=== PATIENT | female | born 1985 | race Caucasian/White ===

== ENCOUNTER 2017-07-16 21:02 | Emergency (ER) | payer SELFPAY ==
[~2017-07-16] VITALS: Ht 157.5 cm; Wt 76.0 kg
[~2017-07-16 21:02] MED LIST: CEPH500C3 PO; CLIN150 PO; LORTA5 PO; SULF-154 PO
[2017-07-16 21:03] VITALS: BP 122/72; PULSE 103; RESP 16; TEMP 99.2; O2SAT 100
[2017-07-16] MEDS ORDERED: BACT400T PO (21:24)
--- NOTE | 2017-07-16 21:39 | PD ---
HPI Chief Complaint: Skin Problem Time Seen by Provider: 21:38 Travel History International Travel<30 days: No Contact w/Intl Traveler<30days: No Traveled to known affect area: No History of Present Illness HPI 32-year-old female came to the emergency room with history of left forearm abscess for past 1 week. As that she shot meth but missed the vein. Since then it has slowly started to get bigger in size. She has been getting some chills. In triage her temperature was 99.5 and slightly tachycardic. Patient denies any history of MRSA. She does have hepatitis C. She got tested for HIV 2-3 months ago and was negative. [facility] Past Medical History Narrative Medical List of her past medical, surgical, social and family history is reviewed from the nursing note. Diminished Hearing: No Integumentary: Yes (FRUNCULOSIS) Tetanus Vaccination: Unknown Influenza Vaccination: No ?: Not LMP: 07/11/17 : 3 Para: 2 : 1 Tubal Ligation: Yes Past Surgical History Section: Yes (X3) Social History Alcohol Use: No (DENIES) Tobacco Use: Yes (1 PPD) Substance Use: Yes (Meth IV. Hx Oxycodone and IV dilaudid) Allergies-Medications (Allergen,Severity, Reaction): Coded Allergies: acetaminophen (Unverified Allergy, Severe, "LOOPY", 06/24/17) propoxyphene (Unverified Allergy, Severe, "LOOPY", 06/24/17) Fish Containing Products (Unverified Allergy, Intermediate, 06/24/17) butorphanol (Unverified Allergy, Intermediate, HALUCINATIONS, 06/24/17) Comments List of her allergies reviewed from the nursing note. Reported Meds & Prescriptions Reported Meds & Active Scripts Active Zofran Odt (Ondansetron Odt) 4 Mg Tab 4 Mg SL Q6HR PRN Bactrim DS (Sulfamethoxazole-Trimethoprim) 800-160 Mg Tab 1 Tab PO BID Reported Bactrim (Sulfamethoxazole-Trimethoprim) 400-80 Mg Tab 1 Tab PO BID Narrative Medication List of her home medications reviewed from the nursing note. Review of Systems Except as stated in HPI: all other systems reviewed are Neg Physical Exam Narrative GENERAL: Awake, alert, mild distress SKIN: Focused skin assessment warm/dry. Left forearm on the extensor surface there is a 5 x 5 cm tender and fluctuant abscess with surrounding erythema HEAD: Atraumatic. Normocephalic. EYES: Pupils equal and round. No scleral icterus. No injection or drainage. ENT: No nasal bleeding or discharge. Mucous membranes pink and moist. NECK: Trachea midline. No JVD. CARDIOVASCULAR: Regular rate and rhythm. No murmur appreciated. RESPIRATORY: No accessory muscle use. Clear to auscultation. Breath sounds equal bilaterally. GASTROINTESTINAL: Abdomen soft, non-tender, nondistended. Hepatic and splenic margins not palpable. MUSCULOSKELETAL: No obvious deformities. No clubbing. No cyanosis. No edema. NEUROLOGICAL: Awake and alert. No obvious cranial nerve deficits. Motor grossly within normal limits. Normal speech. PSYCHIATRIC: Appropriate mood and affect; insight and judgment normal. Data Data Last Documented VS Orders Orders Complete Blood Count With Diff (07/16/17 21:41) Comprehensive Metabolic Panel (07/16/17 21:41) Lactic Acid Sepsis Protocol (07/16/17 21:41) Urinalysis - C+S If Indicated (07/16/17 21:41) Blood Culture (07/16/17 21:41) Blood Glucose (07/16/17 21:41) Ecg Monitoring (07/16/17 21:41) Iv Access Insert/Monitor (07/16/17 21:41) Oximetry (07/16/17 21:41) Oxygen Administration (07/16/17 21:41) Sodium Chlor 0.9% 1000 Ml Inj (Ns 1000 M (07/16/17 21:41) Sodium Chlor 0.9% 1000 Ml Inj (Ns 1000 M (07/16/17 21:41) Sodium Chlor 0.9% 1000 Ml Inj (Ns 1000 M (07/16/17 21:41) Vancomycin Inj (Vancomycin Inj) (07/16/17 21:45) Wound Culture And Gram Stain (07/16/17 21:41) Morphine Inj (Morphine Inj) (07/16/17 23:00) Ondansetron Inj (Zofran Inj) (07/17/17 00:15) Labs Laboratory Tests Test 07/16/17 21:40 07/16/17 21:50 Lactic Acid Level 1.1 mmol/L White Blood Count 6.8 TH/MM3 Red Blood Count 4.46 MIL/MM3 Hemoglobin 12.0 GM/DL Hematocrit 36.0 % Mean Corpuscular Volume 80.6 FL Mean Corpuscular Hemoglobin 26.9 PG Mean Corpuscular Hemoglobin Concent 33.3 % Red Cell Distribution Width 13.6 % Platelet Count 351 TH/MM3 Mean Platelet Volume 6.9 FL Neutrophils (%) (Auto) 54.9 % Lymphocytes (%) (Auto) 31.4 % Monocytes (%) (Auto) 10.8 % Eosinophils (%) (Auto) 2.1 % Basophils (%) (Auto) 0.8 % Neutrophils # (Auto) 3.7 TH/MM3 Lymphocytes # (Auto) 2.1 TH/MM3 Monocytes # (Auto) 0.7 TH/MM3 Eosinophils # (Auto) 0.1 TH/MM3 Basophils # (Auto) 0.1 TH/MM3 CBC Comment DIFF FINAL Differential Comment Urine Color YELLOW Urine Turbidity HAZY Urine pH 6.0 Urine Specific [place] 1.031 Urine Protein TRACE mg/dL Urine Glucose (UA) NEG mg/dL Urine Ketones NEG mg/dL Urine Occult Blood NEG Urine Nitrite NEG Urine Bilirubin NEG Urine Urobilinogen 4.0 MG/DL Urine Leukocyte Esterase NEG Urine RBC 2 /hpf Urine WBC 3 /hpf Urine Squamous Epithelial Cells 6 /hpf Urine Mucus FEW /lpf Microscopic Urinalysis Comment CATH-CULT NOT IND Blood Urea Nitrogen 11 MG/DL Creatinine 0.91 MG/DL Random Glucose 92 MG/DL Total Protein 8.4 GM/DL Albumin 3.5 GM/DL Calcium Level 8.6 MG/DL Alkaline Phosphatase 87 U/L Aspartate Amino Transf (AST/SGOT) 11 U/L Alanine Aminotransferase (ALT/SGPT) 37 U/L Total Bilirubin 0.3 MG/DL Sodium Level 137 MEQ/L Potassium Level 3.4 MEQ/L Chloride Level 100 MEQ/L Carbon Dioxide Level 28.2 MEQ/L Anion Gap 9 MEQ/L Estimat Glomerular Filtration Rate 71 ML/MIN MDM Medical Decision Making Medical Screen Exam Complete: Yes Emergency Medical Condition: Yes Medical Record Reviewed: Yes Differential Diagnosis Abscess Narrative Course 11:03 PM blood test results of back and within acceptable limits. Patient was given IV vancomycin and fluid as per sepsis protocol initially. I have I and D the abscess. Please refer to my procedure note. Patient has been given pain medication and she will be discharged home on Bactrim. Procedures Procedure Narrative Abscess incision and drainage: The abscess was infiltrated with 4 mL of 1% lidocaine. A vertical incision was made with #10 scalpel blade and with the forceps the loculations were broken. Copious amount of purulent discharge came out. Probably a total of 20 mL. Once all the purulent material was taken out packing with quarter-inch iodoform gauze was done. The wound was dressed with dry dressing. Patient overall tolerated good. Culture by swab was collected and sent. EKG Prior to Arrival: No Diagnosis Primary Impression: Abscess Additional Impression: IV drug abuse Referrals: Primary Care Physician Additional Instructions: Please return in 48 hours to get the packing taken out and wound rechecked. Earlier if the symptoms worsen or any other new concerns. Take the antibiotic as per the prescription direction. Med/Other Pt SpecificInfo: Prescription(s) given Scripts Ondansetron Odt (Zofran Odt) 4 Mg Tab 4 MG SL Q6HR Y for Nausea/Vomiting, #15 TAB 0 Refills Prov: Urmila Davis MD 07/16/17 Sulfamethoxazole-Trimethoprim (Bactrim DS) 800-160 Mg Tab 1 TAB PO BID for Infection, #20 TAB 0 Refills Prov: Urmila Davis MD 07/16/17 Disposition: 01 DISCHARGE HOME Condition: Stable Urmila Davsi MD Jul 16, 2017 21:39
[2017-07-16] MEDS ORDERED: SODIUM CHLOR 0.9% 1000 ML INJ 1,000 ML IV ONE ×2 (21:41)
[2017-07-16] MEDS ORDERED: SODIUM CHLOR 0.9% 1000 ML INJ 400 ML IV ONE (21:41)
[2017-07-16] MEDS ORDERED: VANCOMYCIN INJ 1,000 MG in SODIUM CHLOR 0.9% 250 ML INJ 250 ML IV ONE (21:45)
[2017-07-16 22:19] LABS: BLOOD, URINE NEG (NEG); GLUCOSE,URINE NEG (NEG); KETONE, URINE NEG (NEG); MUCUS URINE FEW /lpf (OCC); NITRITE,URINE NEG (NEG); SQUAMOUS EPITHELIAL CELL URINE 6 /hpf (0-5); URINE COLOR YELLOW (YELLW/STRAW)
[2017-07-16 22:20] LABS: AUTOMATED NEUTROPHIL # 3.7 TH/MM3 (1.8-7.7); BASOPHIL # 0.1 TH/MM3 (0-0.2); BASOPHIL % 0.8 % (0.0-2.0); COMMENT (UR) CATH-CULT NOT IND; CULTURE IF INDICATED CATH CULTURE NOT IND; EOSINOPHIL # 0.1 TH/MM3 (0-0.4); EOSINOPHIL % 2.1 % (0.0-4.0); HEMO FLAGS DIFF FINAL; LYMPH % 31.4 % (9.0-44.0); LYMPHOCYTE # 2.1 TH/MM3 (1.0-4.8); MEAN CELL VOLUME 80.6 FL (80.0-100.0); MEAN CORPUSCULAR HEMOGLOBIN 26.9 PG (27.0-34.0); MEAN CORPUSCULAR HGB CONC 33.3 % (32.0-36.0); MONO % 10.8 % (0.0-8.0); NEUT % 54.9 % (16.0-70.0); PLATELET COUNT 351 TH/MM3 (150-450); RED BLOOD COUNT 4.46 MIL/MM3 (4.00-5.30); RED CELL DISTRIBUTION WIDTH 13.6 % (11.6-17.2); WHITE BLOOD COUNT 6.8 TH/MM3 (4.0-11.0)
[2017-07-16 22:39] LABS: ANION GAP 9 MEQ/L (5-15); AST (GOT) 11 U/L (15-37); BICARBONATE 28.2 MEQ/L (21.0-32.0); BLOOD UREA NITROGEN 11 MG/DL (7-18); CHLORIDE 100 MEQ/L (98-107); GLOMERULAR FILTRATION RATE 71 ML/MIN (>89); POTASSIUM 3.4 MEQ/L (3.5-5.1); SODIUM (NA) 137 MEQ/L (136-145)
[2017-07-16 22:40] LABS: ALT (GPT) 37 U/L (10-53)
[2017-07-16 22:42] LABS: ALKALINE PHOSPHATASE 87 U/L (45-117); TOTAL BILIRUBIN ADULT 0.3 MG/DL (0.2-1.0)
[2017-07-16] MEDS ORDERED: MORPHINE SULFATE 8 MG/ML INJ IV PUSH ONE (23:00)
[2017-07-16] MEDS ORDERED: BACT800T5 PO (23:07)
[2017-07-16] MEDS ORDERED: ZOFR4TAB3 SL (23:10)
[2017-07-17] MEDS ORDERED: ONDANSETRON HCL 4 MG/2 ML VIAL IV PUSH ONE (00:15)
== END 2017-07-17 02:20 | disposition home or self-care (01) ==
LOC: NEPD 21:02
DX: L02.414 Cutaneous abscess of left upper limb (principal); A49.1 Streptococcal infection, unspecified site; F15.10 Other stimulant abuse, uncomplicated; R00.0 Tachycardia, unspecified; B19.20 Unspecified viral hepatitis C without hepatic coma; F17.200 Nicotine dependence, unspecified, uncomplicated; Z79.899 Other long term (current) drug therapy; Z88.8 Allergy status to other drugs, medicaments and biological substances
CPT/HCPCS: 10061; 80053; 81001; 83605; 85025; 86403; 87040; 87070; 96361; 96365; 96375; 99284; J2270; J2405; J3370; J7030; J7050; 87205

== ENCOUNTER 2017-10-25 20:08 | Inpatient (IN) | payer SELFPAY ==
[~2017-10-25] VITALS: Ht 157.5 cm; Wt 72.9 kg
[~2017-10-25 20:08] MED LIST changes: +BACT400T PO; +BACT800T5 PO; -CEPH500C3 PO; -CLIN150 PO; -LORTA5 PO; -SULF-154 PO; +ZOFR4TAB3 SL
[2017-10-25 20:10] VITALS: BP 111/64; PULSE 138; RESP 20; TEMP 101.2; O2SAT 95
[2017-10-25] MEDS ORDERED: SODIUM CHLOR 0.9% 1000 ML INJ 1,000 ML IV SCH ×2 (20:20)
--- NOTE | 2017-10-25 20:20 | PD ---
HPI Chief Complaint: Respiratory Distress Time Seen by Provider: 20:15 Travel History International Travel<30 days: No Contact w/Intl Traveler<30days: No Traveled to known affect area: No History of Present Illness HPI This is a 32-year-old female with history of IV drug abuse presents for evaluation of cough, congestion, left-sided chest pain, nausea, vomiting, fevers. Symptoms initially started 2 weeks ago. The pain is a sharp pain in left side of her chest which is constant, worse with deep inspiration. Cough is productive with green/yellow sputum. Denies abdominal pain, rash, sore throat, dysuria. No other complaints. PFSH Past Medical History Medical History: Denies Significant Hx Diminished Hearing: No Integumentary: Yes (FRUNCULOSIS) ?: Not LMP: 2 WEEKS AGO : 3 Para: 2 : 1 Tubal Ligation: Yes Past Surgical History Section: Yes (X3) Social History Alcohol Use: Yes (OCC) Tobacco Use: Yes (1 PPD) Substance Use: Yes (Meth IV. Hx Oxycodone and IV dilaudid FEW WEEKS AGO ) Allergies-Medications (Allergen,Severity, Reaction): Coded Allergies: acetaminophen (Unverified Allergy, Severe, "LOOPY", 10/25/17) propoxyphene (Unverified Allergy, Severe, "LOOPY", 10/25/17) Fish Containing Products (Unverified Allergy, Intermediate, 10/25/17) butorphanol (Unverified Allergy, Intermediate, HALUCINATIONS, 10/25/17) Reported Meds & Prescriptions Reported Meds & Active Scripts Active No Active Prescriptions or Reported Medications Review of Systems Except as stated in HPI: all other systems reviewed are Neg Physical Exam Narrative GENERAL: Well-developed well-nourished female who appears uncomfortable on initial examination. She is tachycardic, febrile. SKIN: Warm and dry. Tract waddell noted on the arms. HEAD: Atraumatic. Normocephalic. EYES: Pupils equal and round. No scleral icterus. No injection or drainage. ENT: No nasal bleeding or discharge. Mucous membranes pink and moist. NECK: Trachea midline. No JVD. CARDIOVASCULAR: Regular rate and rhythm. No murmur appreciated. RESPIRATORY: No accessory muscle use. Clear to auscultation. Breath sounds equal bilaterally. GASTROINTESTINAL: Abdomen soft, non-tender, nondistended. Hepatic and splenic margins not palpable. MUSCULOSKELETAL: No obvious deformities. No edema. NEUROLOGICAL: Awake and alert. No obvious cranial nerve deficits. Motor grossly within normal limits. Normal speech. PSYCHIATRIC: Appropriate mood and affect; insight and judgment normal. Data Data Last Documented VS Vital Signs Date Time Temp Pulse Resp B/P (MAP) Pulse Ox O2 Delivery O2 Flow Rate FiO2 10/25/17 20:10 101.2 138 20 111/64 (80) 95 Room Air Orders Orders Sepsis Workup Initiated (10/25/17 ) Complete Blood Count With Diff (10/25/17 20:20) Comprehensive Metabolic Panel (10/25/17 20:20) Lactic Acid Sepsis Protocol (10/25/17 20:20) Lipase (10/25/17 20:20) Ckmb (Isoenzyme) Profile (10/25/17 20:20) Troponin I (10/25/17 20:20) Urinalysis - C+S If Indicated (10/25/17 20:20) Influenzae A/B Antigen (10/25/17 20:20) Blood Culture (10/25/17 20:20) Chest, Single Ap (10/25/17 20:20) Blood Glucose (10/25/17 20:20) Ecg Monitoring (10/25/17 20:20) Iv Access Insert/Monitor (10/25/17 20:20) Oximetry (10/25/17 20:20) Oxygen Administration (10/25/17 20:20) Ed Urine Pregnancytest Poc (10/25/17 20:20) Electrocardiogram (10/25/17 ) Sodium Chlor 0.9% 1000 Ml Inj (Ns 1000 M (10/25/17 20:20) Sodium Chlor 0.9% 1000 Ml Inj (Ns 1000 M (10/25/17 20:20) Ct Pulmonary Angiogram (10/25/17 20:20) Influenzae A/B Antigen (10/25/17 20:25) Vancomycin Inj (Vancomycin Inj) (10/25/17 20:45) Piperacil-Tazo 3.375 Gm Premix (Zosyn 3. (10/25/17 20:45) Iohexol 350 Inj (Omnipaque 350 Inj) (10/25/17 22:28) Ibuprofen (Motrin) (10/25/17 22:45) Labs Laboratory Tests Test 10/25/17 20:30 White Blood Count 12.3 TH/MM3 Red Blood Count 4.04 MIL/MM3 Hemoglobin 9.3 GM/DL Hematocrit 29.1 % Mean Corpuscular Volume 72.1 FL Mean Corpuscular Hemoglobin 23.1 PG Mean Corpuscular Hemoglobin Concent 32.1 % Red Cell Distribution Width 16.7 % Platelet Count 294 TH/MM3 Mean Platelet Volume 7.8 FL Neutrophils (%) (Auto) 89.6 % Lymphocytes (%) (Auto) 7.5 % Monocytes (%) (Auto) 2.5 % Eosinophils (%) (Auto) 0.0 % Basophils (%) (Auto) 0.4 % Neutrophils # (Auto) 11.0 TH/MM3 Lymphocytes # (Auto) 0.9 TH/MM3 Monocytes # (Auto) 0.3 TH/MM3 Eosinophils # (Auto) 0.0 TH/MM3 Basophils # (Auto) 0.1 TH/MM3 CBC Comment DIFF FINAL Differential Comment Blood Urea Nitrogen 10 MG/DL Creatinine 0.98 MG/DL Random Glucose 132 MG/DL Total Protein 8.0 GM/DL Albumin 2.4 GM/DL Calcium Level 8.2 MG/DL Alkaline Phosphatase 67 U/L Aspartate Amino Transf (AST/SGOT) 39 U/L Alanine Aminotransferase (ALT/SGPT) 20 U/L Total Bilirubin 0.5 MG/DL Sodium Level 127 MEQ/L Potassium Level 3.9 MEQ/L Chloride Level 96 MEQ/L Carbon Dioxide Level 22.1 MEQ/L Anion Gap 9 MEQ/L Estimat Glomerular Filtration Rate 65 ML/MIN Lactic Acid Level 1.5 mmol/L Total Creatine Kinase 41 U/L Troponin I 0.06 NG/ML Lipase 66 U/L [facility] Medical Decision Making Medical Screen Exam Complete: Yes Emergency Medical Condition: Yes Medical Record Reviewed: Yes Differential Diagnosis Pneumonia, endocarditis, septic emboli, influenza, sepsis Narrative Course 32-year-old female with history of IV drug abuse presents with 2 weeks of cough , left-sided chest pain, fevers and chills, nausea and vomiting. On initial examination she is tachycardic, tachypneic, febrile. The patient was placed on ECG monitoring pulse oximetry. Twelve-lead EKG obtained. Plan is for lab work , blood cultures, chest x-ray, influenza antigen. She will be given 2 L of IV fluids. CBC reveals WBC count of 12.3 with 89.6% neutrophils, sodium 127, chloride 96, troponin 0.06. Influenza is negative. CT pulmonary angiogram is negative for pulmonary embolism however there is a wedge-shaped consolidation in the lingula with cavitation. Findings are characteristic of a cavitary pneumonia possibly due to septic embolic disease. There is a large suspected infarct and anterior spleen. The patient received IV vancomycin and Zosyn. Discussed with Dr. Maloney who is agreeable with admission. Diagnosis Primary Impression: IV drug abuse Additional Impressions: Sepsis Cavitary pneumonia Splenic infarct Admitting Information Admitting Physician Requests: Admit Scripts No Active Prescriptions or Reported Meds Gio Hwang Oct 25, 2017 20:20
[2017-10-25 20:35] VITALS: RESP 19; O2SAT 100
[2017-10-25] MEDS ORDERED: PIPERACIL-TAZO 3.375 GM PREMIX 50 ML IV ONE (20:45)
[2017-10-25] MEDS ORDERED: VANCOMYCIN INJ 1,000 MG in SODIUM CHLOR 0.9% 250 ML INJ 250 ML IV ONE (20:45)
[2017-10-25 20:58] LABS: BASOPHIL # 0.1 TH/MM3 (0-0.2); BASOPHIL % 0.4 % (0.0-2.0); HEMATOCRIT 29.1 % (35.0-46.0); HEMOGLOBIN 9.3 GM/DL (11.6-15.3); LYMPH % 7.5 % (9.0-44.0); LYMPHOCYTE # 0.9 TH/MM3 (1.0-4.8); MEAN CELL VOLUME 72.1 FL (80.0-100.0); MEAN CORPUSCULAR HEMOGLOBIN 23.1 PG (27.0-34.0); MEAN CORPUSCULAR HGB CONC 32.1 % (32.0-36.0); MEAN PLATELET VOLUME 7.8 FL (7.0-11.0); MONO % 2.5 % (0.0-8.0); MONOCYTE # 0.3 TH/MM3 (0-0.9); NEUT % 89.6 % (16.0-70.0); PLATELET COUNT 294 TH/MM3 (150-450); RED BLOOD COUNT 4.04 MIL/MM3 (4.00-5.30); RED CELL DISTRIBUTION WIDTH 16.7 % (11.6-17.2); WHITE BLOOD COUNT 12.3 TH/MM3 (4.0-11.0)
--- NOTE | 2017-10-25 21:07 | RADRPT ---
EXAM DATE/TIME: 10/25/2017 20:36 [facility] COMPARISON: No previous studies available for comparison. INDICATIONS : Cough. MEDICAL HISTORY : None. SURGICAL HISTORY : Tubal ligation. ENCOUNTER: Initial ACUITY: 2 weeks PAIN SCORE: 10/10 LOCATION: Bilateral chest FINDINGS: There is parenchymal opacity left perihilar region. CT pending. Right lung relatively clear. No effus ion. Heart size within normal limits. CONCLUSION: 1. Left perihilar parenchymal opacity. CT pulmonary angiogram pending. No effusions. Christophe Hagen MD on October 25, 2017 at 21:04 Board Certified Radiologist. This report was verified electronically.
[2017-10-25 21:10] LABS: ALT (GPT) 20 U/L (10-53)
[2017-10-25 21:16] LABS: ALBUMIN 2.4 GM/DL (3.4-5.0); ALKALINE PHOSPHATASE 67 U/L (45-117); AST (GOT) 39 U/L (15-37); BICARBONATE 22.1 MEQ/L (21.0-32.0); BLOOD UREA NITROGEN 10 MG/DL (7-18); CALCIUM 8.2 MG/DL (8.5-10.1); CHLORIDE 96 MEQ/L (98-107); CREATININE 0.98 MG/DL (0.50-1.00); GLOMERULAR FILTRATION RATE 65 ML/MIN (>89); GLUCOSE,RANDOM 132 MG/DL (74-106); LIPASE 66 U/L (73-393); SODIUM (NA) 127 MEQ/L (136-145); TOTAL BILIRUBIN ADULT 0.5 MG/DL (0.2-1.0); TROPONIN I 0.06 NG/ML (0.02-0.05)
[2017-10-25] MEDS ORDERED: IOHEXOL 350 MG/ML 10 ML VIAL (for RAD DIAG) IVCONTRAST ONE (22:28)
--- NOTE | 2017-10-25 22:42 | RADRPT ---
EXAM DATE/TIME: 10/25/2017 22:24 [facility] COMPARISON: No previous studies available for comparison. INDICATIONS : Left sided chest pain X 2 weeks. IV CONTRAST: 76 cc Omnipaque 350 (iohexol) IV RADIATION DOSE: 23.38 CTDIvol (mGy) MEDICAL HISTORY : IV drug abuse SURGICAL HISTORY : None. ENCOUNTER: Initial ACUITY: 2 weeks PAIN SCALE: 5/10 LOCATION: chest TECHNIQUE: Volumetric scanning of the chest was performed using a pulmonary embolism protocol MIP images were re constructed. Using automated exposure control and adjustment of the mA and/or kV according to patien t size, radiation dose was kept as low as reasonably achievable to obtain optimal diagnostic quality images. DICOM format image data is available electronically for review and comparison. Follow-up recommendations for detected pulmonary nodules are based at a minimum on nodule size and pa tient risk factors according to Fleischner Society Guidelines. FINDINGS: There is a wedge-shaped focal consolidation in the lingula of the left upper lobe associated with cav itation. No other dense consolidation in the lungs. Minimal dependent atelectasis. No filling defects to suggest pulmonary embolic disease. Upper abdomen reveals a large wedge shaped perfusion defect in the spleen most characteristic of a sp lenic infarct. CONCLUSION: 1. Negative for pulmonary embolus on CTA. 2. Wedge-shaped consolidation in the lingula with cavitation. Findings characteristic of a cavitary p neumonia possibly due to septic embolic disease. There is a large suspected infarct in the anterior s pleen. Christophe Hagen MD on October 25, 2017 at 22:36 Board Certified Radiologist. This report was verified electronically.
[2017-10-25] MEDS ORDERED: IBUPROFEN 400 MG TAB PO ONE (22:45)
--- NOTE | 2017-10-25 22:59 | HHI.HP ---
[facility] No Primary Care Physician Admission Diagnosis sepsis, cavitary pneumonia, IVDU, splenic infarct Diagnoses: (1) Sepsis Diagnosis: Principal (2) Cavitary pneumonia Diagnosis: Principal (3) Splenic infarct Diagnosis: Principal (4) Elevated troponin Diagnosis: Principal (5) IVDU (intravenous drug user) Diagnosis: Principal (6) Tobacco abuse Diagnosis: Principal (7) Anemia Diagnosis: Principal Travel History International Travel<30 Days: No Contact w/Intl Traveler <30 Da: No Traveled to Known Affected Are: No History of Present Illness This is a 32-year-old female with a PMH of IVDU and Tobacco Abuse who presented to the ER with complaints of cough and chest pain for approx 2 wks. States symptoms have been persistent, now progressively worse. Reports occasional fevers/chills. +Ongoing IVDU. On arrival, BP 111/64, HR 138, O2 sat 95% on RA , Temp 101.2. WBC 12.3. Hemoglobin 9.3, previously 12.0 on 07/16/17. Lactic Acid 1.5. Troponin 0.06. CXR with left perihilar parenchymal opacity. CTA Pulm negative for PE, noted to have wedge-shaped consolidation in the lingula with cavitation, findings characteristic of cavitary pneumonia probably due to septic embolic disease, suspected large infarct in anterior spleen. S/p Blood Cultures, Vanc/Zosyn in addition to 2L IVF in ER. Review of Systems Except as stated in HPI: all other systems reviewed are Neg ROS: 14 point review of systems otherwise negative. Past Family Social History Past Medical History PMH: IVDU and Tobacco Abuse Past Surgical History PAST SURGICAL HISTORY: Allergies: Coded Allergies: acetaminophen (Unverified Allergy, Severe, "LOOPY", 10/25/17) propoxyphene (Unverified Allergy, Severe, "LOOPY", 10/25/17) Fish Containing Products (Unverified Allergy, Intermediate, 10/25/17) butorphanol (Unverified Allergy, Intermediate, HALUCINATIONS, 10/25/17) Family History PAST FAMILY HISTORY: Reviewed. No h/o DM or CAD Social History PAST SOCIAL HISTORY: Negative for alcohol. Smokes 1ppd. +IVDU Methamphetamines, Dilaudid Physical Exam Vital Signs Vital Signs Date Time Temp Pulse Resp B/P (MAP) Pulse Ox O2 Delivery O2 Flow Rate FiO2 10/25/17 20:10 101.2 138 20 111/64 (80) 95 Room Air Physical Exam PE: GENERAL: Young female in no acute distress. HEENT: PERRLA, EOMI. No scleral icterus or conjunctival pallor. No lid lag or facial droop. CARDIOVASCULAR: Regular rate and rhythm. No obvious murmurs to auscultation. No chest tenderness to palpation. RESPIRATORY: No obvious rhonchi or wheezing. Clear to auscultation. Breath sounds equal bilaterally. GASTROINTESTINAL: Abdomen soft, non-tender, nondistended. BS normal. MUSCULOSKELETAL: Extremities without clubbing, cyanosis, or edema. No obvious deformities. +track waddell. Pulses intact. NEUROLOGICAL: Awake, alert and oriented x4. No focal neurologic deficits. Moving both upper and lower extremities spontaneously. Laboratory Laboratory Tests Test 10/25/17 20:30 White Blood Count 12.3 Red Blood Count 4.04 Hemoglobin 9.3 Hematocrit 29.1 Mean Corpuscular Volume 72.1 Mean Corpuscular Hemoglobin 23.1 Mean Corpuscular Hemoglobin Concent 32.1 Red Cell Distribution Width 16.7 Platelet Count 294 Mean Platelet Volume 7.8 Neutrophils (%) (Auto) 89.6 Lymphocytes (%) (Auto) 7.5 Monocytes (%) (Auto) 2.5 Eosinophils (%) (Auto) 0.0 Basophils (%) (Auto) 0.4 Neutrophils # (Auto) 11.0 Lymphocytes # (Auto) 0.9 Monocytes # (Auto) 0.3 Eosinophils # (Auto) 0.0 Basophils # (Auto) 0.1 CBC Comment DIFF FINAL Differential Comment Blood Urea Nitrogen 10 Creatinine 0.98 Random Glucose 132 Total Protein 8.0 Albumin 2.4 Calcium Level 8.2 Alkaline Phosphatase 67 Aspartate Amino Transf (AST/SGOT) 39 Alanine Aminotransferase (ALT/SGPT) 20 Total Bilirubin 0.5 Sodium Level 127 Potassium Level 3.9 Chloride Level 96 Carbon Dioxide Level 22.1 Anion Gap 9 Estimat Glomerular Filtration Rate 65 Lactic Acid Level 1.5 Total Creatine Kinase 41 Troponin I 0.06 Lipase 66 Date/Time Source Procedure Growth Status 12/16/17 20:30 Blood Peripheral Aerobic Blood Culture Pending Received 10/25/17 20:30 Blood Peripheral Anaerobic Blood Culture Pending Received 10/25/17 21:00 Nasal Aspirate Influenza Types A,B Antigen (JONNY) - Final NEGATIVE FOR FLU A AND B ANTIGEN.... Complete Result Diagram: 10/25/17202910/25/172029 Caprini VTE Risk Assessment Caprini VTE Risk Assessment: No/Low Risk (score <= 1) Caprini Risk Assessment Model Point Value = 1 Point Value = 2 Point Value = 3 Point Value = 5 Age 41-60 Minor surgery BMI > 25 kg/m2 Swollen legs Varicose veins or History of unexplained or recurrent spontaneous Oral contraceptives or hormone replacement Sepsis (< 1 month) Serious lung disease, including pneumonia (< 1 month) Abnormal pulmonary function Acute myocardial infarction Congestive heart failure (< 1 month) History of inflammatory bowel disease Medical patient at bed rest Age 61-74 Arthroscopic surgery Major open surgery (> 45 min) Laparoscopic surgery (> 45 min) Malignancy Confined to bed (> 72 hours) Immobilizing plaster cast Central venous access Age >= 75 History of VTE Family history of VTE Factor V Leiden Prothrombin [id number] Lupus anticoagulant Anticardiolipin antibodies Elevated serum homocysteine Heparin-induced thrombocytopenia Other congenital or acquired thrombophilia Stroke (< 1 month) Elective arthroplasty Hip, pelvis, or leg fracture Acute spinal cord injury (< 1 month) Prophylaxis Regimen Total Risk Factor Score Risk Level Prophylaxis Regimen 0-1 Low Early ambulation 2 Moderate Order ONE of the following: *Sequential Compression Device (SCD) *Heparin 5000 units SQ BID 3-4 Higher Order ONE of the following medications: *Heparin 5000 units SQ TID *Enoxaparin/Lovenox 40 mg SQ daily (WT < 150 kg, CrCl > 30 mL/min) *Enoxaparin/Lovenox 30 mg SQ daily (WT < 150 kg, CrCl > 10-29 mL/min) *Enoxaparin/Lovenox 30 mg SQ BID (WT < 150 kg, CrCl > 30 mL/min) AND/OR *Sequential Compression Device (SCD) 5 or more Highest Order ONE of the following medications: *Heparin 5000 units SQ TID (Preferred with Epidurals) *Enoxaparin/Lovenox 40 mg SQ daily (WT < 150 kg, CrCl > 30 mL/min) *Enoxaparin/Lovenox 30 mg SQ daily (WT < 150 kg, CrCl > 10-29 mL/min) *Enoxaparin/Lovenox 30 mg SQ BID (WT < 150 kg, CrCl > 30 mL/min) AND *Sequential Compression Device (SCD) Assessment and Plan Problem List: (1) Sepsis ICD Code: A41.9 - Sepsis, unspecified organism Status: Acute (2) Cavitary pneumonia ICD Code: J18.9 - Pneumonia, unspecified organism; J98.4 - Other disorders of lung Status: Acute (3) Elevated troponin ICD Code: R74.8 - Abnormal levels of other serum enzymes (4) Splenic infarct ICD Code: D73.5 - Infarction of spleen Status: Acute (5) IVDU (intravenous drug user) ICD Code: F19.90 - Other psychoactive substance use, unspecified, uncomplicated (6) Anemia ICD Code: D64.9 - Anemia, unspecified (7) Tobacco abuse ICD Code: Z72.0 - Tobacco use Assessment and Plan A/P: 1. Sepsis: Temp 101.3, HR 130's, WBC 12.3, Source-PNA/Septic Emboli. S/p Blood Cultures, Vanc/Zosyn in ER. Follow up cultures, continue IV Abx. 2. Cavitary PNA: CXR w/ perihilar opacity, CTA Pulm negative for PE however noted to have cavitary pneumonia, likely from septic emboli, images reviewed by me. +IVDU. Follow up cultures, continue IV Abx, Consult ID for further recommendations. 3. Elevated Trop: Trop 0.06, possibly cardiac strain from septic emboli. Check serial cardiac enzymes, check Echo. NTG/Morphine if needed. 4. Splenic Infarct: CTA Pulm w/ possible large splenic infarct, likely from IVDU and septic emboli. 5. Anemia: Hgb 9.3, previously 12.0 on 07/16/17, likely due to above. Will monitor, repeat Hgb, transfuse as needed. 6. IVDU: Ongoing. Versed prn 7. Tobacco Abuse: Pt counselled. NicoDerm prn if needed. 8. DVT Prophylaxis: SCD/Teds. 9. Social work for d/c planning as needed. 10. Case discussed w/ ER physician at length. Physician Certification 2 Midnight Certification Type: Admission for Inpatient Services Order for Inpatient Services The services are ordered in accordance with Medicare regulations or non- Medicare payer requirements, as applicable. In the case of services not specified as inpatient-only, they are appropriately provided as inpatient services in accordance with the 2-midnight benchmark. Estimated LOS (days): 2 days is the estimated time the patient will need to remain in the hospital, assuming treatment plan goals are met and no additional complications. Post-Hospital Plan: Not yet determined Amanda Maloney MD Oct 25, 2017 22:59
[2017-10-25] MEDS ORDERED: SENNOSIDES 8.6 MG TAB PO PRN (23:00)
[2017-10-25] MEDS ORDERED: BISACODYL 10 MG SUPP RECTAL PRN (23:00)
[2017-10-25] MEDS ORDERED: ONDANSETRON HCL 4 MG/2 ML VIAL IVP PRN (23:00)
[2017-10-25] MEDS ORDERED: LACTULOSE SYRUP 20 GM/30 ML CUP PO PRN (23:00)
[2017-10-25] MEDS ORDERED: LORazepam 1 MG TAB PO PRN (23:00)
[2017-10-25] MEDS ORDERED: Vancomycin Consult Pharmacy 1 EA OTHER SCH (23:00)
[2017-10-25] MEDS ORDERED: SODIUM CHLORIDE 0.9% FLUSH 10 ML FLUSH IV FLUSH PRN (23:00)
[2017-10-25] MEDS ORDERED: MAGNESIUM HYDROXIDE SUSP 30 ML CUP PO PRN (23:00)
[2017-10-26] VITALS (10 sets, daily range): BP systolic 80–128; BP diastolic 44–67; PULSE 87–113; RESP 16–22; TEMP 96.9–98.3; O2SAT 94–99
[2017-10-26] MEDS: SODIUM CHLOR 0.9% 1000 ML INJ 1,000 ML IV SCH ×3 (00:03→18:40)
[2017-10-26 01:58] LABS: BILIRUBIN, URINE NEG (NEG); BLOOD, URINE SMALL (NEG); GLUCOSE,URINE NEG (NEG); KETONE, URINE NEG (NEG); MUCUS URINE FEW /lpf (OCC); NITRITE,URINE NEG (NEG); SQUAMOUS EPITHELIAL CELL URINE 1 /hpf (0-5); URINE COLOR YELLOW (YELLW/STRAW); URINE LEUKOCYTE ESTERASE TRACE (NEG)
[2017-10-26] MEDS ORDERED: SODIUM CHLOR 0.9% 1000 ML INJ 1,000 ML IV ONE ×3 (02:45→06:45)
[2017-10-26 07:49] LABS: AUTOMATED NEUTROPHIL # 8.6 TH/MM3 (1.8-7.7); BASOPHIL # 0.1 TH/MM3 (0-0.2); BASOPHIL % 0.5 % (0.0-2.0); HEMATOCRIT 25.9 % (35.0-46.0); HEMOGLOBIN 8.5 GM/DL (11.6-15.3); LYMPH % 9.9 % (9.0-44.0); MEAN CORPUSCULAR HEMOGLOBIN 23.9 PG (27.0-34.0); MEAN CORPUSCULAR HGB CONC 32.7 % (32.0-36.0); MEAN PLATELET VOLUME 8.1 FL (7.0-11.0); MONOCYTE # 0.7 TH/MM3 (0-0.9); NEUT % 82.6 % (16.0-70.0); PLATELET COUNT 204 TH/MM3 (150-450); RED BLOOD COUNT 3.55 MIL/MM3 (4.00-5.30); RED CELL DISTRIBUTION WIDTH 16.6 % (11.6-17.2); WHITE BLOOD COUNT 10.4 TH/MM3 (4.0-11.0)
[2017-10-26] MEDS: CEFEPIME INJ 1,000 MG in SODIUM CHLORIDE 0.9% INJ 100 ML IV SCH ×2 (07:55→21:41)
[2017-10-26] MEDS: SODIUM CHLORIDE 0.9% FLUSH 10 ML FLUSH IV FLUSH SCH ×2 (07:55→21:39)
[2017-10-26] MEDS: DOCUSATE SODIUM 50 MG/SENNA 8.6 MG TAB PO SCH ×2 (07:55→21:41)
[2017-10-26 08:05] LABS: ALBUMIN 1.8 GM/DL (3.4-5.0); ALKALINE PHOSPHATASE 56 U/L (45-117); ALT (GPT) 18 U/L (10-53); AST (GOT) 34 U/L (15-37); BICARBONATE 20.6 MEQ/L (21.0-32.0); BLOOD UREA NITROGEN 8 MG/DL (7-18); CALCIUM 7.8 MG/DL (8.5-10.1); CHLORIDE 109 MEQ/L (98-107); CREATININE 0.67 MG/DL (0.50-1.00); GLOMERULAR FILTRATION RATE 101 ML/MIN (>89); GLUCOSE,RANDOM 111 MG/DL (74-106); SODIUM (NA) 138 MEQ/L (136-145); TOTAL BILIRUBIN ADULT 0.4 MG/DL (0.2-1.0); TOTAL PROTEIN 6.7 GM/DL (6.4-8.2)
[2017-10-26] MEDS ORDERED: ONDANSETRON HCL 4 MG/2 ML VIAL IV PUSH PRN (10:15)
[2017-10-26] MEDS ORDERED: ACETAMINOPHEN 325 MG TAB PO PRN (10:15)
[2017-10-26] MEDS ORDERED: CALCIUM CARBONATE 500 MG CHEWABLE TAB CHEW PRN (10:15)
--- NOTE | 2017-10-26 10:15 | HHI.PR ---
Subjective Remarks Follow up sepsis/PNA/IVDU 10/26/17-patient seen and examined; complains of shortness of breath, chest pain. Afebrile. Complains of right shoulder pain. Blood culture positive 4#4 Objective Vitals Vital Signs Date Time Temp Pulse Resp B/P (MAP) Pulse Ox O2 Delivery O2 Flow Rate FiO2 10/26/17 08:00 97.3 87 16 85/50 (62) 99 10/26/17 04:00 96.9 94 21 86/44 (58) 98 10/26/17 04:00 90/52 (65) 10/26/17 03:30 88/52 (64) 10/26/17 03:00 80/48 (59) 10/26/17 02:35 102 82/58 (66) 10/26/17 02:00 98.0 104 20 80/48 (59) 98 10/26/17 00:30 107 22 128/67 (87) 98 Room Air 10/25/17 20:35 100 Nasal Cannula 2.00 10/25/17 20:35 19 100 Room Air 10/25/17 20:10 101.2 138 20 111/64 (80) 95 Room Air I/O 10/25/17 10/25/17 10/25/17 10/26/17 10/26/17 10/26/17 07:00 15:00 23:00 07:00 15:00 23:00 Intake Total 0 ml Balance 0 ml Intake Oral 0 ml Result Diagram: 10/26/17 0600 10/26/17 0600 Imaging Last Impressions Chest X-Ray 10/25/172019 Signed Impressions: Service Date/Time: Wednesday, October 25, 2017 20:36 - CONCLUSION: 1. Left perihilar parenchymal opacity. CT pulmonary angiogram pending. No effusions. Christophe Hagen MD CT Angiography 10/25/172019 Signed Impressions: Service Date/Time: Wednesday, October 25, 2017 22:24 - CONCLUSION: 1. Negative for pulmonary embolus on CTA. 2. Wedge-shaped consolidation in the lingula with cavitation. Findings characteristic of a cavitary pneumonia possibly due to septic embolic disease. There is a large suspected infarct in the anterior spleen. Christophe Hagen MD Objective Remarks GENERAL: NAD SKIN: Warm and dry. HEAD: Normocephalic. EYES: No scleral icterus. No injection or drainage. NECK: Supple, trachea midline. No JVD or lymphadenopathy. CARDIOVASCULAR: Regular rate and rhythm without murmurs, gallops, or rubs. RESPIRATORY: Breath sounds equal bilaterally. No accessory muscle use. GASTROINTESTINAL: Abdomen soft, non-tender, nondistended. MUSCULOSKELETAL: No cyanosis, or edema. BACK: Nontender without obvious deformity. No CVA tenderness. A/P Problem List: (1) Gram-positive bacteremia ICD Code: R78.81 - Bacteremia (2) Sepsis ICD Code: A41.9 - Sepsis, unspecified organism Status: Acute (3) Cavitary pneumonia ICD Code: J18.9 - Pneumonia, unspecified organism; J98.4 - Other disorders of lung Status: Acute (4) Elevated troponin ICD Code: R74.8 - Abnormal levels of other serum enzymes (5) Splenic infarct ICD Code: D73.5 - Infarction of spleen Status: Acute (6) IVDU (intravenous drug user) ICD Code: F19.90 - Other psychoactive substance use, unspecified, uncomplicated (7) Anemia ICD Code: D64.9 - Anemia, unspecified (8) Tobacco abuse ICD Code: Z72.0 - Tobacco use Assessment and Plan 32 yrs old female with 1. Gram positive Bacteremia: Repeat Blood culture. ID consultation pending. Continue with current IV Abx 2. Sepsis: Source-PNA/Septic Emboli. S/p Blood Cultures, Vanc/Zosyn in ER. Follow up cultures, continue IV Abx. 3. Cavitary PNA: CXR w/ perihilar opacity, CTA Pulm negative for PE however noted to have cavitary pneumonia, likely from septic emboli. +IVDU. Follow up cultures, continue IV Abx, Consult ID for further recommendations. 4. Elevated Trop: Trop 0.06, possibly cardiac strain from septic emboli. Continue to monitor serial cardiac enzymes, Echo pending. NTG/Morphine if needed. 5. Splenic Infarct: CTA Pulm w/ possible large splenic infarct, likely from IVDU and septic emboli. 6. Anemia: Hgb 9.3, previously 12.0 on 07/16/17, likely due to above. Monitor H /H. transfuse as needed. 7. IVDU: Ongoing. Versed prn 8. Tobacco Abuse: Pt counselled. NicoDerm prn if needed. Saad Holt MD Oct 26, 2017 10:15
--- NOTE | 2017-10-26 10:58 | EKG ---
Date Performed: 10/25/2017 Time Performed: 20:41:38 PTAGE: 32 years EKG: SINUS TACHYCARDIA ABNORMAL RHYTHM ECG PREVIOUS TRACING : 10/09/2004 20.53 Compared to previous tracing, heart rate has increased. DOCTOR: Ming Gonzales Interpretating Date/Time 10/26/2017 10:56:49
[2017-10-26] MEDS: VANCOMYCIN INJ 1,250 MG in SODIUM CHLOR 0.9% 250 ML INJ 250 ML IV SCH ×2 (12:25→21:26)
--- NOTE | 2017-10-26 13:21 | MB ---
cc: SHERMAN BARRETT MD DATE OF CONSULTATION: 10/26/[address] Holt. REASON FOR CONSULTATION: IVDU, sepsis, possible septic emboli. HISTORY OF PRESENT ILLNESS This is a 32-year-old white female who is an IV drug user. The patient came to the emergency department with respiratory distress and she was having cough, left-sided chest pain, nausea, vomiting and fevers. The ED report stated that the symptoms began two weeks ago. The patient tells me that she started having sharp pain in her left chest and coughing about two days ago. She states that she last used IV drugs two days ago. In the emergency department she had a temperature of 101.2 degrees, heart rate 138, respiratory rate of 20, white blood cell count of 12.3. Chest x-ray was performed and it shows perihilar parenchymal opacity. CT scan of the chest showed a wedge shaped consolidation in the lingula with cavitation, findings characteristic of cavitary pneumonia, possibly due to septic embolic disease. There is also a large suspected infarct in the anterior spleen. The patient points to the lower ribcage area when asked to give the location of her pain. She denies hemoptysis or back pain. Blood cultures on admission has gram-positive cocci in all four bottles. The patient has an area of the right forearm which is swollen. She points to that area where she last injected IV Dilaudid two days ago. PAST MEDICAL HISTORY: 1. IV drug abuse. 2. Tobacco abuse. 3. . ALLERGIES PROPOXYPHENE BUTORPHANOL ACETAMINOPHEN FISH CONTAINING PRODUCTS MEDICATIONS: 1. Vancomycin 2. Cefepime. SOCIAL HISTORY: The patient smokes a pack of cigarettes a day. Denies alcohol. Positive IV drug use in the form of Dilaudid. FAMILY HISTORY: Noncontributory. REVIEW OF SYSTEMS: Pertinent mentioned above in the history of present illness. PHYSICAL EXAMINATION: This is a well-developed female who is in no acute distress. She appears chronically ill. VITAL SIGNS: Temperature 97.3, blood pressure 85/50, respiratory rate 16, heart rate 87. HEENT: Head is atraumatic. Extraocular movements grossly intact, pupils reactive to light. No icterus. Oropharynx: moist mucosa. No lesions. No thrush. Neck: Supple without adenopathy or swelling. Lungs: Diminished, clear breath sounds bilaterally. Heart: Regular rate and rhythm. No murmurs, rubs, or gallops. Abdomen: Bowel sounds present, soft, tenderness to palpation on the left upper quadrant. No palpable mass. Rectal: Not performed. Extremities: No clubbing or cyanosis. The right forearm has an area of swelling and it is tender. There is no palpable cords and no visible erythema at that location. The patient also has track waddell at the left hand. Skin: No diffuse rash. Neuro: No focal findings. Psych: The patient is calm and cooperative. LABORATORY DATA: WBC 10.4, platelets 204, 82% neutrophils, hemoglobin 8.5, creatinine 0.67, BUN 8, sodium 138, AST 34, ALT 18. IMPRESSION 1. Bacteremia due to gram-positive cocci in a patient who is septic on presentation. 2. Sepsis. 3. Probable endocarditis. 4. Probable septic emboli in the lungs. 5. 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 6. IV drug abuse. RECOMMENDATIONS 1. Continue vancomycin. 2. Discontinue cefepime. 3. Monitor blood cultures. 4. 2-D echocardiogram to evaluate for heart valve lesion. 5. Monitor the clinical response. Thank for this consultation. The patient's progress will be monitored. Further recommendations will be given upon followup. Sherman Barrett MD FD/RULA /11:58 AM /1:02 PM
[2017-10-27] VITALS (7 sets, daily range): BP systolic 96–108; BP diastolic 51–54; PULSE 90–108; RESP 17–21; TEMP 96.4–98.9; O2SAT 95–98
[2017-10-27] MEDS: SODIUM CHLOR 0.9% 1000 ML INJ 1,000 ML IV SCH ×2 (04:33→15:24)
[2017-10-27] MEDS: VANCOMYCIN INJ 1,250 MG in SODIUM CHLOR 0.9% 250 ML INJ 250 ML IV SCH ×3 (04:33→20:06)
[2017-10-27 06:29] LABS: AUTOMATED NEUTROPHIL # 6.4 TH/MM3 (1.8-7.7); BASOPHIL % 0.4 % (0.0-2.0); EOSINOPHIL # 0.1 TH/MM3 (0-0.4); EOSINOPHIL % 0.8 % (0.0-4.0); HEMATOCRIT 23.3 % (35.0-46.0); HEMOGLOBIN 7.6 GM/DL (11.6-15.3); LYMPH % 15.6 % (9.0-44.0); LYMPHOCYTE # 1.3 TH/MM3 (1.0-4.8); MEAN CELL VOLUME 72.1 FL (80.0-100.0); MEAN CORPUSCULAR HEMOGLOBIN 23.5 PG (27.0-34.0); MEAN CORPUSCULAR HGB CONC 32.5 % (32.0-36.0); MONOCYTE # 0.7 TH/MM3 (0-0.9); NEUT % 75.2 % (16.0-70.0); PLATELET COUNT 227 TH/MM3 (150-450); RED BLOOD COUNT 3.24 MIL/MM3 (4.00-5.30); RED CELL DISTRIBUTION WIDTH 16.5 % (11.6-17.2); WHITE BLOOD COUNT 8.5 TH/MM3 (4.0-11.0)
[2017-10-27 06:50] LABS: BICARBONATE 21.6 MEQ/L (21.0-32.0); CALCIUM 7.5 MG/DL (8.5-10.1); CREATININE 0.69 MG/DL (0.50-1.00)
[2017-10-27] MEDS: DOCUSATE SODIUM 50 MG/SENNA 8.6 MG TAB PO SCH ×2 (08:29→20:05)
[2017-10-27] MEDS: SODIUM CHLORIDE 0.9% FLUSH 10 ML FLUSH IV FLUSH SCH ×2 (08:30→19:09)
[2017-10-27] MEDS: CEFEPIME INJ 1,000 MG in SODIUM CHLORIDE 0.9% INJ 100 ML IV SCH (08:30)
[2017-10-27] MEDS ORDERED: PHARMACY ORDERED LAB ONE (11:45)
--- NOTE | 2017-10-27 12:16 | HHI.PR ---
Subjective Remarks The patient appeared uncomfortable. She said that she had the ultrasound done earlier and was wondering about the results. She was seen in conjunction with infectious disease. She would like her pain control increased. Discussed with nursing. Objective Vitals Vital Signs Date Time Temp Pulse Resp B/P (MAP) Pulse Ox O2 Delivery O2 Flow Rate FiO2 10/27/17 08:15 105 10/27/17 08:00 96.6 93 17 108/53 (71) 96 10/27/17 04:26 100 99/52 (68) 10/27/17 00:00 98.9 108 20 100/53 (69) 96 10/26/17 21:18 98.3 113 16 102/51 (68) 94 10/26/17 16:00 97.3 98 16 95/52 (66) 99 I/O 10/26/17 10/26/17 10/26/17 10/27/17 10/27/17 10/27/17 07:00 15:00 23:00 07:00 15:00 23:00 Intake Total 0 ml 362.5 ml 500 ml Balance 0 ml 362.5 ml 500 ml Intake Oral 0 ml 500 ml IV Total 362.5 ml # Voids 6 3 # Bowel Movements 0 0 Result Diagram: 10/27/17 0543 10/27/17 0543 Imaging Last Impressions Chest X-Ray 10/25/172019 Signed Impressions: Service Date/Time: Wednesday, October 25, 2017 20:36 - CONCLUSION: 1. Left perihilar parenchymal opacity. CT pulmonary angiogram pending. No effusions. Christophe Hagen MD CT Angiography 10/25/172019 Signed Impressions: Service Date/Time: Wednesday, October 25, 2017 22:24 - CONCLUSION: 1. Negative for pulmonary embolus on CTA. 2. Wedge-shaped consolidation in the lingula with cavitation. Findings characteristic of a cavitary pneumonia possibly due to septic embolic disease. There is a large suspected infarct in the anterior spleen. Christophe Hagen MD Objective Remarks GENERAL: Appears uncomfortable. SKIN: Warm and dry. HEAD: Normocephalic. EYES: No scleral icterus. No injection or drainage. NECK: Supple, trachea midline. No JVD or lymphadenopathy. CARDIOVASCULAR: Regular rate and rhythm without murmurs, gallops, or rubs. RESPIRATORY: Breath sounds equal bilaterally. No accessory muscle use. GASTROINTESTINAL: Abdomen soft, non-tender, nondistended. MUSCULOSKELETAL: No cyanosis, or edema. BACK: Nontender without obvious deformity. No CVA tenderness. Medications and IVs Current Medications Medications (Trade) Dose Ordered Sig/Jannie Route Start Time Stop Time Status Last Admin Pharmacy Profile Note 0 ml @ 0 mls/hr UNSCH OTHER 10/25/17 23:00 Cefepime HCl 1000 mg/Sodium Chloride 100 ml @ 200 mls/hr Q12H IV 10/26/17 09:00 10/27/17 08:30 (Ativan) 1 mg Q8H PRN PO 10/25/17 23:00 Sodium Chloride 1,000 ml @ 100 mls/hr Q10H IV 10/25/17 22:53 10/27/17 04:33 (NS Flush) 2 ml UNSCH PRN IV FLUSH 10/25/17 23:00 (NS Flush) 2 ml BID IV FLUSH 10/26/17 09:00 10/26/17 21:39 (Zofran Inj) 4 mg Q6H PRN IVP 10/25/17 23:00 (Roxicodone) 10 mg Q4H PRN PO 10/25/17 23:00 10/27/17 08:29 (Roxicodone) 5 mg Q4H PRN PO 10/25/17 23:00 (Sujatha-Colace) 1 tab BID PO 10/26/17 09:00 10/27/17 08:29 (Milk Of Magnesia Liq) 30 ml Q12H PRN PO 10/25/17 23:00 (Senokot) 17.2 mg Q12H PRN PO 10/25/17 23:00 (Dulcolax Supp) 10 mg DAILY PRN RECTAL 10/25/17 23:00 (Lactulose Liq) 30 ml DAILY PRN PO 10/25/17 23:00 Vancomycin HCl 1250 mg/Sodium Chloride 262.5 ml @ 250 mls/hr Q8H IV 10/26/17 12:00 10/27/17 04:33 (Tylenol) 650 mg Q4H PRN PO 10/26/17 10:15 (Tums Chew) 1,000 mg TID PRN CHEW 10/26/17 10:15 A/P Problem List: (1) Gram-positive bacteremia ICD Code: R78.81 - Bacteremia (2) Sepsis ICD Code: A41.9 - Sepsis, unspecified organism Status: Acute (3) Cavitary pneumonia ICD Code: J18.9 - Pneumonia, unspecified organism; J98.4 - Other disorders of lung Status: Acute (4) Elevated troponin ICD Code: R74.8 - Abnormal levels of other serum enzymes (5) Splenic infarct ICD Code: D73.5 - Infarction of spleen Status: Acute (6) IVDU (intravenous drug user) ICD Code: F19.90 - Other psychoactive substance use, unspecified, uncomplicated (7) Anemia ICD Code: D64.9 - Anemia, unspecified (8) Tobacco abuse ICD Code: Z72.0 - Tobacco use Assessment and Plan Gram positive Bacteremia ID consult appreciated. Repeat blood cultures still positive. - Continue with IV vanco, d/c cefepime. - echo pending. Sepsis Source-PNA/Septic Emboli. S/p Blood Cultures, Vanc/Zosyn in ER. - Follow up cultures, continue IV Abx. Cavitary PNA CXR w/ perihilar opacity, CTA Pulm negative for PE however noted to have cavitary pneumonia, likely from septic emboli. +IVDU. - Follow up cultures, continue IV Abx. - follow up with ID for further recommendations. Elevated Trop Peaked at 0.06. Likely s/t sepsis. - Echo pending. Splenic Infarct CTA Pulm w/ possible large splenic infarct, likely from IVDU and septic emboli. - pain control. Anemia Hgb 9.3, previously 12.0 on 07/16/17, likely due to above. - Monitor H/H. transfuse as needed. IVDU/ Tobacco Abuse Pt counselled. - NicoDerm prn if needed. - the pt will be referred to rehab. PPx: Lefty Chang DO Oct 27, 2017 12:16
--- NOTE | 2017-10-27 12:50 | HHI.IDPN ---
Note Infectious Disease Note Patient complains of pain oat the left flank area. Afebrile. Has diarrhea. Afebrile. Blood culture still positive. The patient came to the emergency department with respiratory distress and she was having cough, left-sided chest pain, nausea, vomiting and fevers. The ED report stated that the symptoms began two weeks ago. The patient tells me that she started having sharp pain in her left chest and coughing about two days ago. She states that she last used IV drugs two days ago. PAST MEDICAL HISTORY: 1. IV drug abuse. 2. Tobacco abuse. 3. . ALLERGIES PROPOXYPHENE BUTORPHANOL ACETAMINOPHEN FISH CONTAINING PRODUCTS MEDICATIONS: 1. Vancomycin 2. Cefepime. Current Medications Medications (Trade) Dose Ordered Sig/Jannie Route PRN Reason Start Time Stop Time Status Last Admin Dose Admin Pharmacy Profile Note 0 ml @ 0 mls/hr UNSCH OTHER 10/25/17 23:00 Lorazepam (Ativan) 1 mg Q8H PRN PO AGITATION/WITHDRAWAL 10/25/17 23:00 Sodium Chloride 1,000 ml @ 100 mls/hr Q10H IV 10/25/17 22:53 10/27/17 04:33 Sodium Chloride (NS Flush) 2 ml UNSCH PRN IV FLUSH FLUSH AFTER USING IV ACCESS 10/25/17 23:00 Sodium Chloride (NS Flush) 2 ml BID IV FLUSH 10/26/17 09:00 10/26/17 21:39 Ondansetron HCl (Zofran Inj) 4 mg Q6H PRN IVP NAUSEA OR VOMITING 10/25/17 23:00 Oxycodone HCl (Roxicodone) 10 mg Q4H PRN PO PAIN SCALE 6 TO 10 10/25/17 23:00 10/27/17 08:29 Oxycodone HCl (Roxicodone) 5 mg Q4H PRN PO PAIN SCALE 3 TO 5 10/25/17 23:00 Senna/Docusate Sodium (Sujatha-Colace) 1 tab BID PO 10/26/17 09:00 10/27/17 08:29 Magnesium Hydroxide (Milk Of Magnesia Liq) 30 ml Q12H PRN PO Mild constipation 10/25/17 23:00 Sennosides (Senokot) 17.2 mg Q12H PRN PO Moderate constipation 10/25/17 23:00 Bisacodyl (Dulcolax Supp) 10 mg DAILY PRN RECTAL SEVERE CONSITIPATION 10/25/17 23:00 Lactulose (Lactulose Liq) 30 ml DAILY PRN PO SEVERE CONSITIPATION 10/25/17 23:00 Vancomycin HCl 1250 mg/Sodium Chloride 262.5 ml @ 250 mls/hr Q8H IV 10/26/17 12:00 10/27/17 04:33 Acetaminophen (Tylenol) 650 mg Q4H PRN PO Temp > 100.4 10/26/17 10:15 Calcium Carbonate (Tums Chew) 1,000 mg TID PRN CHEW DYSPEPSIA 10/26/17 10:15 OBJECTIVE: Vital Signs Date Time Temp Pulse Resp B/P (MAP) Pulse Ox O2 Delivery O2 Flow Rate FiO2 10/27/17 08:15 105 10/27/17 08:00 96.6 93 17 108/53 (71) 96 10/27/17 04:26 100 99/52 (68) 10/27/17 00:00 98.9 108 20 100/53 (69) 96 10/26/17 21:18 98.3 113 16 102/51 (68) 94 10/26/17 16:00 97.3 98 16 95/52 (66) 99 Laboratory Tests Test 10/25/17 20:30 10/26/17 06:00 10/27/17 05:43 White Blood Count 12.3 TH/MM3 10.4 TH/MM3 8.5 TH/MM3 Red Blood Count 4.04 MIL/MM3 3.55 MIL/MM3 3.24 MIL/MM3 Hemoglobin 9.3 GM/DL 8.5 GM/DL 7.6 GM/DL Hematocrit 29.1 % 25.9 % 23.3 % Mean Corpuscular Volume 72.1 FL 73.0 FL 72.1 FL Mean Corpuscular Hemoglobin 23.1 PG 23.9 PG 23.5 PG Mean Corpuscular Hemoglobin Concent 32.1 % 32.7 % 32.5 % Red Cell Distribution Width 16.7 % 16.6 % 16.5 % Platelet Count 294 TH/MM3 204 TH/MM3 227 TH/MM3 Mean Platelet Volume 7.8 FL 8.1 FL 8.0 FL Neutrophils (%) (Auto) 89.6 % 82.6 % 75.2 % Lymphocytes (%) (Auto) 7.5 % 9.9 % 15.6 % Monocytes (%) (Auto) 2.5 % 7.0 % 8.0 % Eosinophils (%) (Auto) 0.0 % 0.0 % 0.8 % Basophils (%) (Auto) 0.4 % 0.5 % 0.4 % Neutrophils # (Auto) 11.0 TH/MM3 8.6 TH/MM3 6.4 TH/MM3 Lymphocytes # (Auto) 0.9 TH/MM3 1.0 TH/MM3 1.3 TH/MM3 Monocytes # (Auto) 0.3 TH/MM3 0.7 TH/MM3 0.7 TH/MM3 Eosinophils # (Auto) 0.0 TH/MM3 0.0 TH/MM3 0.1 TH/MM3 Basophils # (Auto) 0.1 TH/MM3 0.1 TH/MM3 0.0 TH/MM3 CBC Comment DIFF FINAL DIFF FINAL DIFF FINAL Differential Comment Laboratory Tests Test 10/25/17 20:30 10/26/17 03:04 10/26/17 06:00 10/26/17 16:24 Blood Urea Nitrogen 10 MG/DL 8 MG/DL Creatinine 0.98 MG/DL 0.67 MG/DL Random Glucose 132 MG/DL 111 MG/DL Total Protein 8.0 GM/DL 6.7 GM/DL Albumin 2.4 GM/DL 1.8 GM/DL Calcium Level 8.2 MG/DL 7.8 MG/DL Alkaline Phosphatase 67 U/L 56 U/L Aspartate Amino Transf (AST/SGOT) 39 U/L 34 U/L Alanine Aminotransferase (ALT/SGPT) 20 U/L 18 U/L Total Bilirubin 0.5 MG/DL 0.4 MG/DL Sodium Level 127 MEQ/L 138 MEQ/L Potassium Level 3.9 MEQ/L 4.1 MEQ/L Chloride Level 96 MEQ/L 109 MEQ/L Carbon Dioxide Level 22.1 MEQ/L 20.6 MEQ/L Anion Gap 9 MEQ/L 8 MEQ/L Estimat Glomerular Filtration Rate 65 ML/MIN 101 ML/MIN Lactic Acid Level 1.5 mmol/L Total Creatine Kinase 41 U/L Troponin I 0.06 NG/ML 0.05 NG/ML 0.02 NG/ML Lipase 66 U/L Test 10/27/17 05:43 Blood Urea Nitrogen 8 MG/DL Creatinine 0.69 MG/DL Random Glucose 100 MG/DL Calcium Level 7.5 MG/DL Sodium Level 137 MEQ/L Potassium Level 3.7 MEQ/L Chloride Level 108 MEQ/L Carbon Dioxide Level 21.6 MEQ/L Anion Gap 7 MEQ/L Estimat Glomerular Filtration Rate 98 ML/MIN Microbiology Date/Time Source Procedure Growth Status 10/26/17 16:24 Blood Peripheral Aerobic Blood Culture - Preliminary Gram Positive Cocci Resulted 10/26/17 16:24 Blood Peripheral Anaerobic Blood Culture - Preliminary NO GROWTH IN 1 DAY Resulted 10/26/17 16:14 Blood Peripheral Aerobic Blood Culture - Preliminary Gram Positive Cocci Resulted 10/26/17 16:14 Blood Peripheral Anaerobic Blood Culture - Preliminary NO GROWTH IN 1 DAY Resulted 10/25/17 20:30 Blood Peripheral Aerobic Blood Culture - Preliminary Staphylococcus Aureus Resulted 10/25/17 20:30 Anaerobic Blood Culture - Preliminary Staphylococcus Aureus Resulted 10/25/17 20:25 Blood Peripheral Aerobic Blood Culture - Preliminary Staphylococcus Aureus Resulted 10/25/17 20:25 Anaerobic Blood Culture - Preliminary Staphylococcus Aureus Resulted 10/25/17 21:00 Nasal Aspirate Influenza Types A,B Antigen (JONNY) - Final NEGATIVE FOR FLU A AND B ANTIGEN.... Complete PHYSICAL EXAMINATION: GENERAL: No acute distress. She appears chronically ill. HEENT: Head is atraumatic. Extraocular movements grossly intact, pupils reactive to light. No icterus. Oropharynx: moist mucosa. No lesions. No thrush. Neck: Supple without adenopathy or swelling. Lungs: Diminished breath sounds bilaterally. Heart: Regular rate and rhythm. No murmurs, rubs, or gallops. Abdomen: Bowel sounds present, soft, tenderness to palpation on the left upper quadrant. No palpable mass. Extremities: No clubbing or cyanosis. The right forearm has an area of swelling and it is tender. There is no palpable cords and no visible erythema at that location. The patient also has track waddell at the left hand. Skin: No diffuse rash. Neuro: No focal findings. Psych: The patient is calm and cooperative. IMPRESSION 1. Bacteremia due to Staph aureus. 2. Sepsis. 3. Probable endocarditis. 4. Probable septic emboli in the lungs. 5. 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 6. IV drug abuse. RECOMMENDATIONS 1. Continue vancomycin. 2. Add oxacillin IV. 3Monitor blood cultures for sensitivity of the staph. 4. 2-D echocardiogram to evaluate for heart valve lesion. 5. Monitor the clinical response. Breezy Muñoz MD Oct 27, 2017 12:50
[2017-10-27] MEDS: ENOXAPARIN SODIUM 40 MG/0.4 ML SYRINGE SQ SCH (15:23)
[2017-10-27] MEDS: OXACILLIN INJ 2 GM in SODIUM CHLORIDE 0.9% INJ 100 ML IV SCH ×3 (15:24→23:38)
--- NOTE | 2017-10-27 15:30 | ECHRPT ---
Indication: POSS SEPSIS CONCLUSIONS Normal left ventricular size. Wall thickness is normal. The left ventricular systolic function is normal (EF 55%). [id number] mitral valve regurgitation. Mild aortic valve regurgitation. Aortic valve vegetation. There is mild tricuspid valve regurgitation. BP: 99 / 52 HR: 100 Rhythm: Sinus MEASUREMENTS (Male / Female) Normal Values Technical Quality:Fair 2D ECHO LV Diastolic Diameter PLAX 5.4 cm 4.2 - 5.9 / 3.9 - 5.3 cm LV Systolic Diameter PLAX 4.3 cm IVS Diastolic Thickness 0.7 cm 0.6 - 1.0 / 0.6 - 0.9 cm LVPW Diastolic Thickness 0.7 cm 0.6 - 1.0 / 0.6 - 0.9 cm LV Relative Wall Thickness 0.3 RV Internal Dim ED PLAX 2.4 cm LVOT Diameter 1.7 cm Aortic Root Diameter 2.6 cm LA Systolic Diameter LX 3.0 cm 3.0 - 4.0 / 2.7 - 3.8 cm M-MODE AV Cusp Separation MM 2.2 cm DOPPLER AV Peak Velocity 164.0 cm/s AV Peak Gradient 10.8 mmHg AV Mean Gradient 6.0 mmHg AV Velocity Time Integral 28.7 cm LVOT Peak Velocity 124.0 cm/s LVOT Peak Gradient 6.2 mmHg LVOT Velocity Time Integral 23.9 cm AV Area Cont Eq vti 1.9 cm AV Area Cont Eq pk 1.7 cm Mitral E Point Velocity 79.0 cm/s Mitral A Point Velocity 81.4 cm/s Mitral E to A Ratio 1.0 LV E' Lateral Velocity 10.1 cm/s Mitral E to LV E' Lateral Ratio 7.8 LV E' Septal Velocity 10.6 cm/s Mitral E to LV E' Septal Ratio 7.5 TR Peak Velocity 266.0 cm/s TR Peak Gradient 28.3 mmHg Right Atrial Pressure 10.0 mmHg Pulmonary Artery Systolic Pressu 38.3 mmHg Right Ventricular Systolic Press 38.3 mmHg PV Peak Velocity 75.9 cm/s PV Peak Gradient 2.3 mmHg FINDINGS LEFT VENTRICLE Normal left ventricular size. Wall thickness is normal. The left ventricular systolic function is normal. RIGHT VENTRICLE Normal right ventricular size and systolic function. LEFT ATRIUM The left atrial size is normal. RIGHT ATRIUM The right atrial size is normal. ATRIAL SEPTUM Normal atrial septal thickness without atrial level shunting by limited color doppler interrogation. AORTA The aortic root and proximal ascending aorta are normal in size on limited imaging. MITRAL VALVE [id number] mitral valve regurgitation. AORTIC VALVE Mild aortic valve regurgitation. Findings consistent with vegetation on the aortic valve (10 x 3 mm). TRICUSPID VALVE There is mild tricuspid valve regurgitation. PULMONARY VALVE No pulmonary valve regurgitation or stenosis. VESSELS The inferior vena cava is normal in size. PERICARDIUM No pericardial effusion. Angel Pal MD, FACC (Electronically Signed) Final Date:27 October 2017 15:29
[2017-10-28] VITALS (7 sets, daily range): BP systolic 94–119; BP diastolic 48–55; PULSE 84–104; RESP 17–21; TEMP 96.1–99.4; O2SAT 94–97
[2017-10-28] MEDS: SODIUM CHLOR 0.9% 1000 ML INJ 1,000 ML IV SCH ×3 (02:11→17:57)
[2017-10-28] MEDS: OXACILLIN INJ 2 GM in SODIUM CHLORIDE 0.9% INJ 100 ML IV SCH ×6 (03:07→20:20)
[2017-10-28] MEDS: VANCOMYCIN INJ 1,250 MG in SODIUM CHLOR 0.9% 250 ML INJ 250 ML IV SCH ×2 (03:56→12:12)
[2017-10-28] MEDS: DOCUSATE SODIUM 50 MG/SENNA 8.6 MG TAB PO SCH ×2 (07:52→20:18)
[2017-10-28] MEDS: SODIUM CHLORIDE 0.9% FLUSH 10 ML FLUSH IV FLUSH SCH ×2 (07:54→20:18)
[2017-10-28] MEDS: ENOXAPARIN SODIUM 40 MG/0.4 ML SYRINGE SQ SCH (12:12)
--- NOTE | 2017-10-28 12:51 | HHI.PR ---
Subjective Remarks The patient was informed that she had a vegetation on one of her heart valves. She says she has had friends from endocarditis. She continued to complain of left upper quadrant pain. Discussed with nursing at the bedside. Objective Vitals Vital Signs Date Time Temp Pulse Resp B/P (MAP) Pulse Ox O2 Delivery O2 Flow Rate FiO2 10/28/17 12:00 96.1 84 17 98/48 (65) 94 10/28/17 08:00 98.2 92 17 105/50 (68) 97 10/28/17 04:00 96.9 104 21 102/51 (68) 94 10/28/17 00:00 96.4 98 21 110/54 (72) 96 10/27/17 20:00 96.4 92 21 96/54 (68) 95 10/27/17 16:00 98.4 97 17 106/54 (71) 98 I/O 10/27/17 10/27/17 10/27/17 10/28/17 10/28/17 10/28/17 07:00 15:00 23:00 07:00 15:00 23:00 Intake Total 100 ml 3204.5 ml 1702.5 ml Balance 100 ml 3204.5 ml 1702.5 ml Intake Oral 1684 ml 240 ml IV Total 100 ml 1520.5 ml 1462.5 ml # Voids 3 5 1 # Bowel Movements 0 1 Result Diagram: 10/27/17 0543 10/27/17 0543 Imaging Last Impressions Chest X-Ray 10/25/172019 Signed Impressions: Service Date/Time: Wednesday, October 25, 2017 20:36 - CONCLUSION: 1. Left perihilar parenchymal opacity. CT pulmonary angiogram pending. No effusions. Christophe Hagen MD CT Angiography 10/25/172019 Signed Impressions: Service Date/Time: Wednesday, October 25, 2017 22:24 - CONCLUSION: 1. Negative for pulmonary embolus on CTA. 2. Wedge-shaped consolidation in the lingula with cavitation. Findings characteristic of a cavitary pneumonia possibly due to septic embolic disease. There is a large suspected infarct in the anterior spleen. Christophe Hagen MD Objective Remarks GENERAL: Appears uncomfortable. SKIN: Warm and dry. HEAD: Normocephalic. EYES: No scleral icterus. No injection or drainage. NECK: Supple, trachea midline. No JVD or lymphadenopathy. CARDIOVASCULAR: Regular rate and rhythm without murmurs, gallops, or rubs. RESPIRATORY: Breath sounds equal bilaterally. No accessory muscle use. GASTROINTESTINAL: Abdomen soft, non-tender, nondistended. MUSCULOSKELETAL: No cyanosis, or edema. BACK: Nontender without obvious deformity. No CVA tenderness. PSYCH: Flattened affect. Medications and IVs Current Medications Medications (Trade) Dose Ordered Sig/Jannie Route Start Time Stop Time Status Last Admin Pharmacy Profile Note 0 ml @ 0 mls/hr UNSCH OTHER 10/25/17 23:00 (Ativan) 1 mg Q8H PRN PO 10/25/17 23:00 Sodium Chloride 1,000 ml @ 100 mls/hr Q10H IV 10/25/17 22:53 10/28/17 12:12 (NS Flush) 2 ml UNSCH PRN IV FLUSH 10/25/17 23:00 (NS Flush) 2 ml BID IV FLUSH 10/26/17 09:00 10/26/17 21:39 (Zofran Inj) 4 mg Q6H PRN IVP 10/25/17 23:00 (Roxicodone) 10 mg Q4H PRN PO 10/25/17 23:00 10/28/17 07:53 (Roxicodone) 5 mg Q4H PRN PO 10/25/17 23:00 (Sujatha-Colace) 1 tab BID PO 10/26/17 09:00 10/28/17 07:52 (Milk Of Magnesia Liq) 30 ml Q12H PRN PO 10/25/17 23:00 (Senokot) 17.2 mg Q12H PRN PO 10/25/17 23:00 (Dulcolax Supp) 10 mg DAILY PRN RECTAL 10/25/17 23:00 (Lactulose Liq) 30 ml DAILY PRN PO 10/25/17 23:00 Vancomycin HCl 1250 mg/Sodium Chloride 262.5 ml @ 250 mls/hr Q8H IV 10/26/17 12:00 10/28/17 12:12 (Tylenol) 650 mg Q4H PRN PO 10/26/17 10:15 (Tums Chew) 1,000 mg TID PRN CHEW 10/26/17 10:15 Oxacillin Sodium 2 gm/Sodium Chloride 100 ml @ 200 mls/hr Q4H IV 10/27/17 14:00 10/28/17 12:11 (Lovenox Inj) 40 mg Q24H SQ 10/27/17 14:00 10/28/17 12:12 Miscellaneous Information SPECIFIC LAB TO BE .. ONCE ONCE .XX 10/29/17 03:45 10/29/17 03:46 A/P Problem List: (1) Gram-positive bacteremia ICD Code: R78.81 - Bacteremia (2) Sepsis ICD Code: A41.9 - Sepsis, unspecified organism Status: Acute (3) Cavitary pneumonia ICD Code: J18.9 - Pneumonia, unspecified organism; J98.4 - Other disorders of lung Status: Acute (4) Elevated troponin ICD Code: R74.8 - Abnormal levels of other serum enzymes (5) Splenic infarct ICD Code: D73.5 - Infarction of spleen Status: Acute (6) IVDU (intravenous drug user) ICD Code: F19.90 - Other psychoactive substance use, unspecified, uncomplicated (7) Anemia ICD Code: D64.9 - Anemia, unspecified (8) Tobacco abuse ICD Code: Z72.0 - Tobacco use Assessment and Plan Gram positive Bacteremia/ Endocarditis ID consult appreciated. Repeat blood cultures still positive. Echocardiogram with normal ejection fraction, 10 x 3 mm vegetation on aortic valve. - Continue with IV vanco, d/c cefepime. - follow up with infectious disease. Sepsis Source-PNA/Septic Emboli. S/p Blood Cultures, Vanc/Zosyn in ER. - Follow up cultures, continue IV Abx. Cavitary PNA CXR w/ perihilar opacity, CTA Pulm negative for PE however noted to have cavitary pneumonia, likely from septic emboli. +IVDU. - Follow up cultures, continue IV Abx. - follow up with ID for further recommendations. Elevated Trop Peaked at 0.06. Likely s/t sepsis. - Echo with normal EF. Splenic Infarct CTA Pulm w/ possible large splenic infarct, likely from IVDU and septic emboli. - pain control. Anemia Hgb 9.3, previously 12.0 on 07/16/17, likely due to above. - Monitor H/H. transfuse as needed. IVDU/ Tobacco Abuse Pt counselled. - NicoDerm prn if needed. - the pt will be referred to rehab. PPx: Lovenox Discharge Planning Will need treatment for endocarditis per infectious disease Lefty Zarate DO Oct 28, 2017 12:51
--- NOTE | 2017-10-28 13:38 | HHI.IDPN ---
Note Infectious Disease Note Patient complains of pain at the left flank and left lower back. 2D echo has aortic valve vegetation. Afebrile. Blood culture still positive. Staph aureus. The patient came to the emergency department with respiratory distress and she was having cough, left-sided chest pain, nausea, vomiting and fevers. The ED report stated that the symptoms began two weeks ago. The patient tells me that she started having sharp pain in her left chest and coughing about two days ago. She states that she last used IV drugs two days ago. PAST MEDICAL HISTORY: 1. IV drug abuse. 2. Tobacco abuse. 3. . ALLERGIES PROPOXYPHENE BUTORPHANOL ACETAMINOPHEN FISH CONTAINING PRODUCTS MEDICATIONS: 1. Vancomycin 2. Oxacillin. OBJECTIVE: Vital Signs Date Time Temp Pulse Resp B/P (MAP) Pulse Ox O2 Delivery O2 Flow Rate FiO2 10/28/17 12:00 96.1 84 17 98/48 (65) 94 10/28/17 08:00 98.2 92 17 105/50 (68) 97 10/28/17 04:00 96.9 104 21 102/51 (68) 94 10/28/17 00:00 96.4 98 21 110/54 (72) 96 10/27/17 20:00 96.4 92 21 96/54 (68) 95 10/27/17 16:00 98.4 97 17 106/54 (71) 98 Laboratory Tests Test 10/27/17 05:43 White Blood Count 8.5 TH/MM3 Red Blood Count 3.24 MIL/MM3 Hemoglobin 7.6 GM/DL Hematocrit 23.3 % Mean Corpuscular Volume 72.1 FL Mean Corpuscular Hemoglobin 23.5 PG Mean Corpuscular Hemoglobin Concent 32.5 % Red Cell Distribution Width 16.5 % Platelet Count 227 TH/MM3 Mean Platelet Volume 8.0 FL Neutrophils (%) (Auto) 75.2 % Lymphocytes (%) (Auto) 15.6 % Monocytes (%) (Auto) 8.0 % Eosinophils (%) (Auto) 0.8 % Basophils (%) (Auto) 0.4 % Neutrophils # (Auto) 6.4 TH/MM3 Lymphocytes # (Auto) 1.3 TH/MM3 Monocytes # (Auto) 0.7 TH/MM3 Eosinophils # (Auto) 0.1 TH/MM3 Basophils # (Auto) 0.0 TH/MM3 CBC Comment DIFF FINAL Differential Comment Laboratory Tests Test 10/26/17 16:24 10/27/17 05:43 Troponin I 0.02 NG/ML Blood Urea Nitrogen 8 MG/DL Creatinine 0.69 MG/DL Random Glucose 100 MG/DL Calcium Level 7.5 MG/DL Sodium Level 137 MEQ/L Potassium Level 3.7 MEQ/L Chloride Level 108 MEQ/L Carbon Dioxide Level 21.6 MEQ/L Anion Gap 7 MEQ/L Estimat Glomerular Filtration Rate 98 ML/MIN Microbiology Date/Time Source Procedure Growth Status 10/26/17 16:24 Blood Peripheral Aerobic Blood Culture - Final Staphylococcus Aureus Resulted 10/26/17 16:24 Anaerobic Blood Culture - Preliminary Staphylococcus Aureus Resulted 10/26/17 16:14 Blood Peripheral Aerobic Blood Culture - Final Staphylococcus Aureus Resulted 10/26/17 16:14 Anaerobic Blood Culture - Preliminary Staphylococcus Aureus Resulted 10/25/17 20:30 Blood Peripheral Aerobic Blood Culture - Final Staphylococcus Aureus Complete 10/25/17 20:30 Anaerobic Blood Culture - Final Staphylococcus Aureus Complete 10/25/17 20:25 Blood Peripheral Aerobic Blood Culture - Preliminary Staphylococcus Aureus Resulted 10/25/17 20:25 Anaerobic Blood Culture - Final Staphylococcus Aureus Resulted 10/25/17 21:00 Nasal Aspirate Influenza Types A,B Antigen (JONNY) - Final NEGATIVE FOR FLU A AND B ANTIGEN.... Complete IMAGING: Chest X-Ray 10/25/172019 Signed Impressions: Service Date/Time: Wednesday, October 25, 2017 20:36 - CONCLUSION: 1. Left perihilar parenchymal opacity. CT pulmonary angiogram pending. No effusions. Christophe Hagen MD CT Angiography 10/25/172019 Signed Impressions: Service Date/Time: Wednesday, October 25, 2017 22:24 - CONCLUSION: 1. Negative for pulmonary embolus on CTA. 2. Wedge-shaped consolidation in the lingula with cavitation. Findings characteristic of a cavitary pneumonia possibly due to septic embolic disease. There is a large suspected infarct in the anterior spleen. Christophe Hagen MD PHYSICAL EXAMINATION: GENERAL: No acute distress. She appears chronically ill. HEENT: Head is atraumatic. Extraocular movements grossly intact, pupils reactive to light. No icterus. Oropharynx: moist mucosa. No lesions. No thrush. Neck: Supple without adenopathy or swelling. Lungs: Diminished breath sounds. Heart: Regular rate and rhythm. No murmurs, rubs, or gallops. Abdomen: Bowel sounds present, soft, tenderness to palpation on the left upper quadrant and left flank. No palpable mass. Extremities: No clubbing or cyanosis. The right forearm has an area of swelling and it is tender. There is no palpable cords and no visible erythema at that location. The patient also has track waddell at the left hand. Skin: No diffuse rash. Neuro: No focal findings. Psych: The patient is calm and cooperative. IMPRESSION 1. Aortic valve endocarditis Endocarditis [place] valve due to Staph aureus. 2. Septic emboli in the lungs. 3. 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 4. IV drug abuse. RECOMMENDATIONS 1. Continue the Oxacillin IV x 6 weeks and monitor the blood culture every 3 days until negative. 2. Obtain the following labs weekly. CBC, BMP. I will follow PRN if she has new fever or if the blood cultures stay positive. Call ID before placing any PIC line. Breezy Muñoz MD Oct 28, 2017 13:38
[2017-10-28 14:03] LABS: HEMATOCRIT 25.4 % (35.0-46.0); HEMOGLOBIN 8.3 GM/DL (11.6-15.3); MEAN CORPUSCULAR HEMOGLOBIN 24.2 PG (27.0-34.0); MEAN CORPUSCULAR HGB CONC 32.7 % (32.0-36.0); MEAN PLATELET VOLUME 7.9 FL (7.0-11.0); PLATELET COUNT 286 TH/MM3 (150-450); RED BLOOD COUNT 3.43 MIL/MM3 (4.00-5.30); RED CELL DISTRIBUTION WIDTH 17.2 % (11.6-17.2); WHITE BLOOD COUNT 7.7 TH/MM3 (4.0-11.0)
[2017-10-28 14:11] LABS: BICARBONATE 18.1 MEQ/L (21.0-32.0); CALCIUM 8.2 MG/DL (8.5-10.1); CREATININE 1.5 MG/DL (0.50-1.00); MAGNESIUM 1.9 MG/DL (1.5-2.5)
[2017-10-29] VITALS: BP 98/52; PULSE 93; RESP 18; TEMP 98; O2SAT 92
[2017-10-29 02:56] VITALS: BP 112/54; PULSE 92; O2SAT 98
[2017-10-29] MEDS: OXACILLIN INJ 2 GM in SODIUM CHLORIDE 0.9% INJ 100 ML IV SCH ×6 (02:57→22:00)
[2017-10-29] MEDS ORDERED: PHARMACY ORDERED LAB ONE (03:45)
[2017-10-29] MEDS: SODIUM CHLOR 0.9% 1000 ML INJ 1,000 ML IV SCH ×2 (06:18→20:29)
[2017-10-29 07:30] VITALS: BP 109/51; PULSE 87; RESP 20; TEMP 97.9; O2SAT 97
[2017-10-29] MEDS: SODIUM CHLORIDE 0.9% FLUSH 10 ML FLUSH IV FLUSH SCH ×2 (08:54→20:30)
[2017-10-29] MEDS: DOCUSATE SODIUM 50 MG/SENNA 8.6 MG TAB PO SCH ×2 (08:59→20:30)
[2017-10-29 11:32] LABS: HEMATOCRIT 25.6 % (35.0-46.0); HEMOGLOBIN 8.4 GM/DL (11.6-15.3); MEAN CELL VOLUME 73.8 FL (80.0-100.0); MEAN CORPUSCULAR HEMOGLOBIN 24.1 PG (27.0-34.0); MEAN CORPUSCULAR HGB CONC 32.6 % (32.0-36.0); MEAN PLATELET VOLUME 7.8 FL (7.0-11.0); PLATELET COUNT 334 TH/MM3 (150-450); RED BLOOD COUNT 3.47 MIL/MM3 (4.00-5.30); WHITE BLOOD COUNT 6.7 TH/MM3 (4.0-11.0)
[2017-10-29 12:00] VITALS: BP 127/61; PULSE 89; RESP 19; TEMP 96.9; O2SAT 96
[2017-10-29 12:06] LABS: BICARBONATE 18.5 MEQ/L (21.0-32.0); CALCIUM 8.2 MG/DL (8.5-10.1); CREATININE 1.92 MG/DL (0.50-1.00); MAGNESIUM 1.9 MG/DL (1.5-2.5)
[2017-10-29] MEDS: ENOXAPARIN SODIUM 40 MG/0.4 ML SYRINGE SQ SCH (14:46)
[2017-10-29 16:00] VITALS: BP 108/55; PULSE 90; RESP 20; TEMP 99.4; O2SAT 98
--- NOTE | 2017-10-29 16:18 | HHI.PR ---
Subjective Remarks The patient stated that she still had a lot of pain in her left upper quadrant. She wanted her pain medication increased. She was in a chair because she was very uncomfortable in the bed. Discussed with nursing. Objective Vitals Vital Signs Date Time Temp Pulse Resp B/P (MAP) Pulse Ox O2 Delivery O2 Flow Rate FiO2 10/29/17 12:00 96.9 89 19 127/61 (83) 96 10/29/17 07:30 97.9 87 20 109/51 (70) 97 10/29/17 02:56 92 112/54 (73) 98 10/29/17 00:00 98.0 93 18 98/52 (67) 92 10/28/17 20:10 96 10/28/17 20:00 99.4 98 20 119/55 (76) 95 I/O 10/28/17 10/28/17 10/28/17 10/29/17 10/29/17 10/29/17 07:00 15:00 23:00 07:00 15:00 23:00 Intake Total 1702.5 ml 100 ml 3106.5 ml 1580 ml 120 ml Balance 1702.5 ml 100 ml 3106.5 ml 1580 ml 120 ml Intake Oral 240 ml 1644 ml 480 ml 120 ml IV Total 1462.5 ml 100 ml 1462.5 ml 1100 ml # Voids 1 3 1 # Bowel Movements 0 0 Result Diagram: 10/29/17 1010 10/29/17 1010 Imaging Last Impressions Chest X-Ray 10/25/172019 Signed Impressions: Service Date/Time: Wednesday, October 25, 2017 20:36 - CONCLUSION: 1. Left perihilar parenchymal opacity. CT pulmonary angiogram pending. No effusions. Christophe Hagen MD CT Angiography 10/25/172019 Signed Impressions: Service Date/Time: Wednesday, October 25, 2017 22:24 - CONCLUSION: 1. Negative for pulmonary embolus on CTA. 2. Wedge-shaped consolidation in the lingula with cavitation. Findings characteristic of a cavitary pneumonia possibly due to septic embolic disease. There is a large suspected infarct in the anterior spleen. Christophe Hagen MD Objective Remarks GENERAL: Appears uncomfortable. SKIN: Warm and dry. HEAD: Normocephalic. EYES: No scleral icterus. No injection or drainage. NECK: Supple, trachea midline. No JVD or lymphadenopathy. CARDIOVASCULAR: Regular rate and rhythm without murmurs, gallops, or rubs. RESPIRATORY: Breath sounds equal bilaterally. No accessory muscle use. GASTROINTESTINAL: Abdomen soft, tender in the LUQ, nondistended. MUSCULOSKELETAL: No cyanosis, or edema. BACK: Nontender without obvious deformity. No CVA tenderness. PSYCH: Flattened affect. Medications and IVs Current Medications Medications (Trade) Dose Ordered Sig/Jannie Route Start Time Stop Time Status Last Admin (Ativan) 1 mg Q8H PRN PO 10/25/17 23:00 Sodium Chloride 1,000 ml @ 100 mls/hr Q10H IV 10/25/17 22:53 10/29/17 06:18 (NS Flush) 2 ml UNSCH PRN IV FLUSH 10/25/17 23:00 (NS Flush) 2 ml BID IV FLUSH 10/26/17 09:00 10/26/17 21:39 (Zofran Inj) 4 mg Q6H PRN IVP 10/25/17 23:00 (Roxicodone) 5 mg Q4H PRN PO 10/25/17 23:00 (Sujatha-Colace) 1 tab BID PO 10/26/17 09:00 10/28/17 07:52 (Milk Of Magnesia Liq) 30 ml Q12H PRN PO 10/25/17 23:00 (Senokot) 17.2 mg Q12H PRN PO 10/25/17 23:00 (Dulcolax Supp) 10 mg DAILY PRN RECTAL 10/25/17 23:00 (Lactulose Liq) 30 ml DAILY PRN PO 10/25/17 23:00 (Tylenol) 650 mg Q4H PRN PO 10/26/17 10:15 (Tums Chew) 1,000 mg TID PRN CHEW 10/26/17 10:15 Oxacillin Sodium 2 gm/Sodium Chloride 100 ml @ 200 mls/hr Q4H IV 10/27/17 14:00 10/29/17 06:18 (Lovenox Inj) 40 mg Q24H SQ 10/27/17 14:00 10/29/17 14:46 (Roxicodone) 15 mg Q4H PRN PO 10/29/17 19:00 UNV (Roxicodone) 5 mg ONCE ONCE PO 10/29/17 16:15 10/29/17 16:16 UNV A/P Problem List: (1) Gram-positive bacteremia ICD Code: R78.81 - Bacteremia (2) Sepsis ICD Code: A41.9 - Sepsis, unspecified organism Status: Acute (3) Cavitary pneumonia ICD Code: J18.9 - Pneumonia, unspecified organism; J98.4 - Other disorders of lung Status: Acute (4) Elevated troponin ICD Code: R74.8 - Abnormal levels of other serum enzymes (5) Splenic infarct ICD Code: D73.5 - Infarction of spleen Status: Acute (6) IVDU (intravenous drug user) ICD Code: F19.90 - Other psychoactive substance use, unspecified, uncomplicated (7) Anemia ICD Code: D64.9 - Anemia, unspecified (8) Tobacco abuse ICD Code: Z72.0 - Tobacco use Assessment and Plan Gram positive Bacteremia/ Endocarditis ID consult appreciated. Repeat blood cultures still positive. Echocardiogram with normal ejection fraction, 10 x 3 mm vegetation on aortic valve. - Continue with IV oxacillin per ID. - follow up with infectious disease. Sepsis Source-PNA/Septic Emboli. S/p Blood Cultures, Vanc/Zosyn in ER. - Follow up cultures, continue IV Abx. Cavitary PNA CXR w/ perihilar opacity, CTA Pulm negative for PE however noted to have cavitary pneumonia, likely from septic emboli. +IVDU. - Follow up cultures, continue IV Abx. - follow up with ID for further recommendations. Acute renal failure Unsure of etiology. Possibly antibiotics. - check UA, urine creatinine, urine sodium. - renal US pending. - IVFs. Elevated Trop Peaked at 0.06. Likely s/t sepsis. - Echo with normal EF. Splenic Infarct CTA Pulm w/ possible large splenic infarct, likely from IVDU and septic emboli. - pain control. Anemia Hgb 9.3, previously 12.0 on 07/16/17, likely due to above. - Monitor H/H. transfuse as needed. IVDU/ Tobacco Abuse Pt counselled. - NicoDerm prn if needed. - the pt will be referred to rehab. PPx: Heparin Discharge Planning Will need treatment for endocarditis per infectious disease Lefty Zarate DO Oct 29, 2017 16:18
[2017-10-29 20:00] VITALS: BP 110/54; PULSE 104; RESP 20; TEMP 98.4; O2SAT 93
--- NOTE | 2017-10-29 23:10 | RADRPT ---
EXAM DATE/TIME: 10/29/2017 16:35 [facility] COMPARISON: CT PULMONARY ANGIOGRAM, October 25, 2017, 22:24. INDICATIONS : Increased BUN/Creatnine. MEDICAL HISTORY : Substance abuse. Alcohol use. Tobacco use. SURGICAL HISTORY : Tubal ligation. section. ENCOUNTER: Initial ACUITY: 1 day PAIN SCORE: 8/10 LOCATION: Bilateral flank MEASUREMENTS: RIGHT KIDNEY: 10.8 x 4.5 x 5.0 cm LEFT KIDNEY: 12.1 x 4.2 x 4.1 cm FINDINGS: There is increased echogenicity of the kidneys bilaterally. No hydronephrosis is seen. There is a 4 m m calcification in the right kidney. There is low-density seen in the inferior aspect of the spleen a nd heterogeneity in the mid spleen. The urinary bladder is unremarkable. CONCLUSION: 1. Echogenic kidneys secondary to medical renal disease. 2. Decreased echogenicity and heterogeneity to the spleen likely related to infarcts. Matthieu Marie MD on October 29, 2017 at 23:05 Board Certified Radiologist. This report was verified electronically.
[2017-10-30] VITALS: BP 110/54; PULSE 97; RESP 20; TEMP 98.9; O2SAT 94
[2017-10-30] MEDS: OXACILLIN INJ 2 GM in SODIUM CHLORIDE 0.9% INJ 100 ML IV SCH ×6 (02:00→19:59)
[2017-10-30 04:00] VITALS: BP 108/52; PULSE 101; RESP 20; TEMP 99.2; O2SAT 93
[2017-10-30] MEDS: HEPARIN SODIUM - SQ 10,000 UNITS/ML VIAL SQ SCH ×3 (05:43→20:06)
[2017-10-30 07:15] LABS: HEMATOCRIT 21.3 % (35.0-46.0); HEMOGLOBIN 7.1 GM/DL (11.6-15.3); MEAN CELL VOLUME 73.2 FL (80.0-100.0); MEAN CORPUSCULAR HEMOGLOBIN 24.3 PG (27.0-34.0); MEAN CORPUSCULAR HGB CONC 33.2 % (32.0-36.0); MEAN PLATELET VOLUME 7.5 FL (7.0-11.0); PLATELET COUNT 284 TH/MM3 (150-450); RED BLOOD COUNT 2.92 MIL/MM3 (4.00-5.30); WHITE BLOOD COUNT 5.8 TH/MM3 (4.0-11.0)
[2017-10-30 07:24] LABS: BICARBONATE 19.7 MEQ/L (21.0-32.0); CALCIUM 7.8 MG/DL (8.5-10.1); CREATININE 1.89 MG/DL (0.50-1.00); MAGNESIUM 1.9 MG/DL (1.5-2.5)
[2017-10-30 08:00] VITALS: BP 117/56; PULSE 87; RESP 20; TEMP 99.2; O2SAT 96
[2017-10-30] MEDS: DOCUSATE SODIUM 50 MG/SENNA 8.6 MG TAB PO SCH ×2 (09:00→20:07)
[2017-10-30] MEDS: SODIUM CHLORIDE 0.9% FLUSH 10 ML FLUSH IV FLUSH SCH ×2 (09:00→20:02)
[2017-10-30 12:00] VITALS: BP 104/50; PULSE 79; RESP 19; TEMP 97.1; O2SAT 96
[2017-10-30] MEDS: SODIUM CHLOR 0.9% 1000 ML INJ 1,000 ML IV SCH ×2 (12:53→22:53)
--- NOTE | 2017-10-30 15:07 | HHI.PR ---
Subjective Remarks The patient was having an IV placed. She said that the heating pad helped a lot. Discussed with nursing. Objective Vitals Vital Signs Date Time Temp Pulse Resp B/P (MAP) Pulse Ox O2 Delivery O2 Flow Rate FiO2 10/30/17 12:00 97.1 79 19 104/50 (68) 96 10/30/17 08:00 87 10/30/17 08:00 99.2 87 20 117/56 (76) 96 10/30/17 04:00 99.2 101 20 108/52 (70) 93 10/30/17 00:00 98.9 97 20 110/54 (72) 94 10/29/17 20:00 98.4 104 20 110/54 (72) 93 10/29/17 16:00 99.4 90 20 108/55 (72) 98 I/O 10/29/17 10/29/17 10/29/17 10/30/17 10/30/17 10/30/17 07:00 15:00 23:00 07:00 15:00 23:00 Intake Total 1580 ml 120 ml 1760 ml 300 ml 870 ml Output Total 800 ml 400 ml Balance 1580 ml 120 ml 960 ml 300 ml 470 ml Intake Oral 480 ml 120 ml 1760 ml 300 ml 870 ml IV Total 1100 ml Output Urine Total 800 ml 400 ml # Voids 1 2 3 # Bowel Movements 0 0 Result Diagram: 10/30/17 0510/30/17 05 Imaging Last Impressions Renal Ultrasound 10/29/17 0000 Signed Impressions: Service Date/Time: Sunday, October 29, 2017 16:35 - CONCLUSION: 1. Echogenic kidneys secondary to medical renal disease. 2. Decreased echogenicity and heterogeneity to the spleen likely related to infarcts. Matthieu Marie MD Chest X-Ray 10/25/172019 Signed Impressions: Service Date/Time: Wednesday, October 25, 2017 20:36 - CONCLUSION: 1. Left perihilar parenchymal opacity. CT pulmonary angiogram pending. No effusions. Christophe Hagen MD CT Angiography 10/25/172019 Signed Impressions: Service Date/Time: Wednesday, October 25, 2017 22:24 - CONCLUSION: 1. Negative for pulmonary embolus on CTA. 2. Wedge-shaped consolidation in the lingula with cavitation. Findings characteristic of a cavitary pneumonia possibly due to septic embolic disease. There is a large suspected infarct in the anterior spleen. Christophe Hagen MD Objective Remarks GENERAL: Appears uncomfortable. SKIN: Warm and dry. HEAD: Normocephalic. EYES: No scleral icterus. No injection or drainage. NECK: Supple, trachea midline. No JVD or lymphadenopathy. CARDIOVASCULAR: Regular rate and rhythm without murmurs, gallops, or rubs. RESPIRATORY: Breath sounds equal bilaterally. No accessory muscle use. GASTROINTESTINAL: Abdomen soft, tender in the LUQ, nondistended. MUSCULOSKELETAL: No cyanosis, or edema. BACK: Nontender without obvious deformity. No CVA tenderness. PSYCH: Slightly flattened affect. Medications and IVs Current Medications Medications (Trade) Dose Ordered Sig/Jannie Route Start Time Stop Time Status Last Admin (Ativan) 1 mg Q8H PRN PO 10/25/17 23:00 Sodium Chloride 1,000 ml @ 100 mls/hr Q10H IV 10/25/17 22:53 10/30/17 12:53 (NS Flush) 2 ml UNSCH PRN IV FLUSH 10/25/17 23:00 (NS Flush) 2 ml BID IV FLUSH 10/26/17 09:00 10/26/17 21:39 (Zofran Inj) 4 mg Q6H PRN IVP 10/25/17 23:00 (Roxicodone) 5 mg Q4H PRN PO 10/25/17 23:00 (Sujatha-Colace) 1 tab BID PO 10/26/17 09:00 10/29/17 20:30 (Milk Of Magnesia Liq) 30 ml Q12H PRN PO 10/25/17 23:00 (Senokot) 17.2 mg Q12H PRN PO 10/25/17 23:00 (Dulcolax Supp) 10 mg DAILY PRN RECTAL 10/25/17 23:00 (Lactulose Liq) 30 ml DAILY PRN PO 10/25/17 23:00 (Tylenol) 650 mg Q4H PRN PO 10/26/17 10:15 (Tums Chew) 1,000 mg TID PRN CHEW 10/26/17 10:15 Oxacillin Sodium 2 gm/Sodium Chloride 100 ml @ 200 mls/hr Q4H IV 10/27/17 14:00 10/30/17 13:22 (Roxicodone) 15 mg Q4H PRN PO 10/29/17 19:00 10/30/17 13:41 (Heparin Inj) 5,000 units Q8HR SQ 10/30/17 06:00 10/30/17 13:22 A/P Problem List: (1) Gram-positive bacteremia ICD Code: R78.81 - Bacteremia (2) Sepsis ICD Code: A41.9 - Sepsis, unspecified organism Status: Acute (3) Cavitary pneumonia ICD Code: J18.9 - Pneumonia, unspecified organism; J98.4 - Other disorders of lung Status: Acute (4) Elevated troponin ICD Code: R74.8 - Abnormal levels of other serum enzymes (5) Splenic infarct ICD Code: D73.5 - Infarction of spleen Status: Acute (6) IVDU (intravenous drug user) ICD Code: F19.90 - Other psychoactive substance use, unspecified, uncomplicated (7) Anemia ICD Code: D64.9 - Anemia, unspecified (8) Tobacco abuse ICD Code: Z72.0 - Tobacco use Assessment and Plan Gram positive Bacteremia/ Endocarditis ID consult appreciated. Repeat blood cultures still positive. Echocardiogram with normal ejection fraction, 10 x 3 mm vegetation on aortic valve. - Continue with IV oxacillin per ID. - follow up with infectious disease. Sepsis Source-PNA/Septic Emboli. S/p Blood Cultures, Vanc/Zosyn in ER. - Follow up cultures, continue IV Abx. Cavitary PNA CXR w/ perihilar opacity, CTA Pulm negative for PE however noted to have cavitary pneumonia, likely from septic emboli. +IVDU. - Follow up cultures, continue IV Abx. - follow up with ID for further recommendations. Acute renal failure Unsure of etiology. Possibly antibiotics. Renal US noted. - check UA, urine creatinine, urine sodium. - IVFs. - nephrology consult in AM if no further improvement. - avoid nephrotoxins. Elevated Trop Peaked at 0.06. Likely s/t sepsis. - Echo with normal EF. Splenic Infarct CTA Pulm w/ possible large splenic infarct, likely from IVDU and septic emboli. - pain control/ heating pad. Anemia Hgb decreasing. - Monitor H/H. transfuse as needed. - anemia work-up in progress. IVDU/ Tobacco Abuse Pt counselled. - Jared prn if needed. - the pt will be referred to rehab. PPx: Heparin Discharge Planning Will need treatment for endocarditis per infectious disease Lefty Zarate DO Oct 30, 2017 15:07
[2017-10-30 16:00] VITALS: BP 94/47; PULSE 83; RESP 19; TEMP 98.5; O2SAT 98
[2017-10-30 16:23] LABS: % SATURATION IRON PROFILE 7.1 % (20-50); IRON (FE) 13 MCG/DL (50-170); TOTAL IRON BINDING CAPACITY 182 MCG/DL (250-450)
[2017-10-30 16:48] LABS: FERRITIN 194 NG/ML (8-252); FOLATE 5.3 NG/ML (3.1-17.5)
[2017-10-30 20:00] VITALS: BP 112/53; PULSE 106; RESP 18; TEMP 100.1; O2SAT 95
[2017-10-31] VITALS (8 sets, daily range): BP systolic 97–118; BP diastolic 53–59; PULSE 87–130; RESP 18–20; TEMP 96.6–100.1; O2SAT 93–100
[2017-10-31] MEDS: OXACILLIN INJ 2 GM in SODIUM CHLORIDE 0.9% INJ 100 ML IV SCH ×3 (01:42→10:53)
[2017-10-31] MEDS: SODIUM CHLOR 0.9% 1000 ML INJ 1,000 ML IV SCH ×2 (05:21→15:11)
[2017-10-31] MEDS: HEPARIN SODIUM - SQ 10,000 UNITS/ML VIAL SQ SCH ×3 (05:21→19:41)
[2017-10-31] MEDS: DOCUSATE SODIUM 50 MG/SENNA 8.6 MG TAB PO SCH ×2 (09:00→19:40)
[2017-10-31] MEDS: SODIUM CHLORIDE 0.9% FLUSH 10 ML FLUSH IV FLUSH SCH ×2 (10:54→19:39)
[2017-10-31 12:20] LABS: BICARBONATE 20.1 MEQ/L (21.0-32.0); CALCIUM 8.2 MG/DL (8.5-10.1); CREATININE 2.02 MG/DL (0.50-1.00); MAGNESIUM 1.9 MG/DL (1.5-2.5)
[2017-10-31 13:37] LABS: HEMATOCRIT 26.2 % (35.0-46.0); HEMOGLOBIN 8.7 GM/DL (11.6-15.3); MEAN CELL VOLUME 73.4 FL (80.0-100.0); MEAN CORPUSCULAR HEMOGLOBIN 24.3 PG (27.0-34.0); MEAN CORPUSCULAR HGB CONC 33.1 % (32.0-36.0); MEAN PLATELET VOLUME 8.1 FL (7.0-11.0); PLATELET COUNT 350 TH/MM3 (150-450); RED BLOOD COUNT 3.57 MIL/MM3 (4.00-5.30); RED CELL DISTRIBUTION WIDTH 17.7 % (11.6-17.2); WHITE BLOOD COUNT 8.1 TH/MM3 (4.0-11.0)
--- NOTE | 2017-10-31 14:04 | HHI.PR ---
Subjective Remarks The patient still complained of left upper quadrant pain. She indicated that her feet were swollen and her arms were swollen and her stomach was swollen. Discussed with nursing. Objective Vitals Vital Signs Date Time Temp Pulse Resp B/P (MAP) Pulse Ox O2 Delivery O2 Flow Rate FiO2 10/31/17 12:00 98.3 87 19 114/59 (77) 98 10/31/17 07:58 99.9 97 20 108/56 (73) 100 10/31/17 04:51 98.7 99 18 97/54 (68) 93 10/31/17 02:59 94 10/31/17 01:40 96.6 91 18 103/57 (72) 95 10/30/17 20:00 100.1 106 18 112/53 (72) 95 10/30/17 16:00 98.5 83 19 94/47 (63) 98 I/O 10/30/17 10/30/17 10/30/17 10/31/17 10/31/17 10/31/17 07:00 15:00 23:00 07:00 15:00 23:00 Intake Total 300 ml 870 ml 860 ml 1500 ml 120 ml Output Total 400 ml 700 ml Balance 300 ml 470 ml 160 ml 1500 ml 120 ml Intake Oral 300 ml 870 ml 760 ml 120 ml IV Total 100 ml 1500 ml Output Urine Total 400 ml 700 ml # Voids 3 2 # Bowel Movements 0 Result Diagram: 10/31/17 1045 10/31/17 1045 Imaging Last Impressions Renal Ultrasound 10/29/17 0000 Signed Impressions: Service Date/Time: Sunday, October 29, 2017 16:35 - CONCLUSION: 1. Echogenic kidneys secondary to medical renal disease. 2. Decreased echogenicity and heterogeneity to the spleen likely related to infarcts. Matthieu Marie MD Chest X-Ray 10/25/172019 Signed Impressions: Service Date/Time: Wednesday, October 25, 2017 20:36 - CONCLUSION: 1. Left perihilar parenchymal opacity. CT pulmonary angiogram pending. No effusions. Christophe Hagen MD CT Angiography 10/25/172019 Signed Impressions: Service Date/Time: Wednesday, October 25, 2017 22:24 - CONCLUSION: 1. Negative for pulmonary embolus on CTA. 2. Wedge-shaped consolidation in the lingula with cavitation. Findings characteristic of a cavitary pneumonia possibly due to septic embolic disease. There is a large suspected infarct in the anterior spleen. Christophe Hagen MD Objective Remarks GENERAL: Appears uncomfortable. SKIN: Warm and dry. HEAD: Normocephalic. EYES: No scleral icterus. No injection or drainage. NECK: Supple, trachea midline. No JVD or lymphadenopathy. CARDIOVASCULAR: Regular rate and rhythm without murmurs, gallops, or rubs. RESPIRATORY: Breath sounds equal bilaterally. No accessory muscle use. GASTROINTESTINAL: Abdomen soft, tender in the LUQ, nondistended. MUSCULOSKELETAL: Anasarca. BACK: Nontender without obvious deformity. No CVA tenderness. PSYCH: Slightly flattened affect. Medications and IVs Current Medications Medications (Trade) Dose Ordered Sig/Jannie Route Start Time Stop Time Status Last Admin (Ativan) 1 mg Q8H PRN PO 10/25/17 23:00 Sodium Chloride 1,000 ml @ 100 mls/hr Q10H IV 10/25/17 22:53 10/31/17 05:21 (NS Flush) 2 ml UNSCH PRN IV FLUSH 10/25/17 23:00 (NS Flush) 2 ml BID IV FLUSH 10/26/17 09:00 10/31/17 10:54 (Zofran Inj) 4 mg Q6H PRN IVP 10/25/17 23:00 (Roxicodone) 5 mg Q4H PRN PO 10/25/17 23:00 (Sujatha-Colace) 1 tab BID PO 10/26/17 09:00 10/29/17 20:30 (Milk Of Magnesia Liq) 30 ml Q12H PRN PO 10/25/17 23:00 (Senokot) 17.2 mg Q12H PRN PO 10/25/17 23:00 (Dulcolax Supp) 10 mg DAILY PRN RECTAL 10/25/17 23:00 (Lactulose Liq) 30 ml DAILY PRN PO 10/25/17 23:00 (Tylenol) 650 mg Q4H PRN PO 10/26/17 10:15 (Tums Chew) 1,000 mg TID PRN CHEW 10/26/17 10:15 Oxacillin Sodium 2 gm/Sodium Chloride 100 ml @ 200 mls/hr Q4H IV 10/27/17 14:00 Future Hold 10/31/17 10:53 (Roxicodone) 15 mg Q4H PRN PO 10/29/17 19:00 10/31/17 10:53 (Heparin Inj) 5,000 units Q8HR SQ 10/30/17 06:00 10/30/17 20:06 A/P Problem List: (1) Gram-positive bacteremia ICD Code: R78.81 - Bacteremia (2) Sepsis ICD Code: A41.9 - Sepsis, unspecified organism Status: Acute (3) Cavitary pneumonia ICD Code: J18.9 - Pneumonia, unspecified organism; J98.4 - Other disorders of lung Status: Acute (4) Elevated troponin ICD Code: R74.8 - Abnormal levels of other serum enzymes (5) Splenic infarct ICD Code: D73.5 - Infarction of spleen Status: Acute (6) IVDU (intravenous drug user) ICD Code: F19.90 - Other psychoactive substance use, unspecified, uncomplicated (7) Anemia ICD Code: D64.9 - Anemia, unspecified (8) Tobacco abuse ICD Code: Z72.0 - Tobacco use Assessment and Plan Gram positive Bacteremia/ Endocarditis ID consult appreciated. Repeat blood cultures still positive. Echocardiogram with normal ejection fraction, 10 x 3 mm vegetation on aortic valve. - Continue with IV oxacillin per ID. - follow up with infectious disease. Sepsis Source-PNA/Septic Emboli. S/p Blood Cultures, Vanc/Zosyn in ER. - Follow up cultures, continue IV Abx. Cavitary PNA CXR w/ perihilar opacity, CTA Pulm negative for PE however noted to have cavitary pneumonia, likely from septic emboli. +IVDU. - Follow up cultures, continue IV Abx. - follow up with ID for further recommendations. Acute renal failure Unsure of etiology. Possibly antibiotics versus contrast exposure. Renal US noted. - check UA, urine creatinine, urine sodium. - IVFs. - nephrology consult requested. - avoid nephrotoxins. Elevated Trop Peaked at 0.06. Likely s/t sepsis. - Echo with normal EF. Splenic Infarct CTA Pulm w/ possible large splenic infarct, likely from IVDU and septic emboli. - pain control/ heating pad. Anemia Hgb stable at this time. - Monitor H/H. transfuse as needed. - anemia work-up in progress. B12 IM 1. IVDU/ Tobacco Abuse Pt counselled. - Jared prn if needed. - the pt will be referred to rehab. PPx: Heparin Discharge Planning Will need treatment for endocarditis per infectious disease Lefty Zarate DO Oct 31, 2017 14:04
[2017-10-31] MEDS ORDERED: CYANOCOBALAMIN 1000 MCG/ML VIAL IM ONE (14:15)
[2017-10-31 14:57] LABS: BILIRUBIN, URINE NEG (NEG); BLOOD, URINE NEG (NEG); GLUCOSE,URINE NEG (NEG); KETONE, URINE NEG (NEG); MUCUS URINE FEW /lpf (OCC); NITRITE,URINE NEG (NEG); PH, URINE 5.5 (5.0-8.5); SQUAMOUS EPITHELIAL CELL URINE 7 /hpf (0-5); URINE COLOR LIGHT-YELLOW (YELLW/STRAW); URINE LEUKOCYTE ESTERASE SMALL (NEG)
[2017-10-31 15:01] LABS: CREATININE, RANDOM URINE 29.6 MG/DL
--- NOTE | 2017-10-31 16:11 | HHI.IDPN ---
Note Infectious Disease Note Called about patient having increased creatinine. Patient complains of pain all over. 2D echo has aortic valve vegetation. Afebrile. Blood culture repeat negative x 2 days. The patient came to the emergency department with respiratory distress and she was having cough, left-sided chest pain, nausea, vomiting and fevers. The ED report stated that the symptoms began two weeks ago. The patient tells me that she started having sharp pain in her left chest and coughing about two days ago. She states that she last used IV drugs two days ago. PAST MEDICAL HISTORY: 1. IV drug abuse. 2. Tobacco abuse. 3. . ALLERGIES PROPOXYPHENE BUTORPHANOL ACETAMINOPHEN FISH CONTAINING PRODUCTS MEDICATIONS: Oxacillin. OBJECTIVE: Vital Signs Date Time Temp Pulse Resp B/P (MAP) Pulse Ox O2 Delivery O2 Flow Rate FiO2 10/31/17 12:00 98.3 87 19 114/59 (77) 98 10/31/17 07:58 99.9 97 20 108/56 (73) 100 10/31/17 04:51 98.7 99 18 97/54 (68) 93 10/31/17 02:59 94 10/31/17 01:40 96.6 91 18 103/57 (72) 95 10/30/17 20:00 100.1 106 18 112/53 (72) 95 Laboratory Tests Test 10/30/17 05:26 10/31/17 10:45 White Blood Count 5.8 TH/MM3 8.1 TH/MM3 Red Blood Count 2.92 MIL/MM3 3.57 MIL/MM3 Hemoglobin 7.1 GM/DL 8.7 GM/DL Hematocrit 21.3 % 26.2 % Mean Corpuscular Volume 73.2 FL 73.4 FL Mean Corpuscular Hemoglobin 24.3 PG 24.3 PG Mean Corpuscular Hemoglobin Concent 33.2 % 33.1 % Red Cell Distribution Width 17.0 % 17.7 % Platelet Count 284 TH/MM3 350 TH/MM3 Mean Platelet Volume 7.5 FL 8.1 FL Laboratory Tests Test 10/30/17 05:26 10/31/17 10:45 Blood Urea Nitrogen 7 MG/DL 8 MG/DL Creatinine 1.89 MG/DL 2.02 MG/DL Random Glucose 90 MG/DL 76 MG/DL Calcium Level 7.8 MG/DL 8.2 MG/DL Magnesium Level 1.9 MG/DL 1.9 MG/DL Sodium Level 140 MEQ/L 139 MEQ/L Potassium Level 3.6 MEQ/L 4.3 MEQ/L Chloride Level 112 MEQ/L 111 MEQ/L Carbon Dioxide Level 19.7 MEQ/L 20.1 MEQ/L Anion Gap 8 MEQ/L 8 MEQ/L Estimat Glomerular Filtration Rate 31 ML/MIN 28 ML/MIN Iron Level 13 MCG/DL Total Iron Binding Capacity 182 MCG/DL Percent Iron Saturation 7.1 % Ferritin 194 NG/ML Vitamin B12 Level 261 PG/ML Folate 5.3 NG/ML Microbiology Date/Time Source Procedure Growth Status 10/29/17 15:48 Blood Peripheral Aerobic Blood Culture - Preliminary NO GROWTH IN 2 DAYS Resulted 10/29/17 15:48 Blood Peripheral Anaerobic Blood Culture - Preliminary NO GROWTH IN 2 DAYS Resulted 10/29/17 14:05 Blood Peripheral Aerobic Blood Culture - Preliminary NO GROWTH IN 2 DAYS Resulted 10/29/17 14:05 Blood Peripheral Anaerobic Blood Culture - Preliminary NO GROWTH IN 2 DAYS Resulted Microbiology Date/Time Source Procedure Growth Status 10/26/17 16:24 Blood Peripheral Aerobic Blood Culture - Final Staphylococcus Aureus Resulted 10/26/17 16:24 Anaerobic Blood Culture - Preliminary Staphylococcus Aureus Resulted 10/26/17 16:14 Blood Peripheral Aerobic Blood Culture - Final Staphylococcus Aureus Resulted 10/26/17 16:14 Anaerobic Blood Culture - Preliminary Staphylococcus Aureus Resulted 10/25/17 20:30 Blood Peripheral Aerobic Blood Culture - Final Staphylococcus Aureus Complete 10/25/17 20:30 Anaerobic Blood Culture - Final Staphylococcus Aureus Complete 10/25/17 20:25 Blood Peripheral Aerobic Blood Culture - Preliminary Staphylococcus Aureus Resulted 10/25/17 20:25 Anaerobic Blood Culture - Final Staphylococcus Aureus Resulted 10/25/17 21:00 Nasal Aspirate Influenza Types A,B Antigen (JONNY) - Final NEGATIVE FOR FLU A AND B ANTIGEN.... Complete IMAGING: Chest X-Ray 10/25/172019 Signed Impressions: Service Date/Time: Wednesday, October 25, 2017 20:36 - CONCLUSION: 1. Left perihilar parenchymal opacity. CT pulmonary angiogram pending. No effusions. Christophe Hagen MD CT Angiography 10/25/172019 Signed Impressions: Service Date/Time: Wednesday, October 25, 2017 22:24 - CONCLUSION: 1. Negative for pulmonary embolus on CTA. 2. Wedge-shaped consolidation in the lingula with cavitation. Findings characteristic of a cavitary pneumonia possibly due to septic embolic disease. There is a large suspected infarct in the anterior spleen. Christophe Hagen MD PHYSICAL EXAMINATION: GENERAL: No acute distress. She appears chronically ill. HEENT: Head is atraumatic. Extraocular movements grossly intact, pupils reactive to light. No icterus. Oropharynx: moist mucosa. No lesions. No thrush. Neck: Supple without adenopathy or swelling. Lungs: Diminished breath sounds. Heart: Regular rate and rhythm. No murmurs, rubs, or gallops. Abdomen: Bowel sounds present, soft, tenderness to palpation on the left upper quadrant and left flank. No palpable mass. Extremities: No clubbing or cyanosis. The right forearm has an area of swelling and it is tender. There is no palpable cords and no visible erythema at that location. The patient also has track waddell at the left hand. Skin: No diffuse rash. Neuro: No focal findings. Psych: The patient is calm and cooperative. IMPRESSION 1. 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 2. Septic emboli in the lungs. 3. 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 4. IV drug abuse. 5. Acute renal disease. Received contrast, also vanco and most lately Oxacillin. RECOMMENDATIONS 1. Change the Oxacillin IV to Ancef x 6 weeks. Continue to monitor the blood culture every 3 days until negative. 2. Follow renal function. Also Obtain the following labs weekly. CBC, BMP. Breezy Muñoz MD Oct 31, 2017 16:11
--- NOTE | 2017-10-31 16:24 | PD.CONS ---
[facility] Service Nephrology Consult Requested By Reason for Consult Acute kidney injury Primary Care Physician No Primary Care Physician History of Present Illness This patient was admitted on the . She was febrile on presentation, has history of IV drug abuse. Has been diagnosed with aortic valve endocarditis and septic emboli to lungs. Patient received Zosyn, Vancomycin, currently on Oxacillin. Blood culture positive for MSSA. Creatinine was 1.5 on the , 1.89 on , and 2.02 today. It was less than 1 on presentation. BP is low to low normal. Positive fluid balance. UA is unremarkable. Renal US negative for hydronephrosis. Review of Systems Constitutional: COMPLAINS OF: Fatigue Eyes: DENIES: Eye inflammation Ears, nose, mouth, throat: DENIES: Vertigo Cardiovascular: COMPLAINS OF: Chest pain Gastrointestinal: DENIES: Abdominal pain, Black stools, Bloody stools Integumentary: DENIES: Abnormal pigmentation Hematologic/lymphatic: DENIES: Bruising Immunologic/allergic: DENIES: Eczema Neurologic: DENIES: Abnormal gait Past Family Social History Allergies: Coded Allergies: acetaminophen (Unverified Allergy, Severe, "LOOPY", 10/25/17) propoxyphene (Unverified Allergy, Severe, "LOOPY", 10/25/17) Fish Containing Products (Unverified Allergy, Intermediate, 10/25/17) butorphanol (Unverified Allergy, Intermediate, HALUCINATIONS, 10/25/17) Past Medical History IV drug abuse, Tobacco abuse. Active Ordered Medications Current Medications Medications (Trade) Dose Ordered Sig/Jannie Route Start Time Stop Time Status Last Admin (Ativan) 1 mg Q8H PRN PO 10/25/17 23:00 10/31/17 15:20 Sodium Chloride 1,000 ml @ 75 mls/hr [id number] IV 10/25/17 22:53 10/31/17 15:11 (NS Flush) 2 ml UNSCH PRN IV FLUSH 10/25/17 23:00 (NS Flush) 2 ml BID IV FLUSH 10/26/17 09:00 10/31/17 10:54 (Zofran Inj) 4 mg Q6H PRN IVP 10/25/17 23:00 (Roxicodone) 5 mg Q4H PRN PO 10/25/17 23:00 (Sujatha-Colace) 1 tab BID PO 10/26/17 09:00 10/29/17 20:30 (Milk Of Magnesia Liq) 30 ml Q12H PRN PO 10/25/17 23:00 (Senokot) 17.2 mg Q12H PRN PO 10/25/17 23:00 (Dulcolax Supp) 10 mg DAILY PRN RECTAL 10/25/17 23:00 (Lactulose Liq) 30 ml DAILY PRN PO 10/25/17 23:00 (Tylenol) 650 mg Q4H PRN PO 10/26/17 10:15 (Tums Chew) 1,000 mg TID PRN CHEW 10/26/17 10:15 Oxacillin Sodium 2 gm/Sodium Chloride 100 ml @ 200 mls/hr Q4H IV 10/27/17 14:00 Future Hold 10/31/17 10:53 (Roxicodone) 15 mg Q4H PRN PO 10/29/17 19:00 10/31/17 15:10 (Heparin Inj) 5,000 units Q8HR SQ 10/30/17 06:00 10/31/17 15:10 Family History non contributory Social History IV drug abuse: Dilaudid, amphetamines. Physical Exam Vital Signs Vital Signs Date Time Temp Pulse Resp B/P (MAP) Pulse Ox O2 Delivery O2 Flow Rate FiO2 10/31/17 12:00 98.3 87 19 114/59 (77) 98 10/31/17 07:58 99.9 97 20 108/56 (73) 100 10/31/17 04:51 98.7 99 18 97/54 (68) 93 10/31/17 02:59 94 10/31/17 01:40 96.6 91 18 103/57 (72) 95 10/30/17 20:00 100.1 106 18 112/53 (72) 95 Physical Exam GENERAL: alert, oriented. Anasarca. SKIN: Warm and dry. HEAD: Normocephalic. EYES: No scleral icterus. No injection or drainage. NECK: Supple, trachea midline. No JVD or lymphadenopathy. CARDIOVASCULAR: Regular rate and rhythm 3/6 systolic murmur. RESPIRATORY: Breath sounds equal bilaterally. No accessory muscle use. GASTROINTESTINAL: Abdomen soft, non-tender, nondistended. MUSCULOSKELETAL: 2+ edema BACK: Nontender without obvious deformity. No CVA tenderness. Laboratory Laboratory Tests Test 10/31/17 10:45 10/31/17 14:30 White Blood Count 8.1 Red Blood Count 3.57 Hemoglobin 8.7 Hematocrit 26.2 Mean Corpuscular Volume 73.4 Mean Corpuscular Hemoglobin 24.3 Mean Corpuscular Hemoglobin Concent 33.1 Red Cell Distribution Width 17.7 Platelet Count 350 Mean Platelet Volume 8.1 Blood Urea Nitrogen 8 Creatinine 2.02 Random Glucose 76 Calcium Level 8.2 Magnesium Level 1.9 Sodium Level 139 Potassium Level 4.3 Chloride Level 111 Carbon Dioxide Level 20.1 Anion Gap 8 Estimat Glomerular Filtration Rate 28 Urine Color LIGHT-YELLOW Urine Turbidity CLEAR Urine pH 5.5 Urine Specific [place] 1.005 Urine Protein NEG Urine Glucose (UA) NEG Urine Ketones NEG Urine Occult Blood NEG Urine Nitrite NEG Urine Bilirubin NEG Urine Urobilinogen LESS THAN 2.0 Urine Leukocyte Esterase SMALL Urine WBC 1 Urine Squamous Epithelial Cells 7 Urine Mucus FEW Microscopic Urinalysis Comment CULT NOT INDICATED Urine Random Creatinine 29.6 Urine Random Sodium 84 Date/Time Source Procedure Growth Status 10/29/17 15:48 Blood Peripheral Aerobic Blood Culture - Preliminary NO GROWTH IN 2 DAYS Resulted 10/29/17 15:48 Blood Peripheral Anaerobic Blood Culture - Preliminary NO GROWTH IN 2 DAYS Resulted 10/25/17 21:00 Nasal Aspirate Influenza Types A,B Antigen (JONNY) - Final NEGATIVE FOR FLU A AND B ANTIGEN.... Complete Result Diagram: 10/31/17 1045 10/31/17 1045 Assessment and Plan Problem List: (1) Acute kidney injury ICD Codes: N17.9 - Acute kidney failure, unspecified Plan: Possibilities include ATN from sepsis, hypotension. Vancomycin induced nephrotoxicity, allergic interstitial nephritis also should be considered. Finally septic embolization or post infectious GN is a consideration although relatively normal UA makes this less likely. Continue supportive care. Avoid nephrotoxic agents. Avoid excessive IV administration. Patient presents with signs of fluid overload. I will stop IVF, start Lasix. Monitor urine output. (2) Endocarditis ICD Codes: I38 - Endocarditis, valve unspecified Plan: antibiotic per ID. On Oxacillin. (3) Cavitary pneumonia ICD Codes: J18.9 - Pneumonia, unspecified organism; J98.4 - Other disorders of lung Status: Acute Plan: due to septic emboli Assessment and Plan Thanks for the consult. Chong Winston MD Oct 31, 2017 16:24
[2017-10-31] MEDS: FUROSEMIDE 40 MG/4 ML VIAL IV PUSH SCH (18:28)
[2017-11-01] VITALS: BP 107/54; PULSE 107; RESP 20; TEMP 100.1; O2SAT 95
[2017-11-01 04:00] VITALS: BP 100/49; PULSE 86; RESP 20; TEMP 98.7; O2SAT 96
[2017-11-01] MEDS: SODIUM CHLOR 0.9% 1000 ML INJ 1,000 ML IV SCH (05:00)
[2017-11-01] MEDS: HEPARIN SODIUM - SQ 10,000 UNITS/ML VIAL SQ SCH ×3 (05:10→20:56)
[2017-11-01 08:00] VITALS: BP 116/52; PULSE 90; RESP 21; TEMP 98.7; O2SAT 92
[2017-11-01 08:11] LABS: AUTOMATED NEUTROPHIL # 2.4 TH/MM3 (1.8-7.7); EOSINOPHIL # 0.1 TH/MM3 (0-0.4); EOSINOPHIL % 2.6 % (0.0-4.0); LYMPH % 29.9 % (9.0-44.0); LYMPHOCYTE # 1.3 TH/MM3 (1.0-4.8); MEAN CELL VOLUME 72.5 FL (80.0-100.0); MEAN CORPUSCULAR HEMOGLOBIN 24.5 PG (27.0-34.0); MEAN CORPUSCULAR HGB CONC 33.8 % (32.0-36.0); MONO % 10.3 % (0.0-8.0); MONOCYTE # 0.4 TH/MM3 (0-0.9); NEUT % 56.2 % (16.0-70.0); PLATELET COUNT 302 TH/MM3 (150-450); RED BLOOD COUNT 2.87 MIL/MM3 (4.00-5.30); RED CELL DISTRIBUTION WIDTH 17.2 % (11.6-17.2); WHITE BLOOD COUNT 4.2 TH/MM3 (4.0-11.0)
[2017-11-01 08:16] LABS: INTERNATIONAL NORMALIZED RATIO 1.1 RATIO; PROTHROMBIN TIME - PATIENT 10.9 SEC (9.8-11.6)
[2017-11-01 08:17] LABS: HEMATOCRIT 20.8 % (35.0-46.0)
[2017-11-01 08:49] LABS: ALBUMIN 1.6 GM/DL (3.4-5.0); ALT (GPT) 7 U/L (10-53); AST (GOT) 14 U/L (15-37); BICARBONATE 22.4 MEQ/L (21.0-32.0); BLOOD UREA NITROGEN 9 MG/DL (7-18); CALCIUM 7.9 MG/DL (8.5-10.1); CHLORIDE 107 MEQ/L (98-107); CREATININE 2.23 MG/DL (0.50-1.00); GLOMERULAR FILTRATION RATE 25 ML/MIN (>89); GLUCOSE,RANDOM 83 MG/DL (74-106); SODIUM (NA) 140 MEQ/L (136-145)
[2017-11-01 08:50] LABS: ALKALINE PHOSPHATASE 61 U/L (45-117); TOTAL BILIRUBIN ADULT 0.2 MG/DL (0.2-1.0); TOTAL PROTEIN 6.2 GM/DL (6.4-8.2)
[2017-11-01] MEDS ORDERED: POTASSIUM CHLORIDE 20 MEQ CONTROLLED RELEASE TAB PO ONE (10:15)
[2017-11-01] MEDS: DOCUSATE SODIUM 50 MG/SENNA 8.6 MG TAB PO SCH ×2 (10:32→19:30)
[2017-11-01] MEDS: FUROSEMIDE 40 MG/4 ML VIAL IV PUSH SCH ×2 (10:32→19:10)
--- NOTE | 2017-11-01 10:34 | HHI.PR ---
Subjective Remarks The patient was complaining that she shouldn't be on IV fluids anymore. She had questions about her antibiotics. She said she has been going to the bathroom a lot. She says her pain is controlled as long as she is not moving. Discussed with nursing at the bedside. Objective Vitals Vital Signs Date Time Temp Pulse Resp B/P (MAP) Pulse Ox O2 Delivery O2 Flow Rate FiO2 11/01/17 08:00 98.7 90 21 116/52 (73) 92 11/01/17 04:00 98.7 86 20 100/49 (66) 96 11/01/17 00:00 100.1 107 20 107/54 (71) 95 10/31/17 20:33 130 10/31/17 20:00 100.1 109 20 118/56 (76) 94 10/31/17 16:00 98.3 91 18 114/53 (73) 95 10/31/17 12:00 98.3 87 19 114/59 (77) 98 I/O 10/31/17 10/31/17 10/31/17 11/01/17 11/01/17 11/01/17 07:00 15:00 23:00 07:00 15:00 23:00 Intake Total 1500 ml 220 ml 900 ml Output Total 900 ml Balance 1500 ml 220 ml 0 ml Intake Oral 120 ml 750 ml IV Total 1500 ml 100 ml 150 ml Output Urine Total 900 ml # Voids 2 2 # Bowel Movements 1 Result Diagram: 11/01/17 0605 11/01/17 0605 Imaging Last Impressions Renal Ultrasound 10/29/17 0000 Signed Impressions: Service Date/Time: Sunday, October 29, 2017 16:35 - CONCLUSION: 1. Echogenic kidneys secondary to medical renal disease. 2. Decreased echogenicity and heterogeneity to the spleen likely related to infarcts. Matthieu Marie MD Chest X-Ray 10/25/172019 Signed Impressions: Service Date/Time: Wednesday, October 25, 2017 20:36 - CONCLUSION: 1. Left perihilar parenchymal opacity. CT pulmonary angiogram pending. No effusions. Christophe Hagen MD CT Angiography 10/25/172019 Signed Impressions: Service Date/Time: Wednesday, October 25, 2017 22:24 - CONCLUSION: 1. Negative for pulmonary embolus on CTA. 2. Wedge-shaped consolidation in the lingula with cavitation. Findings characteristic of a cavitary pneumonia possibly due to septic embolic disease. There is a large suspected infarct in the anterior spleen. Christophe Hagen MD Objective Remarks GENERAL: Appears uncomfortable. SKIN: Warm and dry. HEAD: Normocephalic. EYES: No scleral icterus. No injection or drainage. NECK: Supple, trachea midline. No JVD or lymphadenopathy. CARDIOVASCULAR: Regular rate and rhythm without murmurs, gallops, or rubs. RESPIRATORY: Breath sounds equal bilaterally. No accessory muscle use. GASTROINTESTINAL: Abdomen soft, tender in the LUQ, nondistended. MUSCULOSKELETAL: Anasarca. BACK: Nontender without obvious deformity. No CVA tenderness. PSYCH: Mood and affect appropriate. Medications and IVs Current Medications Medications (Trade) Dose Ordered Sig/Jannie Route Start Time Stop Time Status Last Admin (Ativan) 1 mg Q8H PRN PO 10/25/17 23:00 10/31/17 15:20 (NS Flush) 2 ml UNSCH PRN IV FLUSH 10/25/17 23:00 (NS Flush) 2 ml BID IV FLUSH 10/26/17 09:00 10/31/17 10:54 (Zofran Inj) 4 mg Q6H PRN IVP 10/25/17 23:00 (Roxicodone) 5 mg Q4H PRN PO 10/25/17 23:00 (Sujatha-Colace) 1 tab BID PO 10/26/17 09:00 10/31/17 19:40 (Milk Of Magnesia Liq) 30 ml Q12H PRN PO 10/25/17 23:00 (Senokot) 17.2 mg Q12H PRN PO 10/25/17 23:00 (Dulcolax Supp) 10 mg DAILY PRN RECTAL 10/25/17 23:00 (Lactulose Liq) 30 ml DAILY PRN PO 10/25/17 23:00 (Tylenol) 650 mg Q4H PRN PO 10/26/17 10:15 (Tums Chew) 1,000 mg TID PRN CHEW 10/26/17 10:15 (Roxicodone) 15 mg Q4H PRN PO 10/29/17 19:00 11/01/17 05:09 (Heparin Inj) 5,000 units Q8HR SQ 10/30/17 06:00 10/31/17 19:41 Cefazolin Sodium 1000 mg/Sodium Chloride 100 ml @ 200 mls/hr Q8H IV 11/01/17 00:00 10/31/17 23:27 (Lasix Inj) 40 mg BID@09,18 IV PUSH 10/31/17 18:00 10/31/17 18:28 (KCl) 20 meq ONCE ONCE PO 11/01/17 10:15 11/01/17 10:16 UNV A/P Problem List: (1) Gram-positive bacteremia ICD Code: R78.81 - Bacteremia (2) Sepsis ICD Code: A41.9 - Sepsis, unspecified organism Status: Acute (3) Cavitary pneumonia ICD Code: J18.9 - Pneumonia, unspecified organism; J98.4 - Other disorders of lung Status: Acute (4) Elevated troponin ICD Code: R74.8 - Abnormal levels of other serum enzymes (5) Splenic infarct ICD Code: D73.5 - Infarction of spleen Status: Acute (6) IVDU (intravenous drug user) ICD Code: F19.90 - Other psychoactive substance use, unspecified, uncomplicated (7) Anemia ICD Code: D64.9 - Anemia, unspecified (8) Tobacco abuse ICD Code: Z72.0 - Tobacco use Assessment and Plan Gram positive Bacteremia/ Endocarditis ID consult appreciated. Repeat blood cultures still positive. Echocardiogram with normal ejection fraction, 10 x 3 mm vegetation on aortic valve. - Continue with IV cefazolin per ID. - follow up with infectious disease. Sepsis Source- Cavitary PNA/Septic Emboli. S/p Blood Cultures, Vanc/Zosyn in ER. CXR w / perihilar opacity, CTA Pulm negative for PE however noted to have cavitary pneumonia, likely from septic emboli. +IVDU. - Follow up cultures, continue IV Abx. - follow up with ID for further recommendations. Acute renal failure Unsure of etiology. Possibly antibiotics versus contrast exposure. Renal US noted. Nephrology consult appreciated. - d/c IVFs and start IV Lasix per nephrology. - follow Is and Os. - avoid nephrotoxins. Elevated Trop Peaked at 0.06. Likely s/t sepsis. - Echo with normal EF. Splenic Infarct CTA Pulm w/ possible large splenic infarct, likely from IVDU and septic emboli. - pain control/ heating pad. Anemia Hgb has been low. - Monitor H/H. transfuse as needed. - anemia work-up in progress. B12 IM 1. IVDU/ Tobacco Abuse Pt counselled. - NicoDerm prn if needed. - the pt will be referred to rehab. PPx: Heparin Discharge Planning Will need treatment for endocarditis per infectious disease Lefty Zarate DO Nov 01, 2017 10:34
[2017-11-01 12:00] VITALS: BP 111/55; PULSE 101; RESP 17; TEMP 96.4; O2SAT 94
[2017-11-01 16:00] VITALS: BP 101/50; PULSE 98; RESP 18; TEMP 97.5; O2SAT 91
--- NOTE | 2017-11-01 16:42 | HHI.NPPN ---
Subjective History of Present Illness This is 32 years old female, has history of IV drug abuse, was admitted with fever. Has been diagnosed with aortic valve endocarditis and septic emboli to lungs. Patient received Zosyn, Vancomycin, currently on Oxacillin. Blood culture positive for MSSA. Additional Remarks Patient is alert, no SOB, has no abd. pain, passing urine. Objective Data Data Vital Signs Date Time Temp Pulse Resp B/P (MAP) Pulse Ox O2 Delivery O2 Flow Rate FiO2 11/01/17 16:00 97.5 98 18 101/50 (67) 91 11/01/17 12:00 96.4 101 17 111/55 (73) 94 11/01/17 08:00 98.7 90 21 116/52 (73) 92 11/01/17 04:00 98.7 86 20 100/49 (66) 96 11/01/17 00:00 100.1 107 20 107/54 (71) 95 10/31/17 20:33 130 10/31/17 20:00 100.1 109 20 118/56 (76) 94 -: 11/01/17 0605 11/01/17 0605 Physical Exam General Appearance: No Acute Distress, Comfortable Eyes Eye Exam: Pupils Equal Neck Neck Exam: Neck Supple, Trachea Midline Pulmonary Resp Exam: Clear Bilaterally, Breath Sounds Equal, No Distress, Decreased Bases Cardiology CV Exam: Regular, Normal Sinus Rhythm Gastrointestinal/Abdomen GI Exam: Soft, Non-Tender, Bowel Sounds Present Extremeties Extremities Exam: No Edema Neurologic Neuro Exam: Alert, Awake, Oriented Psychiatric Psych Exam: Appropriate Responses Assessment/Plan Assessment Summary: PARVEEN/Acute Renal Failure Problem List: (1) Acute kidney injury ICD Codes: N17.9 - Acute kidney failure, unspecified Plan: Patient develop PARVEEN. Possibilities include ATN from sepsis, hypotension. Vancomycin induced nephrotoxicity, allergic interstitial nephritis also should be considered. Finally septic embolization or post infectious GN is a consideration although relatively normal UA makes this less likely. Continue supportive care. Avoid nephrotoxic agents. Started on Lasix 40 mg BID. Monitor urine output. Creatinine is still increasing. Avoid Nephrotoxins. (2) Endocarditis ICD Codes: I38 - Endocarditis, valve unspecified Plan: antibiotic per ID. On Oxacillin. (3) Cavitary pneumonia ICD Codes: J18.9 - Pneumonia, unspecified organism; J98.4 - Other disorders of lung Status: Acute Plan: due to septic emboli Heidi Cotto MD Nov 01, 2017 16:42
[2017-11-01] MEDS: SODIUM CHLORIDE 0.9% FLUSH 10 ML FLUSH IV FLUSH SCH (19:29)
[2017-11-01 20:00] VITALS: BP 110/57; PULSE 102; PULSE 107; RESP 19; TEMP 98.5; O2SAT 91
[2017-11-01 23:06] LABS: HEMOGLOBIN 8.2 GM/DL (11.6-15.3); MEAN CELL VOLUME 72.8 FL (80.0-100.0); MEAN CORPUSCULAR HGB CONC 32.9 % (32.0-36.0); MEAN PLATELET VOLUME 7.1 FL (7.0-11.0); PLATELET COUNT 336 TH/MM3 (150-450); RED BLOOD COUNT 3.44 MIL/MM3 (4.00-5.30); RED CELL DISTRIBUTION WIDTH 18.1 % (11.6-17.2); WHITE BLOOD COUNT 4.5 TH/MM3 (4.0-11.0)
[2017-11-02] VITALS: BP 103/50; PULSE 101; PULSE 72; RESP 19; TEMP 99.1; O2SAT 97
[2017-11-02 04:00] VITALS: BP 104/57; PULSE 74; RESP 18; TEMP 98.6; O2SAT 95
[2017-11-02] MEDS: HEPARIN SODIUM - SQ 10,000 UNITS/ML VIAL SQ SCH ×3 (05:09→21:36)
[2017-11-02 08:00] VITALS: BP 104/56; PULSE 94; RESP 18; TEMP 98.8; O2SAT 97
[2017-11-02 08:26] LABS: HEMOGLOBIN 7.8 GM/DL (11.6-15.3); MEAN CELL VOLUME 72.4 FL (80.0-100.0); MEAN CORPUSCULAR HEMOGLOBIN 24.4 PG (27.0-34.0); MEAN CORPUSCULAR HGB CONC 33.7 % (32.0-36.0); PLATELET COUNT 257 TH/MM3 (150-450); RED BLOOD COUNT 3.17 MIL/MM3 (4.00-5.30); RED CELL DISTRIBUTION WIDTH 17.6 % (11.6-17.2); WHITE BLOOD COUNT 4.2 TH/MM3 (4.0-11.0)
[2017-11-02 08:27] LABS: BICARBONATE 28.2 MEQ/L (21.0-32.0); CALCIUM 8.1 MG/DL (8.5-10.1); CREATININE 2.38 MG/DL (0.50-1.00); MAGNESIUM 1.6 MG/DL (1.5-2.5)
[2017-11-02] MEDS: DOCUSATE SODIUM 50 MG/SENNA 8.6 MG TAB PO SCH ×2 (11:10→21:36)
[2017-11-02] MEDS: FUROSEMIDE 40 MG/4 ML VIAL IV PUSH SCH ×2 (11:11→16:34)
[2017-11-02] MEDS: SODIUM CHLORIDE 0.9% FLUSH 10 ML FLUSH IV FLUSH SCH ×2 (11:11→21:37)
[2017-11-02 12:00] VITALS: BP 108/53; PULSE 87; RESP 16; TEMP 96.7; O2SAT 95
--- NOTE | 2017-11-02 13:07 | HHI.NPPN ---
Subjective History of Present Illness This is 32 years old female, has history of IV drug abuse, was admitted with fever. Has been diagnosed with aortic valve endocarditis and septic emboli to lungs. Patient received Zosyn, Vancomycin, currently on Oxacillin. Blood culture positive for MSSA. Additional Remarks Patient is alert, no SOB, has no abd. pain, passing urine, complain of edema in the arms. Objective Data Data Vital Signs Date Time Temp Pulse Resp B/P (MAP) Pulse Ox O2 Delivery O2 Flow Rate FiO2 11/02/17 12:00 96.7 87 16 108/53 (71) 95 11/02/17 08:00 98.8 94 18 104/56 (72) 97 11/02/17 05:07 17 11/02/17 04:00 98.6 74 18 104/57 (73) 95 11/02/17 00:00 101 11/02/17 00:00 99.1 72 19 103/50 (67) 97 11/01/17 20:00 98.5 102 19 110/57 (74) 91 11/01/17 20:00 107 11/01/17 16:00 97.5 98 18 101/50 (67) 91 -: 11/02/17 0639 11/02/17 0639 Physical Exam General Appearance: No Acute Distress, Comfortable Eyes Eye Exam: Pupils Equal Neck Neck Exam: Neck Supple, Trachea Midline Pulmonary Resp Exam: Clear Bilaterally, Breath Sounds Equal, No Distress, Decreased Bases Cardiology CV Exam: Regular, Normal Sinus Rhythm Gastrointestinal/Abdomen GI Exam: Soft, Non-Tender, Bowel Sounds Present Extremeties Extremities Exam: No Edema Neurologic Neuro Exam: Alert, Awake, Oriented Psychiatric Psych Exam: Appropriate Responses Assessment/Plan Assessment Summary: PARVEEN/Acute Renal Failure Problem List: (1) Acute kidney injury ICD Codes: N17.9 - Acute kidney failure, unspecified Plan: Patient develop PARVEEN. Possibilities include ATN from sepsis, hypotension. Vancomycin induced nephrotoxicity, allergic interstitial nephritis also should be considered. Finally septic embolization or post infectious GN is a consideration although relatively normal UA makes this less likely. Continue supportive care. Avoid nephrotoxic agents. Started on Lasix 40 mg BID. Monitor urine output. Creatinine is now 2.3, with the GFR of 23 ml/min. K is normal. Continue antibiotics. Dr. Winston will follow from AM. (2) Endocarditis ICD Codes: I38 - Endocarditis, valve unspecified Plan: antibiotic per ID. On Oxacillin. (3) Cavitary pneumonia ICD Codes: J18.9 - Pneumonia, unspecified organism; J98.4 - Other disorders of lung Status: Acute Plan: due to septic emboli Heidi Cotto MD Nov 02, 2017 13:07
--- NOTE | 2017-11-02 15:04 | HHI.PR ---
Subjective Remarks The patient had questions about her kidneys, her heart, her lungs and her pain medications. Her friend was at the bedside. Discussed with nursing. Objective Vitals Vital Signs Date Time Temp Pulse Resp B/P (MAP) Pulse Ox O2 Delivery O2 Flow Rate FiO2 11/02/17 12:00 96.7 87 16 108/53 (71) 95 11/02/17 08:00 98.8 94 18 104/56 (72) 97 11/02/17 05:07 17 11/02/17 04:00 98.6 74 18 104/57 (73) 95 11/02/17 00:00 101 11/02/17 00:00 99.1 72 19 103/50 (67) 97 11/01/17 20:00 98.5 102 19 110/57 (74) 91 11/01/17 20:00 107 11/01/17 16:00 97.5 98 18 101/50 (67) 91 I/O 11/01/17 11/01/17 11/01/17 11/02/17 11/02/17 11/02/17 07:00 15:00 23:00 07:00 15:00 23:00 Intake Total 800 ml 1135 ml 240 ml Balance 800 ml 1135 ml 240 ml Intake Oral 1035 ml 240 ml IV Total 800 ml 100 ml # Voids 2 12 3 # Bowel Movements 1 Result Diagram: 11/02/17 0639 11/02/1739 Imaging Last Impressions Renal Ultrasound 10/29/17 0000 Signed Impressions: Service Date/Time: Sunday, October 29, 2017 16:35 - CONCLUSION: 1. Echogenic kidneys secondary to medical renal disease. 2. Decreased echogenicity and heterogeneity to the spleen likely related to infarcts. Matthieu Marie MD Chest X-Ray 10/25/172019 Signed Impressions: Service Date/Time: Wednesday, October 25, 2017 20:36 - CONCLUSION: 1. Left perihilar parenchymal opacity. CT pulmonary angiogram pending. No effusions. Christophe Hagen MD CT Angiography 10/25/172019 Signed Impressions: Service Date/Time: Wednesday, October 25, 2017 22:24 - CONCLUSION: 1. Negative for pulmonary embolus on CTA. 2. Wedge-shaped consolidation in the lingula with cavitation. Findings characteristic of a cavitary pneumonia possibly due to septic embolic disease. There is a large suspected infarct in the anterior spleen. Christophe Hagen MD Objective Remarks GENERAL: Appears uncomfortable. SKIN: Warm and dry. HEAD: Normocephalic. EYES: No scleral icterus. No injection or drainage. NECK: Supple, trachea midline. No JVD or lymphadenopathy. CARDIOVASCULAR: Regular rate and rhythm without murmurs, gallops, or rubs. RESPIRATORY: Breath sounds equal bilaterally. No accessory muscle use. GASTROINTESTINAL: Abdomen soft, tender in the LUQ, nondistended. MUSCULOSKELETAL: Anasarca. BACK: Nontender without obvious deformity. No CVA tenderness. PSYCH: Flattened affect. Medications and IVs Current Medications Medications (Trade) Dose Ordered Sig/Jannie Route Start Time Stop Time Status Last Admin (Ativan) 1 mg Q8H PRN PO 10/25/17 23:00 10/31/17 15:20 (NS Flush) 2 ml UNSCH PRN IV FLUSH 10/25/17 23:00 (NS Flush) 2 ml BID IV FLUSH 10/26/17 09:00 11/02/17 11:11 (Zofran Inj) 4 mg Q6H PRN IVP 10/25/17 23:00 (Roxicodone) 5 mg Q4H PRN PO 10/25/17 23:00 (Sujatha-Colace) 1 tab BID PO 10/26/17 09:00 11/02/17 11:10 (Milk Of Magnesia Liq) 30 ml Q12H PRN PO 10/25/17 23:00 (Senokot) 17.2 mg Q12H PRN PO 10/25/17 23:00 (Dulcolax Supp) 10 mg DAILY PRN RECTAL 10/25/17 23:00 (Lactulose Liq) 30 ml DAILY PRN PO 10/25/17 23:00 (Tylenol) 650 mg Q4H PRN PO 10/26/17 10:15 (Tums Chew) 1,000 mg TID PRN CHEW 10/26/17 10:15 (Roxicodone) 15 mg Q4H PRN PO 10/29/17 19:00 11/02/17 11:10 (Heparin Inj) 5,000 units Q8HR SQ 10/30/17 06:00 12/24/17 05:09 (Lasix Inj) 40 mg BID@09,18 IV PUSH 10/31/17 18:00 11/02/17 11:11 Cefazolin Sodium 1000 mg/Sodium Chloride 100 ml @ 200 mls/hr Q12H IV 11/01/17 20:00 11/02/17 11:11 A/P Problem List: (1) Gram-positive bacteremia ICD Code: R78.81 - Bacteremia (2) Sepsis ICD Code: A41.9 - Sepsis, unspecified organism Status: Acute (3) Cavitary pneumonia ICD Code: J18.9 - Pneumonia, unspecified organism; J98.4 - Other disorders of lung Status: Acute (4) Elevated troponin ICD Code: R74.8 - Abnormal levels of other serum enzymes (5) Splenic infarct ICD Code: D73.5 - Infarction of spleen Status: Acute (6) IVDU (intravenous drug user) ICD Code: F19.90 - Other psychoactive substance use, unspecified, uncomplicated (7) Anemia ICD Code: D64.9 - Anemia, unspecified (8) Tobacco abuse ICD Code: Z72.0 - Tobacco use Assessment and Plan Gram positive Bacteremia/ Endocarditis ID consult appreciated. Repeat blood cultures still positive. Echocardiogram with normal ejection fraction, 10 x 3 mm vegetation on aortic valve. - Continue with IV cefazolin per ID. - follow up with infectious disease. Sepsis Source- Cavitary PNA/Septic Emboli. S/p Blood Cultures, Vanc/Zosyn in ER. CXR w / perihilar opacity, CTA Pulm negative for PE however noted to have cavitary pneumonia, likely from septic emboli. +IVDU. - Follow up cultures, continue IV Abx. - follow up with ID for further recommendations. Acute renal failure Unsure of etiology. Possibly antibiotics versus contrast exposure. Renal US noted. Nephrology consult appreciated. - d/c IVFs and start IV Lasix per nephrology. - follow Is and Os. - avoid nephrotoxins. - Antibiotics switched to cefazolin. Elevated Trop Peaked at 0.06. Likely s/t sepsis. - Echo with normal EF. Splenic Infarct CTA Pulm w/ possible large splenic infarct, likely from IVDU and septic emboli. - pain control/ heating pad. Anemia Hgb has been low. - Monitor H/H. transfuse as needed. - anemia work-up in progress. B12 IM 1. IVDU/ Tobacco Abuse Pt counselled. There was concern that the patient was using in her room. She denied that. - NicoDerm prn if needed. - the pt will be referred to rehab. PPx: Heparin Discharge Planning Will need treatment for endocarditis per infectious disease. Needs improvement in her renal failure. Placement may be a problem. Lefty Zarate DO Nov 02, 2017 15:04
[2017-11-02] MEDS: NYSTATIN 100,000 U/GM PWD 15 GM BTL TOPICAL SCH ×2 (15:15→21:38)
[2017-11-02 16:00] VITALS: BP 108/55; PULSE 103; RESP 16; TEMP 98.9; O2SAT 93
[2017-11-02 20:00] VITALS: BP 100/60; PULSE 100; RESP 15; TEMP 100.1; O2SAT 91
[2017-11-03] VITALS (7 sets, daily range): BP systolic 97–125; BP diastolic 51–63; PULSE 87–115; RESP 17–20; TEMP 96.2–98.6; O2SAT 90–96
[2017-11-03] MEDS: HEPARIN SODIUM - SQ 10,000 UNITS/ML VIAL SQ SCH ×3 (05:43→20:51)
[2017-11-03 07:23] LABS: HEMATOCRIT 23.9 % (35.0-46.0); HEMOGLOBIN 7.8 GM/DL (11.6-15.3); MEAN CELL VOLUME 72.7 FL (80.0-100.0); MEAN CORPUSCULAR HEMOGLOBIN 23.8 PG (27.0-34.0); MEAN CORPUSCULAR HGB CONC 32.7 % (32.0-36.0); MEAN PLATELET VOLUME 6.7 FL (7.0-11.0); PLATELET COUNT 314 TH/MM3 (150-450); RED BLOOD COUNT 3.28 MIL/MM3 (4.00-5.30); RED CELL DISTRIBUTION WIDTH 17.8 % (11.6-17.2); WHITE BLOOD COUNT 4.4 TH/MM3 (4.0-11.0)
[2017-11-03 07:48] LABS: BICARBONATE 30.7 MEQ/L (21.0-32.0); CALCIUM 8.7 MG/DL (8.5-10.1); CREATININE 2.34 MG/DL (0.50-1.00); MAGNESIUM 1.9 MG/DL (1.5-2.5)
[2017-11-03] MEDS: DOCUSATE SODIUM 50 MG/SENNA 8.6 MG TAB PO SCH ×2 (09:17→20:52)
[2017-11-03] MEDS: FUROSEMIDE 40 MG/4 ML VIAL IV PUSH SCH (09:17)
[2017-11-03] MEDS: SODIUM CHLORIDE 0.9% FLUSH 10 ML FLUSH IV FLUSH SCH ×2 (09:18→21:00)
[2017-11-03] MEDS: NYSTATIN 100,000 U/GM PWD 15 GM BTL TOPICAL SCH ×2 (09:24→20:52)
--- NOTE | 2017-11-03 10:58 | HHI.NPPN ---
Subjective History of Present Illness This is 32 years old female, has history of IV drug abuse, was admitted with fever. Has been diagnosed with aortic valve endocarditis and septic emboli to lungs. Patient received Zosyn, Vancomycin, currently on Oxacillin. Blood culture positive for MSSA. Interval History non oliguric, renal function has improved. Edema has improved as well. Objective Data Data Vital Signs Date Time Temp Pulse Resp B/P (MAP) Pulse Ox O2 Delivery O2 Flow Rate FiO2 11/03/17 08:00 96.6 91 17 97/51 (66) 96 11/03/17 04:35 115 11/03/17 04:00 98.6 102 17 120/60 (80) 94 11/03/17 00:00 97.0 112 17 125/63 (83) 93 11/02/17 20:00 100.1 100 15 100/60 (73) 91 11/02/17 16:00 98.9 103 16 108/55 (72) 93 11/02/17 12:00 96.7 87 16 108/53 (71) 95 -: 11/03/17 0553 11/03/17 0553 Physical Exam General Appearance: No Acute Distress, Comfortable Eyes Eye Exam: Pupils Equal Neck Neck Exam: Neck Supple, Trachea Midline Pulmonary Resp Exam: Clear Bilaterally, Breath Sounds Equal, No Distress, Decreased Bases Cardiology CV Exam: Regular, Normal Sinus Rhythm Gastrointestinal/Abdomen GI Exam: Soft, Non-Tender, Bowel Sounds Present Extremeties Extremities Exam: No Edema Neurologic Neuro Exam: Alert, Awake, Oriented Psychiatric Psych Exam: Appropriate Responses Assessment/Plan Assessment Summary: PARVEEN/Acute Renal Failure Problem List: (1) Acute kidney injury ICD Codes: N17.9 - Acute kidney failure, unspecified Plan: Patient develop PARVEEN. Possibilities include ATN from sepsis, hypotension. Vancomycin induced nephrotoxicity, allergic interstitial nephritis also should be considered. Finally septic embolization or post infectious GN is a consideration although relatively normal UA makes this less likely. Continue supportive care. Avoid nephrotoxic agents. Stop Lasix as edema, fluid overload have improved. Monitor urine output. Renal function is improving. (2) Endocarditis ICD Codes: I38 - Endocarditis, valve unspecified Plan: antibiotic per ID. On Oxacillin. (3) Cavitary pneumonia ICD Codes: J18.9 - Pneumonia, unspecified organism; J98.4 - Other disorders of lung Status: Acute Plan: due to septic emboli Hoskote,Chong MD Nov 03, 2017 10:58
--- NOTE | 2017-11-03 12:28 | HHI.PR ---
Subjective Remarks Patient seen in room in follow-up for endocarditis with pneumonia, acute kidney injury. Doing better today. Patient encouraged to ambulate. Complaining of some left-sided pain likely related to splenic infarct Pulmonary toilet encouraged Objective Vitals Vital Signs Date Time Temp Pulse Resp B/P (MAP) Pulse Ox O2 Delivery O2 Flow Rate FiO2 11/03/17 12:00 98.5 87 18 107/51 (69) 90 11/03/17 08:00 96.6 91 17 97/51 (66) 96 11/03/17 04:35 115 11/03/17 04:00 98.6 102 17 120/60 (80) 94 11/03/17 00:00 97.0 112 17 125/63 (83) 93 11/02/17 20:00 100.1 100 15 100/60 (73) 91 11/02/17 16:00 98.9 103 16 108/55 (72) 93 I/O 11/02/17 11/02/17 11/02/17 11/03/17 11/03/17 11/03/17 07:00 15:00 23:00 07:00 15:00 23:00 Intake Total 240 ml 845 ml 480 ml Balance 240 ml 845 ml 480 ml Intake Oral 240 ml 645 ml 480 ml IV Total 200 ml # Voids 3 9 2 # Bowel Movements 0 Result Diagram: 11/03/17 0553 11/03/17 0553 Objective Remarks GENERAL: This is a well-nourished, well-developed patient, in no apparent distress. CARDIOVASCULAR: Regular rate and rhythm without murmurs, gallops, or rubs. RESPIRATORY: Clear to auscultation. Breath sounds equal bilaterally. No wheezes , rales, or rhonchi. GASTROINTESTINAL: Abdomen soft, non-tender, nondistended. Normal active bowel sounds MUSCULOSKELETAL: Extremities without clubbing, cyanosis, or edema. NEURO: Alert & Oriented x4 to person, place, time, situation. Moves all ext x4 A/P Problem List: (1) IVDU (intravenous drug user) ICD Code: F19.90 - Other psychoactive substance use, unspecified, uncomplicated Plan: Currently no signs of withdrawal Continue Ativan as needed (2) Anemia ICD Code: D64.9 - Anemia, unspecified Plan: Hemoglobin 7.8 today Severe iron deficiency, and IV iron 3 days (3) Endocarditis ICD Code: I38 - Endocarditis, valve unspecified Plan: With aortic valve vegetation, cavitary pneumonia and splenic infarcts Continue Ancef for MSSA-positive bacteremia/endocarditis (4) Acute kidney injury ICD Code: N17.9 - Acute kidney failure, unspecified Plan: May be related to antibiotics, stable Continue IV Ancef Nephrology consult appreciated Assessment and Plan Heparin DVT prophylaxis Kaci Plunkett MD Nov 03, 2017 12:28
[2017-11-03] MEDS: IRON SUCROSE INJ 100 MG in SODIUM CHLORIDE 0.9% INJ 100 ML IV SCH (16:23)
[2017-11-04] VITALS: BP 102/49; PULSE 92; RESP 20; TEMP 99.2; O2SAT 90
[2017-11-04 05:28] LABS: AUTOMATED NEUTROPHIL # 2.5 TH/MM3 (1.8-7.7); BASOPHIL % 0.4 % (0.0-2.0); EOSINOPHIL # 0.1 TH/MM3 (0-0.4); EOSINOPHIL % 2.6 % (0.0-4.0); HEMATOCRIT 24.4 % (35.0-46.0); HEMOGLOBIN 8.1 GM/DL (11.6-15.3); LYMPHOCYTE # 1.6 TH/MM3 (1.0-4.8); MEAN CELL VOLUME 72.6 FL (80.0-100.0); MEAN CORPUSCULAR HEMOGLOBIN 24.1 PG (27.0-34.0); MEAN CORPUSCULAR HGB CONC 33.1 % (32.0-36.0); MEAN PLATELET VOLUME 6.6 FL (7.0-11.0); MONO % 7.4 % (0.0-8.0); MONOCYTE # 0.3 TH/MM3 (0-0.9); NEUT % 54.6 % (16.0-70.0); PLATELET COUNT 353 TH/MM3 (150-450); RED BLOOD COUNT 3.36 MIL/MM3 (4.00-5.30); RED CELL DISTRIBUTION WIDTH 17.8 % (11.6-17.2); WHITE BLOOD COUNT 4.6 TH/MM3 (4.0-11.0)
[2017-11-04 05:49] LABS: BICARBONATE 32.2 MEQ/L (21.0-32.0); CALCIUM 8.9 MG/DL (8.5-10.1); CREATININE 2.31 MG/DL (0.50-1.00)
[2017-11-04] MEDS: HEPARIN SODIUM - SQ 10,000 UNITS/ML VIAL SQ SCH ×3 (06:00→22:45)
[2017-11-04 07:15] VITALS: BP 98/47; PULSE 82; RESP 16; TEMP 98.7; O2SAT 93
[2017-11-04] MEDS: DOCUSATE SODIUM 50 MG/SENNA 8.6 MG TAB PO SCH ×2 (09:00→22:46)
[2017-11-04] MEDS: NYSTATIN 100,000 U/GM PWD 15 GM BTL TOPICAL SCH ×2 (09:00→21:00)
[2017-11-04] MEDS: IRON SUCROSE INJ 100 MG in SODIUM CHLORIDE 0.9% INJ 100 ML IV SCH (09:00)
[2017-11-04 11:33] VITALS: BP 103/56; PULSE 85; RESP 16; TEMP 97.5; O2SAT 92
--- NOTE | 2017-11-04 11:49 | HHI.PR ---
Subjective Remarks Seen and evaluated in follow-up for endocarditis. Incentive spirometry use instruction at bedside. Objective Vitals Vital Signs Date Time Temp Pulse Resp B/P (MAP) Pulse Ox O2 Delivery O2 Flow Rate FiO2 11/04/17 11:33 97.5 85 16 103/56 (72) 92 11/04/17 07:15 98.7 82 16 98/47 (64) 93 11/04/17 00:00 99.2 92 20 102/49 (66) 90 11/03/17 20:00 98.1 105 20 107/51 (69) 90 11/03/17 16:22 16 11/03/17 16:00 96.2 95 18 104/51 (68) 95 11/03/17 12:00 98.5 87 18 107/51 (69) 90 I/O 11/03/17 11/03/17 11/03/17 11/04/17 11/04/17 11/04/17 07:00 15:00 23:00 07:00 15:00 23:00 Intake Total 480 ml 2440 ml 240 ml Balance 480 ml 2440 ml 240 ml Intake Oral 480 ml 2240 ml 240 ml IV Total 200 ml # Voids 2 6 # Bowel Movements 0 Result Diagram: 11/04/17 0510 11/04/17 0510 Objective Remarks GENERAL: This is a well-nourished, well-developed patient, in no apparent distress. CARDIOVASCULAR: Regular rate and rhythm without murmurs, gallops, or rubs. RESPIRATORY: Clear to auscultation. Breath sounds equal bilaterally. No wheezes , rales, or rhonchi. GASTROINTESTINAL: Abdomen soft, non-tender, nondistended. Normal active bowel sounds MUSCULOSKELETAL: Extremities without clubbing, cyanosis, or edema. NEURO: Alert & Oriented x4 to person, place, time, situation. Moves all ext x4 A/P Problem List: (1) IVDU (intravenous drug user) ICD Code: F19.90 - Other psychoactive substance use, unspecified, uncomplicated Plan: Currently no signs of withdrawal Continue Ativan as needed (2) Anemia ICD Code: D64.9 - Anemia, unspecified Plan: Hemoglobin 8.1 today Severe iron deficiency, and IV iron 3 days (3) Endocarditis ICD Code: I38 - Endocarditis, valve unspecified Plan: With aortic valve vegetation, cavitary pneumonia and splenic infarcts Continue Ancef 6 weeks for MSSA-positive bacteremia/endocarditis (4) Acute kidney injury ICD Code: N17.9 - Acute kidney failure, unspecified Plan: May be related to antibiotics, stable Continue IV Ancef Nephrology consult appreciated Assessment and Plan Heparin DVT prophylaxis Kaci Plunkett MD Nov 04, 2017 11:49
[2017-11-04] MEDS: SODIUM CHLORIDE 0.9% FLUSH 10 ML FLUSH IV FLUSH SCH ×2 (14:43→22:49)
[2017-11-04 15:54] VITALS: BP 125/59; PULSE 101; RESP 16; TEMP 97.8; O2SAT 94
[2017-11-04 20:00] VITALS: BP 132/58; PULSE 94; RESP 18; TEMP 98.8; O2SAT 97
[2017-11-05] VITALS: BP 105/51; PULSE 105; RESP 18; TEMP 99.5; O2SAT 93
[2017-11-05] MEDS: HEPARIN SODIUM - SQ 10,000 UNITS/ML VIAL SQ SCH ×3 (05:37→21:09)
[2017-11-05 08:00] VITALS: BP 111/53; PULSE 85; RESP 16; TEMP 98; O2SAT 94
[2017-11-05] MEDS: DOCUSATE SODIUM 50 MG/SENNA 8.6 MG TAB PO SCH ×2 (08:05→21:07)
[2017-11-05] MEDS: IRON SUCROSE INJ 100 MG in SODIUM CHLORIDE 0.9% INJ 100 ML IV SCH ×2 (08:05→09:00)
[2017-11-05] MEDS: NYSTATIN 100,000 U/GM PWD 15 GM BTL TOPICAL SCH ×2 (08:05→21:03)
[2017-11-05] MEDS: SODIUM CHLORIDE 0.9% FLUSH 10 ML FLUSH IV FLUSH SCH ×2 (08:05→21:02)
[2017-11-05 12:00] VITALS: BP 114/56; PULSE 87; RESP 16; TEMP 97.7; O2SAT 97
--- NOTE | 2017-11-05 13:58 | HHI.PR ---
Subjective Remarks Patient seen today in follow-up for endocarditis. Reports she was emanating and hit her in her ankle on the base of the IV pole. Within 12 hours she had extreme amount of pain. It has improved with ice and elevation and Zen wrapping. She is ambulatory with assistance. Objective Vitals Vital Signs Date Time Temp Pulse Resp B/P (MAP) Pulse Ox O2 Delivery O2 Flow Rate FiO2 11/05/17 12:00 97.7 87 16 114/56 (75) 97 11/05/17 08:00 98.0 85 16 111/53 (72) 94 11/05/17 00:00 99.5 105 18 105/51 (69) 93 11/04/17 20:00 98.8 94 18 132/58 (82) 97 11/04/17 18:50 20 11/04/17 15:54 97.8 101 16 125/59 (81) 94 I/O 11/04/17 11/04/17 11/04/17 11/05/17 11/05/17 11/05/17 07:00 15:00 23:00 07:00 15:00 23:00 Intake Total 240 ml 960 ml 100 ml 820 ml Balance 240 ml 960 ml 100 ml 820 ml Intake Oral 240 ml 960 ml 720 ml IV Total 100 ml 100 ml # Voids 4 # Bowel Movements 0 Result Diagram: 11/04/17 0510 11/04/17 0510 Objective Remarks GENERAL: This is a well-nourished, well-developed patient, in no apparent distress. CARDIOVASCULAR: Regular rate and rhythm without murmurs, gallops, or rubs. RESPIRATORY: Clear to auscultation. Breath sounds equal bilaterally. No wheezes , rales, or rhonchi. GASTROINTESTINAL: Abdomen soft, non-tender, nondistended. Normal active bowel sounds MUSCULOSKELETAL: Left ankle swelling, erythema and the medial malleoli with good range of motion, no joint crepitus, no ecchymoses. Extremities without clubbing, cyanosis, or edema. NEURO: Alert & Oriented x4 to person, place, time, situation. Moves all ext x4 A/P Problem List: (1) IVDU (intravenous drug user) ICD Code: F19.90 - Other psychoactive substance use, unspecified, uncomplicated Plan: Currently no signs of withdrawal Continue Ativan as needed (2) Anemia ICD Code: D64.9 - Anemia, unspecified Plan: Hemoglobin stable Severe iron deficiency, and IV iron 3 days (3) Endocarditis ICD Code: I38 - Endocarditis, valve unspecified Plan: With aortic valve vegetation, cavitary pneumonia and splenic infarcts Continue Ancef 6 weeks for MSSA-positive bacteremia/endocarditis (4) Acute kidney injury ICD Code: N17.9 - Acute kidney failure, unspecified Plan: May be related to antibiotics, stable Continue IV Ancef Nephrology consult appreciated (5) Left ankle sprain ICD Code: S93.402A - Sprain of unspecified ligament of left ankle, initial encounter Plan: Continue Zen wrap, ice, elevation Injury occurred after hitting IV pole Assessment and Plan Heparin DVT prophylaxis Kaci Plunkett MD Nov 05, 2017 13:58
[2017-11-05 16:00] VITALS: BP 115/57; PULSE 94; RESP 16; TEMP 98.2; O2SAT 97
[2017-11-05 20:00] VITALS: BP 133/60; PULSE 108; RESP 20; TEMP 97.5; O2SAT 96
[2017-11-06] VITALS: BP 132/63; PULSE 110; RESP 20; TEMP 96.9; O2SAT 96
[2017-11-06] MEDS: HEPARIN SODIUM - SQ 10,000 UNITS/ML VIAL SQ SCH ×3 (06:10→21:35)
[2017-11-06 08:00] VITALS: BP 102/53; PULSE 93; RESP 16; TEMP 98.2; O2SAT 95
[2017-11-06] MEDS: DOCUSATE SODIUM 50 MG/SENNA 8.6 MG TAB PO SCH ×2 (08:51→21:33)
[2017-11-06] MEDS: NYSTATIN 100,000 U/GM PWD 15 GM BTL TOPICAL SCH ×2 (08:52→19:57)
[2017-11-06] MEDS: SODIUM CHLORIDE 0.9% FLUSH 10 ML FLUSH IV FLUSH SCH ×2 (09:00→19:53)
[2017-11-06 12:00] VITALS: BP 99/46; PULSE 89; RESP 16; TEMP 98.6; O2SAT 96
--- NOTE | 2017-11-06 14:09 | HHI.PR ---
Subjective Remarks Patient seen in room in follow-up for endocarditis with splenic infarcts and septic emboli with cavitary pneumonia. Acute kidney injury is improved also. Patient tolerating treatment with cefazolin for MSSA cultures. Today she has complained of labial ulcerations which she thinks may be STD related. She has unprotected sex with both men and women and may have been exposed. She did [place] an HIV test [place] ago [place] but has requested another however before this could be considered the patient changed her mind. She was talked to her girlfriend prior to being tested. Left ankle inflammation is improved Objective Vitals Vital Signs Date Time Temp Pulse Resp B/P (MAP) Pulse Ox O2 Delivery O2 Flow Rate FiO2 11/06/17 12:00 98.6 89 16 99/46 (63) 96 11/06/17 08:00 98.2 93 16 102/53 (69) 95 11/06/17 00:00 96.9 110 20 132/63 (86) 96 11/05/17 20:00 97.5 108 20 133/60 (84) 96 11/05/17 16:00 98.2 94 16 115/57 (76) 97 I/O 11/05/17 11/05/17 11/05/17 11/06/17 11/06/17 11/06/17 06:59 14:59 22:59 06:59 14:59 22:59 Intake Total 820 ml 100 ml 900 ml 460 ml Balance 820 ml 100 ml 900 ml 460 ml Intake Oral 720 ml 800 ml 460 ml IV Total 100 ml 100 ml 100 ml # Voids 5 2 # Bowel Movements 1 0 Result Diagram: 11/04/1710 11/04/17 0510 Objective Remarks GENERAL: This is a well-nourished, well-developed patient, in no apparent distress. CARDIOVASCULAR: Regular rate and rhythm without murmurs, gallops, or rubs. RESPIRATORY: Clear to auscultation. Breath sounds equal bilaterally. No wheezes , rales, or rhonchi. GASTROINTESTINAL: Abdomen soft, non-tender, nondistended. Normal active bowel sounds MUSCULOSKELETAL: Great improvement and Left ankle swelling, erythema and the medial malleoli with good range of motion, no joint crepitus, no ecchymoses. Extremities without clubbing, cyanosis, or edema. NEURO: Alert & Oriented x4 to person, place, time, situation. Moves all ext x4 Vulva shows right labial shallow painful ulcerations and clitoral ulceration A/P Problem List: (1) IVDU (intravenous drug user) ICD Code: F19.90 - Other psychoactive substance use, unspecified, uncomplicated Plan: Currently no signs of withdrawal Continue Ativan as needed (2) Anemia ICD Code: D64.9 - Anemia, unspecified Plan: Hemoglobin stable Status post IV iron for iron deficiency anemia (3) Endocarditis ICD Code: I38 - Endocarditis, valve unspecified Plan: With aortic valve vegetation, cavitary pneumonia and splenic infarcts Continue Ancef 6 weeks for MSSA-positive bacteremia/endocarditis (4) Acute kidney injury ICD Code: N17.9 - Acute kidney failure, unspecified Plan: May be related to antibiotics, stable Continue IV Ancef Nephrology consult appreciated (5) Left ankle sprain ICD Code: S93.402A - Sprain of unspecified ligament of left ankle, initial encounter Plan: Continue Zen wrap, ice, elevation Injury occurred after hitting IV pole (6) Genital labial ulcer ICD Code: N76.6 - Ulceration of vulva Plan: empiric acyclovir, cultures pending Patient has deferred HIV testing for now Assessment and Plan Heparin DVT prophylaxis Discharge Planning Patient completes antibiotics 6 weeks from 10/29 (last negative cultures) Kaci Plunkett MD Nov 06, 2017 14:09
[2017-11-06 16:00] VITALS: BP 106/55; PULSE 96; RESP 16; TEMP 97.3; O2SAT 100
[2017-11-06] MEDS: ACYCLOVIR 200 MG CAP PO SCH ×2 (17:50→21:33)
[2017-11-06 20:00] VITALS: BP 106/53; PULSE 88; RESP 18; TEMP 98; O2SAT 99
[2017-11-06 23:45] VITALS: BP 113/59; PULSE 96; RESP 18; TEMP 97.6; O2SAT 100
[2017-11-07] MEDS: ACYCLOVIR 200 MG CAP PO SCH ×5 (06:21→22:53)
[2017-11-07] MEDS: HEPARIN SODIUM - SQ 10,000 UNITS/ML VIAL SQ SCH ×3 (06:22→22:54)
[2017-11-07 08:00] VITALS: BP 109/48; PULSE 88; RESP 17; TEMP 97.9; O2SAT 98
[2017-11-07] MEDS: DOCUSATE SODIUM 50 MG/SENNA 8.6 MG TAB PO SCH ×3 (08:38→20:54)
[2017-11-07] MEDS: NYSTATIN 100,000 U/GM PWD 15 GM BTL TOPICAL SCH ×2 (08:39→21:00)
[2017-11-07] MEDS: SODIUM CHLORIDE 0.9% FLUSH 10 ML FLUSH IV FLUSH SCH ×2 (08:39→20:55)
--- NOTE | 2017-11-07 09:18 | HHI.PR ---
Subjective Remarks Pt states that she continues to have pain in her left ankle after hitting it on the pole. hasn't been ambulating much because of this. Coughing and SOB is much improved. Has been using IS. no nausea or vomiting Objective Vitals Vital Signs Date Time Temp Pulse Resp B/P (MAP) Pulse Ox O2 Delivery O2 Flow Rate FiO2 11/07/17 08:00 97.9 88 17 109/48 (68) 98 11/06/17 23:45 97.6 96 18 113/59 (77) 100 11/06/17 20:00 98.0 88 18 106/53 (70) 99 11/06/17 16:00 97.3 96 16 106/55 (72) 100 11/06/17 12:00 98.6 89 16 99/46 (63) 96 I/O 11/06/17 11/06/17 11/06/17 11/07/17 11/07/17 11/07/17 07:00 15:00 23:00 07:00 15:00 23:00 Intake Total 460 ml 100 ml 900 ml 720 ml Balance 460 ml 100 ml 900 ml 720 ml Intake Oral 460 ml 800 ml 720 ml IV Total 100 ml 100 ml # Voids 2 5 3 # Bowel Movements 0 1 0 Result Diagram: 11/04/17 0510 11/04/17 0510 Imaging Last Impressions Renal Ultrasound 10/29/17 0000 Signed Impressions: Service Date/Time: Sunday, October 29, 2017 16:35 - CONCLUSION: 1. Echogenic kidneys secondary to medical renal disease. 2. Decreased echogenicity and heterogeneity to the spleen likely related to infarcts. Matthieu Marie MD Chest X-Ray 10/25/172019 Signed Impressions: Service Date/Time: Wednesday, October 25, 2017 20:36 - CONCLUSION: 1. Left perihilar parenchymal opacity. CT pulmonary angiogram pending. No effusions. Christophe Hagen MD CT Angiography 10/25/172019 Signed Impressions: Service Date/Time: Wednesday, October 25, 2017 22:24 - CONCLUSION: 1. Negative for pulmonary embolus on CTA. 2. Wedge-shaped consolidation in the lingula with cavitation. Findings characteristic of a cavitary pneumonia possibly due to septic embolic disease. There is a large suspected infarct in the anterior spleen. Christophe Hagen MD Objective Remarks GENERAL: laying in bed w partner at bedside. Appears comfortable CARDIOVASCULAR: Regular rate and rhythm without murmurs RESPIRATORY: Clear to auscultation. Breath sounds equal bilaterally. No wheezes GASTROINTESTINAL: Abdomen soft, non-tender, nondistended. Normal active bowel sounds MUSCULOSKELETAL: Tender to palpation bilaterally around the malleolus regions. not much edema noted. pain w passive range of motion. NEURO: Alert & Oriented. Moves all ext x4 A/P Problem List: (1) IVDU (intravenous drug user) ICD Code: F19.90 - Other psychoactive substance use, unspecified, uncomplicated (2) Anemia ICD Code: D64.9 - Anemia, unspecified (3) Endocarditis ICD Code: I38 - Endocarditis, valve unspecified (4) Acute kidney injury ICD Code: N17.9 - Acute kidney failure, unspecified (5) Left ankle sprain ICD Code: S93.402A - Sprain of unspecified ligament of left ankle, initial encounter (6) Genital labial ulcer ICD Code: N76.6 - Ulceration of vulva Assessment and Plan (1) IVDU (intravenous drug user) Currently no signs of withdrawal Continue Ativan as needed (2) Anemia Hemoglobin stable Status post IV iron for iron deficiency anemia (3) Endocarditis With aortic valve vegetation, cavitary pneumonia and splenic infarcts Continue Ancef 6 weeks for MSSA-positive bacteremia/endocarditis (4) Acute kidney injury May be related to antibiotics, stable Continue IV Ancef Nephrology following. Last Cr 2.31. repeat BMP in AM. (5) Left ankle sprain Continue Zen wrap, ice, elevation Injury occurred after hitting IV pole. Pt continues to complain of pain and unable to bear weight. will get x-ray of the left ankle and consult podiatry for recommendations. PT eval as well. (6) Genital labial ulcer empiric acyclovir, cultures pending Patient has deferred HIV testing for now Assessment and Plan Heparin DVT prophylaxis Discharge Planning Patient will need to complete antibiotics 6 weeks from 10/29 (last negative cultures) Need final ID recs Cr. still elevated. Repeat BMP tomorrow and check one today Tigist Curry MD Nov 07, 2017 09:18
--- NOTE | 2017-11-07 10:50 | RADRPT ---
EXAM DATE/TIME: 11/07/2017 09:49 [facility] COMPARISON: No previous studies available for comparison. INDICATIONS : Left ankle pain, hit it going into the bathroom in the hospital room. MEDICAL HISTORY : None. SURGICAL HISTORY : None. ENCOUNTER: Initial ACUITY: 2 weeks PAIN SCORE: 7/10 LOCATION: Left ankle FINDINGS: Two view exam was performed of the left ankle. The bony structures are in normal alignment. No evid ence of fracture, dislocation, or soft tissue swelling. No radiopaque foreign bodies are seen. Bony mineralization is normal. CONCLUSION: 1. No acute fracture or dislocation. Rogelio Rodas MD on November 07, 2017 at 10:47 Board Certified Radiologist. This report was verified electronically.
[2017-11-07 12:00] VITALS: BP 106/52; PULSE 93; RESP 17; TEMP 98.1; O2SAT 97
--- NOTE | 2017-11-07 13:17 | PD.POD.CON ---
Patient Intake Chief Complaint Painful left ankle medial aspect Consult Requested by Dr. HEATON Reason for Consult Painful medial left ankle with inability to ambulate weightbearing Primary Care Physician No Primary Care Physician History of Present Illness Patient is a 32-year-old female who presents with endocarditis. Patient has been on IV antibiotics. She states that approximately the day after crispness when getting out of bed she hit her left ankle on the IV pole while pushing it across the threshold of the bathroom. She developed pain and the inability to ambulate weightbearing. Ice made the problem worse. She cannot take nonsteroidal anti-inflammatories because of underlying kidney disease. Patient has a history of IV drug abuse. Patient was just visited by physical therapy who is able to increase motion of the left ankle. They are going to work with the patient for ambulation. Coded Allergies: acetaminophen (Unverified Allergy, Severe, "LOOPY", 10/25/17) propoxyphene (Unverified Allergy, Severe, "LOOPY", 10/25/17) Fish Containing Products (Unverified Allergy, Intermediate, 10/25/17) butorphanol (Unverified Allergy, Intermediate, HALUCINATIONS, 10/25/17) Preferred Language to Discuss: Yi Barriers to Learning: None Teaching Method: Discussion Vital Signs Date Time Temp Pulse Resp B/P (MAP) Pulse Ox O2 Delivery O2 Flow Rate FiO2 11/07/17 12:00 98.1 93 17 106/52 (70) 97 11/07/17 11:35 16 11/07/17 08:00 97.9 88 17 109/48 (68) 98 11/06/17 23:45 97.6 96 18 113/59 (77) 100 11/06/17 20:00 98.0 88 18 106/53 (70) 99 11/06/17 16:00 97.3 96 16 106/55 (72) 100 Pain scale used: 0-10 numeric scale Pain score: 8 Medications Current Medications Sodium Chloride 1,000 ml @ 1,000 mls/hr Q1H IV Last administered on 20:44; Start 10/25/17 at 20:20; Stop 10/25/17 at 21:19; Status DC Sodium Chloride 1,000 ml @ 1,000 mls/hr Q1H IV Last administered on 20:44; Start 10/25/17 at 20:20; Stop 10/25/17 at 21:19; Status DC Vancomycin HCl 1000 mg/Sodium Chloride 250 ml @ 250 mls/hr ONCE ONCE IV Last administered on 10/26/17 00:02; Start 10/25/17 at 20:45; Stop 10/25/17 at 21 :44; Status DC Piperacillin Sod/ Tazobactam Sod 50 ml @ 100 mls/hr ONCE ONCE IV Last administered on 10/25/17 20:47; Start 10/25/17 at 20:45; Stop 10/25/17 at 21 :14; Status DC Iohexol (Omnipaque 350 Inj) 76 ml STK-MED ONCE IVCONTRAST Last administered on 10/25/17 22:28; Start 10/25/17 at 22:28; Stop 10/25/17 at 22:29; Status DC Ibuprofen (Motrin) 400 mg ONCE ONCE PO Last administered on 10/26/17 00:03; Start 10/25/17 at 22:45; Stop 10/25/17 at 22:46; Status DC Pharmacy Profile Note 0 ml @ 0 mls/hr UNSCH OTHER ; Start 10/25/17 at 23:00; Stop 10/28/17 at 13:43; Status DC Cefepime HCl 1000 mg/Sodium Chloride 100 ml @ 200 mls/hr Q12H IV Last administered on 10/27/17 08:30; Start 10/26/17 at 09:00; Stop 10/27/17 at 12 :30; Status DC Lorazepam (Ativan) 1 mg Q8H PRN PO AGITATION/WITHDRAWAL Last administered on 15:20; Start 10/25/17 at 23:00 Sodium Chloride 1,000 ml @ 75 mls/hr [id number] IV Last administered on 05:00; Start 10/25/17 at 22:53; Stop 10/31/17 at 16:47; Status DC Sodium Chloride (NS Flush) 2 ml UNSCH PRN IV FLUSH FLUSH AFTER USING IV ACCESS ; Start 10/25/17 at 23:00 Sodium Chloride (NS Flush) 2 ml BID IV FLUSH Last administered on 11/07/17 08 :39; Start 10/26/17 at 09:00 Ondansetron HCl (Zofran Inj) 4 mg Q6H PRN IVP NAUSEA OR VOMITING; Start at 23:00 Oxycodone HCl (Roxicodone) 10 mg Q4H PRN PO PAIN SCALE 6 TO 10 Last administered on 10/29/17 14:49; Start 10/25/17 at 23:00; Stop 10/29/17 at 16 :11; Status DC Oxycodone HCl (Roxicodone) 5 mg Q4H PRN PO PAIN SCALE 3 TO 5 Last administered on 11/02/17 16:41; Start 10/25/17 at 23:00 Senna/Docusate Sodium (Sujatha-Colace) 1 tab BID PO Last administered on 08:38; Start 10/26/17 at 09:00 Magnesium Hydroxide (Milk Of Magnesia Liq) 30 ml Q12H PRN PO Mild constipation ; Start 10/25/17 at 23:00; Stop 11/03/17 at 12:24; Status DC Sennosides (Senokot) 17.2 mg Q12H PRN PO Moderate constipation; Start at 23:00 Bisacodyl (Dulcolax Supp) 10 mg DAILY PRN RECTAL SEVERE CONSITIPATION; Start 10/25/17 at 23:00 Lactulose (Lactulose Liq) 30 ml DAILY PRN PO SEVERE CONSITIPATION; Start 10/25 at 23:00; Stop 11/03/17 at 12:24; Status DC Sodium Chloride 1,000 ml @ 999 mls/hr BOLUS ONCE IV Last administered on 00:03; Start 10/26/17 at 00:00; Stop 10/26/17 at 01:00; Status DC Sodium Chloride 1,000 ml @ 999 mls/hr BOLUS ONCE IV Last administered on 02:45; Start 10/26/17 at 02:45; Stop 10/26/17 at 03:45; Status DC Sodium Chloride 1,000 ml @ 999 mls/hr BOLUS ONCE IV Last administered on 06:45; Start 10/26/17 at 06:45; Stop 10/26/17 at 07:45; Status DC Vancomycin HCl 1250 mg/Sodium Chloride 262.5 ml @ 250 mls/hr Q8H IV Last administered on 10/28/17 12:12; Start 10/26/17 at 12:00; Stop 10/28/17 at 13 :43; Status DC Miscellaneous Information SPECIFIC LAB TO BE EFRAIN... ONCE ONCE .XX Last administered on 10/27/17 11:45; Start 10/27/17 at 11:45; Stop 10/27/17 at 11 :46; Status DC Acetaminophen (Tylenol) 650 mg Q4H PRN PO Temp > 100.4; Start 10/26/17 at 10: 15 Ondansetron HCl (Zofran Inj) 4 mg Q6H PRN IV PUSH NAUSEA; Start 10/26/17 at 10 :15; Status UNV Calcium Carbonate (Tums Chew) 1,000 mg TID PRN CHEW DYSPEPSIA; Start 10/26/17 at 10:15 Oxacillin Sodium 2 gm/Sodium Chloride 100 ml @ 200 mls/hr Q4H IV Last administered on 10/31/17 10:53; Start 10/27/17 at 14:00; Stop 10/31/17 at 16 :15; Status DC Enoxaparin Sodium (Lovenox Inj) 40 mg Q24H SQ Last administered on 10/29/17 14:46; Start 10/27/17 at 14:00; Stop 10/29/17 at 16:16; Status DC Miscellaneous Information SPECIFIC LAB TO BE EFRAIN... ONCE ONCE .XX ; Start at 03:45; Stop 10/29/17 at 03:45; Status DC Oxycodone HCl (Roxicodone) 15 mg Q4H PRN PO PAIN SCALE 6 TO 10 Last administered on 11/02/17 11:10; Start 10/29/17 at 19:00; Stop 11/02/17 at 15 :01; Status DC Oxycodone HCl (Roxicodone) 5 mg ONCE ONCE PO ; Start 10/29/17 at 17:15; Stop 10/29/17 at 17:16; Status DC Heparin Sodium (Porcine) (Heparin Inj) 5,000 units Q8HR SQ Last administered on 11/06/17 21:35; Start 10/30/17 at 06:00 Cyanocobalamin (Vitamin B12 Inj) 1,000 mcg ONCE ONCE IM Last administered on 10/31/17 15:10; Start 10/31/17 at 14:15; Stop 10/31/17 at 14:16; Status DC Cefazolin Sodium 1000 mg/Sodium Chloride 100 ml @ 200 mls/hr Q8H IV Last administered on 11/01/17 10:31; Start 11/01/17 at 00:00; Stop 11/01/17 at 12 :42; Status DC Furosemide (Lasix Inj) 40 mg BID@09,18 IV PUSH Last administered on 11/03/17 09:17; Start 10/31/17 at 18:00; Stop 11/03/17 at 10:57; Status DC Potassium Chloride (KCl) 20 meq ONCE ONCE PO Last administered on 11/01/17 15:28; Start 11/01/17 at 10:15; Stop 11/01/17 at 10:43; Status DC Cefazolin Sodium 1000 mg/Sodium Chloride 100 ml @ 200 mls/hr Q12H IV Last administered on 11/07/17 08:38; Start 11/01/17 at 20:00 Oxycodone HCl (Roxicodone) 10 mg Q4H PRN PO PAIN SCALE 6 TO 10 Last administered on 11/07/17 10:34; Start 11/02/17 at 19:00 Nystatin (Mycostatin Powder) 1 applic Q12HR TOPICAL Last administered on 08:39; Start 11/02/17 at 15:15 Iron Sucrose 100 mg/Sodium Chloride 105 ml @ 105 mls/hr DAILY IV Last administered on 11/03/17 16:23; Start 11/03/17 at 14:00; Stop 11/05/17 at 09 :59; Status DC Acyclovir (Zovirax) 200 mg 5 TIMES A DAY PO Last administered on 11/07/17 08 :38; Start 11/06/17 at 18:00 Past, Family & Social History Past Medical History PFSH Reviewed: Yes Cardiovascular: REPORTS HX OF: Other CV history (endocarditis) Genitourinary: REPORTS HX OF: Kidney disease Infectious Disease: REPORTS HX OF: Other inf disease history Psychiatric: REPORTS HX OF: Other psychiatric history Review of Systems Cardiovascular: COMPLAINS OF: Heart Disease, Swelling legs / ankles Genitourinary: COMPLAINS OF: Renal disease Musculoskeletal: COMPLAINS OF: Leg pain (rest or walk), Joint pain/swell/ dysarthr Neurological: COMPLAINS OF: Difficulty with balance Hematologic/Lymphatic: COMPLAINS OF: Blood abnormalities Exam-Podiatry Constitutional General appearance: comfortable Nutritional status: overweight Orientation: alert and oriented x3 Dermatological Exam Skin Temp - Right: Within Normal Limits Skin Texture - Right: Within Normal Limits Skin Elasticity - Right: Within Normal Limits Skin Tugor - Right: Within Normal Limits Hair Growth - Right: Within Normal Limits Pigmentation - Right: Within Normal Limits Skin Temp - Left: Within Normal Limits Skin Texture - Left: Within Normal Limits Skin Elasticity - Left: Within Normal Limits Skin Tugor - Left: Within Normal Limits Hair Growth - Left: Within Normal Limits Pigmentation - Left: Within Normal Limits Vascular/Lymphatic Exam R Dorsails Pedis: Palpable L Dorsails Pedis: Palpable R Posterior Tibial: Palpable L Posterior Tibial: Palpable Neurologic Exam Present on left: Tinel Test (pain with percussion of the posterior tibial nerve ) Musculoskeletal Exam Details Good range of motion noted against resistance. Patient has pain located to the posterior medial aspect of the left ankle joint Muscle Strength Dorsiflexion (Right): Normal Plantarflexion (Right): Normal Inversion (Right): Normal Eversion (Right): Normal Digital (Right): Normal Dorsiflexion (Left): Normal Plantarflexion (Left): Normal Inversion (Left): Normal Eversion (Left): Normal Digital (Left): Normal Foot Range of Motion Dorsiflexion (Right): Normal Plantarflexion (Right): Normal Inversion (Right): Normal Eversion (Right): Normal Digital (Right): Normal Dorsiflexion (Left): Normal Plantarflexion (Left): Normal Inversion (Left): Pain Eversion (Left): Pain Digital (Left): Normal Lab and Radiology Results Laboratory Microbiology Date/Time Source Procedure Growth Status 11/06/17 15:00 Genital Vulva Herpes Simplex Virus Culture Pending Received Radiology Last Impressions Ankle X-Ray 11/07/17 0000 Signed Impressions: Service Date/Time: Tuesday, November 07, 2017 09:49 - CONCLUSION: 1. No acute fracture or dislocation. Rogelio Rodas MD Renal Ultrasound 10/29/17 0000 Signed Impressions: Service Date/Time: Sunday, October 29, 2017 16:35 - CONCLUSION: 1. Echogenic kidneys secondary to medical renal disease. 2. Decreased echogenicity and heterogeneity to the spleen likely related to infarcts. Matthieu Marie MD Chest X-Ray 10/25/172019 Signed Impressions: Service Date/Time: Wednesday, October 25, 2017 20:36 - CONCLUSION: 1. Left perihilar parenchymal opacity. CT pulmonary angiogram pending. No effusions. Christophe Hagen MD CT Angiography 10/25/172019 Signed Impressions: Service Date/Time: Wednesday, October 25, 2017 22:24 - CONCLUSION: 1. Negative for pulmonary embolus on CTA. 2. Wedge-shaped consolidation in the lingula with cavitation. Findings characteristic of a cavitary pneumonia possibly due to septic embolic disease. There is a large suspected infarct in the anterior spleen. Christophe Hagen MD Assessment/Plan Problem List: (1) Left ankle sprain Status: Acute (2) Contusion of left ankle Status: Acute Additional Plans & Procedures PLAN: Discussed patient with the physical therapist. Physical therapist is going to work with the patient on range of motion and ambulation. Should she still continued to have pain I will consider a fracture brace. Suggest corticosteroids such as a Medrol Dosepak if okay with medicine. Medicine can order this if indicated. We'll continue to follow the patient. Thank you for this consult Problem Qualifiers (1) Left ankle sprain: Qualified Codes: S93.402A - Sprain of unspecified ligament of left ankle, initial encounter (2) Contusion of left ankle: Qualified Codes: S90.02XA - Contusion of left ankle, initial encounter Saad Arredondo DPM Nov 07, 2017 13:17
[2017-11-07 16:00] VITALS: BP 103/51; PULSE 96; RESP 17; TEMP 97.3; O2SAT 96
[2017-11-07 20:00] VITALS: BP 104/50; PULSE 98; RESP 18; TEMP 97.6; O2SAT 98
[2017-11-07 21:34] LABS: BICARBONATE 28.7 MEQ/L (21.0-32.0); CALCIUM 8.6 MG/DL (8.5-10.1); CREATININE 1.92 MG/DL (0.50-1.00)
[2017-11-08] VITALS: BP 117/56; PULSE 108; RESP 18; TEMP 99; O2SAT 95
[2017-11-08] MEDS: HEPARIN SODIUM - SQ 10,000 UNITS/ML VIAL SQ SCH ×3 (06:00→22:00)
[2017-11-08] MEDS: ACYCLOVIR 200 MG CAP PO SCH ×4 (06:30→17:42)
[2017-11-08 07:46] VITALS: BP 99/48; PULSE 85; RESP 20; TEMP 97.7; O2SAT 96
[2017-11-08] MEDS: SODIUM CHLORIDE 0.9% FLUSH 10 ML FLUSH IV FLUSH SCH (08:56)
[2017-11-08] MEDS: DOCUSATE SODIUM 50 MG/SENNA 8.6 MG TAB PO SCH ×2 (08:56→20:45)
[2017-11-08] MEDS: NYSTATIN 100,000 U/GM PWD 15 GM BTL TOPICAL SCH ×2 (08:57→20:43)
[2017-11-08 10:03] LABS: BICARBONATE 28.2 MEQ/L (21.0-32.0); CALCIUM 8.6 MG/DL (8.5-10.1); CREATININE 1.8 MG/DL (0.50-1.00)
[2017-11-08 12:00] VITALS: BP 106/51; PULSE 88; RESP 21; TEMP 98.4; O2SAT 96
--- NOTE | 2017-11-08 13:38 | HHI.PR ---
Subjective Remarks Pt seen before lunch time. still has pain at her ankle. not really putting weight on it. no nausea or vomiting. feels tired. Objective Vitals Vital Signs Date Time Temp Pulse Resp B/P (MAP) Pulse Ox O2 Delivery O2 Flow Rate FiO2 11/08/17 12:00 98.4 88 21 106/51 (69) 96 11/08/17 07:46 97.7 85 20 99/48 (65) 96 11/08/17 00:00 99.0 108 18 117/56 (76) 95 11/07/17 20:00 97.6 98 18 104/50 (68) 98 11/07/17 16:00 97.3 96 17 103/51 (68) 96 11/07/17 15:28 16 I/O 11/07/17 11/07/17 11/07/17 11/08/17 11/08/17 11/08/17 07:00 15:00 23:00 07:00 15:00 23:00 Intake Total 720 ml 4288 ml 120 ml Balance 720 ml 4288 ml 120 ml Intake Oral 720 ml 4188 ml 120 ml IV Total 100 ml # Voids 3 4 # Bowel Movements 0 1 Result Diagram: 11/04/17 0510 11/08/17 0930 Imaging Last Impressions Ankle X-Ray 11/07/17 0000 Signed Impressions: Service Date/Time: Tuesday, November 07, 2017 09:49 - CONCLUSION: 1. No acute fracture or dislocation. Rogelio Rodas MD Renal Ultrasound 10/29/17 0000 Signed Impressions: Service Date/Time: Sunday, October 29, 2017 16:35 - CONCLUSION: 1. Echogenic kidneys secondary to medical renal disease. 2. Decreased echogenicity and heterogeneity to the spleen likely related to infarcts. Matthieu Marie MD Chest X-Ray 10/25/172019 Signed Impressions: Service Date/Time: Wednesday, October 25, 2017 20:36 - CONCLUSION: 1. Left perihilar parenchymal opacity. CT pulmonary angiogram pending. No effusions. Christophe Hagen MD CT Angiography 10/25/172019 Signed Impressions: Service Date/Time: Wednesday, October 25, 2017 22:24 - CONCLUSION: 1. Negative for pulmonary embolus on CTA. 2. Wedge-shaped consolidation in the lingula with cavitation. Findings characteristic of a cavitary pneumonia possibly due to septic embolic disease. There is a large suspected infarct in the anterior spleen. Christophe Hagen MD Objective Remarks GENERAL: laying in bed w partner w partner sitting on side of bed CARDIOVASCULAR: Regular rate and rhythm without murmurs RESPIRATORY: Clear to auscultation. Breath sounds equal bilaterally. No wheezes GASTROINTESTINAL: Abdomen soft, non-tender, nondistended. Normal active bowel sounds MUSCULOSKELETAL: moving extremities NEURO: Alert & Oriented. A/P Problem List: (1) IVDU (intravenous drug user) ICD Code: F19.90 - Other psychoactive substance use, unspecified, uncomplicated (2) Anemia ICD Code: D64.9 - Anemia, unspecified (3) Endocarditis ICD Code: I38 - Endocarditis, valve unspecified (4) Acute kidney injury ICD Code: N17.9 - Acute kidney failure, unspecified (5) Left ankle sprain ICD Code: S93.402A - Sprain of unspecified ligament of left ankle, initial encounter Status: Acute (6) Genital labial ulcer ICD Code: N76.6 - Ulceration of vulva Assessment and Plan (1) IVDU (intravenous drug user) Currently no signs of withdrawal Continue Ativan as needed (2) Anemia Hemoglobin stable Status post IV iron for iron deficiency anemia (3) Endocarditis With aortic valve vegetation, cavitary pneumonia and splenic infarcts Continue Ancef 6 weeks for MSSA-positive bacteremia/endocarditis (4) Acute kidney injury May be related to antibiotics, stable Continue IV Ancef Nephrology following. Last Cr 1.8. repeat BMP in AM. (5) Left ankle sprain Continue ice, elevation Injury occurred after hitting IV pole. Pt continues to complain of pain and unable to bear weight. x-ray didn't show any acute fx or dislocation. Podiatry evaluated the pt and recommended a course of medrol-dose pack. PT following no home PT recommended. (6) Genital labial ulcer empiric acyclovir, cultures pending Patient has deferred HIV testing for now Assessment and Plan Heparin DVT prophylaxis Discharge Planning Patient will need to complete antibiotics 6 weeks from 10/29 (last negative cultures) Need final ID recs Cr. still elevated but slowly trending down. Repeat BMP tomorrow Problem Qualifiers (1) Left ankle sprain: Qualified Codes: S93.402A - Sprain of unspecified ligament of left ankle, initial encounter Tigist Curry MD Nov 08, 2017 13:38
[2017-11-08] MEDS ORDERED: predniSONE 20 MG TAB PO ONE (13:45)
[2017-11-08 16:00] VITALS: BP 119/57; PULSE 95; RESP 20; TEMP 96.9; O2SAT 96
[2017-11-08 20:00] VITALS: BP 115/57; PULSE 96; RESP 18; TEMP 96.4; O2SAT 97
[2017-11-09] VITALS: BP 122/58; PULSE 97; RESP 18; TEMP 96.9; O2SAT 96
[2017-11-09] MEDS: ACYCLOVIR 200 MG CAP PO SCH ×6 (00:40→20:27)
[2017-11-09] MEDS: SODIUM CHLORIDE 0.9% FLUSH 10 ML FLUSH IV FLUSH SCH ×3 (00:51→20:27)
[2017-11-09] MEDS: HEPARIN SODIUM - SQ 10,000 UNITS/ML VIAL SQ SCH ×3 (06:00→23:27)
[2017-11-09 08:00] VITALS: BP 124/56; PULSE 80; RESP 17; TEMP 95.4; O2SAT 98
[2017-11-09] MEDS: NYSTATIN 100,000 U/GM PWD 15 GM BTL TOPICAL SCH ×2 (09:00→20:25)
[2017-11-09] MEDS: DOCUSATE SODIUM 50 MG/SENNA 8.6 MG TAB PO SCH ×2 (09:41→20:25)
[2017-11-09] MEDS: predniSONE 20 MG TAB PO SCH (09:41)
--- NOTE | 2017-11-09 10:38 | HHI.PR ---
Subjective Remarks Pt states that her ankle is feeling better, she is able to put weight on her tip toes and ambulate. no nausea or vomiting. no chest pain or SOB. Objective Vitals Vital Signs Date Time Temp Pulse Resp B/P (MAP) Pulse Ox O2 Delivery O2 Flow Rate FiO2 11/09/17 08:00 95.4 80 17 124/56 (78) 98 11/09/17 00:00 96.9 97 18 122/58 (79) 96 11/08/17 20:00 96.4 96 18 115/57 (76) 97 11/08/17 16:00 96.9 95 20 119/57 (77) 96 11/08/17 12:00 98.4 88 21 106/51 (69) 96 I/O 11/08/17 11/08/17 11/08/17 11/09/17 11/09/17 11/09/17 07:00 15:00 23:00 07:00 15:00 23:00 Intake Total 220 ml 1060 ml 100 ml Output Total 800 ml Balance 220 ml 260 ml 100 ml Intake Oral 120 ml 960 ml IV Total 100 ml 100 ml 100 ml Output Urine Total 800 ml # Voids 1 # Bowel Movements 1 Result Diagram: 11/08/17 0930 Imaging Last Impressions Ankle X-Ray 11/07/17 0000 Signed Impressions: Service Date/Time: Tuesday, November 07, 2017 09:49 - CONCLUSION: 1. No acute fracture or dislocation. Rogelio Rodas MD Renal Ultrasound 10/29/17 0000 Signed Impressions: Service Date/Time: Sunday, October 29, 2017 16:35 - CONCLUSION: 1. Echogenic kidneys secondary to medical renal disease. 2. Decreased echogenicity and heterogeneity to the spleen likely related to infarcts. Matthieu Marie MD Chest X-Ray 10/25/172019 Signed Impressions: Service Date/Time: Wednesday, October 25, 2017 20:36 - CONCLUSION: 1. Left perihilar parenchymal opacity. CT pulmonary angiogram pending. No effusions. Christophe Hagen MD CT Angiography 10/25/172019 Signed Impressions: Service Date/Time: Wednesday, October 25, 2017 22:24 - CONCLUSION: 1. Negative for pulmonary embolus on CTA. 2. Wedge-shaped consolidation in the lingula with cavitation. Findings characteristic of a cavitary pneumonia possibly due to septic embolic disease. There is a large suspected infarct in the anterior spleen. Christophe Hagen MD Objective Remarks GENERAL: laying in bed w partner w partner laying in bed CARDIOVASCULAR: Regular rate and rhythm without murmurs RESPIRATORY: Clear to auscultation. Breath sounds equal bilaterally. No wheezes GASTROINTESTINAL: Abdomen soft, non-tender, nondistended. Normal active bowel sounds MUSCULOSKELETAL: moving extremities NEURO: Alert & Oriented. A/P Problem List: (1) IVDU (intravenous drug user) ICD Code: F19.90 - Other psychoactive substance use, unspecified, uncomplicated (2) Anemia ICD Code: D64.9 - Anemia, unspecified (3) Endocarditis ICD Code: I38 - Endocarditis, valve unspecified (4) Acute kidney injury ICD Code: N17.9 - Acute kidney failure, unspecified (5) Left ankle sprain ICD Code: S93.402A - Sprain of unspecified ligament of left ankle, initial encounter Status: Acute (6) Genital labial ulcer ICD Code: N76.6 - Ulceration of vulva Assessment and Plan (1) IVDU (intravenous drug user) Currently no signs of withdrawal Continue Ativan as needed (2) Anemia Hemoglobin stable Status post IV iron for iron deficiency anemia (3) Endocarditis With aortic valve vegetation, cavitary pneumonia and splenic infarcts Continue Ancef 6 weeks for MSSA-positive bacteremia/endocarditis (4) Acute kidney injury May be related to antibiotics, stable Continue IV Ancef Nephrology following. Last Cr 1.8. repeat BMP this morning not yet available. (5) Left ankle sprain Continue ice, elevation Injury occurred after hitting IV pole. Pt continues to complain of pain and unable to bear weight. x-ray didn't show any acute fx or dislocation. Podiatry evaluated the pt and recommended a course of medrol-dose pack. PT following no home health PT recommended. Pt currently on a steroid taper and seems to be improving. continue to monitor and encourage ambulation (6) Genital labial ulcer empiric acyclovir, cultures pending Patient has deferred HIV testing for now Assessment and Plan Heparin DVT prophylaxis Discharge Planning Patient will need to complete antibiotics 6 weeks from 10/29 (last negative cultures) Need final ID recs Cr. still elevated but slowly trending down. Repeat BMP tomorrow Problem Qualifiers (1) Left ankle sprain: Qualified Codes: S93.402A - Sprain of unspecified ligament of left ankle, initial encounter Tigist Curry MD Nov 09, 2017 10:38
[2017-11-09 12:00] VITALS: BP 123/55; PULSE 91; RESP 17; TEMP 97; O2SAT 93
[2017-11-09 16:00] VITALS: BP 123/59; PULSE 97; RESP 17; TEMP 96.1; O2SAT 98
[2017-11-09 20:00] VITALS: BP 118/57; PULSE 84; RESP 18; TEMP 96.9; O2SAT 100
[2017-11-10 00:28] VITALS: BP 132/77; PULSE 81; RESP 18; TEMP 96.4; O2SAT 98
[2017-11-10] MEDS: HEPARIN SODIUM - SQ 10,000 UNITS/ML VIAL SQ SCH ×3 (06:15→21:12)
[2017-11-10] MEDS: ACYCLOVIR 200 MG CAP PO SCH ×5 (06:15→21:11)
[2017-11-10] MEDS: NYSTATIN 100,000 U/GM PWD 15 GM BTL TOPICAL SCH ×2 (07:06→21:00)
[2017-11-10 08:00] VITALS: BP 122/54; PULSE 84; RESP 18; TEMP 97.2; O2SAT 99
[2017-11-10] MEDS: DOCUSATE SODIUM 50 MG/SENNA 8.6 MG TAB PO SCH ×2 (09:00→21:11)
[2017-11-10] MEDS: predniSONE 20 MG TAB PO SCH (09:36)
[2017-11-10] MEDS: SODIUM CHLORIDE 0.9% FLUSH 10 ML FLUSH IV FLUSH SCH ×2 (09:36→21:00)
--- NOTE | 2017-11-10 11:36 | HHI.PR ---
Subjective Remarks Pt states that the steroids "game me sweats" but no rash or trouble breathing. She admits that her ankle is feeling much better. No nausea or vomiting. States that electronic prepress technician can't draw the blood Objective Vitals Vital Signs Date Time Temp Pulse Resp B/P (MAP) Pulse Ox O2 Delivery O2 Flow Rate FiO2 11/10/17 08:00 97.2 84 18 122/54 (76) 99 11/10/17 00:28 96.4 81 18 132/77 (95) 98 11/09/17 20:00 96.9 84 18 118/57 (77) 100 11/09/17 16:00 96.1 97 17 123/59 (80) 98 11/09/17 12:00 97.0 91 17 123/55 (77) 93 I/O 11/09/17 11/09/17 11/09/17 11/10/17 11/10/17 11/10/17 07:00 15:00 23:00 07:00 15:00 23:00 Intake Total 100 ml 100 ml 2044 ml 100 ml Balance 100 ml 100 ml 2044 ml 100 ml Intake Oral 2044 ml IV Total 100 ml 100 ml 100 ml # Voids 1 5 2 # Bowel Movements 2 Result Diagram: 11/08/17 0930 Imaging Last Impressions Ankle X-Ray 11/07/17 0000 Signed Impressions: Service Date/Time: Tuesday, November 07, 2017 09:49 - CONCLUSION: 1. No acute fracture or dislocation. Rogelio Rodas MD Renal Ultrasound 10/29/17 Signed Impressions: Service Date/Time: Sunday, October 29, 2017 16:35 - CONCLUSION: 1. Echogenic kidneys secondary to medical renal disease. 2. Decreased echogenicity and heterogeneity to the spleen likely related to infarcts. Matthieu Marie MD Chest X-Ray 10/25/172019 Signed Impressions: Service Date/Time: Wednesday, October 25, 2017 20:36 - CONCLUSION: 1. Left perihilar parenchymal opacity. CT pulmonary angiogram pending. No effusions. Christophe Hagen MD CT Angiography 10/25/172019 Signed Impressions: Service Date/Time: Wednesday, October 25, 2017 22:24 - CONCLUSION: 1. Negative for pulmonary embolus on CTA. 2. Wedge-shaped consolidation in the lingula with cavitation. Findings characteristic of a cavitary pneumonia possibly due to septic embolic disease. There is a large suspected infarct in the anterior spleen. Christophe Hagen MD Objective Remarks GENERAL: laying in bed w partner w partner laying in bed CARDIOVASCULAR: Regular rate and rhythm without murmurs RESPIRATORY: Clear to auscultation. Breath sounds equal bilaterally. No wheezes GASTROINTESTINAL: Abdomen soft, non-tender, nondistended. Normal active bowel sounds MUSCULOSKELETAL: moving extremities NEURO: Alert & Oriented. A/P Problem List: (1) IVDU (intravenous drug user) ICD Code: F19.90 - Other psychoactive substance use, unspecified, uncomplicated (2) Anemia ICD Code: D64.9 - Anemia, unspecified (3) Endocarditis ICD Code: I38 - Endocarditis, valve unspecified (4) Acute kidney injury ICD Code: N17.9 - Acute kidney failure, unspecified (5) Left ankle sprain ICD Code: S93.402A - Sprain of unspecified ligament of left ankle, initial encounter Status: Acute (6) Genital labial ulcer ICD Code: N76.6 - Ulceration of vulva Assessment and Plan (1) IVDU (intravenous drug user) Currently no signs of withdrawal Continue Ativan as needed (2) Anemia Hemoglobin stable Status post IV iron for iron deficiency anemia (3) Endocarditis With aortic valve vegetation, cavitary pneumonia and splenic infarcts Continue Ancef 6 weeks for MSSA-positive bacteremia/endocarditis (4) Acute kidney injury May be related to antibiotics, stable Continue IV Ancef Nephrology following. Last Cr 1.8. Repeat lab still not available. apparently yesterday she refused the labwork but today states that electronic prepress technician couldn't draw it. (5) Left ankle sprain Continue ice, elevation Injury occurred after hitting IV pole. Pt continues to complain of pain and unable to bear weight. x-ray didn't show any acute fx or dislocation. Podiatry evaluated the pt and recommended a course of medrol-dose pack. PT following no home health PT recommended. Pt currently on a steroid taper and is improving however pt states that she doesn't like it. Therefore will d/c (she has received three days worth). continue to monitor and encourage ambulation (6) Genital labial ulcer empiric acyclovir, cultures pending Patient has deferred HIV testing for now Assessment and Plan Heparin DVT prophylaxis Discharge Planning Patient will need to complete antibiotics 6 weeks from 10/29 (last negative cultures) Need final ID recs Cr. still elevated but slowly trending down. Repeat BMP tomorrow (hopefully electronic prepress technician is successful and pt agreeable). If Cr back to baseline and ok to d/c if cleared by ID and CM able to make arrangements Problem Qualifiers (1) Left ankle sprain: Qualified Codes: S93.402A - Sprain of unspecified ligament of left ankle, initial encounter Tigist Curry MD Nov 10, 2017 11:36
[2017-11-10 12:00] VITALS: BP 122/56; PULSE 82; RESP 20; TEMP 96.7; O2SAT 97
[2017-11-10 16:00] VITALS: BP 130/61; PULSE 89; RESP 17; TEMP 96.9; O2SAT 99
[2017-11-10 20:00] VITALS: BP 123/57; PULSE 89; RESP 17; TEMP 95.9; O2SAT 98
[2017-11-11] VITALS: BP 112/57; PULSE 88; RESP 17; TEMP 96.9; O2SAT 98
[2017-11-11] MEDS: ACYCLOVIR 200 MG CAP PO SCH ×5 (05:47→21:34)
[2017-11-11] MEDS: HEPARIN SODIUM - SQ 10,000 UNITS/ML VIAL SQ SCH ×3 (05:48→21:35)
[2017-11-11] MEDS: NYSTATIN 100,000 U/GM PWD 15 GM BTL TOPICAL SCH ×2 (07:25→21:00)
[2017-11-11 08:00] VITALS: BP 121/55; PULSE 80; RESP 18; TEMP 97.3; O2SAT 98
[2017-11-11] MEDS: DOCUSATE SODIUM 50 MG/SENNA 8.6 MG TAB PO SCH ×2 (09:00→21:34)
[2017-11-11] MEDS ORDERED: predniSONE 10 MG TAB PO SCH (09:00)
[2017-11-11 09:11] LABS: BICARBONATE 23.9 MEQ/L (21.0-32.0); CALCIUM 8.9 MG/DL (8.5-10.1); CREATININE 1.29 MG/DL (0.50-1.00)
[2017-11-11] MEDS: SODIUM CHLORIDE 0.9% FLUSH 10 ML FLUSH IV FLUSH SCH ×2 (09:51→21:35)
--- NOTE | 2017-11-11 10:23 | HHI.PR ---
Subjective Remarks Had been Refusing laboratory data Patient has a loud labs today HAs IVDA with aortic valve endocarditis with sounds like adequate Discussed with RN and patient Objective Vitals Vital Signs Date Time Temp Pulse Resp B/P (MAP) Pulse Ox O2 Delivery O2 Flow Rate FiO2 11/11/17 08:00 97.3 80 18 121/55 (77) 98 11/11/17 06:36 18 11/11/17 00:00 96.9 88 17 112/57 (75) 98 11/10/17 20:00 95.9 89 17 123/57 (79) 98 11/10/17 16:00 96.9 89 17 130/61 (84) 99 11/10/17 12:00 96.7 82 20 122/56 (78) 97 I/O 11/10/17 11/10/17 11/10/17 11/11/17 11/11/17 11/11/17 07:00 15:00 23:00 07:00 15:00 23:00 Intake Total 100 ml 100 ml 2200 ml 240 ml Balance 100 ml 100 ml 2200 ml 240 ml Intake Oral 2100 ml 240 ml IV Total 100 ml 100 ml 100 ml # Voids 2 5 2 Result Diagram: 11/11/17 0822 Other Results Laboratory Tests Test 11/11/17 08:22 Blood Urea Nitrogen 14 MG/DL Creatinine 1.29 MG/DL Random Glucose 80 MG/DL Calcium Level 8.9 MG/DL Sodium Level 139 MEQ/L Potassium Level 4.0 MEQ/L Chloride Level 106 MEQ/L Carbon Dioxide Level 23.9 MEQ/L Anion Gap 9 MEQ/L Estimat Glomerular Filtration Rate 48 ML/MIN Imaging Last Impressions Ankle X-Ray 11/07/17 0000 Signed Impressions: Service Date/Time: Tuesday, November 07, 2017 09:49 - CONCLUSION: 1. No acute fracture or dislocation. Rogelio Rodas MD Renal Ultrasound 10/29/17 0000 Signed Impressions: Service Date/Time: Sunday, October 29, 2017 16:35 - CONCLUSION: 1. Echogenic kidneys secondary to medical renal disease. 2. Decreased echogenicity and heterogeneity to the spleen likely related to infarcts. Matthieu Marie MD Chest X-Ray 10/25/172019 Signed Impressions: Service Date/Time: Wednesday, October 25, 2017 20:36 - CONCLUSION: 1. Left perihilar parenchymal opacity. CT pulmonary angiogram pending. No effusions. Christophe Hagen MD CT Angiography 10/25/172019 Signed Impressions: Service Date/Time: Wednesday, October 25, 2017 22:24 - CONCLUSION: 1. Negative for pulmonary embolus on CTA. 2. Wedge-shaped consolidation in the lingula with cavitation. Findings characteristic of a cavitary pneumonia possibly due to septic embolic disease. There is a large suspected infarct in the anterior spleen. Christophe Hagen MD Objective Remarks GENERAL: Awake alert oriented talkative and cooperative SKIN: Warm and dry. Left leg dressed HEAD: Atraumatic. Normocephalic. EYES: Pupils equal and round. No scleral icterus. No injection or drainage. Extraocular muscles intact ENT: No nasal bleeding or discharge. Mucous membranes pink and moist. Oral mucosa is moist tongue is midline NECK: Trachea midline. No JVD. Supple CARDIOVASCULAR: Regular rate and rhythm. S1 and S2 no S3 or S4 no heave or thrill 2/6 systolic ejection RESPIRATORY: No accessory muscle use. Clear to auscultation. Breath sounds equal bilaterally. GASTROINTESTINAL: Abdomen soft, non-tender, nondistended. Hepatic and splenic margins not palpable. MUSCULOSKELETAL: Extremities without clubbing, cyanosis, or edema. No obvious deformities. Left leg dressed NEUROLOGICAL: Awake and alert. No obvious cranial nerve deficits. Motor grossly within normal limits. Five out of 5 muscle strength in the arms and legs. Normal speech. PSYCHIATRIC: Appropriate mood and affect; insight and judgment normal. Medications and IVs Laboratory Tests Test 11/11/17 08:22 Blood Urea Nitrogen 14 MG/DL Creatinine 1.29 MG/DL Random Glucose 80 MG/DL Calcium Level 8.9 MG/DL Sodium Level 139 MEQ/L Potassium Level 4.0 MEQ/L Chloride Level 106 MEQ/L Carbon Dioxide Level 23.9 MEQ/L Anion Gap 9 MEQ/L Estimat Glomerular Filtration Rate 48 ML/MIN A/P Problem List: (1) IVDU (intravenous drug user) ICD Code: F19.90 - Other psychoactive substance use, unspecified, uncomplicated Plan: Currently no signs of withdrawal Continue Ativan as needed (2) Anemia ICD Code: D64.9 - Anemia, unspecified Plan: Hemoglobin stable Status post IV iron for iron deficiency anemia (3) Endocarditis ICD Code: I38 - Endocarditis, valve unspecified Plan: With aortic valve vegetation, cavitary pneumonia and splenic infarcts Continue Ancef 6 weeks for MSSA-positive bacteremia/endocarditis (4) Acute kidney injury ICD Code: N17.9 - Acute kidney failure, unspecified Plan: May be related to antibiotics, stable Continue IV Ancef Nephrology consult appreciated (5) Left ankle sprain ICD Code: S93.402A - Sprain of unspecified ligament of left ankle, initial encounter Status: Acute Plan: Continue Zen wrap, ice, elevation Injury occurred after hitting IV pole (6) Genital labial ulcer ICD Code: N76.6 - Ulceration of vulva Plan: empiric acyclovir, cultures pending Patient has deferred HIV testing for now Assessment and Plan IVDA Currently no signs of withdrawal Continue Ativan as needed (2) Anemia Hemoglobin stable Status post IV iron for iron deficiency anemia (3) Endocarditis With aortic valve vegetation, cavitary pneumonia and splenic infarcts Continue Ancef 6 weeks for MSSA-positive bacteremia/endocarditis (4) Acute kidney injury May be related to antibiotics, stable Continue IV Ancef Nephrology following. Last Cr 1.8. Repeat lab still not available. apparently yesterday she refused the labwork but today states that bench carpenter couldn't draw it. (5) Left ankle sprain Continue ice, elevation Injury occurred after hitting IV pole. Pt continues to complain of pain and unable to bear weight. x-ray didn't show any acute fx or dislocation. Podiatry evaluated the pt and recommended a course of medrol-dose pack. PT following no home health PT recommended. Pt currently on a steroid taper and is improving however pt states that she doesn't like it. Therefore will d/c (she has received three days worth). continue to monitor and encourage ambulation (6) Genital labial ulcer empiric acyclovir, cultures pending Patient has deferred HIV testing for now Assessment and Plan Heparin DVT prophylaxis Discharge Planning Patient will need to complete antibiotics 6 weeks from 10/29 (last negative cultures) Need final ID recs Cr. still elevated but slowly trending down. Repeat BMP tomorrow (hopefully bench carpenter is successful and pt agreeable). If Cr back to baseline and ok to d/c if cleared by ID and CM able to make arrangements Discharge Planning Await infectious disease SAFE CLEARANCE for discharge Problem Qualifiers (1) Left ankle sprain: Qualified Codes: S93.402A - Sprain of unspecified ligament of left ankle, initial encounter Severino Garcias DO Nov 11, 2017 10:23
[2017-11-11 12:00] VITALS: BP 104/52; PULSE 86; RESP 18; TEMP 97.7; O2SAT 97
--- NOTE | 2017-11-11 15:08 | HHI.IDPN ---
Note Infectious Disease Note Patient feels okay. No complaints. No longer having chest pain. Afebrile. Ambulating. Blood culture repeat negative x 5 days. 2D echo has aortic valve vegetation. Kidney function improving. The patient came to the emergency department with respiratory distress and she was having cough, left-sided chest pain, nausea, vomiting and fevers. The ED report stated that the symptoms began two weeks ago. The patient tells me that she started having sharp pain in her left chest and coughing about two days ago. She states that she last used IV drugs two days ago. PAST MEDICAL HISTORY: 1. IV drug abuse. 2. Tobacco abuse. 3. . ALLERGIES PROPOXYPHENE BUTORPHANOL ACETAMINOPHEN FISH CONTAINING PRODUCTS MEDICATIONS: Cefazolin. OBJECTIVE: Vital Signs Date Time Temp Pulse Resp B/P (MAP) Pulse Ox O2 Delivery O2 Flow Rate FiO2 11/11/17 12:00 97.7 86 18 104/52 (69) 97 11/11/17 08:00 97.3 80 18 121/55 (77) 98 11/11/17 06:36 18 11/11/17 00:00 96.9 88 17 112/57 (75) 98 11/10/17 20:00 95.9 89 17 123/57 (79) 98 11/10/17 16:00 96.9 89 17 130/61 (84) 99 Laboratory Tests Test 11/11/17 08:22 Blood Urea Nitrogen 14 MG/DL Creatinine 1.29 MG/DL Random Glucose 80 MG/DL Calcium Level 8.9 MG/DL Sodium Level 139 MEQ/L Potassium Level 4.0 MEQ/L Chloride Level 106 MEQ/L Carbon Dioxide Level 23.9 MEQ/L Anion Gap 9 MEQ/L Estimat Glomerular Filtration Rate 48 ML/MIN Microbiology Date/Time Source Procedure Growth Status 10/26/17 16:24 Blood Peripheral Aerobic Blood Culture - Final Staphylococcus Aureus Resulted 10/26/17 16:24 Anaerobic Blood Culture - Preliminary Staphylococcus Aureus Resulted 10/26/17 16:14 Blood Peripheral Aerobic Blood Culture - Final Staphylococcus Aureus Resulted 10/26/17 16:14 Anaerobic Blood Culture - Preliminary Staphylococcus Aureus Resulted 10/25/17 20:30 Blood Peripheral Aerobic Blood Culture - Final Staphylococcus Aureus Complete 10/25/17 20:30 Anaerobic Blood Culture - Final Staphylococcus Aureus Complete 10/25/17 20:25 Blood Peripheral Aerobic Blood Culture - Preliminary Staphylococcus Aureus Resulted 10/25/17 20:25 Anaerobic Blood Culture - Final Staphylococcus Aureus Resulted 10/25/17 21:00 Nasal Aspirate Influenza Types A,B Antigen (JONNY) - Final NEGATIVE FOR FLU A AND B ANTIGEN.... Complete IMAGING: Chest X-Ray 10/25/172019 Signed Impressions: Service Date/Time: Wednesday, October 25, 2017 20:36 - CONCLUSION: 1. Left perihilar parenchymal opacity. CT pulmonary angiogram pending. No effusions. Christophe Hagen MD CT Angiography 10/25/172019 Signed Impressions: Service Date/Time: Wednesday, October 25, 2017 22:24 - CONCLUSION: 1. Negative for pulmonary embolus on CTA. 2. Wedge-shaped consolidation in the lingula with cavitation. Findings characteristic of a cavitary pneumonia possibly due to septic embolic disease. There is a large suspected infarct in the anterior spleen. Christophe Hagen MD PHYSICAL EXAMINATION: GENERAL: No acute distress. HEENT: No icterus. Oropharynx: moist mucosa. No lesions. Neck: Supple without adenopathy or swelling. Lungs: Diminished breath sounds. Heart: Regular rate and rhythm. No murmurs, rubs, or gallops. Abdomen: Bowel sounds present, soft, non tender. Extremities: No clubbing or cyanosis. The right forearm has an area of swelling and it is tenderness. left upper extremity has tenderness at the humerus at IV site. Skin: No diffuse rash. Neuro: No focal findings. Psych: The patient is calm and cooperative. IMPRESSION 1. 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 2. Septic emboli in the lungs. 3. 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 4. IV drug abuse. 5. Acute renal disease. ? ATN. Improving. Received contrast, also vanco and most lately Oxacillin. RECOMMENDATIONS Patient expresses motivation to comply with treatment and avoidance of drug use. Outpatient IV Cefazolin Q8 hours until Dec 08, 2017. PIC line for antibiotics. If unable to place a PIC She will need a Foreman catheter. Antibiotics and labs written on IV form. May be discharged when IV antibiotics are arranged. Patient will come to the Infusion clinic daily to have the antibiotic pump filled. Breezy Muñoz MD Nov 11, 2017 15:08
--- NOTE | 2017-11-11 15:17 | HHI.FF ---
Infusion Therapy Location of Infusion Therapy: Ambulatory Infusion Therapy Order Patient Information Patient Weight 72.87 kg Diagnosis: (1) Endocarditis (2) Sepsis Coded Allergies: acetaminophen (Unverified Allergy, Severe, "LOOPY", 10/25/17) propoxyphene (Unverified Allergy, Severe, "LOOPY", 10/25/17) Fish Containing Products (Unverified Allergy, Intermediate, 10/25/17) butorphanol (Unverified Allergy, Intermediate, HALUCINATIONS, 10/25/17) Administer Medication Cefazolin 2 grams IV q 8 hours Stop Treatment: Dec 08, 2017 Additional Information Venous access: PICC Line Additional Instructions [x] Peripheral flush and dressing changes per protocol [x] Implanted port and central telecommunications line mechanic: * Implanted port: 10 ml Normal Saline followed by 5 ml Heparin 100 units/ml Heparin flush after each use and monthly to maintain. [] May leave port accessed during therapy. [] May leave peripheral site accessed for duration of therapy. [x] If patient has SOB or respiratory distress, check oxygen saturation. If less than 90% or clinical signs of respiratory distress, administer oxygen at 2 L/min. via nasal cannula and notify physician. [x] Anaphylaxis/Reaction orders: * Stop infusion. * Keep IV line open with saline flush. * Notify physician. * Monitor vital signs every 15 minutes until symptoms resolve. * Check Oxygen saturation; Oxygen at 2 L/min. via nasal cannula if less than 90% or clinical signs of respiratory distress. * Administer diphenhydramine (Benadryl) 25 mg IV STAT, (unless patient has received as pre-med). May repeat once, if necessary. * Solu-Cortef 250 mg IVP over 30-60 seconds, use 100 mg vials for each dissolution. * Epinephrine (1mg/1 ml) 0.3 mg subcutaneously or IVP now with any signs of respiratory distress. * Check with physician for new additional pre-med orders if patient is re- challenged or re-treated. [x] May remove PICC line when treatment complete, after confirming with Physician. [x] If the patient is admitted to the hospital, the ED, or transferred via [facility] , complete transfer form including medication reconciliation order sheet. Laboratory Tests Weekly Labs: CBC w/diff Additional Information BMP twice a week while on antibiotics. Fax labs to Dr. Muñoz [phone]. call if creatinine > 2.0 Breezy Muñoz MD Nov 11, 2017 15:17
[2017-11-11] MEDS ORDERED: CEFA2SOL IV (15:21)
[2017-11-11] MEDS ORDERED: SOLU250I IV PUSH (15:21)
[2017-11-11] MEDS ORDERED: EPIN1INJ21 IV PUSH (15:21)
[2017-11-11] MEDS ORDERED: EPIN1INJ21 SQ (15:21)
[2017-11-11 16:00] VITALS: BP 129/59; PULSE 95; RESP 18; TEMP 96.6; O2SAT 97
[2017-11-11 20:00] VITALS: BP 124/58; PULSE 96; RESP 17; TEMP 96.5; O2SAT 98
[2017-11-12] VITALS: BP 118/54; PULSE 99; RESP 17; TEMP 95.8; O2SAT 99
[2017-11-12] MEDS: ACYCLOVIR 200 MG CAP PO SCH ×2 (05:51→09:24)
[2017-11-12] MEDS: HEPARIN SODIUM - SQ 10,000 UNITS/ML VIAL SQ SCH (05:52)
[2017-11-12 08:00] VITALS: BP 108/48; PULSE 81; RESP 18; TEMP 98; O2SAT 97
[2017-11-12] MEDS: DOCUSATE SODIUM 50 MG/SENNA 8.6 MG TAB PO SCH (08:53)
[2017-11-12] MEDS: SODIUM CHLORIDE 0.9% FLUSH 10 ML FLUSH IV FLUSH SCH (08:54)
[2017-11-12] MEDS: NYSTATIN 100,000 U/GM PWD 15 GM BTL TOPICAL SCH (08:58)
[2017-11-12] MEDS ORDERED: ACYC200C66 PO (10:05)
[2017-11-12] MEDS ORDERED: Nystatin Powder TOPICAL (10:05)
--- NOTE | 2017-11-12 10:09 | HHI.DS ---
Discharge Summary Admission Date Oct 25, 2017 at 22:55 Discharge Date: Nov 12, 2017 Admitting Diagnosis sepsis, cavitary pneumonia, IVDU, splenic infarct (1) Endocarditis ICD Code: I38 - Endocarditis, valve unspecified Diagnosis: Principal (2) Anemia ICD Code: D64.9 - Anemia, unspecified Diagnosis: Secondary (3) Acute kidney injury ICD Code: N17.9 - Acute kidney failure, unspecified Diagnosis: Principal (4) Left ankle sprain ICD Code: S93.402A - Sprain of unspecified ligament of left ankle, initial encounter Diagnosis: Principal Status: Acute (5) Genital labial ulcer ICD Code: N76.6 - Ulceration of vulva Diagnosis: Principal (6) IVDU (intravenous drug user) ICD Code: F19.90 - Other psychoactive substance use, unspecified, uncomplicated Diagnosis: Principal Procedures See hospital course. Brief History - From Admission This is a 32-year-old female with a PMH of IVDU and Tobacco Abuse who presented to the ER with complaints of cough and chest pain for approx 2 wks. States symptoms have been persistent, now progressively worse. Reports occasional fevers/chills. +Ongoing IVDU. On arrival, BP 111/64, HR 138, O2 sat 95% on RA , Temp 101.2. WBC 12.3. Hemoglobin 9.3, previously 12.0 on 07/16/17. Lactic Acid 1.5. Troponin 0.06. CXR with left perihilar parenchymal opacity. CTA Pulm negative for PE, noted to have wedge-shaped consolidation in the lingula with cavitation, findings characteristic of cavitary pneumonia probably due to septic embolic disease, suspected large infarct in anterior spleen. S/p Blood Cultures, Vanc/Zosyn in addition to 2L IVF in ER. CBC/BMP: 11/11/17 0822 Significant Findings Laboratory Tests Test 11/11/17 08:22 Creatinine 1.29 MG/DL (0.50-1.00) Estimat Glomerular Filtration Rate 48 ML/MIN (>89) Imaging Last Impressions Ankle X-Ray 11/07/17 0000 Signed Impressions: Service Date/Time: Tuesday, November 07, 2017 09:49 - CONCLUSION: 1. No acute fracture or dislocation. Rogelio Rodas MD Renal Ultrasound 10/29/17 Signed Impressions: Service Date/Time: Sunday, October 29, 2017 16:35 - CONCLUSION: 1. Echogenic kidneys secondary to medical renal disease. 2. Decreased echogenicity and heterogeneity to the spleen likely related to infarcts. Matthieu Marie MD Chest X-Ray 10/25/172019 Signed Impressions: Service Date/Time: Wednesday, October 25, 2017 20:36 - CONCLUSION: 1. Left perihilar parenchymal opacity. CT pulmonary angiogram pending. No effusions. Christophe Hagen MD CT Angiography 10/25/172019 Signed Impressions: Service Date/Time: Wednesday, October 25, 2017 22:24 - CONCLUSION: 1. Negative for pulmonary embolus on CTA. 2. Wedge-shaped consolidation in the lingula with cavitation. Findings characteristic of a cavitary pneumonia possibly due to septic embolic disease. There is a large suspected infarct in the anterior spleen. Christophe Hagen MD PE at Discharge GENERAL: Awake alert oriented talkative and cooperative SKIN: Warm and dry. Left leg dressed CARDIOVASCULAR: Regular rate and rhythm. S1 and S2 no S3 or S4 no heave or thrill 2/6 systolic ejection RESPIRATORY: No accessory muscle use. Clear to auscultation. Breath sounds equal bilaterally. GASTROINTESTINAL: Abdomen soft, non-tender, nondistended. Hepatic and splenic margins not palpable. MUSCULOSKELETAL: Extremities without clubbing, cyanosis, or edema. No obvious deformities. Left leg dressed NEUROLOGICAL: Awake and alert. Pt update on day of discharge Follow-up for infective endocarditis Patient had no complaints. She stated that they were not able to put her line in yesterday. She remains afebrile. Her friend is present during the interview. Hospital Course This is a 32-year-old female IV drug user who was admitted secondary to infection and acute renal failure. Patient was treated empirically with IV antibiotics and she was found to have endocarditis in which an echo and imaging studies showed aortic valve vegetation, cavitary pneumonia and splenic infarcts. Infectious disease was consulted to help with management. Blood cultures were obtained in which she was positive for MSSA. Patient was sent home for 6 weeks of Ancef. Patient was also found to be anemic was most likely combination of renal failure and iron deficiency anemia. Patient was given IV iron infusion during hospitalization. Due to acute renal failure secondary to IV drug use data entry processor was consulted and which slowly her kidney function improved. Patient had good urine output. She also had a left ankle sprain in which borematic operator saw patient. Recommend rest, ice, elevation. Patient also told to take acetaminophen in regards to pain. Due to her IV drug use no controlled substance was written upon discharge. Patient also found to have some genital labial ulcer which she was started acyclovir. It was offered during hospitalization for HIV testing and patient declined. Patient was educated extensively that her line is only use for antibiotics and not for any other substance since she does have a history of IV drug use. Patient states she understands and that the line will be only use for IV antibiotics as directed. Pt Condition on Discharge: Stable Discharge Disposition: Discharge Home Discharge Time: <= 30 minutes Discharge Instructions DIET: Follow Instructions for: Heart Healthy Diet Activities you can perform: Regular-No Restrictions Follow up Referrals: PCP Follow-up - 1 Week New Medications: Cefazolin Inj (Cefazolin Inj) 2 Gm/50 Ml Bagp 2 GM IV Q8H for Infection for 28 Days, BAG 0 Refills END date DEC 08, 2017. Epinephrine Inj (Epinephrine Inj) 1 Mg/Ml (1 Ml) Inj 0.3 MG IV PUSH ONCE PRN for ALLERGIC REACTION, #1 VIAL Epinephrine Inj (Epinephrine Inj) 1 Mg/Ml (1 Ml) Inj 0.3 MG SQ ONCE PRN for ALLERGIC REACTION, #1 VIAL Give with any signs of respiratory distress. Hydrocortisone Inj (Solu-Cortef Inj) 250 Mg/2 Ml Inj 250 MG IV PUSH ONCE PRN for ALLERGIC REACTION, #1 VIAL 0 Refills Give over 30-60 seconds. Acyclovir (Acyclovir) 200 Mg Cap 200 MG PO 5 TIMES A DAY for lesions, #25 CAP 0 Refills [Nystatin Powder] () 15 APPLIC/15 GM POWD 1 APPLIC TOPICAL Q12HR for Rash MDD 1, #1 BOTTLE 0 Refills Kayla Goldsmith MD Nov 12, 2017 10:09
[2017-11-12 11:20] LABS: AUTOMATED NEUTROPHIL # 3.5 TH/MM3 (1.8-7.7); BASOPHIL # 0.1 TH/MM3 (0-0.2); EOSINOPHIL # 0.1 TH/MM3 (0-0.4); EOSINOPHIL % 1.6 % (0.0-4.0); HEMOGLOBIN 8.8 GM/DL (11.6-15.3); LYMPH % 35.4 % (9.0-44.0); LYMPHOCYTE # 2.3 TH/MM3 (1.0-4.8); MEAN CELL VOLUME 74.9 FL (80.0-100.0); MEAN CORPUSCULAR HEMOGLOBIN 24.3 PG (27.0-34.0); MEAN CORPUSCULAR HGB CONC 32.4 % (32.0-36.0); MEAN PLATELET VOLUME 6.3 FL (7.0-11.0); MONO % 7.8 % (0.0-8.0); MONOCYTE # 0.5 TH/MM3 (0-0.9); NEUT % 54.2 % (16.0-70.0); PLATELET COUNT 407 TH/MM3 (150-450); RED BLOOD COUNT 3.61 MIL/MM3 (4.00-5.30); RED CELL DISTRIBUTION WIDTH 18.8 % (11.6-17.2); WHITE BLOOD COUNT 6.4 TH/MM3 (4.0-11.0)
[2017-11-12 11:42] LABS: ALBUMIN 2.9 GM/DL (3.4-5.0); AST (GOT) 21 U/L (15-37); BICARBONATE 23.2 MEQ/L (21.0-32.0); BLOOD UREA NITROGEN 10 MG/DL (7-18); CALCIUM 9.1 MG/DL (8.5-10.1); CHLORIDE 106 MEQ/L (98-107); CREATININE 1.31 MG/DL (0.50-1.00); GLOMERULAR FILTRATION RATE 47 ML/MIN (>89); GLUCOSE,RANDOM 100 MG/DL (74-106); MAGNESIUM 1.5 MG/DL (1.5-2.5); SODIUM (NA) 138 MEQ/L (136-145)
[2017-11-12 11:46] LABS: ALKALINE PHOSPHATASE 84 U/L (45-117); ALT (GPT) 11 U/L (10-53); PHOSPHORUS 4.1 MG/DL (2.5-4.9); TOTAL BILIRUBIN ADULT 0.2 MG/DL (0.2-1.0); TOTAL PROTEIN 8.6 GM/DL (6.4-8.2)
== END 2017-11-12 15:25 | disposition home or self-care (01) | DRG 871 ==
LOC: NEPD 20:08 → NEDA 22:55 → N07A 10-26 02:00
PROVIDERS: ADMIT Family Medicine; ATTEND Family Medicine
DX: A41.01 Sepsis due to Methicillin susceptible Staphylococcus aureus (principal); J18.9 Pneumonia, unspecified organism; N17.0 Acute kidney failure with tubular necrosis; I33.0 Acute and subacute infective endocarditis; I76 Septic arterial embolism; D50.8 Other iron deficiency anemias; D73.5 Infarction of spleen; S93.402A Sprain of unspecified ligament of left ankle, initial encounter; N76.6 Ulceration of vulva; R74.8 Abnormal levels of other serum enzymes; A60.04 Herpesviral vulvovaginitis; D50.9 Iron deficiency anemia, unspecified; E87.70 Fluid overload, unspecified; F11.10 Opioid abuse, uncomplicated; F15.10 Other stimulant abuse, uncomplicated; F17.210 Nicotine dependence, cigarettes, uncomplicated; W22.8XXA Striking against or struck by other objects, initial encounter; Y92.231 Patient bathroom in hospital as the place of occurrence of the external cause; Z88.6 Allergy status to analgesic agent; Z91.013 Allergy to seafood
CPT/HCPCS: 36569; 71010; 71275; 73600; 76775; 76937; 80048; 80053; 80202; 80307; 81001; 82550; 82570; 82607; 82728; 82746; 83540; 83550; 83605; 83690; 83735; 84100; 84300; 84484; 84703; 85025; 85027; 85610; 86403; 87040; 87186; 87205; 87255; 87491; 87591; 87804; 93005; 93306; 94150; 96365; 96366; G8987-GP; G8988-GP; J0690; J0692; J1644; J1650; J1756; J1940; J2543; J2700; J3370; J3420; J7030; J7050; J7512; Q9967

== ENCOUNTER 2017-11-21 19:30 | Inpatient (IN) | payer SELFPAY ==
[~2017-11-21] VITALS: Ht 157.5 cm; Wt 73.1 kg
[2017-11-21 19:30] VITALS: BP 130/60; PULSE 131; RESP 14; TEMP 100; O2SAT 97
[~2017-11-21 19:30] MED LIST changes: +ACYC200C66 PO; -BACT400T PO; -BACT800T5 PO; +CEFA2SOL IV; +EPIN1INJ21 IV PUSH; +EPIN1INJ21 SQ; +Nystatin Powder TOPICAL; +SOLU250I IV PUSH; -ZOFR4TAB3 SL
[2017-11-22] VITALS (8 sets, daily range): BP systolic 116–126; BP diastolic 55–62; PULSE 94–111; RESP 14–24; TEMP 96.9–99.4; O2SAT 97–100
[2017-11-22] MEDS ORDERED: VANCOMYCIN 1 GM/200 ML INJ 200 ML IV ONE (00:45)
[2017-11-22] MEDS ORDERED: PIPERACIL-TAZO 4.5 GM PREMIX 100 ML IV ONE (00:45)
[2017-11-22] MEDS ORDERED: SODIUM CHLOR 0.9% 1000 ML INJ 1,000 ML IV ONE ×2 (00:45)
--- NOTE | 2017-11-22 00:54 | PD ---
HPI Chief Complaint: Fever Time Seen by Provider: 00:45 Travel History International Travel<30 days: No Contact w/Intl Traveler<30days: No Traveled to known affect area: No History of Present Illness HPI 32-year-old female presents to the emergency department for complaint of infected PICC line. 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 Patient was discharged with plan for 6 weeks of Ancef daily every 24 hours via a right upper extremity PICC line. Patient last had antibiotic administered 2 days ago. No antibiotic yesterday or today. Patient is been using the PICC line to administer IV Dilaudid. [facility] Past Medical History Narrative Medical Endocarditis cavitary lung lesion IV drug abuse; tobacco use; her significant Medical History: Denies Significant Hx Autoimmune Disease: No Cancer: No Cardiovascular Problems: No Chemotherapy: No Diminished Hearing: No Endocrine: No Genitourinary: No Immune Disorder: No Musculoskeletal: No Neurologic: No Psychiatric: No Reproductive: No Respiratory: No Integumentary: Yes (FRUNCULOSIS) Radiation Therapy: No ?: Not LMP: 10/27/2017 : 3 Para: 2 : 1 Tubal Ligation: Yes Past Surgical History Cardiac Surgery: No Section: Yes (X3) Thoracic Surgery: No Other Surgery: Yes (Tubal ligation, ) Social History Alcohol Use: No Tobacco Use: Yes (1 PPD) Substance Use: Yes (IVDA, meth, oxy, Dil a few weeks ago) Allergies-Medications (Allergen,Severity, Reaction): Coded Allergies: acetaminophen (Verified Allergy, Severe, "LOOPY", 11/22/17) propoxyphene (Verified Allergy, Severe, "LOOPY", 11/22/17) Fish Containing Products (Verified Allergy, Intermediate, 11/22/17) butorphanol (Verified Allergy, Intermediate, HALUCINATIONS, 11/22/17) Reported Meds & Prescriptions Reported Meds & Active Scripts Active Acyclovir 200 Mg Cap 200 Mg PO 5 TIMES A DAY Epinephrine Inj 1 Mg/Ml (1 Ml) Inj 0.3 Mg SQ ONCE PRN Give with any signs of respiratory distress. Epinephrine Inj 1 Mg/Ml (1 Ml) Inj 0.3 Mg IV PUSH ONCE PRN Review of Systems Except as stated in HPI: all other systems reviewed are Neg Physical Exam Narrative GENERAL: Well-developed well-nourished female in no acute distress no respiratory distress with low-grade temperature elevation 100F and tachycardia SKIN: Warm and dry. HEAD: Normocephalic. EYES: No scleral icterus. No injection or drainage. NECK: Supple, trachea midline. No JVD or lymphadenopathy. CARDIOVASCULAR: Increased Regular rate and rhythm without murmurs, gallops, or rubs. RESPIRATORY: Breath sounds equal bilaterally. No accessory muscle use. GASTROINTESTINAL: Abdomen soft, non-tender, nondistended. MUSCULOSKELETAL: No cyanosis, or edema. Attention right upper extremity soft tissue swelling consistent with probable infiltrate and possible line sepsis with mild erythema no purulent drainage. BACK: Nontender without obvious deformity. No CVA tenderness. Data Data Last Documented VS Vital Signs Date Time Temp Pulse Resp B/P (MAP) Pulse Ox O2 Delivery O2 Flow Rate FiO2 11/22/17 04:15 103 14 122/56 (78) 99 11/22/17 01:53 Room Air 11/21/17 19:30 100.0 Orders Orders Sepsis Workup Initiated (11/22/17 ) Electrocardiogram (11/22/17 00:45) Complete Blood Count With Diff (11/22/17 00:45) Comprehensive Metabolic Panel (11/22/17 00:45) Prothrombin Time / Inr (Pt) (11/22/17 00:45) Act Partial Throm Time (Ptt) (11/22/17 00:45) Lactic Acid Sepsis Protocol (11/22/17 00:45) Magnesium (Mg) (11/22/17 00:45) Lipase (11/22/17 00:45) Troponin I (11/22/17 00:45) Urinalysis - C+S If Indicated (11/22/17 00:45) Blood Culture (11/22/17 00:45) Chest, Single Ap (11/22/17 00:45) Blood Glucose (11/22/17 00:45) Ecg Monitoring (11/22/17 00:45) Iv Access Insert/Monitor (11/22/17 00:45) Oximetry (11/22/17 00:45) Oxygen Administration (11/22/17 00:45) Sodium Chlor 0.9% 1000 Ml Inj (Ns 1000 M (11/22/17 00:45) Sodium Chlor 0.9% 1000 Ml Inj (Ns 1000 M (11/22/17 00:45) Drug Screen, Random Urine (11/22/17 00:45) Alcohol (Ethanol) (11/22/17 00:45) Ed Urine Pregnancytest Poc (11/22/17 00:45) Vancomycin Inj (Vancomycin Inj) (11/22/17 00:45) Piperacil-Tazo 4.5 Gm Premix (Zosyn 4.5 (11/22/17 00:45) Wound Culture And Gram Stain (11/22/17 00:50) Urine Culture (11/22/17 01:25) Ondansetron Inj (Zofran Inj) (11/22/17 04:15) Vancomycin Consult Pharmacy (Vancomycin (11/22/17 04:30) Vascular Access Team Consult/P PRN (11/22/17 04:19) Vascular Poc Ultrasound (11/22/17 ) Consult Infectious Disease (11/22/17 ) Admit To Inpatient (11/22/17 ) Vital Signs (Adult) Q4H (11/22/17 04:19) Activity Oob Ad Mariangel (11/22/17 04:19) Dispensing Optician / Telemetry .CONTINUOUS (11/22/17 04:19) Intake + Output CIRILO.QSHIFT (11/22/17 04:19) Diet Regular Basic (11/22/17 Breakfast) Sodium Chlor 0.9% 1000 Ml Inj (Ns 1000 M (11/22/17 04:19) Sodium Chloride 0.9% Flush (Ns Flush) (11/22/17 04:30) Sodium Chloride 0.9% Flush (Ns Flush) (11/22/17 09:00) Ondansetron Inj (Zofran Inj) (11/22/17 04:30) Comprehensive Metabolic Panel (11/23/17 06:00) Complete Blood Count With Diff (11/23/17 06:00) Scd Bilateral/Knee High CIRILO.BID (11/22/17 04:19) Tony Bilateral/Knee High CIRILO.QSHIFT (11/22/17 04:22) Oxycodone (Roxicodone) (11/22/17 04:30) Oxycodone (Roxicodone) (11/22/17 04:30) Docusate Sodium-Senna (Sujatha-Colace) (11/22/17 09:00) Magnesium Hydroxide Liq (Milk Of Magnesi (11/22/17 04:30) Sennosides (Senokot) (11/22/17 04:30) Bisacodyl Supp (Dulcolax Supp) (11/22/17 04:30) Lactulose Liq (Lactulose Liq) (11/22/17 04:30) Inpatient Certification (11/22/17 ) Lorazepam Inj (Ativan Inj) (11/22/17 04:30) (Hub Use Only)Inp Phy Cons/Ref (11/22/17 ) Type And Screen (11/22/17 04:29) Acyclovir (Zovirax) (11/22/17 06:00) Admit Order (Ed Use Only) (11/22/17 ) Dispensing Optician / Telemetry CIRILO.Q8H (11/22/17 07:45) Activity Bed Rest (11/22/17 07:45) Notify Dr: Other (11/22/17 07:45) Labs Laboratory Tests Test 11/22/17 01:25 White Blood Count 7.7 TH/MM3 Red Blood Count 3.05 MIL/MM3 Hemoglobin 7.5 GM/DL Hematocrit 23.3 % Mean Corpuscular Volume 76.3 FL Mean Corpuscular Hemoglobin 24.7 PG Mean Corpuscular Hemoglobin Concent 32.4 % Red Cell Distribution Width 20.6 % Platelet Count 280 TH/MM3 Mean Platelet Volume 6.9 FL Neutrophils (%) (Auto) 50.8 % Lymphocytes (%) (Auto) 40.6 % Monocytes (%) (Auto) 6.7 % Eosinophils (%) (Auto) 1.0 % Basophils (%) (Auto) 0.9 % Neutrophils # (Auto) 3.9 TH/MM3 Lymphocytes # (Auto) 3.1 TH/MM3 Monocytes # (Auto) 0.5 TH/MM3 Eosinophils # (Auto) 0.1 TH/MM3 Basophils # (Auto) 0.1 TH/MM3 CBC Comment DIFF FINAL Differential Comment Urine Color YELLOW Urine Turbidity CLEAR Urine pH 6.0 Urine Specific [place] 1.008 Urine Protein NEG mg/dL Urine Glucose (UA) NEG mg/dL Urine Ketones NEG mg/dL Urine Occult Blood NEG Urine Nitrite NEG Urine Bilirubin NEG Urine Urobilinogen 2.0 MG/DL Urine Leukocyte Esterase TRACE Urine RBC 2 /hpf Urine WBC 2 /hpf Urine Squamous Epithelial Cells 4 /hpf Urine Bacteria MOD /hpf Urine Mucus FEW /lpf Microscopic Urinalysis Comment CATH-CULTURE IND Blood Urea Nitrogen 4 MG/DL Creatinine 0.72 MG/DL Random Glucose 71 MG/DL Total Protein 8.1 GM/DL Albumin 3.0 GM/DL Calcium Level 7.9 MG/DL Magnesium Level 1.5 MG/DL Alkaline Phosphatase 86 U/L Aspartate Amino Transf (AST/SGOT) 31 U/L Alanine Aminotransferase (ALT/SGPT) 19 U/L Total Bilirubin 0.5 MG/DL Sodium Level 139 MEQ/L Potassium Level 3.2 MEQ/L Chloride Level 107 MEQ/L Carbon Dioxide Level 21.1 MEQ/L Anion Gap 11 MEQ/L Estimat Glomerular Filtration Rate 93 ML/MIN Lactic Acid Level 0.5 mmol/L Troponin I 0.02 NG/ML Lipase 52 U/L Urine Opiates Screen POS Urine Barbiturates Screen NEG Urine Amphetamines Screen NEG Urine Benzodiazepines Screen NEG Urine Cocaine Screen POS Urine Cannabinoids Screen NEG Ethyl Alcohol Level LESS THAN 3 MG/DL MDM Medical Decision Making Medical Screen Exam Complete: Yes Emergency Medical Condition: Yes Medical Record Reviewed: Yes Interpretation(s) Last Impressions Chest X-Ray 11/22/17 0045 Signed Impressions: Service Date/Time: Friday, November 22, 2017 01:07 - CONCLUSION: 1. There continues to be a focal infiltrate in left midlung which has improved compared to the prior exam. 2. No new infiltrates are seen. No other new or significant changes. Vern Richter MD CBC & BMP Diagram 11/22/17 01:25 Total Protein 8.1, Albumin 3.0 L, Calcium Level 7.9 L, Magnesium Level 1.5, Alkaline Phosphatase 86, Aspartate Amino Transf (AST/SGOT) 31, Alanine Aminotransferase (ALT/SGPT) 19, Total Bilirubin 0.5 Vital Signs Date Time Temp Pulse Resp B/P (MAP) Pulse Ox O2 Delivery O2 Flow Rate FiO2 11/22/17 04:15 103 14 122/56 (78) 99 11/22/17 01:53 14 99 Room Air 11/21/17 19:30 100.0 131 14 130/60 (83) 97 Differential Diagnosis endocarditis, pneumonia, PICC line infection, IV drug abuse Narrative Course Patient placed on monitor IV access obtained specimen collected and patient administered IV Zosyn and vancomycin drug screen ordered patient given IV fluids and antipyretic Patient with leukocytosis and x-ray shows residual infiltrate left lung Patient's case discussed with on-call medicine for readmission for IV antibiotics removal of PICC line and ongoing management of IV drug abuse as well as endocarditis and pneumonia Physician Communication Physician Communication patient discussed with [facility] for admission Diagnosis Primary Impression: PICC line infection Additional Impressions: Endocarditis IV drug abuse Admitting Information Admitting Physician Requests: Admit Rebeka Koch MD Nov 22, 2017 00:54
--- NOTE | 2017-11-22 01:20 | RADRPT ---
EXAM DATE/TIME: 11/22/2017 01:07 [place] COMPARISON: CT PULMONARY ANGIOGRAM, October 25, 2017, 22:24. CHEST SINGLE AP, October 25, 2017, 20:36. INDICATIONS : Fever and possible infection to right arm catheter. MEDICAL HISTORY : None. SURGICAL HISTORY : section. Tubal ligation. ENCOUNTER: Initial ACUITY: 1 day PAIN SCORE: 8/10 LOCATION: Bilateral chest FINDINGS: There continues to be a focal infiltrate in the left midlung. However this appears to be mildly impro adonay compared to the prior examination. This has been previously evaluated by a CT pulmonary angiogram of 10/25/2017. Otherwise, the rest lung todd remain clear. No new infiltrates are demonstrated. Th e heart size is within normal limits. The bony structures are stable. CONCLUSION: 1. There continues to be a focal infiltrate in left midlung which has improved compared to the prior exam. 2. No new infiltrates are seen. No other new or significant changes. Vern Richter MD on November 22, 2017 at 1:16 Board Certified Radiologist. This report was verified electronically.
[2017-11-22 01:47] LABS: AUTOMATED NEUTROPHIL # 3.9 TH/MM3 (1.8-7.7); BASOPHIL # 0.1 TH/MM3 (0-0.2); BASOPHIL % 0.9 % (0.0-2.0); EOSINOPHIL # 0.1 TH/MM3 (0-0.4); HEMATOCRIT 23.3 % (35.0-46.0); HEMOGLOBIN 7.5 GM/DL (11.6-15.3); LYMPH % 40.6 % (9.0-44.0); LYMPHOCYTE # 3.1 TH/MM3 (1.0-4.8); MEAN CELL VOLUME 76.3 FL (80.0-100.0); MEAN CORPUSCULAR HEMOGLOBIN 24.7 PG (27.0-34.0); MEAN CORPUSCULAR HGB CONC 32.4 % (32.0-36.0); MEAN PLATELET VOLUME 6.9 FL (7.0-11.0); MONO % 6.7 % (0.0-8.0); MONOCYTE # 0.5 TH/MM3 (0-0.9); NEUT % 50.8 % (16.0-70.0); PLATELET COUNT 280 TH/MM3 (150-450); RED BLOOD COUNT 3.05 MIL/MM3 (4.00-5.30); RED CELL DISTRIBUTION WIDTH 20.6 % (11.6-17.2); WHITE BLOOD COUNT 7.7 TH/MM3 (4.0-11.0)
[2017-11-22 02:05] LABS: BACTERIA, URINE MOD /hpf; BILIRUBIN, URINE NEG (NEG); BLOOD, URINE NEG (NEG); GLUCOSE,URINE NEG (NEG); KETONE, URINE NEG (NEG); MUCUS URINE FEW /lpf (OCC); NITRITE,URINE NEG (NEG); SQUAMOUS EPITHELIAL CELL URINE 4 /hpf (0-5); URINE COLOR YELLOW (YELLW/STRAW); URINE LEUKOCYTE ESTERASE TRACE (NEG)
[2017-11-22 02:17] LABS: ALKALINE PHOSPHATASE 86 U/L (45-117); ALT (GPT) 19 U/L (10-53); TOTAL BILIRUBIN ADULT 0.5 MG/DL (0.2-1.0); TOTAL PROTEIN 8.1 GM/DL (6.4-8.2); TROPONIN I 0.02 NG/ML (0.02-0.05)
[2017-11-22 02:21] LABS: AST (GOT) 31 U/L (15-37); BICARBONATE 21.1 MEQ/L (21.0-32.0); BLOOD UREA NITROGEN 4 MG/DL (7-18); CALCIUM 7.9 MG/DL (8.5-10.1); CHLORIDE 107 MEQ/L (98-107); CREATININE 0.72 MG/DL (0.50-1.00); GLOMERULAR FILTRATION RATE 93 ML/MIN (>89); GLUCOSE,RANDOM 71 MG/DL (74-106); LIPASE 52 U/L (73-393); MAGNESIUM 1.5 MG/DL (1.5-2.5); SODIUM (NA) 139 MEQ/L (136-145)
[2017-11-22] MEDS ORDERED: ONDANSETRON HCL 4 MG/2 ML VIAL IV PUSH ONE (04:15)
[2017-11-22] MEDS ORDERED: LACTULOSE SYRUP 20 GM/30 ML CUP PO PRN (04:30)
[2017-11-22] MEDS ORDERED: MAGNESIUM HYDROXIDE SUSP 30 ML CUP PO PRN (04:30)
[2017-11-22] MEDS ORDERED: Vancomycin Consult Pharmacy 1 EA OTHER SCH (04:30)
[2017-11-22] MEDS ORDERED: SENNOSIDES 8.6 MG TAB PO PRN (04:30)
[2017-11-22] MEDS ORDERED: BISACODYL 10 MG SUPP RECTAL PRN (04:30)
--- NOTE | 2017-11-22 04:50 | HHI.HP ---
[facility] No Primary Care Physician Admission Diagnosis Diagnoses: (1) Sepsis Diagnosis: Principal (2) Endocarditis Diagnosis: Principal (3) S/P PICC central line placement Diagnosis: Principal (4) Anemia Diagnosis: Principal (5) UTI (urinary tract infection) Diagnosis: Principal (6) IVDU (intravenous drug user) Diagnosis: Principal (7) Tobacco abuse Diagnosis: Principal Travel History International Travel<30 Days: No Contact w/Intl Traveler <30 Da: No Traveled to Known Affected Are: No History of Present Illness This is a 82-year-old female with a PMH of IVDU, Endocarditis and Tobacco Abuse who presented to the ER with complaints of PICC line malfunction. Recent admit 10/25-11/12/17 for Cavitary PNA/Sepsis/Endocarditis, Echo w/ aortic valve vegetation, Blood Cultures +MSSA, s/p eval by ID and d/c'd w/ Ancef 2gm IV q8h for 6wks via PICC line. Admits to shooting Dilaudid through PICC line, despite agreeing to use PICC only for antibiotics, now PICC line malfunctioning. Right arm w/ redness/tenderness. Pain is constant, 8/10, non-radiating. Reports she hasn't received antibiotics in 2 days. Today w/ subjective fever/chills. On arrival, BP 130/60, HR 131, O2 sat 97% on RA, Temp 100.0. WBC normal. Hemoglobin 7.5, previously 9.4 on 11/28/17. Chemistry essentially unremarkable except for K+ 3.2. UA positive for UTI. CXR persistent focal infiltrate left mid lung which has improved, no new infiltrates. S/p Blood Cultures, Vanc/ Zosyn in ER. Review of Systems Except as stated in HPI: all other systems reviewed are Neg ROS: 14 point review of systems otherwise negative. Past Family Social History Past Medical History PMH: IVDU, Endocarditis and Tobacco Abuse Past Surgical History PAST SURGICAL HISTORY: , Tubal Ligation Allergies: Coded Allergies: acetaminophen (Verified Allergy, Severe, "LOOPY", 11/22/17) propoxyphene (Verified Allergy, Severe, "LOOPY", 11/22/17) Fish Containing Products (Verified Allergy, Intermediate, 11/22/17) butorphanol (Verified Allergy, Intermediate, HALUCINATIONS, 11/22/17) Family History PAST FAMILY HISTORY: Reviewed. No h/o DM or CAD Social History PAST SOCIAL HISTORY: Negative for alcohol. Smokes 1ppd. +IVDU w/ Dilaudid, Oxycodone and Meth. Physical Exam Vital Signs Vital Signs Date Time Temp Pulse Resp B/P (MAP) Pulse Ox O2 Delivery O2 Flow Rate FiO2 11/22/17 04:15 103 14 122/56 (78) 99 11/22/17 01:53 14 99 Room Air 11/21/17 19:30 100.0 131 14 130/60 (83) 97 Physical Exam PE: GENERAL: Young female in no acute distress. HEENT: PERRLA, EOMI. No scleral icterus or conjunctival pallor. No lid lag or facial droop. CARDIOVASCULAR: Regular rate and rhythm. No obvious murmurs to auscultation. No chest tenderness to palpation. RESPIRATORY: No obvious rhonchi or wheezing. Clear to auscultation. Breath sounds equal bilaterally. GASTROINTESTINAL: Abdomen soft, non-tender, nondistended. BS normal. MUSCULOSKELETAL: Extremities without clubbing, cyanosis, or edema. No obvious deformities. RUE w/ erythema/edema at PICC site, no drainage. Pulses intact. NEUROLOGICAL: Awake, alert and oriented x4. No focal neurologic deficits. Moving both upper and lower extremities spontaneously. Laboratory Laboratory Tests Test 11/22/17 01:25 White Blood Count 7.7 Red Blood Count 3.05 Hemoglobin 7.5 Hematocrit 23.3 Mean Corpuscular Volume 76.3 Mean Corpuscular Hemoglobin 24.7 Mean Corpuscular Hemoglobin Concent 32.4 Red Cell Distribution Width 20.6 Platelet Count 280 Mean Platelet Volume 6.9 Neutrophils (%) (Auto) 50.8 Lymphocytes (%) (Auto) 40.6 Monocytes (%) (Auto) 6.7 Eosinophils (%) (Auto) 1.0 Basophils (%) (Auto) 0.9 Neutrophils # (Auto) 3.9 Lymphocytes # (Auto) 3.1 Monocytes # (Auto) 0.5 Eosinophils # (Auto) 0.1 Basophils # (Auto) 0.1 CBC Comment DIFF FINAL Differential Comment Urine Color YELLOW Urine Turbidity CLEAR Urine pH 6.0 Urine Specific [place] 1.008 Urine Protein NEG Urine Glucose (UA) NEG Urine Ketones NEG Urine Occult Blood NEG Urine Nitrite NEG Urine Bilirubin NEG Urine Urobilinogen 2.0 Urine Leukocyte Esterase TRACE Urine RBC 2 Urine WBC 2 Urine Squamous Epithelial Cells 4 Urine Bacteria MOD Urine Mucus FEW Microscopic Urinalysis Comment CATH-CULTURE IND Blood Urea Nitrogen 4 Creatinine 0.72 Random Glucose 71 Total Protein 8.1 Albumin 3.0 Calcium Level 7.9 Magnesium Level 1.5 Alkaline Phosphatase 86 Aspartate Amino Transf (AST/SGOT) 31 Alanine Aminotransferase (ALT/SGPT) 19 Total Bilirubin 0.5 Sodium Level 139 Potassium Level 3.2 Chloride Level 107 Carbon Dioxide Level 21.1 Anion Gap 11 Estimat Glomerular Filtration Rate 93 Lactic Acid Level 0.5 Troponin I 0.02 Lipase 52 Urine Opiates Screen POS Urine Barbiturates Screen NEG Urine Amphetamines Screen NEG Urine Benzodiazepines Screen NEG Urine Cocaine Screen POS Urine Cannabinoids Screen NEG Ethyl Alcohol Level LESS THAN 3 Date/Time Source Procedure Growth Status 11/22/17 01:25 Blood Peripheral Aerobic Blood Culture Pending Received 11/22/17 01:25 Blood Peripheral Anaerobic Blood Culture Pending Received 11/22/17 01:25 Urine Catheterized Urine Urine Culture Pending Received Result Diagram: 11/22/1712411/22/175 Caprini VTE Risk Assessment Caprini VTE Risk Assessment: No/Low Risk (score <= 1) Caprini Risk Assessment Model Point Value = 1 Point Value = 2 Point Value = 3 Point Value = 5 Age 41-60 Minor surgery BMI > 25 kg/m2 Swollen legs Varicose veins or History of unexplained or recurrent spontaneous Oral contraceptives or hormone replacement Sepsis (< 1 month) Serious lung disease, including pneumonia (< 1 month) Abnormal pulmonary function Acute myocardial infarction Congestive heart failure (< 1 month) History of inflammatory bowel disease Medical patient at bed rest Age 61-74 Arthroscopic surgery Major open surgery (> 45 min) Laparoscopic surgery (> 45 min) Malignancy Confined to bed (> 72 hours) Immobilizing plaster cast Central venous access Age >= 75 History of VTE Family history of VTE Factor V Leiden Prothrombin [id number] Lupus anticoagulant Anticardiolipin antibodies Elevated serum homocysteine Heparin-induced thrombocytopenia Other congenital or acquired thrombophilia Stroke (< 1 month) Elective arthroplasty Hip, pelvis, or leg fracture Acute spinal cord injury (< 1 month) Prophylaxis Regimen Total Risk Factor Score Risk Level Prophylaxis Regimen 0-1 Low Early ambulation 2 Moderate Order ONE of the following: *Sequential Compression Device (SCD) *Heparin 5000 units SQ BID 3-4 Higher Order ONE of the following medications: *Heparin 5000 units SQ TID *Enoxaparin/Lovenox 40 mg SQ daily (WT < 150 kg, CrCl > 30 mL/min) *Enoxaparin/Lovenox 30 mg SQ daily (WT < 150 kg, CrCl > 10-29 mL/min) *Enoxaparin/Lovenox 30 mg SQ BID (WT < 150 kg, CrCl > 30 mL/min) AND/OR *Sequential Compression Device (SCD) 5 or more Highest Order ONE of the following medications: *Heparin 5000 units SQ TID (Preferred with Epidurals) *Enoxaparin/Lovenox 40 mg SQ daily (WT < 150 kg, CrCl > 30 mL/min) *Enoxaparin/Lovenox 30 mg SQ daily (WT < 150 kg, CrCl > 10-29 mL/min) *Enoxaparin/Lovenox 30 mg SQ BID (WT < 150 kg, CrCl > 30 mL/min) AND *Sequential Compression Device (SCD) Assessment and Plan Problem List: (1) Sepsis ICD Code: A41.9 - Sepsis, unspecified organism (2) Endocarditis ICD Code: I38 - Endocarditis, valve unspecified (3) S/P PICC central line placement ICD Code: Z95.828 - Presence of other vascular implants and grafts (4) UTI (urinary tract infection) ICD Code: N39.0 - Urinary tract infection, site not specified (5) Anemia ICD Code: D64.9 - Anemia, unspecified (6) IVDU (intravenous drug user) ICD Code: F19.90 - Other psychoactive substance use, unspecified, uncomplicated (7) Tobacco abuse ICD Code: Z72.0 - Tobacco use Assessment and Plan A/P: 1. Sepsis: Temp 100.0, HR 131, Source-Bacteremia/PICC line infection, UTI. S/ p Blood/Urine Cultures, Vanc/Zosyn IV. Continue w/ IV Abx, follow up cultures. IVF for hydration. 2. Endocarditis: +IVDU, recent admit 10/25-11/12/17 for Cavitary PNA/Septic Emboli/Endocarditis w/ MSSA, d/c'd w/ Ancef 2gm IV q8h via PICC for 6wks. Pt non-compliant w/ IV Abx, has been shooting Dilaudid through PICC. Now w/ fever , sepsis. Continue IV Abx, resume Ancef, add Vanc IV, follow up cultures. Consult ID for further recommendations. 3. S/p PICC Line: w/ PICC line infection secondary to IVDU, consult Vasc Access Team to assess line. 4. UTI: U/a w/ UTI, continue w/ IV Abx, follow up cultures. 5. Anemia: Acute on Chronic. Hgb 7.5, previously 9.4 on 11/18/17. No active bleeding. Type & Screen. Recheck Hgb, transfuse as needed. 6. IVDU: Ongoing. Ativan prn 7. Tobacco Abuse: Pt counselled. NicoDerm if needed. 8. DVT Prophylaxis: SCD/Teds. 9. Social work for d/c planning as needed. 10. Previous records/labs/imagining reviewed by me, case discussed at length w / ER physician. Physician Certification 2 Midnight Certification Type: Admission for Inpatient Services Order for Inpatient Services The services are ordered in accordance with Medicare regulations or non- Medicare payer requirements, as applicable. In the case of services not specified as inpatient-only, they are appropriately provided as inpatient services in accordance with the 2-midnight benchmark. Estimated LOS (days): 2 days is the estimated time the patient will need to remain in the hospital, assuming treatment plan goals are met and no additional complications. Post-Hospital Plan: Not yet determined Amanda Maloney MD Nov 22, 2017 04:50
[2017-11-22] MEDS: SODIUM CHLOR 0.9% 1000 ML INJ 1,000 ML IV SCH ×3 (05:48→21:16)
[2017-11-22] MEDS: ACYCLOVIR 200 MG CAP PO SCH ×4 (08:16→21:16)
[2017-11-22] MEDS: SODIUM CHLORIDE 0.9% FLUSH 10 ML FLUSH IV FLUSH SCH ×2 (08:17→21:00)
[2017-11-22] MEDS: DOCUSATE SODIUM 50 MG/SENNA 8.6 MG TAB PO SCH ×3 (08:34→21:00)
[2017-11-22 09:15] LABS: INTERNATIONAL NORMALIZED RATIO 1.2 RATIO; PROTHROMBIN TIME - PATIENT 11.7 SEC (9.8-11.6)
[2017-11-22] MEDS: VANCOMYCIN INJ 1,250 MG in SODIUM CHLOR 0.9% 250 ML INJ 250 ML IV SCH ×3 (10:00→21:25)
[2017-11-22] MEDS: ceFAZolin 2 GM PREMIX 50 ML IV SCH ×2 (11:56→21:15)
--- NOTE | 2017-11-22 16:09 | PD.ID.CON ---
History of Present Illness Service Infectious disease Consult Requested By Dr. Maloney Reason for Consult Evaluation and management of possible new PICC line infection in a patient with endocarditis. Primary Care Physician No Primary Care Physician Diagnoses: History of Present Illness Weekend Cross cover for Dr. Torres is a 32-year-old female with past medical history significant for IV drug abuse, history of skin abscesses, and tobacco abuse. She was recently admitted from 10/25 to 11/12/2017 for cavitatory pneumonia/sepsis /endocarditis with an echo which showed aortic valve vegetation. Blood cultures at that time were positive for MSSA and patient was evaluated by Dr. Torres of infectious disease. Patient was discharged with Ancef 2 g IV every 8 for 6 weeks via PICC line. Patient admits to shooting Dilaudid through her PICC line despite agreeing to use PICC line for antibiotics only. Due to malfunctioning PICC line and right arm swelling and tenderness patient presented to the emergency room she additionally admits that she hasn't been receiving antibiotics for the last 2-3 days. She also reports subjective fever and chills. On arrival her blood pressure was 130/60, heart rate 131, O2 sats 97% on room air with a temperature of 100.0. Her WBC is normal hemoglobin 7.5. Blood pressure was 3.2. Chest x-ray showed persistent local left mid infiltrate. Patient has been diagnosed with what appeared to be septic emboli on prior admission per records. Blood cultures were drawn in the emergency room at the time of my evaluation patient still has a midline in place which I asked the nurse to take out and send to [facility]-for culture of the tip. Patient has been started on vancomycin and Zosyn. Infectious disease is consulted for evaluation and management of possible new PICC line infection in a patient with MSSA endocarditis. Review of Systems ROS Limitations: Poor Historian Constitutional: COMPLAINS OF: Fever, Chills, DENIES: Diaphoretic episodes, Fatigue, Weight gain, Weight loss, Dizziness, Change in appetite, Night Sweats Endocrine: DENIES: Abnorml menstrual pattern, Heat/cold intolerance, Polydipsia , Polyuria, Polyphagia Eyes: DENIES: Blurred vision, Diplopia, Eye inflammation, Eye pain, Vision loss , Photosensitivity, Double Vision Ears, nose, mouth, throat: DENIES: Tinnitus, Hearing loss, Vertigo, Nasal discharge, Oral lesions, Throat pain, Hoarseness, Ear Pain, Running Nose, Epistaxis, Sinus Pain, Toothache, Odynophagia Respiratory: DENIES: Apneas, Cough, Snoring, Wheezing, Hemoptysis, Sputum production, Shortness of breath Cardiovascular: DENIES: Chest pain, Palpitations, Syncope, Dyspnea on Exertion , PND, Lower Extremity Edema, Orthopnea, Claudication Gastrointestinal: DENIES: Abdominal pain, Black stools, Bloody stools, Constipation, Diarrhea, Nausea, Vomiting, Difficulty Swallowing, Anorexia Genitourinary: DENIES: Abnormal vaginal bleeding, Dysmenorrhea, Dyspareunia, Sexual dysfunction, Urinary frequency, Urinary incontinence, Urgency, Hematuria , Dysuria, Nocturia, Vaginal discharge Musculoskeletal: COMPLAINS OF: Joint Swelling, DENIES: Joint pain, Muscle aches , Stiffness, Back pain, Neck pain Integumentary: DENIES: Abnormal pigmentation, Pruritus, Rash, Nail changes, Breast masses, Breast skin changes, Nipple discharge Hematologic/lymphatic: DENIES: Bruising, Lymphadenopathy Immunologic/allergic: DENIES: Eczema, Urticaria Neurologic: DENIES: Abnormal gait, Headache, Localized weakness, Paresthesias, Seizures, Speech Problems, Tremor, Poor Balance Psychiatric: DENIES: Anxiety, Confusion, Mood changes, Depression, Hallucinations, Agitation, Suicidal Ideation, Homicidal Ideation, Delusions Except as stated in HPI: all other systems reviewed are Neg Past Family Social History Allergies: Coded Allergies: acetaminophen (Verified Allergy, Severe, "LOOPY", 11/22/17) propoxyphene (Verified Allergy, Severe, "LOOPY", 11/22/17) Fish Containing Products (Verified Allergy, Intermediate, 11/22/17) butorphanol (Verified Allergy, Intermediate, HALUCINATIONS, 11/22/17) Past Medical History IVDU, MRSA abscesses skin infections. Endocarditis Tobacco Abuse Past Surgical History , Tubal Ligation Reported Medications Last Impressions Chest X-Ray 11/22/17 0045 Signed Impressions: Service Date/Time: Friday, November 22, 2017 01:07 - CONCLUSION: 1. There continues to be a focal infiltrate in left midlung which has improved compared to the prior exam. 2. No new infiltrates are seen. No other new or significant changes. Vern Richter MD Active Ordered Medications Current Medications Medications (Trade) Dose Ordered Sig/Jannie Route Start Time Stop Time Status Last Admin Pharmacy Profile Note 0 ml @ 0 mls/hr UNSCH OTHER 11/22/17 04:30 Sodium Chloride 1,000 ml @ 100 mls/hr Q10H IV 11/22/17 04:19 11/22/17 15:21 (NS Flush) 2 ml UNSCH PRN IV FLUSH 11/22/17 04:30 (NS Flush) 2 ml BID IV FLUSH 11/22/17 09:00 (Zofran Inj) 4 mg Q6H PRN IVP 11/22/17 04:30 (Roxicodone) 10 mg Q4H PRN PO 11/22/17 04:30 11/22/17 08:37 (Roxicodone) 5 mg Q4H PRN PO 11/22/17 04:30 (Sujatha-Colace) 1 tab BID PO 11/22/17 09:00 (Milk Of Magnesia Liq) 30 ml Q12H PRN PO 11/22/17 04:30 (Senokot) 17.2 mg Q12H PRN PO 11/22/17 04:30 (Dulcolax Supp) 10 mg DAILY PRN RECTAL 11/22/17 04:30 (Lactulose Liq) 30 ml DAILY PRN PO 11/22/17 04:30 (Ativan Inj) 1 mg Q2H PRN IV PUSH 11/22/17 04:30 (Zovirax) 200 mg 5 TIMES A DAY PO 11/22/17 06:00 11/22/17 15:21 Vancomycin HCl 1250 mg/Sodium Chloride 262.5 ml @ 250 mls/hr Q8H IV 11/22/17 10:00 Miscellaneous Information SPECIFIC LAB TO BE EFRAIN... ONCE ONCE .XX 11/23/17 01:45 11/23/17 01:46 Cefazolin Sodium/ Dextrose 50 ml @ 100 mls/hr Q8H IV 11/22/17 12:00 11/22/17 11:56 Family History NC to current ID problems. Social History Negative for alcohol. Smokes 1ppd. +IVDU w/ Dilaudid, Oxycodone and Meth. Reports being bisexual. Reports being sexually active with a male who is not her enabler per patient. Reports being sexually active with a female who is the enabler for IVDA. Physical Exam Vital Signs Vital Signs Date Time Temp Pulse Resp B/P (MAP) Pulse Ox O2 Delivery O2 Flow Rate FiO2 11/22/17 13:10 11/22/17 12:05 99.0 94 19 116/55 (75) 97 Room Air 11/22/17 10:17 20 11/22/17 10:00 100 24 119/58 (78) 98 Room Air 11/22/17 08:10 99.4 95 20 124/60 (81) 99 Room Air 11/22/17 04:15 103 14 122/56 (78) 99 11/22/17 01:53 14 99 Room Air 11/21/17 19:30 100.0 131 14 130/60 (83) 97 Physical Exam GENERAL: This is a well-nourished, well-developed patient, in no apparent distress. SKIN: Track waddell visible. HEAD: Atraumatic. Normocephalic. No temporal or scalp tenderness. EYES: Pupils equal round and reactive. Extraocular motions intact. No scleral icterus. No injection or drainage. ENT: Nose without bleeding, purulent drainage or septal hematoma. Throat without erythema, tonsillar hypertrophy or exudate. Uvula midline. Airway patent. NECK: Trachea midline. Supple, nontender, no meningeal signs. CARDIOVASCULAR: HS audible. No murmur appreciated. RESPIRATORY: Clear to auscultation. Breath sounds equal bilaterally. No wheezes , rales, or rhonchi. GASTROINTESTINAL: Abdomen soft, non-tender, nondistended. No hepato-splenomegaly , or palpable masses. No guarding. MUSCULOSKELETAL: RUE with midline in place. Dressing appears tampered. Swelling of RUE compared to left UE. NEUROLOGICAL: Awake and alert.Grossly nonfocal Psych cooperative IV line sites with no e.o infection. Laboratory Laboratory Tests Test 11/22/17 01:25 11/22/17 08:50 White Blood Count 7.7 Red Blood Count 3.05 Hemoglobin 7.5 Hematocrit 23.3 Mean Corpuscular Volume 76.3 Mean Corpuscular Hemoglobin 24.7 Mean Corpuscular Hemoglobin Concent 32.4 Red Cell Distribution Width 20.6 Platelet Count 280 Mean Platelet Volume 6.9 Neutrophils (%) (Auto) 50.8 Lymphocytes (%) (Auto) 40.6 Monocytes (%) (Auto) 6.7 Eosinophils (%) (Auto) 1.0 Basophils (%) (Auto) 0.9 Neutrophils # (Auto) 3.9 Lymphocytes # (Auto) 3.1 Monocytes # (Auto) 0.5 Eosinophils # (Auto) 0.1 Basophils # (Auto) 0.1 CBC Comment DIFF FINAL Differential Comment Urine Color YELLOW Urine Turbidity CLEAR Urine pH 6.0 Urine Specific [place] 1.008 Urine Protein NEG Urine Glucose (UA) NEG Urine Ketones NEG Urine Occult Blood NEG Urine Nitrite NEG Urine Bilirubin NEG Urine Urobilinogen 2.0 Urine Leukocyte Esterase TRACE Urine RBC 2 Urine WBC 2 Urine Squamous Epithelial Cells 4 Urine Bacteria MOD Urine Mucus FEW Microscopic Urinalysis Comment CATH-CULTURE IND Blood Urea Nitrogen 4 Creatinine 0.72 Random Glucose 71 Total Protein 8.1 Albumin 3.0 Calcium Level 7.9 Magnesium Level 1.5 Alkaline Phosphatase 86 Aspartate Amino Transf (AST/SGOT) 31 Alanine Aminotransferase (ALT/SGPT) 19 Total Bilirubin 0.5 Sodium Level 139 Potassium Level 3.2 Chloride Level 107 Carbon Dioxide Level 21.1 Anion Gap 11 Estimat Glomerular Filtration Rate 93 Lactic Acid Level 0.5 Troponin I 0.02 Lipase 52 Urine Opiates Screen POS Urine Barbiturates Screen NEG Urine Amphetamines Screen NEG Urine Benzodiazepines Screen NEG Urine Cocaine Screen POS Urine Cannabinoids Screen NEG Ethyl Alcohol Level LESS THAN 3 Prothrombin Time 11.7 Prothromb Time International Ratio 1.2 Activated Partial Thromboplast Time 24.8 Date/Time Source Procedure Growth Status 11/22/17 01:25 Blood Peripheral Aerobic Blood Culture Pending Received 11/22/17 01:25 Blood Peripheral Anaerobic Blood Culture Pending Received 11/22/17 01:25 Urine Catheterized Urine Urine Culture Pending Received Result Diagram: 11/22/17 0125 11/22/17 0125 Imaging Last Impressions Chest X-Ray 11/22/17 0045 Signed Impressions: Service Date/Time: Wednesday, November 22, 2017 01:07 - CONCLUSION: 1. There continues to be a focal infiltrate in left midlung which has improved compared to the prior exam. 2. No new infiltrates are seen. No other new or significant changes. 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 PICC line malfunction IVDU admits to drugs thru midline. Concern for Midline related blood stream infection vs. persistent fevers due to missed doses. Recs DC Zosyn IV Start Ancef IV (drug of choice for MSSA endocarditis) Continue Vanco IV (target 15-20 for endocarditis/blood stream infection) 2D ECHO follow up and new vegs. Doppler RUE to look for septic thrombophlebitis. DC Midline. Send Midline tip for culture. Restrict visitors, d.w RN and welder apprentice arc to observe her closely due to concerns for ongoing IVDU. Patient refuses HIV and Hepatitis this admission reports done recently and will notify us if any change in her behaviors. I explained indicated now due to ongoing IVDA. If any positive cultures or change in clinical condition please call me sooner. to resume care on Friday11/24/2017. Maria Guadalupe Babcock MD Nov 22, 2017 16:09
--- NOTE | 2017-11-22 18:25 | RADRPT ---
EXAM DATE/TIME: 11/22/2017 17:54 [facility] COMPARISON: No previous studies available for comparison. INDICATIONS : Right arm swelling. MEDICAL HISTORY : . IV drug use. Renal disease. Sepsis. Endocarditis. Anemia. SURGICAL HISTORY : Tubal ligation. section. ENCOUNTER: Initial ACUITY: 1 day PAIN SCORE: 8/10 LOCATION: Right arm. FINDINGS: Venous thrombosis involves the right axillary vein and extending into the basilic vein to the level o f the antecubital fossa. Other venous tributaries of the right upper extremity are patent. CONCLUSION: Right upper extremity DVT involving the axillary and basilic veins. Matthieu Griffiths MD on November 22, 2017 at 18:22 Board Certified Radiologist. This report was verified electronically.
--- NOTE | 2017-11-22 20:04 | HHI.PR ---
Addendum to Inpatient Note Addendum Reason: Additional Documentation Additional Information The patient denies any fevers or chills, complaints of swelling of the right upper extremity. PICC line has been discontinued. Patient is awake alert oriented 3, also clear to auscultation bilaterally, abdomen is soft, nontender nondistended with present bowel sounds, is no edema in lower extremities. Assessment and plan. 1. 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 2. PICC line malfunction. 3. IVDU - patient admitted to [facility]. 4. Acute on chronic anemia. Continue IV antibiotics, appreciate ID recommendations. The patient is currently on Ancef IV and IV vancomycin. To the echo ordered, will follow-up results. Venous Doppler of right upper extremity ordered by ID to rule out septic thrombophlebitis. Will follow results. The patient refused HIV and hepatitis tests. We'll check iron studies and stool guaiac. Monitor hemoglobin and transfuse as needed for hemoglobin less than 7 or symptomatic anemia. The patient currently is asymptomatic. Follow-up wound, urine culture and blood cultures. Angel Coronel MD Nov 22, 2017 20:04
[2017-11-22] MEDS: ENOXAPARIN SODIUM 80 MG/0.8 ML SYRINGE SQ SCH (21:15)
[2017-11-23] VITALS: BP 130/58; PULSE 101; RESP 20; TEMP 99.3; O2SAT 98
[2017-11-23] MEDS ORDERED: PHARMACY ORDERED LAB ONE (01:45)
[2017-11-23] MEDS: ceFAZolin 2 GM PREMIX 50 ML IV SCH ×3 (03:04→20:00)
[2017-11-23] MEDS: ACYCLOVIR 200 MG CAP PO SCH ×4 (03:04→20:03)
[2017-11-23 04:00] VITALS: BP 129/60; PULSE 96; RESP 18; TEMP 99.3; O2SAT 98
[2017-11-23] MEDS: DOCUSATE SODIUM 50 MG/SENNA 8.6 MG TAB PO SCH ×3 (08:55→20:01)
[2017-11-23] MEDS: SODIUM CHLORIDE 0.9% FLUSH 10 ML FLUSH IV FLUSH SCH ×2 (08:55→20:00)
[2017-11-23] MEDS: ENOXAPARIN SODIUM 80 MG/0.8 ML SYRINGE SQ SCH ×2 (08:55→20:00)
[2017-11-23] MEDS: ONDANSETRON HCL 4 MG/2 ML VIAL IVP PRN ×2 (08:57→20:00)
[2017-11-23] MEDS: VANCOMYCIN INJ 1,250 MG in SODIUM CHLOR 0.9% 250 ML INJ 250 ML IV SCH (09:06)
[2017-11-23] MEDS: SODIUM CHLOR 0.9% 1000 ML INJ 1,000 ML IV SCH ×2 (09:15→19:59)
--- NOTE | 2017-11-23 10:26 | HHI.PR ---
Subjective Remarks afebrile some pain in right upper arm- Objective Vitals Vital Signs Date Time Temp Pulse Resp B/P (MAP) Pulse Ox O2 Delivery O2 Flow Rate FiO2 11/23/17 04:00 99.3 96 18 129/60 (83) 98 11/23/17 00:00 99.3 101 20 130/58 (82) 98 11/22/17 20:15 104 11/22/17 20:00 98.5 111 20 118/57 (77) 100 11/22/17 16:00 96.9 101 20 126/62 (83) 100 11/22/17 13:10 11/22/17 12:05 99.0 94 19 116/55 (75) 97 Room Air I/O 11/22/17 11/22/17 11/22/17 11/23/17 11/23/17 11/23/17 07:00 15:00 23:00 07:00 15:00 23:00 Intake Total 1400 ml 1650 ml 1170 ml Balance 1400 ml 1650 ml 1170 ml Intake Oral 600 ml 720 ml IV Total 1400 ml 1050 ml 450 ml # Voids 4 1 1 # Bowel Movements 1 Result Diagram: 11/22/17 0125 11/22/17 0125 Imaging Last Impressions Chest X-Ray 11/22/17 0045 Signed Impressions: Service Date/Time: Wednesday, November 22, 2017 01:07 - CONCLUSION: 1. There continues to be a focal infiltrate in left midlung which has improved compared to the prior exam. 2. No new infiltrates are seen. No other new or significant changes. Vern Richter MD Upper Extremity Ultrasound 11/22/17 0000 Signed Impressions: Service Date/Time: Wednesday, November 22, 2017 17:54 - CONCLUSION: Right upper extremity DVT involving the axillary and basilic veins. Matthieu Griffiths MD Objective Remarks awake and alert, no acute distress anicteric lungs- no rales regular rhythm abdomen- flabby soft extremities - right UE- + swelling and mild tenderness- biceps area - no erythema LE- no edema A/P Problem List: (1) Sepsis ICD Code: A41.9 - Sepsis, unspecified organism (2) Endocarditis ICD Code: I38 - Endocarditis, valve unspecified (3) S/P PICC central line placement ICD Code: Z95.828 - Presence of other vascular implants and grafts (4) UTI (urinary tract infection) ICD Code: N39.0 - Urinary tract infection, site not specified (5) Anemia ICD Code: D64.9 - Anemia, unspecified (6) IVDU (intravenous drug user) ICD Code: F19.90 - Other psychoactive substance use, unspecified, uncomplicated (7) Tobacco abuse ICD Code: Z72.0 - Tobacco use Assessment and Plan 32 years old female MSSA Sepsis with Septic emboli douglas the lungs MSSA Endocarditis: on IV Ancef . refused IV Vancomycin- states had reaction to this in the past ID ff ff Sats- good PICC malfunction-tip sent for culture- pending Hypokalemia- replaced. recheck today RUE DVT- on Lovenox Anemia: Acute on Chronic. Iron bid Active IVDU: counselled Tobacco Abuse: Pt counselled. NicoDerm if needed. DVT Prophylaxis:- on Lovenox Social work for d/c planning as needed. Lisa Summers MD Nov 23, 2017 10:26
[2017-11-23 11:20] LABS: AUTOMATED NEUTROPHIL # 3.4 TH/MM3 (1.8-7.7); BASOPHIL # 0.1 TH/MM3 (0-0.2); BASOPHIL % 0.9 % (0.0-2.0); EOSINOPHIL # 0.1 TH/MM3 (0-0.4); EOSINOPHIL % 1.3 % (0.0-4.0); HEMOGLOBIN 7.8 GM/DL (11.6-15.3); LYMPH % 43.2 % (9.0-44.0); LYMPHOCYTE # 3.1 TH/MM3 (1.0-4.8); MEAN CELL VOLUME 76.9 FL (80.0-100.0); MEAN CORPUSCULAR HEMOGLOBIN 25.2 PG (27.0-34.0); MEAN CORPUSCULAR HGB CONC 32.7 % (32.0-36.0); MEAN PLATELET VOLUME 7.4 FL (7.0-11.0); MONO % 6.8 % (0.0-8.0); MONOCYTE # 0.5 TH/MM3 (0-0.9); NEUT % 47.8 % (16.0-70.0); PLATELET COUNT 288 TH/MM3 (150-450); RED BLOOD COUNT 3.12 MIL/MM3 (4.00-5.30); WHITE BLOOD COUNT 7.2 TH/MM3 (4.0-11.0)
[2017-11-23 11:37] LABS: ALBUMIN 2.6 GM/DL (3.4-5.0); ALT (GPT) 15 U/L (10-53); AST (GOT) 18 U/L (15-37); BICARBONATE 23.2 MEQ/L (21.0-32.0); BLOOD UREA NITROGEN 4 MG/DL (7-18); CALCIUM 8.1 MG/DL (8.5-10.1); CHLORIDE 114 MEQ/L (98-107); CREATININE 0.73 MG/DL (0.50-1.00); GLOMERULAR FILTRATION RATE 92 ML/MIN (>89); GLUCOSE,RANDOM 80 MG/DL (74-106); IRON (FE) 14 MCG/DL (50-170); SODIUM (NA) 143 MEQ/L (136-145)
[2017-11-23 11:41] LABS: % SATURATION IRON PROFILE 5.9 % (20-50); ALKALINE PHOSPHATASE 78 U/L (45-117); FERRITIN 135 NG/ML (8-252); TOTAL BILIRUBIN ADULT 0.3 MG/DL (0.2-1.0); TOTAL IRON BINDING CAPACITY 238 MCG/DL (250-450); TOTAL PROTEIN 7.1 GM/DL (6.4-8.2)
[2017-11-23 11:50] LABS: OVALOCYTES 1+ (NORMAL)
[2017-11-23 12:00] VITALS: BP 135/59; PULSE 94; RESP 20; TEMP 95.4; O2SAT 100
[2017-11-23] MEDS: FERROUS SULFATE 325 MG (65 MG ELEMENTAL IRON) TAB PO SCH ×2 (12:29→19:03)
--- NOTE | 2017-11-23 13:55 | HHI.PR ---
Addendum to Inpatient Note Addendum Reason: Additional Documentation Additional Information RN informed me that patient has refused Vanco IV as she had reaction last time. DC vanco IV as no MRSA identified. Primary organism has been MSSA. to resume care in am. Maria Guadalupe Babcock MD Nov 23, 2017 13:55
[2017-11-23 16:00] VITALS: BP 143/60; PULSE 95; RESP 20; TEMP 96.9; O2SAT 100
--- NOTE | 2017-11-23 17:41 | EKG ---
Date Performed: 11/22/2017 Time Performed: 08:11:09 PTAGE: 32 years EKG: Sinus rhythm NORMAL ECG INTERPRETATION BASED ON A DEFAULT AGE OF 39 YEARS PREVIOUS TRACING : 10/25/2017 20.41 Since previous tracing, no significant change noted DOCTOR: Benjamin Eugene Interpretating Date/Time 11/23/2017 17:40:18
--- NOTE | 2017-11-23 19:50 | ECHRPT ---
Indication: F/U ENDOCARDITIS CONCLUSIONS Mildly dilated left ventricle. Wall thickness is normal. The left ventricular systolic function is low normal with an estimated ejection fraction in the rang e of 50- 55%. Eodf-in-pptvbutt mitral valve regurgitation. Mobile echodensity noted on aortic valve. Mild thickening of the aortic valve leaflets. Severe aortic valve regurgitation. There is mild tricuspid valve regurgitation. The pulmonary valve is not well visualized. BP: / HR: Rhythm: MEASUREMENTS (Male / Female) Normal Values Technical Quality:Good 2D ECHO LV Diastolic Diameter PLAX 5.7 cm 4.2 - 5.9 / 3.9 - 5.3 cm LV Systolic Diameter PLAX 4.3 cm IVS Diastolic Thickness 1.0 cm 0.6 - 1.0 / 0.6 - 0.9 cm LVPW Diastolic Thickness 1.0 cm 0.6 - 1.0 / 0.6 - 0.9 cm LV Relative Wall Thickness 0.4 LA Systolic Diameter LX 3.5 cm 3.0 - 4.0 / 2.7 - 3.8 cm DOPPLER MR Peak Velocity 517.0 cm/s MR Peak Gradient 106.9 mmHg TR Peak Velocity 374.0 cm/s TR Peak Gradient 56.0 mmHg FINDINGS LEFT VENTRICLE Mildly dilated left ventricle. Wall thickness is normal. The left ventricular systolic function is low normal with an estimated ejection fraction in the rang e of 50- 55%. RIGHT VENTRICLE Normal right ventricular size and systolic function. LEFT ATRIUM The left atrial size is normal. RIGHT ATRIUM The right atrial size is normal. ATRIAL SEPTUM Normal atrial septal thickness without atrial level shunting by limited color doppler interrogation. AORTA The aortic root and proximal ascending aorta are normal in size on limited imaging. MITRAL VALVE [id number] mitral valve regurgitation. AORTIC VALVE Mobile echodensity noted on aortic valve. Mild thickening of the aortic valve leaflets. Severe aortic valve regurgitation. TRICUSPID VALVE There is mild tricuspid valve regurgitation. PULMONARY VALVE The pulmonary valve is not well visualized. VESSELS The inferior vena cava is normal in size. PERICARDIUM No pericardial effusion. Ananda Crespo MD, FACC (Electronically Signed) Final Date:23 November 2017 19:49
[2017-11-23 19:53] VITALS: PULSE 91
[2017-11-23 20:00] VITALS: BP 152/66; PULSE 98; RESP 20; TEMP 97.5; O2SAT 100
[2017-11-24] VITALS: BP 144/65; PULSE 92; RESP 18; TEMP 97.8; O2SAT 100
[2017-11-24 03:49] VITALS: BP 140/61; PULSE 81; RESP 18; TEMP 97; O2SAT 99
[2017-11-24] MEDS: ACYCLOVIR 200 MG CAP PO SCH ×5 (05:02→20:27)
[2017-11-24] MEDS: ceFAZolin 2 GM PREMIX 50 ML IV SCH ×3 (05:02→20:27)
[2017-11-24] MEDS: SODIUM CHLOR 0.9% 1000 ML INJ 1,000 ML IV SCH ×2 (05:06→15:17)
[2017-11-24] MEDS: ONDANSETRON HCL 4 MG/2 ML VIAL IVP PRN (05:59)
[2017-11-24 08:00] VITALS: BP 123/60; PULSE 85; RESP 16; TEMP 97.6; O2SAT 96
[2017-11-24] MEDS: ENOXAPARIN SODIUM 80 MG/0.8 ML SYRINGE SQ SCH ×2 (08:56→20:29)
[2017-11-24] MEDS: SODIUM CHLORIDE 0.9% FLUSH 10 ML FLUSH IV FLUSH SCH ×2 (08:56→20:29)
[2017-11-24] MEDS: DOCUSATE SODIUM 50 MG/SENNA 8.6 MG TAB PO SCH ×2 (08:57→20:29)
[2017-11-24] MEDS: FERROUS SULFATE 325 MG (65 MG ELEMENTAL IRON) TAB PO SCH ×2 (10:58→16:29)
[2017-11-24 12:00] VITALS: BP 142/62; PULSE 89; RESP 16; TEMP 97.4; O2SAT 100
--- NOTE | 2017-11-24 15:04 | HHI.PR ---
Subjective Remarks no complains occasional reflux no chest pains or shortness of breath per patient had reaction with vancomycin in the past Objective Vitals Vital Signs Date Time Temp Pulse Resp B/P (MAP) Pulse Ox O2 Delivery O2 Flow Rate FiO2 11/24/17 03:49 97.0 81 18 140/61 (87) 99 11/24/17 00:00 97.8 92 18 144/65 (91) 100 11/23/17 20:00 97.5 98 20 152/66 (94) 100 11/23/17 19:53 91 11/23/17 16:00 96.9 95 20 143/60 (87) 100 I/O 11/23/17 11/23/17 11/23/17 11/24/17 11/24/17 11/24/17 07:00 15:00 23:00 07:00 15:00 23:00 Intake Total 1170 ml 1800 ml 720 ml Balance 1170 ml 1800 ml 720 ml Intake Oral 720 ml 1800 ml 720 ml IV Total 450 ml # Voids 1 5 2 # Bowel Movements 0 0 Result Diagram: 11/23/17 0750 11/23/17 0750 Imaging Last Impressions Chest X-Ray 11/22/17 0045 Signed Impressions: Service Date/Time: Wednesday, November 22, 2017 01:07 - CONCLUSION: 1. There continues to be a focal infiltrate in left midlung which has improved compared to the prior exam. 2. No new infiltrates are seen. No other new or significant changes. Vern Richter MD Upper Extremity Ultrasound 11/22/17 0000 Signed Impressions: Service Date/Time: Wednesday, November 22, 2017 17:54 - CONCLUSION: Right upper extremity DVT involving the axillary and basilic veins. Matthieu Griffiths MD Objective Remarks awake and alert, no acute distress anicteric lungs- no rales regular rhythm, soft systolic murmur left sternal border abdomen- flabby soft extremities - right UE- + swelling and mild tenderness- biceps area - no erythema LE- no edema A/P Problem List: (1) Sepsis ICD Code: A41.9 - Sepsis, unspecified organism (2) Endocarditis ICD Code: I38 - Endocarditis, valve unspecified (3) S/P PICC central line placement ICD Code: Z95.828 - Presence of other vascular implants and grafts (4) UTI (urinary tract infection) ICD Code: N39.0 - Urinary tract infection, site not specified (5) Anemia ICD Code: D64.9 - Anemia, unspecified (6) IVDU (intravenous drug user) ICD Code: F19.90 - Other psychoactive substance use, unspecified, uncomplicated (7) Tobacco abuse ICD Code: Z72.0 - Tobacco use Assessment and Plan 32 years old female MSSA Sepsis with Septic emboli douglas the lungs MSSA Endocarditis: Echo with mobile vegetation and severe AI ( patient very active plays softball ) on IV Ancef ID ff ff Sats- good PICC malfunction-tip sent for culture- pending Hypokalemia- corrected RUE DVT- on Lovenox Anemia: Acute on Chronic. Iron bid Active IVDU: counselled Tobacco Abuse: Pt counselled. NicoDerm if needed. DVT Prophylaxis:- on Lovenox Social work for d/c planning as needed. Lisa Summers MD Nov 24, 2017 15:04
[2017-11-24 16:00] VITALS: BP 137/76; PULSE 93; RESP 16; TEMP 97.7; O2SAT 100
--- NOTE | 2017-11-24 16:29 | HHI.IDPN ---
Note Infectious Disease Note ID follow up. Notes reviewed. Patient admitted with fever. Has been on treatment for Aortic valve endocarditis. Previously due to complete on 12/08/17. IV drug use through midline on days before readmission on 11/22/17. Fever, chills on admission. Allergies Coded Allergies acetaminophen (Verified Allergy, Severe, "LOOPY", 11/22/17) propoxyphene (Verified Allergy, Severe, "LOOPY", 11/22/17) Fish Containing Products (Verified Allergy, Intermediate, 11/22/17) butorphanol (Verified Allergy, Intermediate, HALUCINATIONS, 11/22/17) Current Medications Medications (Trade) Dose Ordered Sig/Jannie Route PRN Reason Start Time Stop Time Status Last Admin Dose Admin Sodium Chloride 1,000 ml @ 100 mls/hr Q10H IV 11/22/17 04:19 11/24/17 15:17 Sodium Chloride (NS Flush) 2 ml UNSCH PRN IV FLUSH FLUSH AFTER USING IV ACCESS 11/22/17 04:30 Sodium Chloride (NS Flush) 2 ml BID IV FLUSH 11/22/17 09:00 11/23/17 08:55 Ondansetron HCl (Zofran Inj) 4 mg Q6H PRN IVP NAUSEA OR VOMITING 11/22/17 04:30 11/24/17 05:59 Oxycodone HCl (Roxicodone) 10 mg Q4H PRN PO PAIN SCALE 6 TO 10 11/22/17 04:30 11/24/17 15:18 Oxycodone HCl (Roxicodone) 5 mg Q4H PRN PO PAIN SCALE 3 TO 5 11/22/17 04:30 Senna/Docusate Sodium (Sujatha-Colace) 1 tab BID PO 11/22/17 09:00 Magnesium Hydroxide (Milk Of Magnesia Liq) 30 ml Q12H PRN PO Mild constipation 11/22/17 04:30 Sennosides (Senokot) 17.2 mg Q12H PRN PO Moderate constipation 11/22/17 04:30 Bisacodyl (Dulcolax Supp) 10 mg DAILY PRN RECTAL SEVERE CONSITIPATION 11/22/17 04:30 Lactulose (Lactulose Liq) 30 ml DAILY PRN PO SEVERE CONSITIPATION 11/22/17 04:30 Lorazepam (Ativan Inj) 1 mg Q2H PRN IV PUSH AGITATION/WITHDRAWAL 11/22/17 04:30 Acyclovir (Zovirax) 200 mg 5 TIMES A DAY PO 11/22/17 06:00 11/24/17 13:35 Cefazolin Sodium/ Dextrose 50 ml @ 100 mls/hr Q8H IV 11/22/17 12:00 11/24/17 10:58 Enoxaparin Sodium (Lovenox Inj) 70 mg Q12H SQ 11/22/17 20:00 11/24/17 08:56 Ferrous Sulfate (Ferrous Sulfate) 325 mg BID@12,17 PO 11/23/17 12:00 11/24/17 10:58 OBJECTIVE: Vital Signs Date Time Temp Pulse Resp B/P (MAP) Pulse Ox O2 Delivery O2 Flow Rate FiO2 11/24/17 03:49 97.0 81 18 140/61 (87) 99 11/24/17 00:00 97.8 92 18 144/65 (91) 100 11/23/17 20:00 97.5 98 20 152/66 (94) 100 11/23/17 19:53 91 Laboratory Tests Test 11/23/17 07:50 White Blood Count 7.2 TH/MM3 Red Blood Count 3.12 MIL/MM3 Hemoglobin 7.8 GM/DL Hematocrit 24.0 % Mean Corpuscular Volume 76.9 FL Mean Corpuscular Hemoglobin 25.2 PG Mean Corpuscular Hemoglobin Concent 32.7 % Red Cell Distribution Width 21.0 % Platelet Count 288 TH/MM3 Mean Platelet Volume 7.4 FL Neutrophils (%) (Auto) 47.8 % Lymphocytes (%) (Auto) 43.2 % Monocytes (%) (Auto) 6.8 % Eosinophils (%) (Auto) 1.3 % Basophils (%) (Auto) 0.9 % Neutrophils # (Auto) 3.4 TH/MM3 Lymphocytes # (Auto) 3.1 TH/MM3 Monocytes # (Auto) 0.5 TH/MM3 Eosinophils # (Auto) 0.1 TH/MM3 Basophils # (Auto) 0.1 TH/MM3 CBC Comment AUTO DIFF Differential Comment AUTO DIFF CONFIRMED Platelet Estimate NORMAL Platelet Morphology Comment NORMAL Ovalocytes 1+ Laboratory Tests Test 11/23/17 07:50 Blood Urea Nitrogen 4 MG/DL Creatinine 0.73 MG/DL Random Glucose 80 MG/DL Total Protein 7.1 GM/DL Albumin 2.6 GM/DL Calcium Level 8.1 MG/DL Alkaline Phosphatase 78 U/L Aspartate Amino Transf (AST/SGOT) 18 U/L Alanine Aminotransferase (ALT/SGPT) 15 U/L Total Bilirubin 0.3 MG/DL Sodium Level 143 MEQ/L Potassium Level 3.7 MEQ/L Chloride Level 114 MEQ/L Carbon Dioxide Level 23.2 MEQ/L Anion Gap 6 MEQ/L Estimat Glomerular Filtration Rate 92 ML/MIN Iron Level 14 MCG/DL Total Iron Binding Capacity 238 MCG/DL Percent Iron Saturation 5.9 % Ferritin 135 NG/ML Microbiology Date/Time Source Procedure Growth Status 11/22/17 01:25 Blood Peripheral Aerobic Blood Culture - Preliminary NO GROWTH IN 2 DAYS Resulted 11/22/17 01:25 Blood Peripheral Anaerobic Blood Culture - Preliminary NO GROWTH IN 2 DAYS Resulted 11/22/17 01:20 Blood Peripheral Aerobic Blood Culture - Preliminary NO GROWTH IN 2 DAYS Resulted 11/22/17 01:20 Blood Peripheral Anaerobic Blood Culture - Preliminary NO GROWTH IN 2 DAYS Resulted 11/22/17 01:25 Urine Catheterized Urine Urine Culture - Final 50-100,000 CFU/ML MIXED GRAM POSITIVE... Complete 11/22/17 17:35 Catheter Tip Other Wound Culture - Preliminary Resulted IMAGING: Chest X-Ray 11/22/17 0045 Signed Impressions: Service Date/Time: Wednesday, November 22, 2017 01:07 - CONCLUSION: 1. There continues to be a focal infiltrate in left midlung which has improved compared to the prior exam. 2. No new infiltrates are seen. No other new or significant changes. Vern Richter MD Upper Extremity Ultrasound 11/22/17 0000 Signed Impressions: Service Date/Time: Wednesday, November 22, 2017 17:54 - CONCLUSION: Right upper extremity DVT involving the axillary and basilic veins. Mattiheu Griffiths MD GENERAL: Patient is in no acute distress. HEENT: EOMI, No icterus. No conjunctival erythema. NECK: Supple. LUNGS: Clear breath sounds. CARDIAC: Regular rate and rhythm, Nl S1S2, slight systolic murmur at LSB. ABDOMEN: Soft, non tender. EXTREMITIES: Swelling at the R. humerus. tenderness at inner R humerus. SKIN: No rash. NEURO: Non focal. PSYCH: Calm. anxious. Poor insight. IMPRESSION: Aortic valve endocarditis with Severe aortic regurg. on echocardiogram. PICC infection. IVDU. Recent septic lung, spleen emboli. Septic Thrombophlebitis RUE. RUE DVT AT cephalic and basilic vein. RECOMMEND: Continue Ancef. Monitor blood cultures. Monitor catheter tip culture. Due to her poor insight and active drug use and difficulty presenting for IV outpatient antibiotic she will need supervised treatment. Breezy Muñoz MD Nov 24, 2017 16:29
[2017-11-24 20:00] VITALS: BP 143/65; PULSE 103; RESP 20; TEMP 97.4; O2SAT 100
[2017-11-25] VITALS: BP 138/60; PULSE 101; PULSE 90; RESP 20; TEMP 98.1; O2SAT 98
[2017-11-25] MEDS: ONDANSETRON HCL 4 MG/2 ML VIAL IVP PRN ×3 (00:50→20:34)
[2017-11-25 04:00] VITALS: BP 153/60; PULSE 88; RESP 18; TEMP 95.8; O2SAT 99
[2017-11-25] MEDS: ceFAZolin 2 GM PREMIX 50 ML IV SCH ×3 (04:27→20:18)
[2017-11-25] MEDS: SODIUM CHLOR 0.9% 1000 ML INJ 1,000 ML IV SCH ×3 (04:28→20:17)
[2017-11-25] MEDS: ACYCLOVIR 200 MG CAP PO SCH ×5 (04:40→20:28)
[2017-11-25 08:00] VITALS: BP 133/56; PULSE 92; RESP 16; TEMP 97; O2SAT 95
[2017-11-25] MEDS: ENOXAPARIN SODIUM 80 MG/0.8 ML SYRINGE SQ SCH ×2 (08:31→20:27)
[2017-11-25] MEDS: SODIUM CHLORIDE 0.9% FLUSH 10 ML FLUSH IV FLUSH SCH ×2 (08:32→20:27)
[2017-11-25] MEDS: DOCUSATE SODIUM 50 MG/SENNA 8.6 MG TAB PO SCH ×2 (08:34→20:28)
[2017-11-25] MEDS: FERROUS SULFATE 325 MG (65 MG ELEMENTAL IRON) TAB PO SCH ×2 (11:31→16:46)
[2017-11-25 12:00] VITALS: BP 135/63; PULSE 96; RESP 16; TEMP 97.2; O2SAT 100
[2017-11-25 16:00] VITALS: BP 140/67; PULSE 97; RESP 16; TEMP 98; O2SAT 99
--- NOTE | 2017-11-25 17:26 | HHI.PR ---
Subjective Remarks Follow-up for endocarditis Patient has no complaints. She denies chest pain, shortness of breathing, palpitation, lightheadedness dizziness. She remains afebrile. She is walking around. Patient stated that her bondsman stated that the hospital has to send a note to the substance abuse rn. I presented this to case management and notified them. Objective Vitals Vital Signs Date Time Temp Pulse Resp B/P (MAP) Pulse Ox O2 Delivery O2 Flow Rate FiO2 11/25/17 16:00 98.0 97 16 140/67 (91) 99 11/25/17 12:00 97.2 96 16 135/63 (87) 100 11/25/17 08:00 97.0 92 16 133/56 (81) 95 11/25/17 04:00 95.8 88 18 153/60 (91) 99 11/25/17 00:00 98.1 90 20 138/60 (86) 98 11/25/17 00:00 101 11/24/17 20:00 97.4 103 20 143/65 (91) 100 I/O 11/24/17 11/24/17 11/24/17 11/25/17 11/25/17 11/25/17 06:59 14:59 22:59 06:59 14:59 22:59 Intake Total 720 ml 50 ml 50 ml 960 ml 50 ml 720 ml Balance 720 ml 50 ml 50 ml 960 ml 50 ml 720 ml Intake Oral 720 ml 960 ml 720 ml IV Total 50 ml 50 ml 50 ml # Voids 2 4 5 # Bowel Movements 0 1 0 Result Diagram: 11/23/17 0750 11/23/17 0750 Objective Remarks GENERAL: in NAD CARDIOVASCULAR: . Regular rate and rhythm. Soft systolic murmur. RESPIRATORY: Breath sounds equal bilaterally. No accessory muscle use. GASTROINTESTINAL: Abdomen soft, non-tender, nondistended. Medications and IVs Current Medications Sodium Chloride 1,000 ml @ 999 mls/hr BOLUS ONCE IV Last administered on 11/22at 01:48; Start 11/22/17 at 00:45; Stop 11/22/17 at 01:45; Status DC Sodium Chloride 1,000 ml @ 999 mls/hr BOLUS ONCE IV Last administered on 11/22at 03:01; Start 11/22/17 at 00:45; Stop 11/22/17 at 01:45; Status DC Vancomycin/Sodium Chloride 200 ml @ 200 mls/hr ONCE ONCE IV Last administered on 11/22/17at 03:01; Start 11/22/17 at 00:45; Stop 11/22/17 at 01:44 ; Status DC Piperacillin Sod/ Tazobactam Sod 100 ml @ 200 mls/hr ONCE ONCE IV Last administered on 11/22/17at 01:48; Start 11/22/17 at 00:45; Stop 11/22/17 at 01:14 ; Status DC Ondansetron HCl (Zofran Inj) 4 mg ONCE ONCE IV PUSH Last administered on at 04:15; Start 11/22/17 at 04:15; Stop 11/22/17 at 04:16; Status DC Pharmacy Profile Note 0 ml @ 0 mls/hr UNSCH OTHER ; Start 11/22/17 at 04:30; Stop 11/23/17 at 13:55; Status DC Sodium Chloride 1,000 ml @ 100 mls/hr Q10H IV Last administered on 11/25/17at 11:31; Start 11/22/17 at 04:19 Sodium Chloride (NS Flush) 2 ml UNSCH PRN IV FLUSH FLUSH AFTER USING IV ACCESS ; Start 11/22/17 at 04:30 Sodium Chloride (NS Flush) 2 ml BID IV FLUSH Last administered on 11/25/17at 08: 32; Start 11/22/17 at 09:00 Ondansetron HCl (Zofran Inj) 4 mg Q6H PRN IVP NAUSEA OR VOMITING Last administered on 11/25/17at 12:47; Start 11/22/17 at 04:30 Oxycodone HCl (Roxicodone) 10 mg Q4H PRN PO PAIN SCALE 6 TO 10 Last administered on 11/25/17at 16:46; Start 11/22/17 at 04:30 Oxycodone HCl (Roxicodone) 5 mg Q4H PRN PO PAIN SCALE 3 TO 5; Start 11/22/17 at 04:30 Senna/Docusate Sodium (Sujatha-Colace) 1 tab BID PO ; Start 11/22/17 at 09:00 Magnesium Hydroxide (Milk Of Magnesia Liq) 30 ml Q12H PRN PO Mild constipation ; Start 11/22/17 at 04:30 Sennosides (Senokot) 17.2 mg Q12H PRN PO Moderate constipation; Start 11/22/17 at 04:30 Bisacodyl (Dulcolax Supp) 10 mg DAILY PRN RECTAL SEVERE CONSITIPATION; Start at 04:30 Lactulose (Lactulose Liq) 30 ml DAILY PRN PO SEVERE CONSITIPATION; Start at 04:30 Lorazepam (Ativan Inj) 1 mg Q2H PRN IV PUSH AGITATION/WITHDRAWAL; Start at 04:30 Acyclovir (Zovirax) 200 mg 5 TIMES A DAY PO Last administered on 11/25/17at 16: 46; Start 11/22/17 at 06:00 Vancomycin HCl 1250 mg/Sodium Chloride 262.5 ml @ 250 mls/hr Q8H IV ; Start at 10:00; Stop 11/23/17 at 13:55; Status DC Miscellaneous Information SPECIFIC LAB TO BE EFRAIN... ONCE ONCE .XX ; Start 11/23 at 01:45; Stop 11/23/17 at 01:46; Status DC Cefazolin Sodium/ Dextrose 50 ml @ 100 mls/hr Q8H IV Last administered on 11/25at 11:31; Start 11/22/17 at 12:00 Enoxaparin Sodium (Lovenox Inj) 70 mg Q12H SQ Last administered on 11/25/17at 08 :31; Start 11/22/17 at 20:00 Ferrous Sulfate (Ferrous Sulfate) 325 mg BID@12,17 PO Last administered on 11/25at 16:46; Start 11/23/17 at 12:00 A/P Problem List: (1) Sepsis ICD Code: A41.9 - Sepsis, unspecified organism (2) Endocarditis ICD Code: I38 - Endocarditis, valve unspecified (3) S/P PICC central line placement ICD Code: Z95.828 - Presence of other vascular implants and grafts (4) UTI (urinary tract infection) ICD Code: N39.0 - Urinary tract infection, site not specified (5) Anemia ICD Code: D64.9 - Anemia, unspecified (6) IVDU (intravenous drug user) ICD Code: F19.90 - Other psychoactive substance use, unspecified, uncomplicated (7) Tobacco abuse ICD Code: Z72.0 - Tobacco use Assessment and Plan 32 years old female history IV drug use presented with failed back PICC line MSSA Sepsis with Septic emboli douglas the lungs MSSA Endocarditis with severe aortic valve regurgitation: Echo with mobile vegetation and severe AI ( patient very active plays softball). Infectious disease following. Patient on Ancef. Per infectious disease due to poor insight and active drug use difficult presenting for outpatient antibiotics she needs to be supervised for treatment. Hypokalemia- corrected RUE DVT- on Lovenox Anemia: Acute on Chronic. Iron bid Active IVDU: counselled Tobacco Abuse: Pt counselled. NicoDerm if needed. DVT Prophylaxis:- on Lovenox Social work for d/c planning as needed. Kayla Goldsmith MD Nov 25, 2017 17:26
[2017-11-25 20:00] VITALS: BP 141/58; PULSE 93; RESP 20; TEMP 98.2; O2SAT 98
[2017-11-26] VITALS (8 sets, daily range): BP systolic 146–153; BP diastolic 60–67; PULSE 87–111; RESP 18–20; TEMP 96.6–98.3; O2SAT 94–99
[2017-11-26] MEDS: ACYCLOVIR 200 MG CAP PO SCH ×5 (05:05→21:09)
[2017-11-26] MEDS: ONDANSETRON HCL 4 MG/2 ML VIAL IVP PRN (05:05)
[2017-11-26] MEDS: ceFAZolin 2 GM PREMIX 50 ML IV SCH ×3 (05:12→21:08)
[2017-11-26] MEDS: SODIUM CHLORIDE 0.9% FLUSH 10 ML FLUSH IV FLUSH SCH ×2 (09:00→21:10)
[2017-11-26] MEDS: DOCUSATE SODIUM 50 MG/SENNA 8.6 MG TAB PO SCH ×2 (09:03→21:00)
[2017-11-26] MEDS: ENOXAPARIN SODIUM 80 MG/0.8 ML SYRINGE SQ SCH ×2 (09:05→21:09)
--- NOTE | 2017-11-26 11:22 | HHI.PR ---
Subjective Remarks Follow-up for aortic valve endocarditis Patient complaining about abdominal pain. She stated that she feels more bloated and that this pain has occurred for a couple days. Patient did not complain about this yesterday was very comfortable and she stated that she forgot to tell me. She stated that she's having vomiting and spitting up. I asked that she told the nurse doesn't show the nurse she stated now that she did not know she had to do this. Pain is constant. Patient also complained that she feels more short of breath although she never complained about shortness of breathing prior. She did not require any oxygen. She was also asking for daily labs. Otherwise she has no other complaints. Discussed case with patient's nurse during MDR and she stated that patient had multiple complaints but she did not have any concerns. Objective Vitals Vital Signs Date Time Temp Pulse Resp B/P (MAP) Pulse Ox O2 Delivery O2 Flow Rate FiO2 11/26/17 10:03 16 11/26/17 08:00 96.7 90 20 146/60 (88) 96 11/26/17 07:45 90 11/26/17 04:47 96.6 87 18 150/66 (94) 96 11/26/17 00:05 98.2 92 18 147/60 (89) 99 11/25/17 20:00 98.2 93 20 141/58 (85) 98 11/25/17 16:00 98.0 97 16 140/67 (91) 99 11/25/17 12:00 97.2 96 16 135/63 (87) 100 I/O 11/25/17 11/25/17 11/25/17 11/26/17 11/26/17 11/26/17 07:00 15:00 23:00 07:00 15:00 23:00 Intake Total 960 ml 50 ml 1770 ml 810 ml Balance 960 ml 50 ml 1770 ml 810 ml Intake Oral 960 ml 720 ml 760 ml IV Total 50 ml 1050 ml 50 ml # Voids 4 5 3 # Bowel Movements 1 0 Result Diagram: 11/23/17 0750 11/23/17 0750 Objective Remarks GENERAL: in NAD CARDIOVASCULAR: . Regular rate and rhythm. Soft systolic murmur. RESPIRATORY: Breath sounds equal bilaterally. No accessory muscle use. GASTROINTESTINAL: Abdomen soft and abdomen is a little bloated. Seems to be more tender in the epigastric area with deep pressure. Negative for any peritoneal signs. Medications and IVs Current Medications Sodium Chloride 1,000 ml @ 999 mls/hr BOLUS ONCE IV Last administered on 11/22at 01:48; Start 11/22/17 at 00:45; Stop 11/22/17 at 01:45; Status DC Sodium Chloride 1,000 ml @ 999 mls/hr BOLUS ONCE IV Last administered on 11/22at 03:01; Start 11/22/17 at 00:45; Stop 11/22/17 at 01:45; Status DC Vancomycin/Sodium Chloride 200 ml @ 200 mls/hr ONCE ONCE IV Last administered on 11/22/17at 03:01; Start 11/22/17 at 00:45; Stop 11/22/17 at 01:44 ; Status DC Piperacillin Sod/ Tazobactam Sod 100 ml @ 200 mls/hr ONCE ONCE IV Last administered on 11/22/17at 01:48; Start 11/22/17 at 00:45; Stop 11/22/17 at 01:14 ; Status DC Ondansetron HCl (Zofran Inj) 4 mg ONCE ONCE IV PUSH Last administered on at 04:15; Start 11/22/17 at 04:15; Stop 11/22/17 at 04:16; Status DC Pharmacy Profile Note 0 ml @ 0 mls/hr UNSCH OTHER ; Start 11/22/17 at 04:30; Stop 11/23/17 at 13:55; Status DC Sodium Chloride 1,000 ml @ 100 mls/hr Q10H IV Last administered on 11/25/17at 20:17; Start 11/22/17 at 04:19 Sodium Chloride (NS Flush) 2 ml UNSCH PRN IV FLUSH FLUSH AFTER USING IV ACCESS ; Start 11/22/17 at 04:30 Sodium Chloride (NS Flush) 2 ml BID IV FLUSH Last administered on 11/25/17at 20: 27; Start 11/22/17 at 09:00 Ondansetron HCl (Zofran Inj) 4 mg Q6H PRN IVP NAUSEA OR VOMITING Last administered on 11/26/17at 05:05; Start 11/22/17 at 04:30 Oxycodone HCl (Roxicodone) 10 mg Q4H PRN PO PAIN SCALE 6 TO 10 Last administered on 11/26/17at 09:03; Start 11/22/17 at 04:30 Oxycodone HCl (Roxicodone) 5 mg Q4H PRN PO PAIN SCALE 3 TO 5; Start 11/22/17 at 04:30 Senna/Docusate Sodium (Sujatha-Colace) 1 tab BID PO Last administered on at 09:03; Start 11/22/17 at 09:00 Magnesium Hydroxide (Milk Of Magnesia Liq) 30 ml Q12H PRN PO Mild constipation ; Start 11/22/17 at 04:30 Sennosides (Senokot) 17.2 mg Q12H PRN PO Moderate constipation; Start 11/22/17 at 04:30 Bisacodyl (Dulcolax Supp) 10 mg DAILY PRN RECTAL SEVERE CONSITIPATION; Start at 04:30 Lactulose (Lactulose Liq) 30 ml DAILY PRN PO SEVERE CONSITIPATION; Start at 04:30 Lorazepam (Ativan Inj) 1 mg Q2H PRN IV PUSH AGITATION/WITHDRAWAL; Start at 04:30 Acyclovir (Zovirax) 200 mg 5 TIMES A DAY PO Last administered on 11/26/17at 09: 03; Start 11/22/17 at 06:00 Vancomycin HCl 1250 mg/Sodium Chloride 262.5 ml @ 250 mls/hr Q8H IV ; Start at 10:00; Stop 11/23/17 at 13:55; Status DC Miscellaneous Information SPECIFIC LAB TO BE ... ONCE ONCE .XX ; Start 11/23 at 01:45; Stop 11/23/17 at 01:46; Status DC Cefazolin Sodium/ Dextrose 50 ml @ 100 mls/hr Q8H IV Last administered on 11/26at 05:12; Start 11/22/17 at 12:00 Enoxaparin Sodium (Lovenox Inj) 70 mg Q12H SQ Last administered on 11/26/17at 09 :05; Start 11/22/17 at 20:00 Ferrous Sulfate (Ferrous Sulfate) 325 mg BID@12,17 PO Last administered on 11/25at 16:46; Start 11/23/17 at 12:00 A/P Problem List: (1) Sepsis ICD Code: A41.9 - Sepsis, unspecified organism (2) Endocarditis ICD Code: I38 - Endocarditis, valve unspecified (3) S/P PICC central line placement ICD Code: Z95.828 - Presence of other vascular implants and grafts (4) UTI (urinary tract infection) ICD Code: N39.0 - Urinary tract infection, site not specified (5) Anemia ICD Code: D64.9 - Anemia, unspecified (6) IVDU (intravenous drug user) ICD Code: F19.90 - Other psychoactive substance use, unspecified, uncomplicated (7) Tobacco abuse ICD Code: Z72.0 - Tobacco use Assessment and Plan 32 years old female history IV drug use presented with failed back PICC line MSSA Sepsis with Septic emboli to the lungs MSSA Endocarditis with severe aortic valve regurgitation: Echo with mobile vegetation and severe AI. Infectious disease following. Patient on Ancef. Per infectious disease due to poor insight and active drug use difficult presenting for outpatient antibiotics she needs to be supervised for treatment. Abdominal pain May be secondary to gastritis. Abdominal exam benign. Will need to get KUB and ultrasound. Will have to get a urine test first for x-ray. Will get lipase and LFTs. Start patient on Protonix. Dyspnea Lungs are clear to auscultation patient does not require oxygen and clinically is in no respiratory distress. Patient requesting chest x-ray despite reassurance. Will need test first Hypokalemia- corrected RUE DVT- on Lovenox Anemia: Acute on Chronic. Iron bid Active IVDU: counselled Tobacco Abuse: Pt counselled. NicoDerm if needed. DVT Prophylaxis:- on Lovenox Kayla Goldsmith MD Nov 26, 2017 11:22
[2017-11-26] MEDS: FERROUS SULFATE 325 MG (65 MG ELEMENTAL IRON) TAB PO SCH ×2 (11:38→17:22)
--- NOTE | 2017-11-26 11:54 | HHI.IDPN ---
Note Infectious Disease Note ID follow up. Notes reviewed. Patient admitted with fever. Has been on treatment for Aortic valve endocarditis. Previously due to complete on 12/08/17. IV drug use through midline on days before readmission on 11/22/17. Patient now has thrombus in cephalic vein site of midline. Fever, chills on admission. Admission blood cultures negative. Had developed acute renal insufficiency while on Oxacillin. Patient notes that she is bloated and has swelling of the abdomen. Allergies Coded Allergies acetaminophen (Verified Allergy, Severe, "LOOPY", 11/22/17) propoxyphene (Verified Allergy, Severe, "LOOPY", 11/22/17) Fish Containing Products (Verified Allergy, Intermediate, 11/22/17) butorphanol (Verified Allergy, Intermediate, HALUCINATIONS, 11/22/17) Current Medications Medications (Trade) Dose Ordered Sig/Jannie Route PRN Reason Start Time Stop Time Status Last Admin Dose Admin Sodium Chloride (NS Flush) 2 ml UNSCH PRN IV FLUSH FLUSH AFTER USING IV ACCESS 11/22/17 04:30 Sodium Chloride (NS Flush) 2 ml BID IV FLUSH 11/22/17 09:00 11/25/17 20:27 Ondansetron HCl (Zofran Inj) 4 mg Q6H PRN IVP NAUSEA OR VOMITING 11/22/17 04:30 11/26/17 05:05 Oxycodone HCl (Roxicodone) 10 mg Q4H PRN PO PAIN SCALE 6 TO 10 11/22/17 04:30 11/26/17 09:03 Oxycodone HCl (Roxicodone) 5 mg Q4H PRN PO PAIN SCALE 3 TO 5 11/22/17 04:30 Senna/Docusate Sodium (Sujatha-Colace) 1 tab BID PO 11/22/17 09:00 11/26/17 09:03 Magnesium Hydroxide (Milk Of Magnesia Liq) 30 ml Q12H PRN PO Mild constipation 11/22/17 04:30 Sennosides (Senokot) 17.2 mg Q12H PRN PO Moderate constipation 11/22/17 04:30 Bisacodyl (Dulcolax Supp) 10 mg DAILY PRN RECTAL SEVERE CONSITIPATION 11/22/17 04:30 Lactulose (Lactulose Liq) 30 ml DAILY PRN PO SEVERE CONSITIPATION 11/22/17 04:30 Lorazepam (Ativan Inj) 1 mg Q2H PRN IV PUSH AGITATION/WITHDRAWAL 11/22/17 04:30 Acyclovir (Zovirax) 200 mg 5 TIMES A DAY PO 11/22/17 06:00 11/26/17 09:03 Cefazolin Sodium/ Dextrose 50 ml @ 100 mls/hr Q8H IV 11/22/17 12:00 11/26/17 11:38 Enoxaparin Sodium (Lovenox Inj) 70 mg Q12H SQ 11/22/17 20:00 11/26/17 09:05 Ferrous Sulfate (Ferrous Sulfate) 325 mg BID@12,17 PO 11/23/17 12:00 11/26/17 11:38 Pantoprazole Sodium (Protonix) 20 mg DAILY PO 11/26/17 11:15 UNV OBJECTIVE: Vital Signs Date Time Temp Pulse Resp B/P (MAP) Pulse Ox O2 Delivery O2 Flow Rate FiO2 11/26/17 10:03 16 11/26/17 08:00 96.7 90 20 146/60 (88) 96 11/26/17 07:45 90 11/26/17 04:47 96.6 87 18 150/66 (94) 96 11/26/17 00:05 98.2 92 18 147/60 (89) 99 11/25/17 20:00 98.2 93 20 141/58 (85) 98 11/25/17 16:00 98.0 97 16 140/67 (91) 99 11/25/17 12:00 97.2 96 16 135/63 (87) 100 Microbiology Date/Time Source Procedure Growth Status 11/24/17 22:00 Stool Stool Stool Occult Blood (JONNY) - Final HEMOCCULT NEGATIVE Complete IMAGING: Chest X-Ray 11/22/17 0045 Signed Impressions: Service Date/Time: Wednesday, November 22, 2017 01:07 - CONCLUSION: 1. There continues to be a focal infiltrate in left midlung which has improved compared to the prior exam. 2. No new infiltrates are seen. No other new or significant changes. Vern Richter MD Upper Extremity Ultrasound 11/22/17 0000 Signed Impressions: Service Date/Time: Wednesday, November 22, 2017 17:54 - CONCLUSION: Right upper extremity DVT involving the axillary and basilic veins. Matthieu Griffiths MD GENERAL: Patient is in no acute distress. HEENT: EOMI, No icterus. No conjunctival erythema. NECK: Supple. LUNGS: Clear breath sounds. CARDIAC: Regular rate and rhythm, Nl S1S2, loud systolic murmur at LSB. ABDOMEN: Soft, non tender. EXTREMITIES: Swelling at the R. humerus. tenderness at inner R humerus. Diffuse edema. SKIN: No rash. NEURO: Non focal. PSYCH: Anxious. IMPRESSION: Aortic valve endocarditis with Severe aortic regurg. on echocardiogram. PICC infection. IVDU. Active. Recent septic lung, spleen emboli. Septic Thrombophlebitis RUE. RUE DVT at cephalic and basilic vein. RECOMMEND: Continue Ancef 2 gram IV Q hours until 12/08/17. Weekly labs written on Infusion form. Due to her poor insight and active drug use and difficulty showing up for IV outpatient antibiotic she will need supervised treatment. If Arrangements can be made for outpatient that is okay with me for discharge as long as she gets the recommended antibiotic above. Breezy Muñoz MD Nov 26, 2017 11:54
--- NOTE | 2017-11-26 11:57 | HHI.FF ---
Infusion Therapy Location of Infusion Therapy: Ambulatory Infusion Therapy Order Patient Information Patient Weight 73 kg Diagnosis: Coded Allergies: acetaminophen (Verified Allergy, Severe, "LOOPY", 11/22/17) propoxyphene (Verified Allergy, Severe, "LOOPY", 11/22/17) Fish Containing Products (Verified Allergy, Intermediate, 11/22/17) butorphanol (Verified Allergy, Intermediate, HALUCINATIONS, 11/22/17) Administer Medication Cefazolin 2 grams IV q 8 hours Stop Treatment: Dec 08, 2017 Additional Information Venous access: Peripheral, Other Additional Instructions [x] Peripheral flush and dressing changes per protocol [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 [] May leave port accessed during therapy. [] May leave peripheral site accessed for duration of therapy. [x] If patient has SOB or respiratory distress, check oxygen saturation. If less than 90% or clinical signs of respiratory distress, administer oxygen at 2 L/min. via nasal cannula and notify physician. [x] Anaphylaxis/Reaction orders: * Stop infusion. * Keep IV line open with saline flush. * Notify physician. * Monitor vital signs every 15 minutes until symptoms resolve. * Check Oxygen saturation; Oxygen at 2 L/min. via nasal cannula if less than 90% or clinical signs of respiratory distress. * Administer diphenhydramine (Benadryl) 25 mg IV STAT, (unless patient has received as pre-med). May repeat once, if necessary. * Solu-Cortef 250 mg IVP over 30-60 seconds, use 100 mg vials for each dissolution. * Epinephrine (1mg/1 ml) 0.3 mg subcutaneously or IVP now with any signs of respiratory distress. * Check with physician for new additional pre-med orders if patient is re- challenged or re-treated. [x] May remove PICC line when treatment complete, after confirming with Physician. [x] If the patient is admitted to the hospital, the ED, or transferred via [facility] , complete transfer form including medication reconciliation order sheet. Laboratory Tests Weekly Labs: BMP, CBC w/diff Additional Information Please call if creatinine > 2.0 Dr Muñoz [phone]. Breezy Muñoz MD Nov 26, 2017 11:57
[2017-11-26 13:10] LABS: HEMATOCRIT 25.7 % (35.0-46.0); HEMOGLOBIN 8.4 GM/DL (11.6-15.3); MEAN CELL VOLUME 76.5 FL (80.0-100.0); MEAN CORPUSCULAR HEMOGLOBIN 25.1 PG (27.0-34.0); MEAN CORPUSCULAR HGB CONC 32.8 % (32.0-36.0); MEAN PLATELET VOLUME 7.3 FL (7.0-11.0); PLATELET COUNT 366 TH/MM3 (150-450); RED BLOOD COUNT 3.36 MIL/MM3 (4.00-5.30); RED CELL DISTRIBUTION WIDTH 20.3 % (11.6-17.2); WHITE BLOOD COUNT 5.2 TH/MM3 (4.0-11.0)
[2017-11-26] MEDS: PANTOPRAZOLE SOD 20 MG DELAYED RELEASE TAB PO SCH (13:31)
--- NOTE | 2017-11-26 14:08 | RADRPT ---
EXAM DATE/TIME: 11/26/2017 12:50 [facility] COMPARISON: CT PULMONARY ANGIOGRAM, October 25, 2017, 22:24. INDICATIONS : Abdomen pain. MEDICAL HISTORY : Abdomen pain. SURGICAL HISTORY : Tubal ligation. section. ENCOUNTER: Initial ACUITY: 2 days PAIN SCORE: 8/10 LOCATION: Abdomen. MEASUREMENTS: LIVER: 16.9 cm length COMMON DUCT: 6 mm RIGHT KIDNEY: 11.3 x 5.7 x 4.5 cm LEFT KIDNEY: 12.4 x 4.3 x 4.1 cm SPLEEN: 16.3 cm length AORTA: 1.7cm maximal FINDINGS: LIVER: Normal echotexture without focal lesion or ductal dilatation. There is pulsatile blood flow in the ma in portal vein. COMMON DUCT: No intraluminal mass or stone visualized. GALLBLADDER: There is mild gallbladder wall thickening. No gallstones are present. Sonographic Vallejo sign is nega tive. PANCREAS: The visualized portions are within normal limits. RIGHT KIDNEY: No hydronephrosis, stone or mass. LEFT KIDNEY: No hydronephrosis, stone or mass. SPLEEN: The spleen is enlarged and contains 3 hypoechoic avascular areas measuring approximately between 3 cm and 4.5 cm. AORTA: Non aneurysmal. IVC: Within normal limits. CONCLUSION: 1. Splenomegaly with 3 avascular hypoechoic areas which may represent infarcts. Suggest followup to c onfirm stability or resolution. 2. Mild nonspecific gallbladder wall thickening. There are no other features to suggest acute gallbla dder inflammation or obstruction. Matthieu Braden MD on November 26, 2017 at 14:01 Board Certified Radiologist. This report was verified electronically.
[2017-11-26 16:33] LABS: ALBUMIN 2.9 GM/DL (3.4-5.0); AST (GOT) 15 U/L (15-37); BICARBONATE 22.6 MEQ/L (21.0-32.0); BLOOD UREA NITROGEN 5 MG/DL (7-18); CALCIUM 8.8 MG/DL (8.5-10.1); CHLORIDE 113 MEQ/L (98-107); CREATININE 0.99 MG/DL (0.50-1.00); GLOMERULAR FILTRATION RATE 65 ML/MIN (>89); GLUCOSE,RANDOM 81 MG/DL (74-106); LIPASE 62 U/L (73-393); SODIUM (NA) 144 MEQ/L (136-145)
[2017-11-26 16:35] LABS: ALT (GPT) 11 U/L (10-53)
[2017-11-26 16:36] LABS: ALKALINE PHOSPHATASE 87 U/L (45-117); TOTAL BILIRUBIN ADULT 0.3 MG/DL (0.2-1.0); TOTAL PROTEIN 7.7 GM/DL (6.4-8.2)
[2017-11-26 22:39] LABS: BICARBONATE 22.7 MEQ/L (21.0-32.0); CALCIUM 8.3 MG/DL (8.5-10.1); CREATININE 1.01 MG/DL (0.50-1.00)
[2017-11-27] VITALS: BP 132/56; PULSE 92; RESP 18; TEMP 97.8; O2SAT 98
--- NOTE | 2017-11-27 00:03 | RADRPT ---
EXAM DATE/TIME: 11/26/2017 23:22 [facility] COMPARISON: CHEST SINGLE AP, November 22, 2017, 1:07. INDICATIONS : Difficulty breathing starting today MEDICAL HISTORY : None. SURGICAL HISTORY : section. Tubal ligation. ENCOUNTER: Initial ACUITY: 1 day PAIN SCORE: 0/10 LOCATION: Bilateral chest FINDINGS: The heart size is normal. There is prominence of the central vessels and central pulmonary interstiti um. There is mild left effusion. CONCLUSION: Suspected edema with a mild left pleural effusion. Matthieu Marie MD on November 27, 2017 at 0:00 Board Certified Radiologist. This report was verified electronically.
--- NOTE | 2017-11-27 00:05 | RADRPT ---
EXAM DATE/TIME: 11/26/2017 23:25 [facility] COMPARISON: No previous studies available for comparison. INDICATIONS : Abdominal pain starting today MEDICAL HISTORY : None. SURGICAL HISTORY : Tubal ligation. section. ENCOUNTER: Initial ACUITY: 1 day PAIN SCORE: 8/10 LOCATION: Bilateral abdomen FINDINGS: Supine view of the abdomen was performed. The abdominal bowel gas pattern is normal. No abnormal ma sses, calcifications, or organomegaly is seen. The osseous structures are unremarkable. CONCLUSION: No acute disease. Matthieu Marie MD on November 27, 2017 at 0:03 Board Certified Radiologist. This report was verified electronically.
[2017-11-27 04:00] VITALS: BP 152/65; PULSE 100; RESP 20; TEMP 97.1; O2SAT 93
[2017-11-27] MEDS: ACYCLOVIR 200 MG CAP PO SCH ×4 (05:11→22:08)
[2017-11-27] MEDS: ceFAZolin 2 GM PREMIX 50 ML IV SCH ×3 (05:12→22:09)
[2017-11-27 08:00] VITALS: BP 175/64; PULSE 91; RESP 18; TEMP 98.5; O2SAT 94
[2017-11-27] MEDS: SODIUM CHLORIDE 0.9% FLUSH 10 ML FLUSH IV FLUSH SCH ×2 (09:07→22:09)
[2017-11-27] MEDS: ENOXAPARIN SODIUM 80 MG/0.8 ML SYRINGE SQ SCH ×2 (09:07→22:09)
[2017-11-27] MEDS: DOCUSATE SODIUM 50 MG/SENNA 8.6 MG TAB PO SCH ×2 (09:08→22:08)
[2017-11-27] MEDS: PANTOPRAZOLE SOD 20 MG DELAYED RELEASE TAB PO SCH (09:08)
[2017-11-27] MEDS ORDERED: amLODIPine BESYLATE 5 MG TAB PO ONE (10:30)
[2017-11-27] MEDS: FERROUS SULFATE 325 MG (65 MG ELEMENTAL IRON) TAB PO SCH (12:28)
--- NOTE | 2017-11-27 13:57 | HHI.PR ---
Subjective Remarks Pt states she feels bloated, had some nausea and vomited this morning. None at this time. has been ambulating in her room. Good bladder and bowel function Not happy to still be in the hospital but understands she needs to get treatment Objective Vitals Vital Signs Date Time Temp Pulse Resp B/P (MAP) Pulse Ox O2 Delivery O2 Flow Rate FiO2 11/27/17 08:00 98.5 91 18 175/64 (101) 94 11/27/17 04:00 97.1 100 20 152/65 (94) 93 11/27/17 00:00 97.8 92 18 132/56 (81) 98 11/26/17 22:18 111 11/26/17 20:00 98.3 89 20 153/67 (95) 97 11/26/17 16:00 97.1 95 18 150/65 (93) 95 11/26/17 14:32 16 I/O 11/26/17 11/26/17 11/26/17 11/27/17 11/27/17 11/27/17 06:59 14:59 22:59 06:59 14:59 22:59 Intake Total 810 ml 650 ml 720 ml 860 ml Balance 810 ml 650 ml 720 ml 860 ml Intake Oral 760 ml 720 ml 760 ml IV Total 50 ml 650 ml 100 ml # Voids 3 7 3 # Bowel Movements 0 Result Diagram: 11/26/17 1235 11/26/17 2149 Imaging Last Impressions Chest X-Ray 11/26/17 0000 Signed Impressions: Service Date/Time: Sunday, November 26, 2017 23:22 - CONCLUSION: Suspected edema with a mild left pleural effusion. Matthieu Marie MD Abdomen X-Ray 11/26/17 0000 Signed Impressions: Service Date/Time: Sunday, November 26, 2017 23:25 - CONCLUSION: No acute disease. Matthieu Marie MD Abdomen Ultrasound 11/26/17 0000 Signed Impressions: Service Date/Time: Sunday, November 26, 2017 12:50 - CONCLUSION: 1. Splenomegaly with 3 avascular hypoechoic areas which may represent infarcts. Suggest followup to confirm stability or resolution. 2. Mild nonspecific gallbladder wall thickening. There are no other features to suggest acute gallbladder inflammation or obstruction. Matthieu Braden MD Upper Extremity Ultrasound 11/22/17 0000 Signed Impressions: Service Date/Time: Wednesday, November 22, 2017 17:54 - CONCLUSION: Right upper extremity DVT involving the axillary and basilic veins. Matthieu Griffiths MD Objective Remarks GENERAL: in NAD NECK: trachea midline CARDIOVASCULAR: . Regular rate and rhythm. Soft systolic murmur. RESPIRATORY: Breath sounds equal bilaterally. No accessory muscle use. GASTROINTESTINAL: Abdomen soft and abdomen is a little bloated. no pain w deep palpation on my exam. MSK: moves extremities well. A/P Problem List: (1) Sepsis ICD Code: A41.9 - Sepsis, unspecified organism (2) Endocarditis ICD Code: I38 - Endocarditis, valve unspecified (3) S/P PICC central line placement ICD Code: Z95.828 - Presence of other vascular implants and grafts (4) UTI (urinary tract infection) ICD Code: N39.0 - Urinary tract infection, site not specified (5) Anemia ICD Code: D64.9 - Anemia, unspecified (6) IVDU (intravenous drug user) ICD Code: F19.90 - Other psychoactive substance use, unspecified, uncomplicated (7) Tobacco abuse ICD Code: Z72.0 - Tobacco use Assessment and Plan 32 years old female history IV drug use presented with failed back PICC line MSSA Sepsis with Septic emboli to the lungs MSSA Endocarditis with severe aortic valve regurgitation: Echo with mobile vegetation and severe AI. Infectious disease following. Patient on Ancef. Per infectious disease due to poor insight and active drug use difficult presenting for outpatient antibiotics she needs to be supervised for treatment. Pt will need q8hr ancef. Abdominal pain Bloating per patient: non tender on exam today. U/s results reviewed Splenomegaly with 3 avascular hypoechoic areas which may represent infarcts. Monitor. LFTs normal. test neg. Dyspnea Lungs are clear to auscultation patient does not require oxygen and clinically is in no respiratory distress. Chest x-ray shows mild left pleural effusion. Encourage use of IS q1hr while awake. Hypokalemia- corrected RUE DVT- on Lovenox Anemia: Acute on Chronic. Iron bid Active IVDU: counselled Tobacco Abuse: Pt counselled. NicoDerm if needed. DVT Prophylaxis:- on Lovenox Discharge Planning Pt will require treatment until 12/08/17 for IV Abx. Per ID pt does need supervision and requires Q8hrs IV abx. CM looking into this. Also will need to touch base w CM regarding anticoagulation as pt is self pay Tigist Curry MD Nov 27, 2017 13:57
[2017-11-27 16:00] VITALS: BP 138/53; PULSE 98; RESP 18; TEMP 97.6; O2SAT 100
[2017-11-27 20:00] VITALS: BP 159/65; PULSE 101; RESP 20; TEMP 98.4; O2SAT 98
[2017-11-28] VITALS (7 sets, daily range): BP systolic 125–174; BP diastolic 42–77; PULSE 88–106; RESP 18–22; TEMP 96.6–97.4; O2SAT 90–99
[2017-11-28] MEDS: ACYCLOVIR 200 MG CAP PO SCH ×5 (05:54→20:55)
[2017-11-28] MEDS: ceFAZolin 2 GM PREMIX 50 ML IV SCH ×3 (05:55→20:54)
[2017-11-28] MEDS: SODIUM CHLORIDE 0.9% FLUSH 10 ML FLUSH IV FLUSH SCH ×2 (10:05→21:00)
[2017-11-28] MEDS: amLODIPine BESYLATE 5 MG TAB PO SCH (10:05)
[2017-11-28] MEDS: DOCUSATE SODIUM 50 MG/SENNA 8.6 MG TAB PO SCH ×2 (10:05→21:00)
[2017-11-28] MEDS: PANTOPRAZOLE SOD 20 MG DELAYED RELEASE TAB PO SCH (10:05)
[2017-11-28] MEDS: ENOXAPARIN SODIUM 80 MG/0.8 ML SYRINGE SQ SCH ×2 (10:09→20:54)
--- NOTE | 2017-11-28 11:27 | HHI.PR ---
Subjective Remarks Pt tells me that she is having worsening left sided abdominal pain and feels it is pushing up her chest. She feels more bloated and has a hard time breathing. She notes that when laying down it gets worst. This has been progressively getting worst for the past 4 days but today its is the worst she has felt. Objective Vitals Vital Signs Date Time Temp Pulse Resp B/P (MAP) Pulse Ox O2 Delivery O2 Flow Rate FiO2 11/28/17 08:00 97.1 98 22 164/65 (98) 90 11/28/17 04:27 97.4 95 20 146/64 (91) 92 11/28/17 00:00 97.2 95 20 148/64 (92) 99 11/27/17 20:00 98.4 101 20 159/65 (96) 98 11/27/17 16:00 97.6 98 18 138/53 (81) 100 I/O 11/27/17 11/27/17 11/27/17 11/28/17 11/28/17 11/28/17 07:00 15:00 23:00 07:00 15:00 23:00 Intake Total 860 ml 50 ml Balance 860 ml 50 ml Intake Oral 760 ml IV Total 100 ml 50 ml # Voids 3 2 Result Diagram: 11/26/17 1235 11/26/17 2149 Imaging Last Impressions Chest X-Ray 11/26/17 0000 Signed Impressions: Service Date/Time: Sunday, November 26, 2017 23:22 - CONCLUSION: Suspected edema with a mild left pleural effusion. Matthieu Marie MD Abdomen X-Ray 11/26/17 0000 Signed Impressions: Service Date/Time: Sunday, November 26, 2017 23:25 - CONCLUSION: No acute disease. Matthieu Marie MD Abdomen Ultrasound 11/26/17 0000 Signed Impressions: Service Date/Time: Sunday, November 26, 2017 12:50 - CONCLUSION: 1. Splenomegaly with 3 avascular hypoechoic areas which may represent infarcts. Suggest followup to confirm stability or resolution. 2. Mild nonspecific gallbladder wall thickening. There are no other features to suggest acute gallbladder inflammation or obstruction. Matthieu Braden MD Upper Extremity Ultrasound 11/22/17 0000 Signed Impressions: Service Date/Time: Wednesday, November 22, 2017 17:54 - CONCLUSION: Right upper extremity DVT involving the axillary and basilic veins. Matthieu Griffiths MD Objective Remarks GENERAL: appears uncomfortable and more short of breath this morning. NECK: trachea midline CARDIOVASCULAR: . Regular rate and rhythm. Soft systolic murmur. RESPIRATORY: Breath sounds equal bilaterally. has to pause at times to speak. GASTROINTESTINAL: Abdomen soft and abdomen it is a bit obese not really distended. discomfort w palpation of the left upper and lower quadrants. MSK: moves extremities well. Able to ambulate in room. A/P Problem List: (1) Sepsis ICD Code: A41.9 - Sepsis, unspecified organism (2) Endocarditis ICD Code: I38 - Endocarditis, valve unspecified (3) S/P PICC central line placement ICD Code: Z95.828 - Presence of other vascular implants and grafts (4) UTI (urinary tract infection) ICD Code: N39.0 - Urinary tract infection, site not specified (5) Anemia ICD Code: D64.9 - Anemia, unspecified (6) IVDU (intravenous drug user) ICD Code: F19.90 - Other psychoactive substance use, unspecified, uncomplicated (7) Tobacco abuse ICD Code: Z72.0 - Tobacco use Assessment and Plan 32 years old female history IV drug use presented with failed back PICC line MSSA Sepsis with Septic emboli to the lungs MSSA Endocarditis with severe aortic valve regurgitation: Echo with mobile vegetation and severe AI. Infectious disease following. Patient on Ancef. Per infectious disease due to poor insight and active drug use difficult presenting for outpatient antibiotics she needs to be supervised for treatment. Pt requires q8hr ancef. Therefore pt will remain in the hospital for completion of treatment. Abdominal pain: worsening per patient. U/s results reviewed Splenomegaly with 3 avascular hypoechoic areas which may represent infarcts. Monitor. LFTs normal. test neg. Dyspnea seems to be worsened. O2 sats were in the low 90's. Pt appears anxious. Will check CTA and r/o PE although pt is fully anticoagulated. Will also check CT abd /pelvis as pt is complaining of worsening pain and bloating. Hypokalemia- corrected RUE DVT- on Lovenox Anemia: Acute on Chronic. Iron bid Active IVDU: counselled Tobacco Abuse: Pt counselled. NicoDerm if needed. DVT Prophylaxis:- on Lovenox Discharge Planning Pt will require treatment until 12/08/17 for IV Abx. Per ID pt does need supervision and requires Q8hrs IV abx. CM looking into this. Also will need to touch base w CM regarding anticoagulation as pt is self pay f/u on CTA and CT abd/pelvis Tigist Curry MD Nov 28, 2017 11:27
[2017-11-28] MEDS: FERROUS SULFATE 325 MG (65 MG ELEMENTAL IRON) TAB PO SCH ×2 (12:39→17:56)
[2017-11-28] MEDS ORDERED: DIATRIZOATE MEGLUM/DIATRIZOATE SOD 9 ML CUP PO ONE (14:00)
[2017-11-28] MEDS ORDERED: IOHEXOL 350 MG/ML 10 ML VIAL (for RAD DIAG) IVCONTRAST ONE (19:42)
--- NOTE | 2017-11-28 20:02 | RADRPT ---
EXAM DATE/TIME: 11/28/2017 19:40 [facility] COMPARISON: CT PULMONARY ANGIOGRAM, October 25, 2017, 22:24. INDICATIONS : Short of breath, embolism. IV CONTRAST: 91 cc Omnipaque 350 (iohexol) IV RADIATION DOSE: 15.10 CTDIvol (mGy) MEDICAL HISTORY : Renal insufficiency. IV drug use. SURGICAL HISTORY : None. ENCOUNTER: Initial ACUITY: 1 day PAIN SCALE: 3/10 LOCATION: Bilateral chest TECHNIQUE: Volumetric scanning of the chest was performed using a pulmonary embolism protocol MIP images were re constructed. Using automated exposure control and adjustment of the mA and/or kV according to patien t size, radiation dose was kept as low as reasonably achievable to obtain optimal diagnostic quality images. DICOM format image data is available electronically for review and comparison. Follow-up recommendations for detected pulmonary nodules are based at a minimum on nodule size and pa tient risk factors according to Fleischner Society Guidelines. FINDINGS: PULMONARY ARTERIES: No filling defects are seen in the pulmonary arteries through the segmental level. LUNGS: Passive atelectasis involving the lower lobes. There is a 1.5 cm diameter rounded consolidation invol ving the lingula anteriorly. This is in an area of prior consolidation with cavitary formation. It is smaller from the prior exam. No cavitary or shunt is seen on the current exam. The groundglass opaci ty is seen within the medial segment of the right middle lobe. This is new. PLEURAE: Small posterior layering pleural effusions bilaterally. MEDIASTINUM: The heart is normal in size. Tiny pericardial effusion. Aorta and pulmonary arteries are normal in ca liber. No appreciable adenopathy. MUSCULOSKELETAL: Within normal limits for patient age. MISCELLANEOUS: A wedge-shaped defect is seen involving the spleen. This is smaller than the prior exam. CONCLUSION: 1. No pulmonary emboli. 2. Small bilateral pleural effusions with associated passive atelectasis. 3. Small ground glass opacity within the right middle lobe. This could relate to an early infectious infiltrate or focal pulmonary edema. 4. Area of scarring involving the lingula. 5. Tiny pericardial effusion. 6. Wedge-shaped low-density area involving the spleen consistent with prior infarction. Ismael Bruno Jr., MD on November 28, 2017 at 19:55 Board Certified Radiologist. This report was verified electronically.
--- NOTE | 2017-11-28 20:17 | RADRPT ---
EXAM DATE/TIME: 11/28/2017 19:40 [facility] COMPARISON: US ABDOMEN - COMPLETE, November 26, 2017, 12:50. INDICATIONS : Diffuse abdomen pain one day. IV CONTRAST: 91 cc Omnipaque 350 (iohexol) IV ORAL CONTRAST: Prescribed oral contrast ingested. RADIATION DOSE: 10.12 CTDIvol (mGy) MEDICAL HISTORY : Renal insufficiency. IV drug use. SURGICAL HISTORY : None. ENCOUNTER: Initial ACUITY: 1 day PAIN SCALE: 7/10 LOCATION: Bilateral lower quadrant TECHNIQUE: Volumetric scanning of the abdomen and pelvis was performed. Using automated exposure control and ad justment of the mA and/or kV according to patient size, radiation dose was kept as low as reasonably achievable to obtain optimal diagnostic quality images. DICOM format image data is available electro nically for review and comparison. FINDINGS: LOWER LUNGS: See the CT of the thorax described in this CTA pulmonary angiogram report. LIVER: Homogeneous density without lesion. There is no dilation of the biliary tree. No calcified gallston es. SPLEEN: Multiple low-density lesions are seen scattered throughout the spleen. The largest involves the most cephalad portion of the spleen and is consistent with an infarction. The other lesions are less speci fic in their appearance but likely related to infarcts as well. PANCREAS: Within normal limits. KIDNEYS: Normal in size and shape. lobulation noted. There is no mass, stone or hydronephrosis. ADRENAL GLANDS: Within normal limits. VASCULAR: There is no aortic aneurysm. BOWEL/MESENTERY: The stomach, small bowel, and colon demonstrate no acute abnormality. There is no free intraperitone al air. Small volume ascites seen deep within the pelvis. Appendix is filled with oral contrast and n ormal by CT criteria ABDOMINAL WALL: Within normal limits. RETROPERITONEUM: There is no lymphadenopathy. BLADDER: No wall thickening or mass. REPRODUCTIVE: Within normal limits. INGUINAL: There is no lymphadenopathy or hernia. MUSCULOSKELETAL: Within normal limits for patient age. CONCLUSION: 1. Small bilateral pleural effusions. 2. Multiple splenic infarcts. 3. Small volume ascites. Ismael Bruno Jr., MD on November 28, 2017 at 20:10 Board Certified Radiologist. This report was verified electronically.
[2017-11-28] MEDS: LORazepam 2 MG/ML VIAL IV PUSH PRN (20:54)
[2017-11-29] VITALS (8 sets, daily range): BP systolic 129–168; BP diastolic 46–67; PULSE 92–116; RESP 18–20; TEMP 96.4–98; O2SAT 92–100
[2017-11-29] MEDS: ceFAZolin 2 GM PREMIX 50 ML IV SCH ×3 (05:20→20:08)
[2017-11-29] MEDS: ACYCLOVIR 200 MG CAP PO SCH ×5 (05:20→20:49)
[2017-11-29] MEDS: ONDANSETRON HCL 4 MG/2 ML VIAL IVP PRN (05:22)
[2017-11-29 06:51] LABS: AUTOMATED NEUTROPHIL # 1.9 TH/MM3 (1.8-7.7); BASOPHIL % 0.6 % (0.0-2.0); EOSINOPHIL # 0.1 TH/MM3 (0-0.4); EOSINOPHIL % 2.8 % (0.0-4.0); HEMOGLOBIN 8.9 GM/DL (11.6-15.3); LYMPH % 55.5 % (9.0-44.0); LYMPHOCYTE # 2.9 TH/MM3 (1.0-4.8); MEAN CELL VOLUME 76.6 FL (80.0-100.0); MEAN CORPUSCULAR HEMOGLOBIN 25.2 PG (27.0-34.0); MEAN CORPUSCULAR HGB CONC 32.9 % (32.0-36.0); MONO % 4.9 % (0.0-8.0); MONOCYTE # 0.3 TH/MM3 (0-0.9); NEUT % 36.2 % (16.0-70.0); PLATELET COUNT 335 TH/MM3 (150-450); RED BLOOD COUNT 3.53 MIL/MM3 (4.00-5.30); RED CELL DISTRIBUTION WIDTH 20.6 % (11.6-17.2); WHITE BLOOD COUNT 5.2 TH/MM3 (4.0-11.0)
[2017-11-29 07:05] LABS: BICARBONATE 24.6 MEQ/L (21.0-32.0); CALCIUM 8.3 MG/DL (8.5-10.1); CREATININE 0.75 MG/DL (0.50-1.00)
[2017-11-29] MEDS: DOCUSATE SODIUM 50 MG/SENNA 8.6 MG TAB PO SCH ×2 (09:00→20:15)
[2017-11-29] MEDS: amLODIPine BESYLATE 5 MG TAB PO SCH (09:53)
[2017-11-29] MEDS: LORazepam 2 MG/ML VIAL IV PUSH PRN (09:54)
[2017-11-29] MEDS: PANTOPRAZOLE SOD 20 MG DELAYED RELEASE TAB PO SCH (09:54)
[2017-11-29] MEDS: ENOXAPARIN SODIUM 80 MG/0.8 ML SYRINGE SQ SCH ×2 (09:55→20:08)
[2017-11-29] MEDS: SODIUM CHLORIDE 0.9% FLUSH 10 ML FLUSH IV FLUSH SCH ×2 (09:56→20:15)
[2017-11-29] MEDS: FERROUS SULFATE 325 MG (65 MG ELEMENTAL IRON) TAB PO SCH ×2 (11:44→17:10)
--- NOTE | 2017-11-29 14:24 | HHI.PR ---
Subjective Remarks Pt states that she feels better today, still has pain in the left upper quadrant. Pt would like to speak w psychiatry as she feels very tearful, anxious. She knows that "I did this to myself" but she wants to get better but feels that everyone is judging, she is very conscious about why she is here and feels overwhelmed and anxious at times and has difficulty breathing whenever she gets that way. No nausea or vomiting. Objective Vitals Vital Signs Date Time Temp Pulse Resp B/P (MAP) Pulse Ox O2 Delivery O2 Flow Rate FiO2 11/29/17 12:00 97.7 116 18 136/63 (87) 96 11/29/17 10:00 92 11/29/17 08:00 98.0 100 20 130/58 (82) 92 11/29/17 04:10 97.4 94 20 129/46 (73) 92 11/29/17 00:00 108 11/29/17 00:00 97.1 104 20 135/51 (79) 99 11/28/17 22:18 20 11/28/17 20:00 97.0 106 20 174/42 (86) 96 11/28/17 16:00 97.2 99 18 149/65 (93) 96 I/O 11/28/17 11/28/17 11/28/17 11/29/17 11/29/17 11/29/17 07:00 15:00 23:00 07:00 15:00 23:00 Intake Total 50 ml 500 ml Balance 50 ml 500 ml Intake Oral 500 ml IV Total 50 ml # Voids 2 3 2 # Bowel Movements 1 1 Result Diagram: 11/29/17 0529 11/29/[address] Angiography 11/28/17 0000 Signed Impressions: Service Date/Time: Tuesday, November 28, 2017 19:40 - CONCLUSION: 1. No pulmonary emboli. 2. Small bilateral pleural effusions with associated passive atelectasis. 3. Small ground glass opacity within the right middle lobe. This could relate to an early infectious infiltrate or focal pulmonary edema. 4. Area of scarring involving the lingula. 5. Tiny pericardial effusion. 6. Wedge- shaped low-density area involving the spleen consistent with prior infarction. Ismael Bruno Jr., MD Abdomen/Pelvis CT 11/28/17 0000 Signed Impressions: Service Date/Time: Tuesday, November 28, 2017 19:40 - CONCLUSION: 1. Small bilateral pleural effusions. 2. Multiple splenic infarcts. 3. Small volume ascites. Ismael Bruno Jr., MD Chest X-Ray 11/26/17 0000 Signed Impressions: Service Date/Time: Sunday, November 26, 2017 23:22 - CONCLUSION: Suspected edema with a mild left pleural effusion. Matthieu Marie MD Abdomen X-Ray 11/26/17 0000 Signed Impressions: Service Date/Time: Sunday, November 26, 2017 23:25 - CONCLUSION: No acute disease. Matthieu Marie MD Abdomen Ultrasound 11/26/17 0000 Signed Impressions: Service Date/Time: Sunday, November 26, 2017 12:50 - CONCLUSION: 1. Splenomegaly with 3 avascular hypoechoic areas which may represent infarcts. Suggest followup to confirm stability or resolution. 2. Mild nonspecific gallbladder wall thickening. There are no other features to suggest acute gallbladder inflammation or obstruction. Matthieu Braden MD Upper Extremity Ultrasound 11/22/17 0000 Signed Impressions: Service Date/Time: Wednesday, November 22, 2017 17:54 - CONCLUSION: Right upper extremity DVT involving the axillary and basilic veins. Matthieu Griffiths MD Objective Remarks GENERAL: appears more comfortable. Tearful during my interview. NECK: trachea midline CARDIOVASCULAR: . mildly tachycardic. Soft systolic murmur. RESPIRATORY: Breath sounds equal bilaterally GASTROINTESTINAL: Abdomen soft and abdomen it is a bit obese not really distended. discomfort w palpation of the left upper and lower quadrants. MSK: moves extremities well. Able to ambulate in room. A/P Problem List: (1) Sepsis ICD Code: A41.9 - Sepsis, unspecified organism (2) Endocarditis ICD Code: I38 - Endocarditis, valve unspecified (3) S/P PICC central line placement ICD Code: Z95.828 - Presence of other vascular implants and grafts (4) UTI (urinary tract infection) ICD Code: N39.0 - Urinary tract infection, site not specified (5) Anemia ICD Code: D64.9 - Anemia, unspecified (6) IVDU (intravenous drug user) ICD Code: F19.90 - Other psychoactive substance use, unspecified, uncomplicated (7) Tobacco abuse ICD Code: Z72.0 - Tobacco use Assessment and Plan 32 years old female history IV drug use presented with failed back PICC line MSSA Sepsis with Septic emboli to the lungs MSSA Endocarditis with severe aortic valve regurgitation: Echo with mobile vegetation and severe AI. Infectious disease following. Patient on Ancef. Per infectious disease due to poor insight and active drug use difficult presenting for outpatient antibiotics she needs to be supervised for treatment. Pt requires q8hr ancef. Therefore pt will remain in the hospital for completion of treatment. Pt agreeable w plan repeat CTA didn't show any PE, but did show "small ground glass opacity within the right middle lobe which could relate to an early infectious infiltrate or focal pulm edema". Pt was counseled extensively to use IS q1hr while awake. Currently pt is afebrile and has no leukocytosis. Monitor closely. If she spike fevers/has leukocytosis, will start regimen for hospital acquired PNA and notify ID. For now monitor clinically. CT abd/pelvis was also reviewed. Abdominal pain: . Monitor. LFTs normal. test neg. CT abd/pelvis shows multiple splenic infarcts which have been present. Dyspnea Improved. Pt appears anxious and would like to speak w Psych. Appreciate assistance Hypokalemia- corrected RUE DVT- on Lovenox Anemia: Acute on Chronic. Iron bid Active IVDU: counselled Tobacco Abuse: Pt counselled. NicoDerm if needed. DVT Prophylaxis:- on Lovenox Discharge Planning Pt will require treatment until 12/08/17 for IV Abx. Per ID pt does need supervision and requires Q8hrs IV abx. CM looking into this. Also will need to touch base w CM regarding anticoagulation as pt is self pay Tigist Curry MD Nov 29, 2017 14:24
[2017-11-30] VITALS: BP 143/43; PULSE 94; PULSE 96; RESP 20; TEMP 96.6; O2SAT 98
[2017-11-30] MEDS: LORazepam 2 MG/ML VIAL IV PUSH PRN (01:07)
[2017-11-30 04:00] VITALS: BP 137/43; PULSE 94; RESP 20; TEMP 97.3; O2SAT 93
[2017-11-30] MEDS: ACYCLOVIR 200 MG CAP PO SCH ×5 (05:04→20:56)
[2017-11-30] MEDS: ceFAZolin 2 GM PREMIX 50 ML IV SCH ×3 (05:05→20:58)
[2017-11-30 05:10] LABS: AUTOMATED NEUTROPHIL # 2.1 TH/MM3 (1.8-7.7); BASOPHIL % 0.6 % (0.0-2.0); EOSINOPHIL # 0.2 TH/MM3 (0-0.4); EOSINOPHIL % 3.3 % (0.0-4.0); HEMATOCRIT 25.7 % (35.0-46.0); HEMOGLOBIN 8.1 GM/DL (11.6-15.3); LYMPH % 47.7 % (9.0-44.0); LYMPHOCYTE # 2.3 TH/MM3 (1.0-4.8); MEAN CELL VOLUME 76.8 FL (80.0-100.0); MEAN CORPUSCULAR HEMOGLOBIN 24.3 PG (27.0-34.0); MEAN CORPUSCULAR HGB CONC 31.6 % (32.0-36.0); MEAN PLATELET VOLUME 6.7 FL (7.0-11.0); MONO % 5.7 % (0.0-8.0); MONOCYTE # 0.3 TH/MM3 (0-0.9); NEUT % 42.7 % (16.0-70.0); PLATELET COUNT 285 TH/MM3 (150-450); RED BLOOD COUNT 3.34 MIL/MM3 (4.00-5.30); RED CELL DISTRIBUTION WIDTH 20.9 % (11.6-17.2); WHITE BLOOD COUNT 4.8 TH/MM3 (4.0-11.0)
[2017-11-30 08:00] VITALS: BP 126/57; PULSE 94; RESP 17; TEMP 97.4; O2SAT 92
[2017-11-30] MEDS: amLODIPine BESYLATE 5 MG TAB PO SCH (08:53)
[2017-11-30] MEDS: PANTOPRAZOLE SOD 20 MG DELAYED RELEASE TAB PO SCH (08:53)
[2017-11-30] MEDS: DOCUSATE SODIUM 50 MG/SENNA 8.6 MG TAB PO SCH ×2 (08:53→20:57)
[2017-11-30] MEDS: SODIUM CHLORIDE 0.9% FLUSH 10 ML FLUSH IV FLUSH SCH ×2 (08:53→20:58)
[2017-11-30] MEDS: ENOXAPARIN SODIUM 80 MG/0.8 ML SYRINGE SQ SCH ×2 (08:53→20:58)
[2017-11-30 12:00] VITALS: BP 134/59; PULSE 100; RESP 17; TEMP 98; O2SAT 95
[2017-11-30] MEDS: FERROUS SULFATE 325 MG (65 MG ELEMENTAL IRON) TAB PO SCH ×2 (12:35→15:16)
--- NOTE | 2017-11-30 13:52 | HHI.PR ---
Subjective Remarks Pt states she was hoping that her session w psych would have been more of a counseling session. Feels better today. No CP/ worsening SOB/N/V Objective Vitals Vital Signs Date Time Temp Pulse Resp B/P (MAP) Pulse Ox O2 Delivery O2 Flow Rate FiO2 11/30/17 12:00 98.0 100 17 134/59 (84) 95 11/30/17 08:00 97.4 94 17 126/57 (80) 92 11/30/17 04:00 97.3 94 20 137/43 (74) 93 11/30/17 03:21 20 11/30/17 00:00 96 11/30/17 00:00 96.6 94 20 143/43 (76) 98 11/29/17 20:00 96.4 106 20 153/53 (86) 100 11/29/17 19:40 99 11/29/17 16:00 96.8 107 20 168/67 (100) 99 I/O 11/29/17 11/29/17 11/29/17 11/30/17 11/30/17 11/30/17 06:59 14:59 22:59 06:59 14:59 22:59 Intake Total 1650 ml Balance 1650 ml Intake Oral 1600 ml IV Total 50 ml # Voids 2 6 # Bowel Movements 1 3 Result Diagram: 11/30/17 0427 11/29/17 [address] Angiography 11/28/17 0000 Signed Impressions: Service Date/Time: Tuesday, November 28, 2017 19:40 - CONCLUSION: 1. No pulmonary emboli. 2. Small bilateral pleural effusions with associated passive atelectasis. 3. Small ground glass opacity within the right middle lobe. This could relate to an early infectious infiltrate or focal pulmonary edema. 4. Area of scarring involving the lingula. 5. Tiny pericardial effusion. 6. Wedge- shaped low-density area involving the spleen consistent with prior infarction. Ismael Bruno Jr., MD Abdomen/Pelvis CT 11/28/17 0000 Signed Impressions: Service Date/Time: Tuesday, November 28, 2017 19:40 - CONCLUSION: 1. Small bilateral pleural effusions. 2. Multiple splenic infarcts. 3. Small volume ascites. Ismale Bruno Jr., MD Chest X-Ray 11/26/17 0000 Signed Impressions: Service Date/Time: Sunday, November 26, 2017 23:22 - CONCLUSION: Suspected edema with a mild left pleural effusion. Matthieu Marie MD Abdomen X-Ray 11/26/17 0000 Signed Impressions: Service Date/Time: Sunday, November 26, 2017 23:25 - CONCLUSION: No acute disease. Matthieu Marie MD Abdomen Ultrasound 11/26/17 0000 Signed Impressions: Service Date/Time: Sunday, November 26, 2017 12:50 - CONCLUSION: 1. Splenomegaly with 3 avascular hypoechoic areas which may represent infarcts. Suggest followup to confirm stability or resolution. 2. Mild nonspecific gallbladder wall thickening. There are no other features to suggest acute gallbladder inflammation or obstruction. Matthieu Braden MD Upper Extremity Ultrasound 11/22/17 0000 Signed Impressions: Service Date/Time: Wednesday, November 22, 2017 17:54 - CONCLUSION: Right upper extremity DVT involving the axillary and basilic veins. Matthieu Griffiths MD Objective Remarks GENERAL: appears more comfortable. writing a letter. NECK: trachea midline CARDIOVASCULAR: .mildly tachycardic. Soft systolic murmur. RESPIRATORY: Breath sounds equal bilaterally GASTROINTESTINAL: Abdomen soft and abdomen it is a bit obese not really distended. discomfort w palpation of the left upper and lower quadrants. MSK: moves extremities well. sitting up on recliner A/P Problem List: (1) Sepsis ICD Code: A41.9 - Sepsis, unspecified organism (2) Endocarditis ICD Code: I38 - Endocarditis, valve unspecified (3) S/P PICC central line placement ICD Code: Z95.828 - Presence of other vascular implants and grafts (4) UTI (urinary tract infection) ICD Code: N39.0 - Urinary tract infection, site not specified (5) Anemia ICD Code: D64.9 - Anemia, unspecified (6) IVDU (intravenous drug user) ICD Code: F19.90 - Other psychoactive substance use, unspecified, uncomplicated (7) Tobacco abuse ICD Code: Z72.0 - Tobacco use Assessment and Plan 32 years old female history IV drug use presented with failed back PICC line MSSA Sepsis with Septic emboli to the lungs MSSA Endocarditis with severe aortic valve regurgitation: Echo with mobile vegetation and severe AI. Infectious disease following. Patient on Ancef. Per infectious disease due to poor insight and active drug use difficult presenting for outpatient antibiotics she needs to be supervised for treatment. Pt requires q8hr ancef. Therefore pt will remain in the hospital for completion of treatment (end date ). Pt agreeable w plan repeat CTA didn't show any PE, but did show "small ground glass opacity within the right middle lobe which could relate to an early infectious infiltrate or focal pulm edema". Pt was counseled extensively to use IS q1hr while awake. Currently pt is afebrile and has no leukocytosis. Monitor closely. If she spike fevers/has leukocytosis, will start regimen for hospital acquired PNA and notify ID. For now monitor clinically. CT abd/pelvis was also reviewed. Abdominal pain: . Monitor. LFTs normal. test neg. CT abd/pelvis shows multiple splenic infarcts which have been present. Dyspnea Improved. Psych consult pending. Appreciate assistance Hypokalemia- corrected RUE DVT- on Lovenox- will need to switch to po on discharge. Will need to speak w CM to see what is covered as pt is self pay Anemia: Acute on Chronic. Iron bid Active IVDU: counselled Tobacco Abuse: Pt counselled. NicoDerm if needed. DVT Prophylaxis:- on Lovenox Discharge Planning Pt will require treatment until 12/08/17 for IV Abx. Per ID pt does need supervision and requires Q8hrs IV abx. CM assisting w d/c planning. Also will need to touch base w CM regarding anticoagulation as pt is self pay- eliquis vs xarelto vs coumadin as pt is self pay and doesn't have a PCP. Discuss w CM tomorrow. Tigist Curry MD Nov 30, 2017 13:52
--- NOTE | 2017-11-30 13:57 | PD.PSY.CON ---
Provisional Diagnosis Admission Date Nov 22, 2017 at 07:47 [place] I. Adjustment disorder with depressed mood and anxiety, history of depression, polysubstance dependence [place] II. Deferred History of Present Illness Service Psychiatry Consult Requested By Medical team Reason for Consult To help with depression and anxiety Primary Care Physician No Primary Care Physician HPI The patient is a 32-year-old woman, with psychiatric history of depression, bipolar disorder, anxiety, multiple psychiatric hospitalizations, suicidal attempts, self cutting behavior, 3 of noncompliant with medications, polysubstance dependence including cocaine, alcohol, cannabis and opiates, she is an IV drug user, he also has history of benzodiazepine dependence and misuse , she is now admitted for treatment of sepsis and endocarditis. On psychiatric evaluation patient reports ongoing symptomatology of severe anxiety and also depression. Patient says that the craving for drugs, the isolation, the guiltiness, the fact that when she is discharged from the hospital she has to go to longterm are the source for her depressive symptoms and anxiety. She denies suicidal and homicidal ideation, she denies visual and auditory hallucinations, patient is future oriented, with some motivation to get better and be sober. She is oriented 3, logical, coherent and relevant. No aggressive behavior or agitation reported or observed. Review of Systems Constitutional: DENIES: Diaphoretic episodes, Fatigue, Fever, Weight gain, Weight loss, Chills, Dizziness, Change in appetite, Night Sweats Endocrine: DENIES: Abnorml menstrual pattern, Heat/cold intolerance, Polydipsia , Polyuria, Polyphagia Eyes: DENIES: Blurred vision, Diplopia, Eye inflammation, Eye pain, Vision loss , Photosensitivity, Double Vision Ears, nose, mouth, throat: DENIES: Tinnitus, Hearing loss, Vertigo, Nasal discharge, Oral lesions, Throat pain, Hoarseness, Ear Pain, Running Nose, Epistaxis, Sinus Pain, Toothache, Odynophagia Respiratory: DENIES: Apneas, Cough, Snoring, Wheezing, Hemoptysis, Sputum production, Shortness of breath Cardiovascular: DENIES: Chest pain, Palpitations, Syncope, Dyspnea on Exertion , PND, Lower Extremity Edema, Orthopnea, Claudication Gastrointestinal: DENIES: Abdominal pain, Black stools, Bloody stools, Constipation, Diarrhea, Nausea, Vomiting, Difficulty Swallowing, Anorexia Genitourinary: DENIES: Abnormal vaginal bleeding, Dysmenorrhea, Dyspareunia, Sexual dysfunction, Urinary frequency, Urinary incontinence, Urgency, Hematuria , Dysuria, Nocturia, Vaginal discharge Musculoskeletal: DENIES: Joint pain, Muscle aches, Stiffness, Joint Swelling, Back pain, Neck pain Integumentary: DENIES: Abnormal pigmentation, Pruritus, Rash, Nail changes, Breast masses, Breast skin changes, Nipple discharge Hematologic/lymphatic: DENIES: Bruising, Lymphadenopathy Immunologic/allergic: DENIES: Eczema, Urticaria Neurologic: DENIES: Abnormal gait, Headache, Localized weakness, Paresthesias, Seizures, Speech Problems, Tremor, Poor Balance Psychiatric: DENIES: Anxiety, Confusion, Mood changes, Depression, Hallucinations, Agitation, Suicidal Ideation, Homicidal Ideation, Delusions Past Family Social History Coded Allergies: acetaminophen (Verified Allergy, Severe, "LOOPY", 11/22/17) propoxyphene (Verified Allergy, Severe, "LOOPY", 11/22/17) Fish Containing Products (Verified Allergy, Intermediate, 11/22/17) butorphanol (Verified Allergy, Intermediate, HALUCINATIONS, 11/22/17) Active Scripts Acyclovir (Acyclovir) 200 Mg Cap, 200 MG PO 5 TIMES A DAY for lesions, #25 CAP 0 Refills Prov:Kayla Goldsmith MD 11/12/17 Epinephrine Inj (Epinephrine Inj) 1 Mg/Ml (1 Ml) Inj, 0.3 MG SQ ONCE Y for ALLERGIC REACTION, #1 VIAL Give with any signs of respiratory distress. Prov:Breezy Muñoz MD 11/11/17 Epinephrine Inj (Epinephrine Inj) 1 Mg/Ml (1 Ml) Inj, 0.3 MG IV PUSH ONCE Y for ALLERGIC REACTION, #1 VIAL Prov:Breezy Muñoz MD 11/11/17 Current Medications Medications (Trade) Dose Ordered Sig/Jannie Route Start Time Stop Time Status Last Admin (NS Flush) 2 ml UNSCH PRN IV FLUSH 11/22/17 04:30 (NS Flush) 2 ml BID IV FLUSH 11/22/17 09:00 11/30/17 08:53 (Zofran Inj) 4 mg Q6H PRN IVP 11/22/17 04:30 11/29/17 05:22 (Roxicodone) 10 mg Q4H PRN PO 11/22/17 04:30 11/30/17 12:37 (Roxicodone) 5 mg Q4H PRN PO 11/22/17 04:30 (Sujatha-Colace) 1 tab BID PO 11/22/17 09:00 11/28/17 10:05 (Milk Of Magnesia Liq) 30 ml Q12H PRN PO 11/22/17 04:30 (Senokot) 17.2 mg Q12H PRN PO 11/22/17 04:30 (Dulcolax Supp) 10 mg DAILY PRN RECTAL 11/22/17 04:30 (Lactulose Liq) 30 ml DAILY PRN PO 11/22/17 04:30 (Ativan Inj) 1 mg Q2H PRN IV PUSH 11/22/17 04:30 11/30/17 01:07 (Zovirax) 200 mg 5 TIMES A DAY PO 11/22/17 06:00 11/30/17 12:35 Cefazolin Sodium/ Dextrose 50 ml @ 100 mls/hr Q8H IV 11/22/17 12:00 11/30/17 12:35 (Lovenox Inj) 70 mg Q12H SQ 11/22/17 20:00 11/30/17 08:53 (Ferrous Sulfate) 325 mg BID@12,17 PO 11/23/17 12:00 11/30/17 12:35 (Protonix) 20 mg DAILY PO 11/26/17 11:15 11/30/17 08:53 (Norvasc) 5 mg DAILY PO 11/28/17 09:00 11/30/17 08:53 Family Psych History No family psychiatric history Social History She was born and raised in [place], she lives with her boyfriend Denise, unemployed, supported by her boyfriend, 2 years of college Patient's Strengths (min. 2) Patient is in contemplation state of addiction Physical Exam Vital Signs Vital Signs Date Time Temp Pulse Resp B/P (MAP) Pulse Ox O2 Delivery O2 Flow Rate FiO2 11/30/17 12:00 98.0 100 17 134/59 (84) 95 Lab Results Test 11/30/17 04:27 White Blood Count 4.8 TH/MM3 Red Blood Count 3.34 MIL/MM3 Hemoglobin 8.1 GM/DL Hematocrit 25.7 % Mean Corpuscular Volume 76.8 FL Mean Corpuscular Hemoglobin 24.3 PG Mean Corpuscular Hemoglobin Concent 31.6 % Red Cell Distribution Width 20.9 % Platelet Count 285 TH/MM3 Mean Platelet Volume 6.7 FL Neutrophils (%) (Auto) 42.7 % Lymphocytes (%) (Auto) 47.7 % Monocytes (%) (Auto) 5.7 % Eosinophils (%) (Auto) 3.3 % Basophils (%) (Auto) 0.6 % Neutrophils # (Auto) 2.1 TH/MM3 Lymphocytes # (Auto) 2.3 TH/MM3 Monocytes # (Auto) 0.3 TH/MM3 Eosinophils # (Auto) 0.2 TH/MM3 Basophils # (Auto) 0.0 TH/MM3 CBC Comment DIFF FINAL Differential Comment Date/Time Source Procedure Growth Status 11/22/17 01:25 Blood Peripheral Aerobic Blood Culture - Final NO GROWTH IN 5 DAYS Complete 11/22/17 01:25 Blood Peripheral Anaerobic Blood Culture - Final NO GROWTH IN 5 DAYS Complete 11/24/17 22:00 Stool Stool Stool Occult Blood (JONNY) - Final HEMOCCULT NEGATIVE Complete 11/22/17 01:25 Urine Catheterized Urine Urine Culture - Final 50-100,000 CFU/ML MIXED GRAM POSITIVE... Complete 11/22/17 17:35 Catheter Tip Other Wound Culture - Final Complete Mental Status Examination Appearance: Appropriate Consciousness: Alert Orientation: x4 Motor Activity: Normal gait Speech: Unremarkable Language: Adequate Fund of Knowledge: Adequate Attention and Concentration: Adequate Memory: Unremarkable Mood: Sad Affect: Irritable, Anxious Thought Process & Associations: Intact Thought Content: Appropriate Hallucination Type: None Delusion Type: None Suicidal Ideation: No Suicidal Plan: No Suicidal Intention: No Homicidal Ideation: No Homicidal Plan: No Homicidal Intention: No Insight: Adequate Judgment: Adequate Assessment & Plan Problem List: (1) Adjustment disorder with mixed anxiety and depressed mood ICD Codes: F43.23 - Adjustment disorder with mixed anxiety and depressed mood Assessment & Plan: The patient is a 32-year-old woman, with psychiatric history of depression, bipolar disorder, anxiety, multiple psychiatric hospitalizations, suicidal attempts, self cutting behavior, 3 of noncompliant with medications, polysubstance dependence including cocaine, alcohol, cannabis and opiates, she is an IV drug user, he also has history of benzodiazepine dependence and misuse, she is now admitted for treatment of sepsis and endocarditis. On psychiatric evaluation patient reports ongoing symptomatology of severe anxiety and also depression. Patient says that the craving for drugs, the isolation, the guiltiness, the fact that when she is discharged from the hospital she has to go to longterm are the source for her depressive symptoms and anxiety. She denies suicidal and homicidal ideation, she denies visual and auditory hallucinations, patient is future oriented, with some motivation to get better and be sober. She does not meet criteria for involuntary psychiatric admission at this moment. I will start a low dose of clonazepam, 0.5 mg 3 times a day for her anxiety, Seroquel 50 g at bedtime to help with sleep and mood stabilization also Zoloft 25 mg daily for depression and anxiety. I have provided patient with an extensive psychoeducation about the importance of taking medication as prescribed and avoiding abuse. Brief supportive psychotherapy provided. I we will follow-up. Assessment & Plan Estimated LOS: Wilfrido Bowen MD Nov 30, 2017 13:56
[2017-11-30] MEDS ORDERED: PILL SPLITTER OTHER PRN (14:15)
[2017-11-30] MEDS: clonazePAM 0.5 MG TAB PO SCH ×2 (15:16→20:57)
[2017-11-30 16:00] VITALS: BP 136/60; PULSE 100; RESP 17; TEMP 97.9; O2SAT 98
[2017-11-30 20:00] VITALS: BP 156/67; PULSE 105; RESP 24; TEMP 98.8; O2SAT 95
[2017-11-30] MEDS: QUEtiapine FUMARATE 25 MG TAB PO SCH (20:56)
[2017-12-01] VITALS: BP 135/58; PULSE 106; RESP 22; TEMP 96.8; O2SAT 97
[2017-12-01] MEDS: ceFAZolin 2 GM PREMIX 50 ML IV SCH ×3 (04:49→20:38)
[2017-12-01] MEDS: ACYCLOVIR 200 MG CAP PO SCH ×5 (04:49→20:39)
[2017-12-01] MEDS: clonazePAM 0.5 MG TAB PO SCH ×3 (04:49→20:39)
[2017-12-01 08:00] VITALS: BP 144/63; PULSE 90; RESP 16; TEMP 97.6; O2SAT 94
[2017-12-01] MEDS: SERTRALINE HCL 50 MG TAB PO SCH (09:00)
[2017-12-01] MEDS: DOCUSATE SODIUM 50 MG/SENNA 8.6 MG TAB PO SCH ×2 (09:20→20:39)
[2017-12-01] MEDS: amLODIPine BESYLATE 5 MG TAB PO SCH (09:20)
[2017-12-01] MEDS: PANTOPRAZOLE SOD 20 MG DELAYED RELEASE TAB PO SCH (09:21)
[2017-12-01] MEDS: ENOXAPARIN SODIUM 80 MG/0.8 ML SYRINGE SQ SCH ×2 (09:21→20:39)
[2017-12-01] MEDS: SODIUM CHLORIDE 0.9% FLUSH 10 ML FLUSH IV FLUSH SCH ×2 (09:22→20:41)
[2017-12-01] MEDS: FERROUS SULFATE 325 MG (65 MG ELEMENTAL IRON) TAB PO SCH ×2 (11:42→16:10)
[2017-12-01 12:00] VITALS: BP 141/62; PULSE 100; RESP 17; TEMP 96.8; O2SAT 95
--- NOTE | 2017-12-01 14:08 | HHI.PR ---
Subjective Remarks No chest pain reported. Patient had some night sweats, but no fever. Her primary complaint is abdominal pain with distention and global body aches. Objective Vital Signs Date Time Temp Pulse Resp B/P (MAP) Pulse Ox O2 Delivery O2 Flow Rate FiO2 12/01/17 12:00 96.8 100 17 141/62 (88) 95 12/01/17 08:00 97.6 90 16 144/63 (90) 94 12/01/17 00:00 96.8 106 22 135/58 (83) 97 11/30/17 22:14 18 11/30/17 20:00 98.8 105 24 156/67 (96) 95 11/30/17 16:00 97.9 100 17 136/60 (85) 98 I/O 11/30/17 11/30/17 11/30/17 12/01/17 12/01/17 12/01/17 07:00 15:00 23:00 07:00 15:00 23:00 Intake Total 1440 ml 480 ml Balance 1440 ml 480 ml Intake Oral 1440 ml 480 ml # Voids 5 2 # Bowel Movements 0 0 Result Diagram: 11/30/17 0427 11/29/17 0520 Objective Remarks GENERAL: NAD, A&Ox3 HEAD: Normocephalic. NECK: Supple, trachea midline. No lymphadenopathy. EYES: No scleral icterus. No injection or drainage. CARDIOVASCULAR: Regular rate and rhythm with murmur. No gallops or rubs. RESPIRATORY: Breath sounds equal bilaterally. No accessory muscle use. GASTROINTESTINAL: Abdomen soft, non-tender, nondistended. MUSCULOSKELETAL: No cyanosis, or edema. SKIN: Warm and dry. NEURO: No focal neurological deficitis. A/P Problem List: (1) Severe aortic regurgitation ICD Code: I35.1 - Nonrheumatic aortic (valve) insufficiency (2) IV drug abuse ICD Code: F19.10 - Other psychoactive substance abuse, uncomplicated Status: Acute (3) IVDU (intravenous drug user) ICD Code: F19.90 - Other psychoactive substance use, unspecified, uncomplicated (4) Endocarditis ICD Code: I38 - Endocarditis, valve unspecified Assessment and Plan 32 years old female history IV drug use, previously admitted with infective endocarditis. Outpatient IV antibiotics were arranged and patient failed follow -up, treatments to continue inpatient until 12/08/17. Infective endocarditis MSSA sepsis MSSA septic emboli Continue cefazolin until 12/08/17 ID Following Repeat blood cultures were negative Severe aortic regurgitation Patient has numerous questions about treatment options Consult cardiology for treatment recommendations and prognosis Abdominal pain Etiology uncertain Etiology may be related to inflammation from septic emboli Continue present treatments And tinea anticoagulation Dyspnea Improving Right upper extremity DVT Related to previous infection Continue Lovenox Anemia Follow CBC Active IVDU Rehabilitation recommended Tobacco Abuse NicoDerm DVT Prophylaxis Lovenox Discharge Planning Plan for discharge after antibiotics completed on 12/08/17 Ganesh Patten MD Dec 01, 2017 14:08
--- NOTE | 2017-12-01 15:00 | PD.CONS ---
HPI Consult Requested By Primary Care Physician No Primary Care Physician History of Present Illness 32-year-old female with a PMHx significant for IVDU, Aortic Valve Endocarditis who presented to the ER with complaints of PICC line malfunction. Recent admit 10/25-11/12/17 for Cavitary PNA/Sepsis/Endocarditis d/c'd w/ Ancef 2gm IV q8h for 6wks via PICC line. Admits to shooting Dilaudid through PICC line. Cariology consulted for severe AI. Review of Systems Consitutional: DENIES: Fatigue, Fever, Chills, Weight gain, Weight loss Eyes: DENIES: Amaurosis Fugax, Change in vision HEENT: DENIES: Lightheadedness, Change in hearing Respiratory: DENIES: See HPI, Cough, Snoring, Shortness of breath, Wheezing, Sputum production Cardiovascular: DENIES: See HPI, Chest pain, Palpitations, Syncope, Tachycardia Gastrointestinal: DENIES: Nausea, Vomiting, Change in bowel habits, Reflux, Bloody stools, Melena Genitourinary: DENIES: Urinary incontinence, Difficulty voiding Integumentary: DENIES: Rash Neurologic: DENIES: Tingling or numbness, Memory problems, Poor Balance, Stroke symptoms Musculoskeletal: DENIES: Joint pain, Muscle pain, Limited range of motion, Back pain Psychiatric: DENIES: Anxiety, Depression, Sleep disturbances Hematologic: DENIES: Bruising tendencies, Bleeding tendencies Endocrine: DENIES: Weight gain, Weight loss, Thyroid disease Past Family Social History Allergies: Coded Allergies: acetaminophen (Verified Allergy, Severe, "LOOPY", 11/22/17) propoxyphene (Verified Allergy, Severe, "LOOPY", 11/22/17) Fish Containing Products (Verified Allergy, Intermediate, 11/22/17) butorphanol (Verified Allergy, Intermediate, HALUCINATIONS, 11/22/17) Past Medical History PMH: IVDU, Endocarditis and Tobacco Abuse Past Surgical History , Tubal Ligation Reported Medications Reported Meds & Active Scripts Active Acyclovir 200 Mg Cap 200 Mg PO 5 TIMES A DAY Epinephrine Inj 1 Mg/Ml (1 Ml) Inj 0.3 Mg SQ ONCE PRN Give with any signs of respiratory distress. Epinephrine Inj 1 Mg/Ml (1 Ml) Inj 0.3 Mg IV PUSH ONCE PRN Active Ordered Medications Current Medications Medications (Trade) Dose Ordered Sig/Jannie Route Start Time Stop Time Status Last Admin (NS Flush) 2 ml UNSCH PRN IV FLUSH 11/22/17 04:30 (NS Flush) 2 ml BID IV FLUSH 11/22/17 09:00 12/01/17 09:22 (Zofran Inj) 4 mg Q6H PRN IVP 11/22/17 04:30 11/29/17 05:22 (Roxicodone) 10 mg Q4H PRN PO 11/22/17 04:30 12/01/17 11:42 (Roxicodone) 5 mg Q4H PRN PO 11/22/17 04:30 (Sujatha-Colace) 1 tab BID PO 11/22/17 09:00 12/01/17 09:20 (Milk Of Magnesia Liq) 30 ml Q12H PRN PO 11/22/17 04:30 (Senokot) 17.2 mg Q12H PRN PO 11/22/17 04:30 (Dulcolax Supp) 10 mg DAILY PRN RECTAL 11/22/17 04:30 (Lactulose Liq) 30 ml DAILY PRN PO 11/22/17 04:30 (Ativan Inj) 1 mg Q2H PRN IV PUSH 11/22/17 04:30 11/30/17 01:07 (Zovirax) 200 mg 5 TIMES A DAY PO 11/22/17 06:00 12/01/17 14:28 Cefazolin Sodium/ Dextrose 50 ml @ 100 mls/hr Q8H IV 11/22/17 12:00 12/01/17 11:41 (Lovenox Inj) 70 mg Q12H SQ 11/22/17 20:00 12/01/17 09:21 (Ferrous Sulfate) 325 mg BID@12,17 PO 11/23/17 12:00 12/01/17 11:42 (Protonix) 20 mg DAILY PO 11/26/17 11:15 12/01/17 09:21 (Norvasc) 5 mg DAILY PO 11/28/17 09:00 12/01/17 09:20 (KlonoPIN) 0.5 mg Q8HR PO 11/30/17 14:00 12/01/17 14:28 (Zoloft) 25 mg DAILY PO 12/01/17 09:00 (SEROquel) 50 mg HS PO 11/30/17 21:00 11/30/17 20:56 (Pill Splitter) 1 ea UNSCH PRN OTHER 11/30/17 14:15 Family History Reviewed. No h/o DM or CAD Social History Negative for alcohol. Smokes 1ppd. +IVDU w/ Dilaudid, Oxycodone and Meth. Physical Exam Vital Signs Vital Signs Date Time Temp Pulse Resp B/P (MAP) Pulse Ox O2 Delivery O2 Flow Rate FiO2 12/01/17 12:00 96.8 100 17 141/62 (88) 95 12/01/17 08:00 97.6 90 16 144/63 (90) 94 12/01/17 00:00 96.8 106 22 135/58 (83) 97 11/30/17 22:14 18 11/30/17 20:00 98.8 105 24 156/67 (96) 95 11/30/17 16:00 97.9 100 17 136/60 (85) 98 Physical Exam GENERAL: Well-nourished, well-developed patient. SKIN: Warm and dry. HEAD: Normocephalic. EYES: No scleral icterus. No injection or drainage. NECK: Supple, trachea midline. No JVD or lymphadenopathy. CARDIOVASCULAR: Regular rate and rhythm without murmurs, gallops, or rubs. RESPIRATORY: Breath sounds equal bilaterally. No accessory muscle use. GASTROINTESTINAL: Abdomen soft, non-tender, nondistended. EXTREMITIES: No cyanosis, or edema. NEUROLOGICAL: Awake, alert, and oriented x 3. Non-focal. Laboratory Date/Time Source Procedure Growth Status 11/22/17 01:25 Blood Peripheral Aerobic Blood Culture - Final NO GROWTH IN 5 DAYS Complete 11/22/17 01:25 Blood Peripheral Anaerobic Blood Culture - Final NO GROWTH IN 5 DAYS Complete 11/24/17 22:00 Stool Stool Stool Occult Blood (JONNY) - Final HEMOCCULT NEGATIVE Complete 11/22/17 01:25 Urine Catheterized Urine Urine Culture - Final 50-100,000 CFU/ML MIXED GRAM POSITIVE... Complete 11/22/17 17:35 Catheter Tip Other Wound Culture - Final Complete Result Diagram: 11/30/17 0427 11/29/[address] Angiography 11/28/17 0000 Signed Impressions: Service Date/Time: Tuesday, November 28, 2017 19:40 - CONCLUSION: 1. No pulmonary emboli. 2. Small bilateral pleural effusions with associated passive atelectasis. 3. Small ground glass opacity within the right middle lobe. This could relate to an early infectious infiltrate or focal pulmonary edema. 4. Area of scarring involving the lingula. 5. Tiny pericardial effusion. 6. Wedge- shaped low-density area involving the spleen consistent with prior infarction. Ismael Bruno Jr., MD Abdomen/Pelvis CT 11/28/17 0000 Signed Impressions: Service Date/Time: Tuesday, November 28, 2017 19:40 - CONCLUSION: 1. Small bilateral pleural effusions. 2. Multiple splenic infarcts. 3. Small volume ascites. Ismael Bruno Jr., MD Chest X-Ray 11/26/17 0000 Signed Impressions: Service Date/Time: Sunday, November 26, 2017 23:22 - CONCLUSION: Suspected edema with a mild left pleural effusion. Matthieu Marie MD Abdomen X-Ray 11/26/17 0000 Signed Impressions: Service Date/Time: Sunday, November 26, 2017 23:25 - CONCLUSION: No acute disease. Matthieu Marie MD Abdomen Ultrasound 11/26/17 0000 Signed Impressions: Service Date/Time: Sunday, November 26, 2017 12:50 - CONCLUSION: 1. Splenomegaly with 3 avascular hypoechoic areas which may represent infarcts. Suggest followup to confirm stability or resolution. 2. Mild nonspecific gallbladder wall thickening. There are no other features to suggest acute gallbladder inflammation or obstruction. Matthieu Braden MD Upper Extremity Ultrasound 11/22/17 0000 Signed Impressions: Service Date/Time: Wednesday, November 22, 2017 17:54 - CONCLUSION: Right upper extremity DVT involving the axillary and basilic veins. Matthieu Griffiths MD Assessment and Plan Problem List: (1) Severe aortic regurgitation ICD Codes: I35.1 - Nonrheumatic aortic (valve) insufficiency Plan: Severe AI secondary to infective endocarditis. Preserved EF. Symptoms of dyspnea on exertion, NYHA II. Recommendation: CT surgery evaluation for AVR Antx per ID Strict I&O Low salt diet Daily weight IV diuresis ACEi Thank you for the opportunity to participate in the care of this patient Will be available on a PRN basis for any questions or concerns (2) Substance abuse ICD Codes: F19.10 - Other psychoactive substance abuse, uncomplicated Status: Acute (3) IV drug abuse ICD Codes: F19.10 - Other psychoactive substance abuse, uncomplicated Status: Acute (4) Endocarditis ICD Codes: I38 - Endocarditis, valve unspecified Xiao-Pedro Reagan MD Dec 01, 2017 15:00
[2017-12-01 16:00] VITALS: BP 144/66; PULSE 98; RESP 17; TEMP 97.7; O2SAT 94
[2017-12-01 20:00] VITALS: BP 127/60; PULSE 113; RESP 20; TEMP 97; O2SAT 95
[2017-12-02] VITALS (7 sets, daily range): BP systolic 108–159; BP diastolic 33–67; PULSE 78–105; RESP 16–24; TEMP 96.8–99.1; O2SAT 94–97
[2017-12-02] MEDS: QUEtiapine FUMARATE 25 MG TAB PO SCH ×2 (00:03→21:02)
[2017-12-02] MEDS: ceFAZolin 2 GM PREMIX 50 ML IV SCH ×3 (04:06→20:00)
[2017-12-02] MEDS: clonazePAM 0.5 MG TAB PO SCH ×3 (06:32→21:02)
[2017-12-02] MEDS: ACYCLOVIR 200 MG CAP PO SCH ×5 (06:33→21:02)
[2017-12-02] MEDS: SERTRALINE HCL 50 MG TAB PO SCH (08:42)
[2017-12-02] MEDS: amLODIPine BESYLATE 5 MG TAB PO SCH (08:45)
[2017-12-02] MEDS: PANTOPRAZOLE SOD 20 MG DELAYED RELEASE TAB PO SCH (08:45)
[2017-12-02] MEDS: ENOXAPARIN SODIUM 80 MG/0.8 ML SYRINGE SQ SCH ×2 (08:46→20:00)
[2017-12-02] MEDS: DOCUSATE SODIUM 50 MG/SENNA 8.6 MG TAB PO SCH ×2 (08:46→21:00)
[2017-12-02] MEDS: SODIUM CHLORIDE 0.9% FLUSH 10 ML FLUSH IV FLUSH SCH ×2 (08:46→21:00)
[2017-12-02 12:10] LABS: HEMATOCRIT 26.8 % (35.0-46.0); HEMOGLOBIN 8.5 GM/DL (11.6-15.3); MEAN CELL VOLUME 77.6 FL (80.0-100.0); MEAN CORPUSCULAR HEMOGLOBIN 24.7 PG (27.0-34.0); MEAN CORPUSCULAR HGB CONC 31.9 % (32.0-36.0); MEAN PLATELET VOLUME 6.7 FL (7.0-11.0); PLATELET COUNT 274 TH/MM3 (150-450); RED BLOOD COUNT 3.45 MIL/MM3 (4.00-5.30); RED CELL DISTRIBUTION WIDTH 21.5 % (11.6-17.2); WHITE BLOOD COUNT 4.4 TH/MM3 (4.0-11.0)
[2017-12-02] MEDS: FERROUS SULFATE 325 MG (65 MG ELEMENTAL IRON) TAB PO SCH ×2 (12:19→17:01)
--- NOTE | 2017-12-02 12:23 | HHI.PR ---
Subjective Remarks Cardiology has evaluated the patient. She is started on an CHAPO inhibitor and a diuretic. Her aortic regurgitation is likely contributing to a component of heart failure, her BNP is elevated at 399. Diuretic should help this. CBC shows no evidence of any recurrence of infection in her hemoglobin level has increased slightly compared to previous check. No acute concerns regarding her CBC. Objective Vital Signs Date Time Temp Pulse Resp B/P (MAP) Pulse Ox O2 Delivery O2 Flow Rate FiO2 12/02/17 08:00 97.6 78 24 122/55 (77) 96 12/02/17 04:00 96.8 90 20 108/49 (68) 95 12/02/17 00:00 102 12/02/17 00:00 98.2 105 20 137/62 (87) 97 12/01/17 20:00 97.0 113 20 127/60 (82) 95 12/01/17 16:00 97.7 98 17 144/66 (92) 94 I/O 12/01/17 12/01/17 12/01/17 12/02/17 12/02/17 12/02/17 07:00 15:00 23:00 07:00 15:00 23:00 Intake Total 480 ml 100 ml Balance 480 ml 100 ml Intake Oral 480 ml IV Total 100 ml # Voids 2 2 # Bowel Movements 0 Result Diagram: 12/02/17 1155 11/29/17 0520 Objective Remarks GENERAL: NAD, A&Ox3 HEAD: Normocephalic. NECK: Supple, trachea midline. No lymphadenopathy. EYES: No scleral icterus. No injection or drainage. CARDIOVASCULAR: Regular rate and rhythm with murmur. No gallops or rubs. RESPIRATORY: Breath sounds equal bilaterally. No accessory muscle use. GASTROINTESTINAL: Abdomen soft, non-tender, nondistended. MUSCULOSKELETAL: No cyanosis, or edema. SKIN: Warm and dry. NEURO: No focal neurological deficitis. A/P Problem List: (1) Severe aortic regurgitation ICD Code: I35.1 - Nonrheumatic aortic (valve) insufficiency (2) IV drug abuse ICD Code: F19.10 - Other psychoactive substance abuse, uncomplicated Status: Acute (3) IVDU (intravenous drug user) ICD Code: F19.90 - Other psychoactive substance use, unspecified, uncomplicated (4) Endocarditis ICD Code: I38 - Endocarditis, valve unspecified Assessment and Plan 32 years old female history IV drug use, previously admitted with infective endocarditis. Outpatient IV antibiotics were arranged and patient failed follow -up, treatments to continue inpatient until 12/08/17. Infective endocarditis MSSA sepsis MSSA septic emboli Continue cefazolin until 12/08/17 ID Following Repeat blood cultures were negative Severe aortic regurgitation Cardiology input and treatment recommendations appreciated Continue CHAPO inhibitor Continue diuretic Cardiothoracic surgery evaluation pending Abdominal pain Etiology uncertain Etiology may be related to inflammation from septic emboli Continue present treatments Continue anticoagulation Dyspnea Improving Right upper extremity DVT Related to previous infection Continue Lovenox Anemia Follow CBC Active IVDU Rehabilitation recommended Tobacco Abuse NicoDerm DVT Prophylaxis Lovenox Discharge Planning Plan for discharge after antibiotics completed on 12/08/17 Ganesh Patten MD Dec 02, 2017 12:23
--- NOTE | 2017-12-02 16:08 | PD.CONS ---
History of Present Illness Service CT Surgery Consult Requested By Dr. Hagen Reason for Consult Aortic valve insufficiency secondary to endocarditis Primary Care Physician No Primary Care Physician Diagnoses: History of Present Illness Weekend Cross cover for Dr. Torres is a 32-year-old female with past medical history significant for IV drug abuse, history of skin abscesses, and tobacco abuse. She was recently admitted from 10/25 to 11/12/2017 for cavitatory pneumonia/sepsis /endocarditis with an echo which showed aortic valve vegetation. Blood cultures at that time were positive for MSSA and patient was evaluated by Dr. Begum of infectious disease. Patient was discharged with Ancef 2 g IV every 8 for 6 weeks via PICC line. Patient admits to shooting Dilaudid through her PICC line despite agreeing to use PICC line for antibiotics only. Due to malfunctioning PICC line and right arm swelling and tenderness patient presented to the emergency room she additionally admits that she hasn't been receiving antibiotics for the last 2-3 days. She also reports subjective fever and chills. On arrival her blood pressure was 130/60, heart rate 131, O2 sats 97% on room air with a temperature of 100.0. Her WBC is normal hemoglobin 7.5. Blood pressure was 3.2. Chest x-ray showed persistent local left mid infiltrate. Patient has been diagnosed with what appeared to be septic emboli on prior admission per records. Blood cultures were drawn in the emergency room at the time of my evaluation patient still has a midline in place which I asked the nurse to take out and send to micro-for culture of the tip. Patient has been started on vancomycin and Zosyn. Infectious disease is consulted for evaluation and management of possible new PICC line infection in a patient with MSSA endocarditis. Extremely unfortunate 32y/o female presents as above with ongoing IV drug use despite presenting last month with SBE and aortic valve involvement. She had a recent ECHO which now shoes severe AI in addition to a vegetation. She has mild diastolic failure based on her symptoms and lab values. I visited with her for over 90 minutes and she was tearful during this time with some insight into her behavior and medical condition. She clearly has ongoing opioid and drug addiction despite having a life-threatening condition. Additionally, she has limited if any outside support from family or friends. She states she does not know whether she will be incarcerated after being discharged or "go to the streets". She seems sincere about attempting drug rehabilitation again, but also doubts she can remain drug-free. Review of Systems Constitutional: COMPLAINS OF: Fatigue, Weight gain, DENIES: Diaphoretic episodes, Fever, Weight loss, Chills, Dizziness, Change in appetite, Night Sweats Endocrine: DENIES: Abnorml menstrual pattern, Heat/cold intolerance, Polydipsia , Polyuria, Polyphagia Eyes: DENIES: Blurred vision, Diplopia, Eye inflammation, Eye pain, Vision loss , Photosensitivity, Double Vision Ears, nose, mouth, throat: DENIES: Tinnitus, Hearing loss, Vertigo, Nasal discharge, Oral lesions, Throat pain, Hoarseness, Ear Pain, Running Nose, Epistaxis, Sinus Pain, Toothache, Odynophagia Respiratory: DENIES: Apneas, Cough, Snoring, Wheezing, Hemoptysis, Sputum production, Shortness of breath Cardiovascular: COMPLAINS OF: Dyspnea on Exertion, DENIES: Chest pain, Palpitations, Syncope, PND, Lower Extremity Edema, Orthopnea, Claudication Gastrointestinal: COMPLAINS OF: Constipation, Nausea, Anorexia, DENIES: Abdominal pain, Black stools, Bloody stools, Diarrhea, Vomiting, Difficulty Swallowing Genitourinary: DENIES: Abnormal vaginal bleeding, Dysmenorrhea, Dyspareunia, Sexual dysfunction, Urinary frequency, Urinary incontinence, Urgency, Hematuria , Dysuria, Nocturia, Vaginal discharge Musculoskeletal: DENIES: Joint pain, Muscle aches, Stiffness, Joint Swelling, Back pain, Neck pain Integumentary: DENIES: Abnormal pigmentation, Pruritus, Rash, Nail changes, Breast masses, Breast skin changes, Nipple discharge Hematologic/lymphatic: DENIES: Bruising, Lymphadenopathy Immunologic/allergic: DENIES: Eczema, Urticaria Neurologic: DENIES: Abnormal gait, Headache, Localized weakness, Paresthesias, Seizures, Speech Problems, Tremor, Poor Balance Psychiatric: COMPLAINS OF: Depression, DENIES: Anxiety, Confusion, Mood changes , Hallucinations, Agitation, Suicidal Ideation, Homicidal Ideation, Delusions Past Family Social History Allergies: Coded Allergies: acetaminophen (Verified Allergy, Severe, "LOOPY", 11/22/17) propoxyphene (Verified Allergy, Severe, "LOOPY", 11/22/17) Fish Containing Products (Verified Allergy, Intermediate, 11/22/17) butorphanol (Verified Allergy, Intermediate, HALUCINATIONS, 11/22/17) Past Medical History She has 3 children Drug use as above Tobacco abuse Past Surgical History Tubal ligation Reported Medications Ancef prior to this admission Active Ordered Medications Current Medications Medications (Trade) Dose Ordered Sig/Jannie Route Start Time Stop Time Status Last Admin (NS Flush) 2 ml UNSCH PRN IV FLUSH 11/22/17 04:30 (NS Flush) 2 ml BID IV FLUSH 11/22/17 09:00 12/02/17 08:46 (Zofran Inj) 4 mg Q6H PRN IVP 11/22/17 04:30 11/29/17 05:22 (Roxicodone) 10 mg Q4H PRN PO 11/22/17 04:30 12/02/17 12:59 (Roxicodone) 5 mg Q4H PRN PO 11/22/17 04:30 (Sujatha-Colace) 1 tab BID PO 11/22/17 09:00 12/01/17 20:39 (Milk Of Magnesia Liq) 30 ml Q12H PRN PO 11/22/17 04:30 (Senokot) 17.2 mg Q12H PRN PO 11/22/17 04:30 (Dulcolax Supp) 10 mg DAILY PRN RECTAL 11/22/17 04:30 (Lactulose Liq) 30 ml DAILY PRN PO 11/22/17 04:30 (Ativan Inj) 1 mg Q2H PRN IV PUSH 11/22/17 04:30 11/30/17 01:07 (Zovirax) 200 mg 5 TIMES A DAY PO 11/22/17 06:00 12/02/17 14:05 Cefazolin Sodium/ Dextrose 50 ml @ 100 mls/hr Q8H IV 11/22/17 12:00 12/02/17 12:20 (Lovenox Inj) 70 mg Q12H SQ 11/22/17 20:00 12/02/17 08:46 (Ferrous Sulfate) 325 mg BID@12,17 PO 11/23/17 12:00 12/02/17 12:19 (Protonix) 20 mg DAILY PO 11/26/17 11:15 12/02/17 08:45 (Norvasc) 5 mg DAILY PO 11/28/17 09:00 12/02/17 08:45 (KlonoPIN) 0.5 mg Q8HR PO 11/30/17 14:00 12/02/17 14:05 (Zoloft) 25 mg DAILY PO 12/01/17 09:00 (SEROquel) 50 mg HS PO 11/30/17 21:00 12/02/17 00:03 (Pill Splitter) 1 ea UNSCH PRN OTHER 11/30/17 14:15 Family History Unremarkable Mother has a seizure disorder Social History As above Ongoing drug use Tobacco abuse Estranged from her 3 children Unemployed Physical Exam Vital Signs Vital Signs Date Time Temp Pulse Resp B/P (MAP) Pulse Ox O2 Delivery O2 Flow Rate FiO2 12/02/17 12:00 97.2 91 18 138/58 (84) 94 12/02/17 08:00 97.6 78 24 122/55 (77) 96 12/02/17 04:00 96.8 90 20 108/49 (68) 95 12/02/17 00:00 102 12/02/17 00:00 98.2 105 20 137/62 (87) 97 12/01/17 20:00 97.0 113 20 127/60 (82) 95 12/01/17 16:00 97.7 98 17 144/66 (92) 94 Physical Exam GENERAL: This is a well-nourished, well-developed patient, in no apparent distress. SKIN: No rashes, ecchymoses or lesions. Cool and dry. HEAD: Atraumatic. Normocephalic. No temporal or scalp tenderness. EYES: Pupils equal round and reactive. Extraocular motions intact. No scleral icterus. No injection or drainage. ENT: Nose without bleeding, purulent drainage or septal hematoma. Throat without erythema, tonsillar hypertrophy or exudate. Uvula midline. Airway patent. NECK: Trachea midline. No JVD or lymphadenopathy. Supple, nontender, no meningeal signs. CARDIOVASCULAR: Regular rate and rhythm with 2/4 blowing diastolic murmur at the LSB. RESPIRATORY: Clear to auscultation. Breath sounds equal bilaterally. No wheezes , rales, or rhonchi. GASTROINTESTINAL: Abdomen soft, non-tender, mildly distended. + hepato- splenomegaly, or palpable masses. No guarding. MUSCULOSKELETAL: Extremities without clubbing, cyanosis, or edema. No joint tenderness, effusion, or edema noted. No calf tenderness. Negative Homans sign bilaterally. NEUROLOGICAL: Awake and alert. Cranial nerves II through XII intact. Motor and sensory grossly within normal limits. Five out of 5 muscle strength in all muscle groups. Normal speech. Laboratory Laboratory Tests Test 12/02/17 06:50 12/02/17 11:55 B-Type Natriuretic Peptide 399 White Blood Count 4.4 Red Blood Count 3.45 Hemoglobin 8.5 Hematocrit 26.8 Mean Corpuscular Volume 77.6 Mean Corpuscular Hemoglobin 24.7 Mean Corpuscular Hemoglobin Concent 31.9 Red Cell Distribution Width 21.5 Platelet Count 274 Mean Platelet Volume 6.7 Date/Time Source Procedure Growth Status 11/22/17 01:25 Blood Peripheral Aerobic Blood Culture - Final NO GROWTH IN 5 DAYS Complete 11/22/17 01:25 Blood Peripheral Anaerobic Blood Culture - Final NO GROWTH IN 5 DAYS Complete 11/24/17 22:00 Stool Stool Stool Occult Blood (JONNY) - Final HEMOCCULT NEGATIVE Complete 11/22/17 01:25 Urine Catheterized Urine Urine Culture - Final 50-100,000 CFU/ML MIXED GRAM POSITIVE... Complete 11/22/17 17:35 Catheter Tip Other Wound Culture - Final Complete Result Diagram: 12/02/17 1155 11/29/[address] Angiography 11/28/17 0000 Signed Impressions: Service Date/Time: Tuesday, November 28, 2017 19:40 - CONCLUSION: 1. No pulmonary emboli. 2. Small bilateral pleural effusions with associated passive atelectasis. 3. Small ground glass opacity within the right middle lobe. This could relate to an early infectious infiltrate or focal pulmonary edema. 4. Area of scarring involving the lingula. 5. Tiny pericardial effusion. 6. Wedge- shaped low-density area involving the spleen consistent with prior infarction. Ismael Bruno Jr., MD Abdomen/Pelvis CT 11/28/17 0000 Signed Impressions: Service Date/Time: Tuesday, November 28, 2017 19:40 - CONCLUSION: 1. Small bilateral pleural effusions. 2. Multiple splenic infarcts. 3. Small volume ascites. Ismael Bruno Jr., MD Chest X-Ray 11/26/17 0000 Signed Impressions: Service Date/Time: Sunday, November 26, 2017 23:22 - CONCLUSION: Suspected edema with a mild left pleural effusion. Matthieu Marie MD Abdomen X-Ray 11/26/17 0000 Signed Impressions: Service Date/Time: Sunday, November 26, 2017 23:25 - CONCLUSION: No acute disease. Matthieu Marie MD Abdomen Ultrasound 11/26/17 0000 Signed Impressions: Service Date/Time: Sunday, November 26, 2017 12:50 - CONCLUSION: 1. Splenomegaly with 3 avascular hypoechoic areas which may represent infarcts. Suggest followup to confirm stability or resolution. 2. Mild nonspecific gallbladder wall thickening. There are no other features to suggest acute gallbladder inflammation or obstruction. Matthieu Braden MD Upper Extremity Ultrasound 11/22/17 0000 Signed Impressions: Service Date/Time: Wednesday, November 22, 2017 17:54 - CONCLUSION: Right upper extremity DVT involving the axillary and basilic veins. Matthieu Griffiths MD Course Patient has had a stable hospital course with no new positive blood cultures Assessment and Plan Problem List: (1) Substance abuse ICD Codes: F19.10 - Other psychoactive substance abuse, uncomplicated Status: Acute (2) Severe aortic regurgitation ICD Codes: I35.1 - Nonrheumatic aortic (valve) insufficiency Status: Acute (3) Adjustment disorder with mixed anxiety and depressed mood ICD Codes: F43.23 - Adjustment disorder with mixed anxiety and depressed mood Status: Chronic (4) IV drug abuse ICD Codes: F19.10 - Other psychoactive substance abuse, uncomplicated Status: Acute (5) Endocarditis ICD Codes: I38 - Endocarditis, valve unspecified Status: Acute (6) Tobacco abuse ICD Codes: Z72.0 - Tobacco use Status: Chronic Assessment and Plan 32y/o female with SBE involving the aortic valve with severe AI and a vegetation. She has ~class 2 CHF symptoms at this time, and is not a surgical candidate for AVR due to ongoing IV drug use. Her prognosis is guarded to poor based on her recent behavior and I informed her as to why she is a poor operative candidate and that she would need to commit to being without illicit IV drugs for the rest of her life. She has little to no outside support system , so I doubt she will be able to accomplish drug rehab for 6-12 months at which time, she may be considered for AVR. I also discussed her with her assigned case supervisor and they will be working on a discharge plan. I can see her as an outpatient in a month and re-assess her commitment to being drug-free. Problem Qualifiers (1) Endocarditis: Qualified Codes: I33.0 - Acute and subacute infective endocarditis Tamra Guevara MD Dec 02, 2017 16:08
[2017-12-03] VITALS (7 sets, daily range): BP systolic 117–136; BP diastolic 48–68; PULSE 84–102; RESP 17–20; TEMP 96.3–97.9; O2SAT 95–98
[2017-12-03] MEDS: ceFAZolin 2 GM PREMIX 50 ML IV SCH ×3 (04:22→21:21)
[2017-12-03] MEDS: ACYCLOVIR 200 MG CAP PO SCH ×5 (06:18→22:55)
[2017-12-03] MEDS: clonazePAM 0.5 MG TAB PO SCH ×3 (06:18→21:17)
[2017-12-03] MEDS: amLODIPine BESYLATE 5 MG TAB PO SCH (09:38)
[2017-12-03] MEDS: ENOXAPARIN SODIUM 80 MG/0.8 ML SYRINGE SQ SCH ×2 (09:38→21:20)
[2017-12-03] MEDS: DOCUSATE SODIUM 50 MG/SENNA 8.6 MG TAB PO SCH ×2 (09:38→21:17)
[2017-12-03] MEDS: PANTOPRAZOLE SOD 20 MG DELAYED RELEASE TAB PO SCH (09:39)
[2017-12-03] MEDS: SERTRALINE HCL 50 MG TAB PO SCH (09:39)
[2017-12-03] MEDS: SODIUM CHLORIDE 0.9% FLUSH 10 ML FLUSH IV FLUSH SCH ×2 (09:40→21:20)
[2017-12-03] MEDS: FERROUS SULFATE 325 MG (65 MG ELEMENTAL IRON) TAB PO SCH ×2 (12:23→17:11)
[2017-12-03] MEDS ORDERED: FUROSEMIDE 20 MG TAB PO ONE (13:00)
--- NOTE | 2017-12-03 13:30 | HHI.PYPN ---
Subjective Remarks Patient was seen today for psychiatric reevaluation. Chart was reviewed. Case discussed with nurse in charge. On psychiatric evaluation today the patient is found sleeping, but arousable. Patient reports that yesterday she had an episode of emotional breakdown, she says that she was about to leave the hospital AMA due to increased anxiety, and to increase sensation of being secluded and restrained. She says that she was missing fresh air and company of her friends, and also was having almost a panic attack. With medication she was able to calm down, and she decided that she needs to be here and complete her treatment. She reports that her anxiety is is still high, 7/10 especially at nighttime. She has been compliant with medications, no significant side effects. She denies suicidal and homicidal ideation, she denies visual and auditory hallucinations. Review of Systems Psychiatric: COMPLAINS OF: Anxiety Except as stated in HPI: all other systems reviewed are Neg Mental Status Examination Appearance: Appropriate Consciousness: Alert Orientation: x4 Motor Activity: Normal gait Speech: Unremarkable Language: Adequate Fund of Knowledge: Adequate Attention and Concentration: Adequate Memory: Unremarkable Mood: Sad Affect: Irritable, Anxious Thought Process & Associations: Intact Thought Content: Appropriate Hallucination Type: None Delusion Type: None Suicidal Ideation: No Suicidal Plan: No Suicidal Intention: No Homicidal Ideation: No Homicidal Plan: No Homicidal Intention: No Insight: Adequate Judgment: Adequate Results Labs Date/Time Source Procedure Growth Status 11/22/17 01:25 Blood Peripheral Aerobic Blood Culture - Final NO GROWTH IN 5 DAYS Complete 11/22/17 01:25 Blood Peripheral Anaerobic Blood Culture - Final NO GROWTH IN 5 DAYS Complete 11/24/17 22:00 Stool Stool Stool Occult Blood (JONNY) - Final HEMOCCULT NEGATIVE Complete 11/22/17 01:25 Urine Catheterized Urine Urine Culture - Final 50-100,000 CFU/ML MIXED GRAM POSITIVE... Complete 11/22/17 17:35 Catheter Tip Other Wound Culture - Final Complete Vitals/IOs Vital Signs Date Time Temp Pulse Resp B/P (MAP) Pulse Ox O2 Delivery O2 Flow Rate FiO2 12/03/17 12:00 96.3 92 17 136/60 (85) 98 Intake and Output 12/03/17 12/03/17 12/04/17 08:00 16:00 00:00 Intake Total 50 ml Balance 50 ml Assessment & Plan Problem List: (1) Adjustment disorder with mixed anxiety and depressed mood ICD Codes: F43.23 - Adjustment disorder with mixed anxiety and depressed mood Status: Chronic Assessment & Plan: Patient reports that she continues to be anxious in in spite of psychotropics, sleeping poorly at night. Drug seeking is possible. Behavioral techniques for anxiety recommended and practiced. Brief supportive psychotherapy provided. We'll increase Seroquel to 100 mg at bedtime. Continue clonazepam 0.5 milligrams twice a day. Assessment & Plan Estimated LOS: days Justification for Cont. Inpt. No psychiatric admissions recommended. We'll follow-up in Wilfrido Camarillo MD Dec 03, 2017 13:30
--- NOTE | 2017-12-03 15:45 | HHI.PR ---
Subjective Remarks Wishes to complains of abdominal fullness and pain. Options for weaning off narcotics prior to discharge her discussed with patient. She is intending to transition to methadone clinic for slow wean and requested methadone be started here. Objective Vital Signs Date Time Temp Pulse Resp B/P (MAP) Pulse Ox O2 Delivery O2 Flow Rate FiO2 12/03/17 12:00 96.3 92 17 136/60 (85) 98 12/03/17 08:00 96.9 90 17 117/50 (72) 95 12/03/17 08:00 84 12/03/17 04:00 97.9 90 20 117/68 (84) 95 12/03/17 04:00 91 12/03/17 00:00 97.6 100 20 129/48 (75) 98 12/02/17 23:00 92 12/02/17 20:00 98.7 102 20 123/33 (63) 96 12/02/17 16:00 99.1 102 16 159/67 (97) 97 I/O 12/02/17 12/02/17 12/02/17 12/03/17 12/03/17 12/03/17 06:59 14:59 22:59 06:59 14:59 22:59 Intake Total 50 ml 50 ml Balance 50 ml 50 ml IV Total 50 ml 50 ml # Voids 2 1 Result Diagram: 12/02/17 1155 11/29/17 0520 Objective Remarks GENERAL: NAD, A&Ox3 HEAD: Normocephalic. NECK: Supple, trachea midline. No lymphadenopathy. EYES: No scleral icterus. No injection or drainage. CARDIOVASCULAR: Regular rate and rhythm with murmur. No gallops or rubs. RESPIRATORY: Breath sounds equal bilaterally. No accessory muscle use. GASTROINTESTINAL: Abdomen soft, non-tender, nondistended. MUSCULOSKELETAL: No cyanosis, or edema. SKIN: Warm and dry. NEURO: No focal neurological deficitis. A/P Problem List: (1) Severe aortic regurgitation ICD Code: I35.1 - Nonrheumatic aortic (valve) insufficiency Status: Acute (2) IV drug abuse ICD Code: F19.10 - Other psychoactive substance abuse, uncomplicated Status: Acute (3) IVDU (intravenous drug user) ICD Code: F19.90 - Other psychoactive substance use, unspecified, uncomplicated (4) Endocarditis ICD Code: I38 - Endocarditis, valve unspecified Status: Acute Assessment and Plan 32 years old female history IV drug use, previously admitted with infective endocarditis. Outpatient IV antibiotics were arranged and patient failed follow -up, treatments to continue inpatient until 12/08/17. Transition from oxycodone to methadone. No narcotics will be provided at time of discharge. Anticipated discharge is on 12/08/16. Lasix started today. Infective endocarditis MSSA sepsis MSSA septic emboli Continue cefazolin until 12/08/17 ID Following Repeat blood cultures were negative Severe aortic regurgitation Cardiology input and treatment recommendations appreciated Continue CHAPO inhibitor Continue diuretic Cardiothoracic surgery evaluation pending Abdominal pain Etiology uncertain Etiology may be related to inflammation from septic emboli Continue present treatments Continue anticoagulation Dyspnea Improving Right upper extremity DVT Related to previous infection Continue Lovenox Anemia Follow CBC Active IVDU Rehabilitation recommended Tobacco Abuse NicoDerm DVT Prophylaxis Lovenox Discharge Planning Plan for discharge after antibiotics completed on 12/08/17 Problem Qualifiers (1) Endocarditis: Qualified Codes: I33.0 - Acute and subacute infective endocarditis Ganesh Patten MD Dec 03, 2017 15:45
[2017-12-03] MEDS: METHADONE HCL 10 MG TAB PO SCH (21:17)
[2017-12-03] MEDS: QUEtiapine FUMARATE 100 MG TAB PO SCH (22:55)
[2017-12-04] VITALS (7 sets, daily range): BP systolic 94–143; BP diastolic 44–60; PULSE 82–102; RESP 17–20; TEMP 96.3–98.1; O2SAT 94–100
[2017-12-04] MEDS: ceFAZolin 2 GM PREMIX 50 ML IV SCH ×3 (05:30→21:43)
[2017-12-04] MEDS: clonazePAM 0.5 MG TAB PO SCH ×3 (05:30→21:42)
[2017-12-04] MEDS: ACYCLOVIR 200 MG CAP PO SCH ×5 (05:31→21:42)
[2017-12-04] MEDS: ENOXAPARIN SODIUM 80 MG/0.8 ML SYRINGE SQ SCH ×2 (09:48→21:44)
[2017-12-04] MEDS: SERTRALINE HCL 50 MG TAB PO SCH (09:48)
[2017-12-04] MEDS: SODIUM CHLORIDE 0.9% FLUSH 10 ML FLUSH IV FLUSH SCH ×2 (09:48→21:44)
[2017-12-04] MEDS: METHADONE HCL 10 MG TAB PO SCH ×2 (09:49→21:43)
[2017-12-04] MEDS: FUROSEMIDE 20 MG TAB PO SCH (09:49)
[2017-12-04] MEDS: PANTOPRAZOLE SOD 20 MG DELAYED RELEASE TAB PO SCH (09:50)
[2017-12-04] MEDS: DOCUSATE SODIUM 50 MG/SENNA 8.6 MG TAB PO SCH ×2 (09:50→21:44)
[2017-12-04] MEDS: amLODIPine BESYLATE 5 MG TAB PO SCH (09:50)
[2017-12-04] MEDS: LORazepam 2 MG/ML VIAL IV PUSH PRN ×2 (12:33→17:34)
[2017-12-04] MEDS: FERROUS SULFATE 325 MG (65 MG ELEMENTAL IRON) TAB PO SCH ×2 (12:33→17:21)
--- NOTE | 2017-12-04 17:36 | HHI.PR ---
Subjective Remarks Abdominal fullness and pain remain. Patient requests once a day methadone dosing (to mirror what she will transition to as outpatient, at the methadone clinic). No new complaints. Objective Vital Signs Date Time Temp Pulse Resp B/P (MAP) Pulse Ox O2 Delivery O2 Flow Rate FiO2 12/04/17 16:29 94 12/04/17 16:00 92 12/04/17 16:00 97.4 96 19 114/52 (72) 100 12/04/17 12:00 96 12/04/17 12:00 97.0 93 17 109/51 (70) 98 143/60 (87) 12/04/17 08:00 98.0 82 19 94/44 (61) 94 12/04/17 08:00 83 12/04/17 00:37 96.3 102 18 131/57 (81) 98 12/03/17 22:30 98 12/03/17 20:00 97.4 96 18 135/59 (84) 98 12/03/17 20:00 97 I/O 12/03/17 12/03/17 12/03/17 12/04/17 12/04/17 12/04/17 07:00 15:00 23:00 07:00 15:00 23:00 Intake Total 50 ml 1762 ml 780 ml Balance 50 ml 1762 ml 780 ml Intake Oral 1662 ml 780 ml IV Total 50 ml 100 ml # Voids 1 7 4 # Bowel Movements 1 Result Diagram: 12/02/17 1155 Objective Remarks GENERAL: NAD, A&Ox3 HEAD: Normocephalic. NECK: Supple, trachea midline. No lymphadenopathy. EYES: No scleral icterus. No injection or drainage. CARDIOVASCULAR: Regular rate and rhythm with murmur. No gallops or rubs. RESPIRATORY: Breath sounds equal bilaterally. No accessory muscle use. GASTROINTESTINAL: Abdomen soft, non-tender, nondistended. MUSCULOSKELETAL: No cyanosis, or edema. SKIN: Warm and dry. NEURO: No focal neurological deficitis. A/P Problem List: (1) Severe aortic regurgitation ICD Code: I35.1 - Nonrheumatic aortic (valve) insufficiency Status: Acute (2) IV drug abuse ICD Code: F19.10 - Other psychoactive substance abuse, uncomplicated Status: Acute (3) IVDU (intravenous drug user) ICD Code: F19.90 - Other psychoactive substance use, unspecified, uncomplicated (4) Endocarditis ICD Code: I38 - Endocarditis, valve unspecified Status: Acute Assessment and Plan 32 years old female history IV drug use, previously admitted with infective endocarditis. Outpatient IV antibiotics were arranged and patient failed follow -up, treatments to continue inpatient until 12/08/17. Transition from oxycodone to methadone. No narcotics will be provided at time of discharge. No benzodiazepines at discharge. Anticipated discharge is on . Lasix continued. Infective endocarditis MSSA sepsis MSSA septic emboli Continue cefazolin until 12/08/17 ID Following Repeat blood cultures were negative Severe aortic regurgitation NYHA class II congestive heart failure (systolic) Cardiology input and treatment recommendations appreciated Continue CHAPO inhibitor Continue diuretic Cardiothoracic surgery follow-up one month after discharge Patient qualifies for valve replacement for cardiothoracic surgery, however given her drug abuse history she will need to be free from drugs for 6-12 months for surgical consideration is made. Abdominal pain Etiology uncertain Etiology may be related to inflammation from septic emboli Continue present treatments Continue anticoagulation Dyspnea Improving Right upper extremity DVT Related to previous infection Continue Lovenox Anemia Follow CBC Active IVDU Rehabilitation counseling recommended at time of discharge Tobacco Abuse NicoDerm DVT Prophylaxis Lovenox Discharge Planning Plan for discharge after antibiotics completed on 12/08/17 No control substances will be prescribed at time of discharge Problem Qualifiers (1) Endocarditis: Qualified Codes: I33.0 - Acute and subacute infective endocarditis Ganesh Patten MD Dec 04, 2017 17:36
[2017-12-04] MEDS: QUEtiapine FUMARATE 100 MG TAB PO SCH (21:42)
[2017-12-04] MEDS: busPIRone HCL 5 MG TAB PO SCH (21:42)
[2017-12-05 00:49] VITALS: BP 134/44; PULSE 101; RESP 20; TEMP 98.1; O2SAT 99
[2017-12-05] MEDS: clonazePAM 0.5 MG TAB PO SCH ×3 (05:18→22:02)
[2017-12-05] MEDS: ACYCLOVIR 200 MG CAP PO SCH ×2 (05:18→09:40)
[2017-12-05] MEDS: busPIRone HCL 5 MG TAB PO SCH ×3 (05:18→22:02)
[2017-12-05] MEDS: ceFAZolin 2 GM PREMIX 50 ML IV SCH ×3 (05:18→22:02)
[2017-12-05 08:00] VITALS: BP 110/49; PULSE 82; RESP 17; TEMP 96.8; O2SAT 98
[2017-12-05] MEDS: amLODIPine BESYLATE 5 MG TAB PO SCH (09:34)
[2017-12-05] MEDS: DOCUSATE SODIUM 50 MG/SENNA 8.6 MG TAB PO SCH ×2 (09:34→22:02)
[2017-12-05] MEDS: FUROSEMIDE 20 MG TAB PO SCH (09:34)
[2017-12-05] MEDS: SERTRALINE HCL 50 MG TAB PO SCH (09:34)
[2017-12-05] MEDS: PANTOPRAZOLE SOD 20 MG DELAYED RELEASE TAB PO SCH (09:34)
[2017-12-05] MEDS: METHADONE HCL 10 MG TAB PO SCH (09:35)
[2017-12-05] MEDS: SODIUM CHLORIDE 0.9% FLUSH 10 ML FLUSH IV FLUSH SCH ×2 (09:36→22:07)
[2017-12-05] MEDS: ENOXAPARIN SODIUM 80 MG/0.8 ML SYRINGE SQ SCH ×2 (09:36→22:03)
[2017-12-05] MEDS: hydrOXYzine PAMOATE 25 MG CAP PO PRN ×3 (09:44→22:06)
[2017-12-05 12:00] VITALS: BP 112/53; PULSE 97; RESP 17; TEMP 96.9; O2SAT 99
[2017-12-05] MEDS ORDERED: CEPH-460 PO (13:32)
--- NOTE | 2017-12-05 13:40 | HHI.PYPN ---
Subjective Remarks Patient was seen today for psychiatric reevaluation. Chart was reviewed. Patient was calm, cooperative, pleasant, she says that she feels much better today, she feels the "like my anxiety is under control", denies pain, denies mood symptoms, she denies suicidal and homicidal ideation, she denies visual and auditory hallucinations. Patient also reports good sleep, concentration level of appetite. Patient says that she is motivated to continue and finish her IV antibiotic therapy. Also motivated to fight to keep sobriety after discharge. Review of Systems Except as stated in HPI: all other systems reviewed are Neg Mental Status Examination Appearance: Appropriate Consciousness: Alert Orientation: x4 Motor Activity: Normal gait Speech: Unremarkable Language: Adequate Fund of Knowledge: Adequate Attention and Concentration: Adequate Memory: Unremarkable Mood: Sad Affect: Irritable, Anxious Thought Process & Associations: Intact Thought Content: Appropriate Hallucination Type: None Delusion Type: None Suicidal Ideation: No Suicidal Plan: No Suicidal Intention: No Homicidal Ideation: No Homicidal Plan: No Homicidal Intention: No Insight: Adequate Judgment: Adequate Results Labs Date/Time Source Procedure Growth Status 11/22/17 01:25 Blood Peripheral Aerobic Blood Culture - Final NO GROWTH IN 5 DAYS Complete 11/22/17 01:25 Blood Peripheral Anaerobic Blood Culture - Final NO GROWTH IN 5 DAYS Complete 11/24/17 22:00 Stool Stool Stool Occult Blood (JONNY) - Final HEMOCCULT NEGATIVE Complete 11/22/17 01:25 Urine Catheterized Urine Urine Culture - Final 50-100,000 CFU/ML MIXED GRAM POSITIVE... Complete 11/22/17 17:35 Catheter Tip Other Wound Culture - Final Complete Vitals/IOs Vital Signs Date Time Temp Pulse Resp B/P (MAP) Pulse Ox O2 Delivery O2 Flow Rate FiO2 12/05/17 12:00 96.9 97 17 112/53 (72) 99 Intake and Output 12/05/17 12/05/17 12/06/17 08:00 16:00 00:00 Intake Total 830 ml Balance 830 ml Assessment & Plan Problem List: (1) Adjustment disorder with mixed anxiety and depressed mood ICD Codes: F43.23 - Adjustment disorder with mixed anxiety and depressed mood Status: Chronic Assessment & Plan: Brief supportive psychotherapy, motivational psychoeducation provided. Continue current psychotropic regimen. Assessment & Plan Estimated LOS: days Justification for Cont. Inpt. No indication for psychiatric admission. Marquise,Wilfrido B. MD Dec 05, 2017 13:40
--- NOTE | 2017-12-05 13:45 | HHI.IDPN ---
Note Infectious Disease Note ID follow up. Notes reviewed. Treatment in progress for aortic valve endocarditis. Due to complete on 12/08/17. IV drug use through midline on days before readmission on 11/22/17. Developed thrombus in cephalic vein site of midline. Fever, chills on admission. Admission blood cultures negative. Patient gets SOB with exertion. Gets anxiety attacks but feels that Vistaril is helping. Expresses motivation to go through drug rehab. Notes she has tendency to get boils on the skin. Allergies Coded Allergies acetaminophen (Verified Allergy, Severe, "LOOPY", 11/22/17) propoxyphene (Verified Allergy, Severe, "LOOPY", 11/22/17) Fish Containing Products (Verified Allergy, Intermediate, 11/22/17) butorphanol (Verified Allergy, Intermediate, HALUCINATIONS, 11/22/17) Current Medications Medications (Trade) Dose Ordered Sig/Jannie Route PRN Reason Start Time Stop Time Status Last Admin Dose Admin Sodium Chloride (NS Flush) 2 ml UNSCH PRN IV FLUSH FLUSH AFTER USING IV ACCESS 11/22/17 04:30 Sodium Chloride (NS Flush) 2 ml BID IV FLUSH 11/22/17 09:00 12/05/17 09:36 Ondansetron HCl (Zofran Inj) 4 mg Q6H PRN IVP NAUSEA OR VOMITING 11/22/17 04:30 11/29/17 05:22 Senna/Docusate Sodium (Sujatha-Colace) 1 tab BID PO 11/22/17 09:00 12/05/17 09:34 Magnesium Hydroxide (Milk Of Magnesia Liq) 30 ml Q12H PRN PO Mild constipation 11/22/17 04:30 Sennosides (Senokot) 17.2 mg Q12H PRN PO Moderate constipation 11/22/17 04:30 Bisacodyl (Dulcolax Supp) 10 mg DAILY PRN RECTAL SEVERE CONSITIPATION 11/22/17 04:30 Lactulose (Lactulose Liq) 30 ml DAILY PRN PO SEVERE CONSITIPATION 11/22/17 04:30 Lorazepam (Ativan Inj) 1 mg Q2H PRN IV PUSH AGITATION/WITHDRAWAL/anxiety 11/22/17 04:30 12/04/17 17:34 Acyclovir (Zovirax) 200 mg 5 TIMES A DAY PO 11/22/17 06:00 12/05/17 09:40 Cefazolin Sodium/ Dextrose 50 ml @ 100 mls/hr Q8H IV 11/22/17 12:00 12/05/17 05:18 Enoxaparin Sodium (Lovenox Inj) 70 mg Q12H SQ 11/22/17 20:00 12/05/17 09:36 Ferrous Sulfate (Ferrous Sulfate) 325 mg BID@12,17 PO 11/23/17 12:00 12/04/17 17:21 Pantoprazole Sodium (Protonix) 20 mg DAILY PO 11/26/17 11:15 12/05/17 09:34 Amlodipine Besylate (Norvasc) 5 mg DAILY PO 11/28/17 09:00 12/05/17 09:34 Clonazepam (KlonoPIN) 0.5 mg Q8HR PO 11/30/17 14:00 12/05/17 05:18 Sertraline HCl (Zoloft) 25 mg DAILY PO 12/01/17 09:00 12/05/17 09:34 Miscellaneous (Pill Splitter) 1 ea UNSCH PRN OTHER SEE LABEL COMMENTS 11/30/17 14:15 Furosemide (Lasix) 20 mg DAILY PO 12/04/17 09:00 12/05/17 09:34 Quetiapine Fumarate (SEROquel) 100 mg HS PO 12/03/17 21:00 12/04/17 21:42 Hydroxyzine Pamoate (Vistaril) 25 mg Q6H PRN PO ANXIETY 12/04/17 17:30 12/05/17 09:44 Buspirone HCl (Buspar) 5 mg Q8HR PO 12/04/17 22:00 12/05/17 05:18 Methadone HCl (Dolophine) 20 mg DAILY PO 12/05/17 09:00 12/05/17 09:35 OBJECTIVE: Vital Signs Date Time Temp Pulse Resp B/P (MAP) Pulse Ox O2 Delivery O2 Flow Rate FiO2 12/05/17 12:00 96.9 97 17 112/53 (72) 99 12/05/17 08:00 96.8 82 17 110/49 (69) 98 12/05/17 00:49 98.1 101 20 134/44 (74) 99 12/04/17 22:47 89 12/04/17 20:00 98.1 92 20 123/48 (73) 98 12/04/17 16:29 94 12/04/17 16:00 92 12/04/17 16:00 97.4 96 19 114/52 (72) 100 Microbiology Date/Time Source Procedure Growth Status 11/24/17 22:00 Stool Stool Stool Occult Blood (JONNY) - Final HEMOCCULT NEGATIVE Complete IMAGING: CT Angiography 11/28/17 0000 Signed Impressions: Service Date/Time: Tuesday, November 28, 2017 19:40 - CONCLUSION: 1. No pulmonary emboli. 2. Small bilateral pleural effusions with associated passive atelectasis. 3. Small ground glass opacity within the right middle lobe. This could relate to an early infectious infiltrate or focal pulmonary edema. 4. Area of scarring involving the lingula. 5. Tiny pericardial effusion. 6. Wedge- shaped low-density area involving the spleen consistent with prior infarction. Ismael Bruno Jr., MD Abdomen/Pelvis CT 11/28/17 0000 Signed Impressions: Service Date/Time: Tuesday, November 28, 2017 19:40 - CONCLUSION: 1. Small bilateral pleural effusions. 2. Multiple splenic infarcts. 3. Small volume ascites. Ismael Bruno Jr., MD Chest X-Ray 11/26/17 0000 Signed Impressions: Service Date/Time: Sunday, November 26, 2017 23:22 - CONCLUSION: Suspected edema with a mild left pleural effusion. Matthieu Marie MD Abdomen X-Ray 11/26/17 0000 Signed Impressions: Service Date/Time: Sunday, November 26, 2017 23:25 - CONCLUSION: No acute disease. Matthieu Marie MD Abdomen Ultrasound 11/26/17 0000 Signed Impressions: Service Date/Time: Sunday, November 26, 2017 12:50 - CONCLUSION: 1. Splenomegaly with 3 avascular hypoechoic areas which may represent infarcts. Suggest followup to confirm stability or resolution. 2. Mild nonspecific gallbladder wall thickening. There are no other features to suggest acute gallbladder inflammation or obstruction. Matthieu Braden MD Upper Extremity Ultrasound 11/22/17 0000 Signed Impressions: Service Date/Time: Wednesday, November 22, 2017 17:54 - CONCLUSION: Right upper extremity DVT involving the axillary and basilic veins. Matthieu Griffiths MD Chest X-Ray 11/22/17 0045 Signed Impressions: Service Date/Time: Wednesday, November 22, 2017 01:07 - CONCLUSION: 1. There continues to be a focal infiltrate in left midlung which has improved compared to the prior exam. 2. No new infiltrates are seen. No other new or significant changes. Vern Richter MD Upper Extremity Ultrasound 11/22/17 0000 Signed Impressions: Service Date/Time: Wednesday, November 22, 2017 17:54 - CONCLUSION: Right upper extremity DVT involving the axillary and basilic veins. Matthieu Griffiths MD GENERAL: Patient is in no acute distress. HEENT: EOMI, No icterus. No conjunctival erythema. NECK: Supple. LUNGS: Clear breath sounds. CARDIAC: Regular rate and rhythm, Nl S1S2, loud systolic murmur at LSB. ABDOMEN: Soft, non tender. EXTREMITIES: No longer has swelling or tenderness at the R. humerus. No CCE. SKIN: No rash. NEURO: Non focal. PSYCH: Calm and pleasant and cooperative. IMPRESSION: Aortic valve endocarditis with Severe aortic regurg. on echocardiogram. PICC infection. IVDU. Active. Recent septic lung, spleen emboli. Septic Thrombophlebitis RUE. RUE DVT at cephalic and basilic vein. Clinically stable. RECOMMEND: Stop acyclovir. Continue Ancef 2 gram IV Q hours until 12/08/17. PO Keflex x 1 month - prescription on chart. Follow up with CT surgery. Patient pursuing inpatient drug rehab program. rBeezy Muñoz MD Dec 05, 2017 13:45
[2017-12-05] MEDS: FERROUS SULFATE 325 MG (65 MG ELEMENTAL IRON) TAB PO SCH ×2 (15:38→15:42)
[2017-12-05 16:00] VITALS: BP_SYST 137; BP_SYST 157; BP_DIAS 55; BP_DIAS 67; PULSE 108; PULSE 88; RESP 17; RESP 18; TEMP 96.2; TEMP 97.4; O2SAT 95; O2SAT 99
--- NOTE | 2017-12-05 17:19 | HHI.PR ---
Subjective Remarks Controlled. Doing well. No new complaints today. Objective Vital Signs Date Time Temp Pulse Resp B/P (MAP) Pulse Ox O2 Delivery O2 Flow Rate FiO2 12/05/17 16:00 96.2 108 17 137/55 (82) 99 12/05/17 12:00 96.9 97 17 112/53 (72) 99 12/05/17 10:35 16 12/05/17 08:00 96.8 82 17 110/49 (69) 98 12/05/17 00:49 98.1 101 20 134/44 (74) 99 12/04/17 22:47 89 12/04/17 20:00 98.1 92 20 123/48 (73) 98 I/O 12/04/17 12/04/17 12/04/17 12/05/17 12/05/17 12/05/17 07:00 15:00 23:00 07:00 15:00 23:00 Intake Total 780 ml 815 ml 830 ml Output Total 4 ml Balance 780 ml 811 ml 830 ml Intake Oral 780 ml 715 ml 780 ml IV Total 100 ml 50 ml Output Urine Total 4 ml # Voids 4 3 # Bowel Movements 1 Result Diagram: 12/02/17 1155 Objective Remarks GENERAL: NAD, A&Ox3 HEAD: Normocephalic. NECK: Supple, trachea midline. No lymphadenopathy. EYES: No scleral icterus. No injection or drainage. CARDIOVASCULAR: Regular rate and rhythm with murmur. No gallops or rubs. RESPIRATORY: Breath sounds equal bilaterally. No accessory muscle use. GASTROINTESTINAL: Abdomen soft, non-tender, nondistended. MUSCULOSKELETAL: No cyanosis, or edema. SKIN: Warm and dry. NEURO: No focal neurological deficitis. A/P Problem List: (1) Severe aortic regurgitation ICD Code: I35.1 - Nonrheumatic aortic (valve) insufficiency Status: Acute (2) IV drug abuse ICD Code: F19.10 - Other psychoactive substance abuse, uncomplicated Status: Acute (3) IVDU (intravenous drug user) ICD Code: F19.90 - Other psychoactive substance use, unspecified, uncomplicated (4) Endocarditis ICD Code: I38 - Endocarditis, valve unspecified Status: Acute Assessment and Plan 32 years old female history IV drug use, previously admitted with infective endocarditis. Outpatient IV antibiotics were arranged and patient failed follow -up, treatments to continue inpatient until 12/08/17. Pain currently controlled. No narcotics will be provided at time of discharge. No benzodiazepines at discharge. Anticipated discharge is on 12/08/16. Lasix continued. Infective endocarditis MSSA sepsis MSSA septic emboli Continue cefazolin until 12/08/17 ID Following Repeat blood cultures were negative Severe aortic regurgitation NYHA class II congestive heart failure (systolic) Cardiology input and treatment recommendations appreciated Continue CHAPO inhibitor Continue diuretic Cardiothoracic surgery follow-up one month after discharge Patient qualifies for valve replacement for cardiothoracic surgery, however given her drug abuse history she will need to be free from drugs for 6-12 months for surgical consideration is made. Abdominal pain Etiology uncertain Etiology may be related to inflammation from septic emboli Continue present treatments Continue anticoagulation Dyspnea Improving Right upper extremity DVT Related to previous infection Continue Lovenox Anemia Follow CBC Active IVDU Rehabilitation counseling recommended at time of discharge Tobacco Abuse NicoDerm DVT Prophylaxis Lovenox Discharge Planning Plan for discharge after antibiotics completed on 12/08/17 No control substances will be prescribed at time of discharge Problem Qualifiers (1) Endocarditis: Qualified Codes: I33.0 - Acute and subacute infective endocarditis Ganesh Patten MD Dec 05, 2017 17:19
[2017-12-05 20:00] VITALS: BP 112/40; PULSE 95; RESP 16; TEMP 98.4; O2SAT 100
[2017-12-05] MEDS: QUEtiapine FUMARATE 100 MG TAB PO SCH (22:02)
[2017-12-05] MEDS: LORazepam 2 MG/ML VIAL IV PUSH PRN (23:18)
[2017-12-06] VITALS: BP 120/43; PULSE 121; RESP 16; TEMP 98.7; O2SAT 100
[2017-12-06 04:00] VITALS: BP 121/52; PULSE 112; RESP 17; TEMP 98.9; O2SAT 100
[2017-12-06] MEDS: hydrOXYzine PAMOATE 25 MG CAP PO PRN ×2 (05:30→22:33)
[2017-12-06] MEDS: busPIRone HCL 5 MG TAB PO SCH ×3 (05:30→22:09)
[2017-12-06] MEDS: clonazePAM 0.5 MG TAB PO SCH ×3 (05:30→22:08)
[2017-12-06] MEDS: ceFAZolin 2 GM PREMIX 50 ML IV SCH ×3 (05:31→22:08)
[2017-12-06 08:00] VITALS: BP 93/51; PULSE 90; RESP 15; TEMP 97.8; O2SAT 99
[2017-12-06] MEDS: amLODIPine BESYLATE 5 MG TAB PO SCH (09:00)
[2017-12-06] MEDS: SERTRALINE HCL 50 MG TAB PO SCH (09:00)
[2017-12-06] MEDS: SODIUM CHLORIDE 0.9% FLUSH 10 ML FLUSH IV FLUSH SCH ×2 (09:13→22:14)
[2017-12-06] MEDS: ENOXAPARIN SODIUM 80 MG/0.8 ML SYRINGE SQ SCH ×2 (09:14→22:11)
[2017-12-06] MEDS: DOCUSATE SODIUM 50 MG/SENNA 8.6 MG TAB PO SCH ×2 (09:15→22:09)
[2017-12-06] MEDS: METHADONE HCL 10 MG TAB PO SCH (09:15)
[2017-12-06] MEDS: FUROSEMIDE 20 MG TAB PO SCH (09:16)
[2017-12-06] MEDS: PANTOPRAZOLE SOD 20 MG DELAYED RELEASE TAB PO SCH (09:16)
[2017-12-06] MEDS: LORazepam 2 MG/ML VIAL IV PUSH PRN ×3 (09:23→23:56)
[2017-12-06] MEDS: FERROUS SULFATE 325 MG (65 MG ELEMENTAL IRON) TAB PO SCH ×2 (11:43→16:34)
[2017-12-06 12:00] VITALS: BP 115/53; PULSE 107; RESP 16; TEMP 98.1; O2SAT 98
[2017-12-06 16:00] VITALS: BP 106/51; PULSE 97; RESP 15; TEMP 97.5; O2SAT 99
[2017-12-06] MEDS ORDERED: GABAPENTIN 100 MG CAP PO ONE (19:30)
[2017-12-06] MEDS ORDERED: OMEP40CA2 PO (19:40)
[2017-12-06] MEDS ORDERED: ACYC200C66 PO (19:40)
[2017-12-06] MEDS ORDERED: DOCU100C15 PO (19:40)
[2017-12-06] MEDS ORDERED: FERR325T20 PO (19:40)
[2017-12-06] MEDS ORDERED: LISI2.5T3 PO (19:40)
[2017-12-06] MEDS ORDERED: HYDR1CAP30 PO (19:40)
[2017-12-06] MEDS ORDERED: FURO20TA PO (19:40)
[2017-12-06] MEDS ORDERED: BUSP5TAB PO (19:40)
[2017-12-06] MEDS ORDERED: QUET1TAB8 PO (19:40)
[2017-12-06] MEDS ORDERED: GABA100C4 PO (19:40)
--- NOTE | 2017-12-06 19:48 | HHI.PR ---
Subjective Remarks Mrs. Angelo is a 32 year-old female. 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 As a result she also has severe aortic stenosis, with associated congestive heart failure NYHA class II. Originally she was treated inpatient with IV antibiotics and this was transitioned to outpatient treatment. She missed two treatments in a row secondary to IV drug abuse relapse and came back to the ER, at that point she was admitted for completion of her therapy inpatient. Upon discharge she is to follow-up with cardiothoracic surgery (Dr. Osullivan) for continued monitoring of her severe aortic regurgitation. Potential plan for surgery will only occur if she can remain drug free for 6-12 months prior to consideration for surgery. She'll be completing antibiotic therapy on 12/08/17. She is obtaining her antibiotic treatments every 8 hours which would put her at completion of treatment approximately 8 PM 12/08/17, unless otherwise specified by infectious disease physician. No new complaints today. Gabapentin added to present therapies and she has had benefit in the past for control of her chronic pain with this. Objective Vital Signs Date Time Temp Pulse Resp B/P (MAP) Pulse Ox O2 Delivery O2 Flow Rate FiO2 12/06/17 16:00 97.5 97 15 106/51 (69) 99 12/06/17 12:00 98.1 107 16 115/53 (73) 98 12/06/17 08:00 97.8 90 15 93/51 (65) 99 12/06/17 04:00 98.9 112 17 121/52 (75) 100 12/06/17 00:00 98.7 121 16 120/43 (68) 100 12/05/17 20:00 98.4 95 16 112/40 (64) 100 I/O 12/05/17 12/05/17 12/05/17 12/06/17 12/06/17 12/06/17 07:00 15:00 23:00 07:00 15:00 23:00 Intake Total 830 ml 1440 ml 290 ml 50 ml 1480 ml Balance 830 ml 1440 ml 290 ml 50 ml 1480 ml Intake Oral 780 ml 1440 ml 240 ml 1480 ml IV Total 50 ml 50 ml 50 ml # Voids 3 6 2 6 # Bowel Movements 1 1 1 Result Diagram: 12/02/17 1155 Objective Remarks GENERAL: NAD, A&Ox3 HEAD: Normocephalic. NECK: Supple, trachea midline. No lymphadenopathy. EYES: No scleral icterus. No injection or drainage. CARDIOVASCULAR: Regular rate and rhythm with murmur. No gallops or rubs. RESPIRATORY: Breath sounds equal bilaterally. No accessory muscle use. GASTROINTESTINAL: Abdomen soft, non-tender, nondistended. MUSCULOSKELETAL: No cyanosis, or edema. SKIN: Warm and dry. NEURO: No focal neurological deficitis. A/P Problem List: (1) Severe aortic regurgitation ICD Code: I35.1 - Nonrheumatic aortic (valve) insufficiency Status: Acute (2) IV drug abuse ICD Code: F19.10 - Other psychoactive substance abuse, uncomplicated Status: Acute (3) IVDU (intravenous drug user) ICD Code: F19.90 - Other psychoactive substance use, unspecified, uncomplicated (4) Endocarditis ICD Code: I38 - Endocarditis, valve unspecified Status: Acute Assessment and Plan 32 years old female history IV drug use, previously admitted with infective endocarditis. Outpatient IV antibiotics were arranged and patient failed follow -up, treatments to continue inpatient until 12/08/17. Pain currently controlled. No narcotics will be provided at time of discharge. No benzodiazepines at discharge. Gabapentin added today for pain control. Amlodipine is changed to an CHAPO inhibitor for blood pressure control and treatment of congestive heart failure. Anticipated discharge is on 12/08/16 versus a.m. of 12/09/16, depending on dosing of antibiotic and completion point. Lasix continued. Infective endocarditis MSSA sepsis MSSA septic emboli Continue cefazolin until 12/08/17 ID Following Repeat blood cultures were negative Severe aortic regurgitation NYHA class II congestive heart failure (systolic) Cardiology input and treatment recommendations appreciated Continue CHAPO inhibitor Continue diuretic Cardiothoracic surgery follow-up one month after discharge Patient qualifies for valve replacement for cardiothoracic surgery, however given her drug abuse history she will need to be free from drugs for 6-12 months for surgical consideration is made. Abdominal pain Etiology uncertain Etiology may be related to inflammation from septic emboli Continue present treatments Continue anticoagulation Dyspnea Improving Right upper extremity DVT Related to previous infection Continue Lovenox Anemia Follow CBC Active IVDU Rehabilitation counseling recommended at time of discharge Tobacco Abuse NicoDerm DVT Prophylaxis Lovenox Discharge Planning Plan for discharge after antibiotics completed on 12/08/17 No control substances will be prescribed at time of discharge Problem Qualifiers (1) Endocarditis: Qualified Codes: I33.0 - Acute and subacute infective endocarditis Ganesh Patten MD Dec 06, 2017 19:48
[2017-12-06] MEDS ORDERED: LACTTAB8 PO (19:58)
[2017-12-06 20:00] VITALS: BP 132/60; PULSE 105; RESP 20; TEMP 98.4; O2SAT 100
[2017-12-06] MEDS ORDERED: PILL SPLITTER OTHER PRN (20:00)
[2017-12-06] MEDS: QUEtiapine FUMARATE 100 MG TAB PO SCH (22:09)
[2017-12-06] MEDS: SODIUM CHLORIDE 0.9% FLUSH 10 ML FLUSH IV FLUSH PRN (23:56)
[2017-12-07] VITALS: BP 117/54; PULSE 114; RESP 20; TEMP 97.5; O2SAT 99
[2017-12-07 04:00] VITALS: BP 102/48; PULSE 104; RESP 18; TEMP 98.8; O2SAT 98
[2017-12-07] MEDS: busPIRone HCL 5 MG TAB PO SCH ×3 (06:03→23:48)
[2017-12-07] MEDS: ceFAZolin 2 GM PREMIX 50 ML IV SCH ×3 (06:03→21:10)
[2017-12-07] MEDS: clonazePAM 0.5 MG TAB PO SCH ×3 (06:03→23:48)
[2017-12-07] MEDS: SODIUM CHLORIDE 0.9% FLUSH 10 ML FLUSH IV FLUSH PRN (06:06)
[2017-12-07 08:00] VITALS: BP 107/48; PULSE 88; RESP 20; TEMP 97.4; O2SAT 99
[2017-12-07] MEDS: ENOXAPARIN SODIUM 80 MG/0.8 ML SYRINGE SQ SCH ×2 (08:44→21:13)
[2017-12-07] MEDS: DOCUSATE SODIUM 50 MG/SENNA 8.6 MG TAB PO SCH ×2 (08:50→21:11)
[2017-12-07] MEDS: SODIUM CHLORIDE 0.9% FLUSH 10 ML FLUSH IV FLUSH SCH ×2 (08:50→21:13)
[2017-12-07] MEDS: LISINOPRIL 5 MG TAB PO SCH (08:51)
[2017-12-07] MEDS: PANTOPRAZOLE SOD 20 MG DELAYED RELEASE TAB PO SCH (08:51)
[2017-12-07] MEDS: FUROSEMIDE 20 MG TAB PO SCH (08:51)
[2017-12-07] MEDS: METHADONE HCL 10 MG TAB PO SCH (08:52)
[2017-12-07] MEDS: SERTRALINE HCL 50 MG TAB PO SCH (08:53)
[2017-12-07] MEDS: GABAPENTIN 100 MG CAP PO SCH ×3 (08:53→18:27)
[2017-12-07] MEDS: hydrOXYzine PAMOATE 25 MG CAP PO PRN ×3 (09:15→21:11)
[2017-12-07] MEDS: LORazepam 2 MG/ML VIAL IV PUSH PRN ×2 (09:16→21:11)
[2017-12-07 09:19] LABS: BASOPHIL # 0.1 TH/MM3 (0-0.2); BASOPHIL % 1.5 % (0.0-2.0); EOSINOPHIL # 0.2 TH/MM3 (0-0.4); EOSINOPHIL % 4.9 % (0.0-4.0); HEMATOCRIT 27.3 % (35.0-46.0); HEMOGLOBIN 8.7 GM/DL (11.6-15.3); LYMPHOCYTE # 2.1 TH/MM3 (1.0-4.8); MEAN CELL VOLUME 78.2 FL (80.0-100.0); MEAN PLATELET VOLUME 7.1 FL (7.0-11.0); MONO % 8.7 % (0.0-8.0); MONOCYTE # 0.3 TH/MM3 (0-0.9); NEUT % 26.9 % (16.0-70.0); PLATELET COUNT 251 TH/MM3 (150-450); RED BLOOD COUNT 3.49 MIL/MM3 (4.00-5.30); RED CELL DISTRIBUTION WIDTH 20.5 % (11.6-17.2); WHITE BLOOD COUNT 3.6 TH/MM3 (4.0-11.0)
[2017-12-07 09:38] LABS: AST (GOT) 45 U/L (15-37); BICARBONATE 26.3 MEQ/L (21.0-32.0); BLOOD UREA NITROGEN 9 MG/DL (7-18); CALCIUM 8.6 MG/DL (8.5-10.1); CHLORIDE 107 MEQ/L (98-107); CREATININE 0.82 MG/DL (0.50-1.00); GLOMERULAR FILTRATION RATE 80 ML/MIN (>89); GLUCOSE,RANDOM 76 MG/DL (74-106); SODIUM (NA) 141 MEQ/L (136-145)
[2017-12-07 09:39] LABS: ALT (GPT) 25 U/L (10-53)
[2017-12-07 09:42] LABS: ALKALINE PHOSPHATASE 84 U/L (45-117); TOTAL BILIRUBIN ADULT 0.2 MG/DL (0.2-1.0); TOTAL PROTEIN 6.8 GM/DL (6.4-8.2)
[2017-12-07 12:00] VITALS: BP 136/53; PULSE 76; RESP 20; TEMP 98.2; O2SAT 99
[2017-12-07] MEDS: FERROUS SULFATE 325 MG (65 MG ELEMENTAL IRON) TAB PO SCH ×2 (13:07→15:03)
[2017-12-07 16:00] VITALS: BP 118/64; PULSE 76; RESP 22; TEMP 98.4; O2SAT 99
--- NOTE | 2017-12-07 19:30 | HHI.PR ---
Subjective Remarks 32F with h/o endocarditis who presented two weeks ago with sepsis. Completion of her treatment is tomorrow, we spent time discussing social issues and her plan to avoid IV drug use. Objective Vitals Vital Signs Date Time Temp Pulse Resp B/P (MAP) Pulse Ox O2 Delivery O2 Flow Rate FiO2 12/07/17 16:00 98.4 76 22 118/64 (82) 99 12/07/17 12:00 98.2 76 20 136/53 (80) 99 12/07/17 08:00 97.4 88 20 107/48 (67) 99 12/07/17 04:00 98.8 104 18 102/48 (66) 98 12/07/17 00:00 97.5 114 20 117/54 (75) 99 12/06/17 20:00 98.4 105 20 132/60 (84) 100 I/O 12/06/17 12/06/17 12/06/17 12/07/17 12/07/17 12/07/17 07:00 15:00 23:00 07:00 15:00 23:00 Intake Total 290 ml 50 ml 1530 ml 770 ml 1600 ml Balance 290 ml 50 ml 1530 ml 770 ml 1600 ml Intake Oral 240 ml 1480 ml 720 ml 1600 ml IV Total 50 ml 50 ml 50 ml 50 ml # Voids 2 6 5 5 # Bowel Movements 1 1 0 Result Diagram: 12/07/17 0830 12/07/17 0830 Objective Remarks GENERAL: Well-nourished, well-developed patient. SKIN: Warm and dry. HEAD: Normocephalic. EYES: No scleral icterus. No injection or drainage. NECK: Supple, trachea midline. No JVD or lymphadenopathy. CARDIOVASCULAR: Regular rate and rhythm without murmurs, gallops, or rubs. RESPIRATORY: Breath sounds equal bilaterally. No accessory muscle use. GASTROINTESTINAL: Abdomen soft, non-tender, nondistended. EXTREMITIES: No cyanosis, or edema. NEUROLOGICAL: Awake, alert, and oriented x 3. Non-focal. A/P Problem List: (1) Sepsis ICD Code: A41.9 - Sepsis, unspecified organism (2) Endocarditis ICD Code: I38 - Endocarditis, valve unspecified Status: Acute (3) S/P PICC central line placement ICD Code: Z95.828 - Presence of other vascular implants and grafts (4) UTI (urinary tract infection) ICD Code: N39.0 - Urinary tract infection, site not specified (5) Anemia ICD Code: D64.9 - Anemia, unspecified (6) IVDU (intravenous drug user) ICD Code: F19.90 - Other psychoactive substance use, unspecified, uncomplicated (7) Tobacco abuse ICD Code: Z72.0 - Tobacco use Status: Chronic Assessment and Plan Infective endocarditis MSSA sepsis MSSA septic emboli Continue cefazolin until 12/08/17 ID Following Repeat blood cultures were negative Severe aortic regurgitation NYHA class II congestive heart failure (systolic) Continue CHAPO inhibitor, diuretic Cardiothoracic surgery follow-up one month after discharge Patient qualifies for valve replacement for cardiothoracic surgery, however given her drug abuse history she will need to be free from drugs for 6-12 months for surgical consideration is made. Abdominal pain Resolved Dyspnea Intermittent, related to fluid overload from CHF/valvular dysfunction Right upper extremity DVT Related to previous infection, not new on this admission Continue Lovenox Anemia Follow CBC Active IVDU she plans to sign up for a drug treatment program with regular enforced urine testing, or, she plans to leave town to avoid bad influences Tobacco Abuse NicoDerm DVT Prophylaxis Lovenox Discharge Planning Discharge tomorrow. No narcotics or benzos. Problem Qualifiers (1) Endocarditis: Qualified Codes: I33.0 - Acute and subacute infective endocarditis Delmer Patten MD Dec 07, 2017 19:30
[2017-12-07] MEDS: QUEtiapine FUMARATE 100 MG TAB PO SCH (21:11)
[2017-12-08] MEDS: ceFAZolin 2 GM PREMIX 50 ML IV SCH ×2 (04:00→11:18)
[2017-12-08] MEDS: clonazePAM 0.5 MG TAB PO SCH ×2 (06:21→14:56)
[2017-12-08] MEDS: busPIRone HCL 5 MG TAB PO SCH ×2 (06:21→14:56)
[2017-12-08] MEDS: ONDANSETRON HCL 4 MG/2 ML VIAL IVP PRN (06:29)
[2017-12-08] MEDS: SODIUM CHLORIDE 0.9% FLUSH 10 ML FLUSH IV FLUSH PRN (06:29)
[2017-12-08 08:00] VITALS: BP 114/47; PULSE 90; RESP 20; TEMP 96.7; O2SAT 97
[2017-12-08] MEDS: LISINOPRIL 5 MG TAB PO SCH (11:05)
[2017-12-08] MEDS: GABAPENTIN 100 MG CAP PO SCH ×2 (11:05→14:56)
[2017-12-08] MEDS: ENOXAPARIN SODIUM 80 MG/0.8 ML SYRINGE SQ SCH (11:05)
[2017-12-08] MEDS: FUROSEMIDE 20 MG TAB PO SCH (11:05)
[2017-12-08] MEDS: METHADONE HCL 10 MG TAB PO SCH (11:05)
[2017-12-08] MEDS: DOCUSATE SODIUM 50 MG/SENNA 8.6 MG TAB PO SCH (11:06)
[2017-12-08] MEDS: SERTRALINE HCL 50 MG TAB PO SCH (11:06)
[2017-12-08] MEDS: PANTOPRAZOLE SOD 20 MG DELAYED RELEASE TAB PO SCH (11:06)
[2017-12-08] MEDS: FERROUS SULFATE 325 MG (65 MG ELEMENTAL IRON) TAB PO SCH (11:17)
[2017-12-08] MEDS: SODIUM CHLORIDE 0.9% FLUSH 10 ML FLUSH IV FLUSH SCH (11:18)
[2017-12-08] MEDS: LORazepam 2 MG/ML VIAL IV PUSH PRN (11:19)
--- NOTE | 2017-12-08 11:36 | HHI.IDPN ---
Note Infectious Disease Note ID follow up. Treatment in progress for aortic valve endocarditis. Due to complete treatment today. IV drug use through midline on days before readmission on 11/22/17. Developed thrombus in cephalic vein site of midline. Fever, chills on admission. Admission blood cultures negative. Patient is anxious and upset. Reports that nurses were talking about her drug use. Gets anxiety attacks but feels that Vistaril is helping. Expresses motivation to go through drug rehab. Allergies Coded Allergies acetaminophen (Verified Allergy, Severe, "LOOPY", 11/22/17) propoxyphene (Verified Allergy, Severe, "LOOPY", 11/22/17) Fish Containing Products (Verified Allergy, Intermediate, 11/22/17) butorphanol (Verified Allergy, Intermediate, HALUCINATIONS, 11/22/17) Current Medications Medications (Trade) Dose Ordered Sig/Jannie Route PRN Reason Start Time Stop Time Status Last Admin Dose Admin Sodium Chloride (NS Flush) 2 ml UNSCH PRN IV FLUSH FLUSH AFTER USING IV ACCESS 11/22/17 04:30 12/08/17 06:29 Sodium Chloride (NS Flush) 2 ml BID IV FLUSH 11/22/17 09:00 12/08/17 11:18 Ondansetron HCl (Zofran Inj) 4 mg Q6H PRN IVP NAUSEA OR VOMITING 11/22/17 04:30 12/08/17 06:29 Senna/Docusate Sodium (Sujatha-Colace) 1 tab BID PO 11/22/17 09:00 12/08/17 11:06 Magnesium Hydroxide (Milk Of Magnesia Liq) 30 ml Q12H PRN PO Mild constipation 11/22/17 04:30 Sennosides (Senokot) 17.2 mg Q12H PRN PO Moderate constipation 11/22/17 04:30 Bisacodyl (Dulcolax Supp) 10 mg DAILY PRN RECTAL SEVERE CONSITIPATION 11/22/17 04:30 Lactulose (Lactulose Liq) 30 ml DAILY PRN PO SEVERE CONSITIPATION 11/22/17 04:30 Lorazepam (Ativan Inj) 1 mg Q2H PRN IV PUSH AGITATION/WITHDRAWAL/anxiety 11/22/17 04:30 12/08/17 11:19 Cefazolin Sodium/ Dextrose 50 ml @ 100 mls/hr Q8H IV 11/22/17 12:00 12/08/17 11:18 Enoxaparin Sodium (Lovenox Inj) 70 mg Q12H SQ 11/22/17 20:00 12/08/17 11:05 Ferrous Sulfate (Ferrous Sulfate) 325 mg BID@12,17 PO 11/23/17 12:00 12/08/17 11:17 Pantoprazole Sodium (Protonix) 20 mg DAILY PO 11/26/17 11:15 12/08/17 11:06 Clonazepam (KlonoPIN) 0.5 mg Q8HR PO 11/30/17 14:00 12/08/17 06:21 Sertraline HCl (Zoloft) 25 mg DAILY PO 12/01/17 09:00 12/08/17 11:06 Miscellaneous (Pill Splitter) 1 ea UNSCH PRN OTHER SEE LABEL COMMENTS 11/30/17 14:15 Furosemide (Lasix) 20 mg DAILY PO 12/04/17 09:00 12/08/17 11:05 Quetiapine Fumarate (SEROquel) 100 mg HS PO 12/03/17 21:00 12/07/17 21:11 Hydroxyzine Pamoate (Vistaril) 25 mg Q6H PRN PO ANXIETY 12/04/17 17:30 12/07/17 21:11 Buspirone HCl (Buspar) 5 mg Q8HR PO 12/04/17 22:00 12/08/17 06:21 Methadone HCl (Dolophine) 20 mg DAILY PO 12/05/17 09:00 12/08/17 11:05 Gabapentin (Neurontin) 100 mg TID PO 12/07/17 09:00 12/08/17 11:05 Lisinopril (Prinivil) 2.5 mg DAILY PO 12/07/17 09:00 12/08/17 11:05 OBJECTIVE: Vital Signs Date Time Temp Pulse Resp B/P (MAP) Pulse Ox O2 Delivery O2 Flow Rate FiO2 12/08/17 08:00 96.7 90 20 114/47 (69) 97 12/07/17 16:00 98.4 76 22 118/64 (82) 99 12/07/17 12:00 98.2 76 20 136/53 (80) 99 Laboratory Tests Test 12/07/17 08:30 White Blood Count 3.6 TH/MM3 Red Blood Count 3.49 MIL/MM3 Hemoglobin 8.7 GM/DL Hematocrit 27.3 % Mean Corpuscular Volume 78.2 FL Mean Corpuscular Hemoglobin 25.0 PG Mean Corpuscular Hemoglobin Concent 32.0 % Red Cell Distribution Width 20.5 % Platelet Count 251 TH/MM3 Mean Platelet Volume 7.1 FL Neutrophils (%) (Auto) 26.9 % Lymphocytes (%) (Auto) 58.0 % Monocytes (%) (Auto) 8.7 % Eosinophils (%) (Auto) 4.9 % Basophils (%) (Auto) 1.5 % Neutrophils # (Auto) 1.0 TH/MM3 Lymphocytes # (Auto) 2.1 TH/MM3 Monocytes # (Auto) 0.3 TH/MM3 Eosinophils # (Auto) 0.2 TH/MM3 Basophils # (Auto) 0.1 TH/MM3 CBC Comment DIFF FINAL Differential Comment Laboratory Tests Test 12/07/17 08:30 Blood Urea Nitrogen 9 MG/DL Creatinine 0.82 MG/DL Random Glucose 76 MG/DL Total Protein 6.8 GM/DL Albumin 3.0 GM/DL Calcium Level 8.6 MG/DL Alkaline Phosphatase 84 U/L Aspartate Amino Transf (AST/SGOT) 45 U/L Alanine Aminotransferase (ALT/SGPT) 25 U/L Total Bilirubin 0.2 MG/DL Sodium Level 141 MEQ/L Potassium Level 4.2 MEQ/L Chloride Level 107 MEQ/L Carbon Dioxide Level 26.3 MEQ/L Anion Gap 8 MEQ/L Estimat Glomerular Filtration Rate 80 ML/MIN IMAGING: CT Angiography 11/28/17 0000 Signed Impressions: Service Date/Time: Tuesday, November 28, 2017 19:40 - CONCLUSION: 1. No pulmonary emboli. 2. Small bilateral pleural effusions with associated passive atelectasis. 3. Small ground glass opacity within the right middle lobe. This could relate to an early infectious infiltrate or focal pulmonary edema. 4. Area of scarring involving the lingula. 5. Tiny pericardial effusion. 6. Wedge- shaped low-density area involving the spleen consistent with prior infarction. Ismael Bruno Jr., MD Abdomen/Pelvis CT 11/28/17 0000 Signed Impressions: Service Date/Time: Tuesday, November 28, 2017 19:40 - CONCLUSION: 1. Small bilateral pleural effusions. 2. Multiple splenic infarcts. 3. Small volume ascites. Ismael Bruno Jr., MD Chest X-Ray 11/26/17 0000 Signed Impressions: Service Date/Time: Sunday, November 26, 2017 23:22 - CONCLUSION: Suspected edema with a mild left pleural effusion. Matthieu Marie MD Abdomen X-Ray 11/26/17 0000 Signed Impressions: Service Date/Time: Sunday, November 26, 2017 23:25 - CONCLUSION: No acute disease. Matthieu Marie MD Abdomen Ultrasound 11/26/17 0000 Signed Impressions: Service Date/Time: Sunday, November 26, 2017 12:50 - CONCLUSION: 1. Splenomegaly with 3 avascular hypoechoic areas which may represent infarcts. Suggest followup to confirm stability or resolution. 2. Mild nonspecific gallbladder wall thickening. There are no other features to suggest acute gallbladder inflammation or obstruction. Matthieu Braden MD Upper Extremity Ultrasound 11/22/17 0000 Signed Impressions: Service Date/Time: Wednesday, November 22, 2017 17:54 - CONCLUSION: Right upper extremity DVT involving the axillary and basilic veins. Matthieu Griffiths MD Chest X-Ray 11/22/17 0045 Signed Impressions: Service Date/Time: Wednesday, November 22, 2017 01:07 - CONCLUSION: 1. There continues to be a focal infiltrate in left midlung which has improved compared to the prior exam. 2. No new infiltrates are seen. No other new or significant changes. Vern Richter MD Upper Extremity Ultrasound 11/22/17 0000 Signed Impressions: Service Date/Time: Wednesday, November 22, 2017 17:54 - CONCLUSION: Right upper extremity DVT involving the axillary and basilic veins. Matthieu Griffiths MD GENERAL: Patient is in no acute distress. HEENT: EOMI, No icterus. No conjunctival erythema. NECK: Supple. LUNGS: Clear breath sounds. CARDIAC: Regular rate and rhythm, Nl S1S2, 2/6 murmur at LSB. ABDOMEN: Soft, non tender. EXTREMITIES: No longer has swelling or tenderness at the R. humerus. No CCE. SKIN: No rash. NEURO: Non focal. PSYCH: Calm and cooperative. IMPRESSION: Aortic valve endocarditis with Severe aortic regurg. on echocardiogram. PICC infection. PICC removed. IVDU. Before admission. Recent septic lung, spleen emboli. Septic Thrombophlebitis RUE. RUE DVT at cephalic and basilic vein. Clinically stable. RECOMMEND: Stop Ancef today. PO Keflex x 1 month - prescription on chart. Follow up with CT surgery in 1 month. Urine drug screen ordered to check if she used drugs in last few days. Patient pursuing inpatient drug rehab program on her own. Okay to discharge today. Breezy Muñoz MD Dec 08, 2017 11:36
[2017-12-08] MEDS ORDERED: XARE20TA PO (16:01)
[2017-12-08] MEDS ORDERED: GABA300C5 PO (16:03)
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
== END 2017-12-08 17:14 | disposition home or self-care (01) | DRG 871 ==
LOC: NEPC 19:30 → NEDA 11-22 07:47 → NEDH 11-22 10:30 → N07B 11-22 13:12 → UNDODISIN 12-05 14:33
PROVIDERS: ADMIT Family Medicine; ATTEND Family Medicine
DX: A41.01 Sepsis due to Methicillin susceptible Staphylococcus aureus (principal); I33.0 Acute and subacute infective endocarditis; I76 Septic arterial embolism; T82.514A Breakdown (mechanical) of infusion catheter, initial encounter; I50.20 Unspecified systolic (congestive) heart failure; N39.0 Urinary tract infection, site not specified; F11.20 Opioid dependence, uncomplicated; I82.721 Chronic embolism and thrombosis of deep veins of right upper extremity; D64.9 Anemia, unspecified; F17.210 Nicotine dependence, cigarettes, uncomplicated; Y71.2 Prosthetic and other implants, materials and accessory cardiovascular devices associated with adverse incidents; I35.2 Nonrheumatic aortic (valve) stenosis with insufficiency; F43.23 Adjustment disorder with mixed anxiety and depressed mood; E87.6 Hypokalemia; F31.9 Bipolar disorder, unspecified; K21.9 Gastro-esophageal reflux disease without esophagitis; M79.621 Pain in right upper arm; G89.29 Other chronic pain; Z91.14 Patient's other noncompliance with medication regimen; Z86.14 Personal history of Methicillin resistant Staphylococcus aureus infection; Z79.01 Long term (current) use of anticoagulants
CPT/HCPCS: 71045; 71046; 71275; 74018; 74177; 76700; 76937; 80048; 80053; 80202; 80307; 81001; 82272; 82728; 83540; 83550; 83605; 83690; 83735; 83880; 84484; 84702; 84703; 85025; 85027; 85610; 85730; 86403; 86850; 86900; 86901; 87040; 87071; 87086; 93005; 93308; 93971; 94150; 96365; 96366; 96368; 96375; J0690; J1650; J2060; J2405; J2543; J7030; Q0177; Q9963; Q9967

== ENCOUNTER 2018-02-25 20:16 | Emergency (ER) | payer SELFPAY ==
[~2018-02-25 20:16] MED LIST changes: +BUSP5TAB PO; -CEFA2SOL IV; +CEPH-460 PO; +DOCU100C15 PO; +FERR325T20 PO; +FURO20TA PO; +GABA100C4 PO; +GABA300C5 PO; +HYDR1CAP30 PO; +LACTTAB8 PO; +LISI2.5T3 PO; -Nystatin Powder TOPICAL; +OMEP40CA2 PO; +QUET1TAB8 PO; -SOLU250I IV PUSH; +XARE20TA PO
== END 2018-02-25 21:25 | disposition left against medical advice (07) ==
LOC: NED 20:16
DX: M79.89 Other specified soft tissue disorders (principal)
CPT/HCPCS: 99281